=== PATIENT | female | born 1965 | race Caucasian/White ===

== ENCOUNTER → 2022-07-15 14:56 | Outpatient (BNVA) | payer OTHER, SELFPAY | PROVIDERS: PCP Internal Medicine; Visit Provider Student in an Organized Health Care Education/Training Program | DX: M05.79 Rheumatoid arthritis with rheumatoid factor of multiple sites without organ or systems involvement (principal) | CPT/HCPCS: 99202 ==

== ENCOUNTER 2022-07-25 13:52 | Outpatient (REF) | payer OTHER, SELFPAY ==
--- NOTE | ~2022-07-25 | XR_ITS ---
EXAMINATION: XR HAND AND WRIST, RIGHT XR HAND AND WRIST, LEFT CLINICAL INDICATIONS: Rheumatoid arthritis. COMPARISON: None available. TECHNIQUE: 3 views each hand and wrist. FINDINGS: LEFT HAND AND WRIST: There is mild loss of PIP and DIP joint space without periarticular spurring. No visible acute fracture, dislocation or loose body seen. The soft tissues are normal. RIGHT HAND AND WRIST: There is mild loss of PIP and DIP joint spaces with mild periarticular spurring DIP joint fifth digit. There are no bony erosive changes. No acute fracture or dislocation seen. The soft tissues are normal. XR/XR hand wrist RT IMPRESSION: Mild degenerative arthritic changes bilateral hands/wrists.
--- NOTE | ~2022-07-25 | XR_ITS ---
EXAMINATION: XR HAND AND WRIST, RIGHT XR HAND AND WRIST, LEFT CLINICAL INDICATIONS: Rheumatoid arthritis. COMPARISON: None available. TECHNIQUE: 3 views each hand and wrist. FINDINGS: LEFT HAND AND WRIST: There is mild loss of PIP and DIP joint space without periarticular spurring. No visible acute fracture, dislocation or loose body seen. The soft tissues are normal. RIGHT HAND AND WRIST: There is mild loss of PIP and DIP joint spaces with mild periarticular spurring DIP joint fifth digit. There are no bony erosive changes. No acute fracture or dislocation seen. The soft tissues are normal. XR/XR hand wrist LT IMPRESSION: Mild degenerative arthritic changes bilateral hands/wrists.
[2022-07-25 14:16] LABS: MANUAL DIFF FLAG NO
[2022-07-25 14:29] LABS: Basophils Absolute Auto 0.1 X10*3/uL (0.0-0.2); Basophils Percent Auto 0.7 % (0-2); Eosinophils Percent Auto 0.1 % (0-4); Hematocrit 38.8 % (37.0-47.0); Imm Gran Abs Auto 0.14 X10*3/uL (0.00-0.03); Imm Gran Pct Auto 0.9 % (0.0-0.4); Lymphocytes Absolute Auto 1.6 X10*3/uL (1.2-4.9); Lymphocytes Percent Auto 10.2 % (20-40); Mean Corpuscular HGB Conc 28.4 g/dl (31.0-35.0); Mean Corpuscular Hemoglobin 18.9 pg (27.0-33.0); Mean Corpuscular Volume 66.7 fL (80.0-98.0); Mean Platelet Volume 9.2 fL (9.4-12.3); Monocytes Absolute Auto 0.2 X10*3/uL (0.1-1.2); Monocytes Percent Auto 1.3 % (2-11); Neutrophils Absolute Auto 13.2 x10*3/uL (2.0-8.3); Neutrophils Percent Auto 86.8 % (45-73); Platelet Count 482 X10*3/uL (160-400); Red Blood Count 5.82 X10*6/uL (4.20-5.50); Red Cell Distribution Width 22.4 % (11.0-16.0); White Blood Count 15.2 X10*3/uL (4.8-10.8)
[2022-07-25 15:06] LABS: Alanine Aminotransferase 12 U/L (0-31); Albumin Level 4.2 g/dL (3.5-5.0); Alkaline Phosphatase 131 U/L (39-117); Anion Gap 17 (12-20); Aspartate Amino Transferase 10 U/L (5-31); Bilirubin Total 0.3 mg/dL (0.0-1.0); Blood Urea Nitrogen 10 mg/dL (9-16); Calcium 9.3 mg/dL (8.4-10.2); Carbon Dioxide 27 mmol/L (22-29); Chloride 100 mmol/L (96-108); Estimated Glomerular Filt Rate > 60; Glucose Random 191 mg/dL (60-115); Potassium 5.5 mmol/L (3.3-5.1); Rheumatoid Factor < 13.0 IU/mL (<15.0); Sodium 138 mmol/L (135-145); Total Protein 7.1 g/dL (6.5-8.0); Uric Acid 4.3 mg/dL (2.4-5.7)
[2022-07-25 15:09] LABS: Erythrocyte Sedimentation Rate 22 MM/HR (0-20)
[2022-07-28 08:28] LABS: HBS Num1 0.24 mIU/mL (0-7.99); HBc Num1 0.11 S/CO (0.00-0.79); HBsAGNum1 0.33 S/CO (0.00-0.99); Hepatitis A Antibody IgM 0.21 Index (0-0.79); Hepatitis B Core Antibody Nonreactive (Nonreactive); Hepatitis B Surface Antigen Negative (Negative); ~HepC Num1 0.12 S/CO (0.00-0.79); ~Hepatitis A Antibody IgM Nonreactive (Nonreactive); ~Hepatitis B Surface Antibody NONREACTIVE (Nonreactive); ~Hepatitis C Antibody Nonreactive (Nonreactive)
[2022-07-28 09:46] LABS: TSpotTB Invalid (Negative)
[2022-07-28 16:29] LABS: Cyclic Citrullinated Peptide <16 UNITS
[2022-07-29 13:02] LABS: IgA 247 mg/dL (47-310); IgG 1020 mg/dL (600-1640); IgM 104 mg/dL (50-300)
[2022-07-30 00:24] LABS: Prot Elec - Albumin 3.9 g/dL (3.8-4.8); Prot Elec - Alpha1 0.4 g/dL (0.2-0.3); Prot Elec - Alpha2 1.2 g/dL (0.5-0.9); Prot Elec - Beta 1 0.6 g/dL (0.4-0.6); Prot Elec - Beta 2 0.4 g/dL (0.2-0.5); Prot Elec - Total Protein 7.4 g/dL (6.1-8.1)
== END 2022-07-25 13:53 | disposition home or self-care (01) ==
LOC: HO.LAB 13:52
PROVIDERS: PCP Internal Medicine; Visit Provider Student in an Organized Health Care Education/Training Program
DX: M06.9 Rheumatoid arthritis, unspecified (principal); M25.531 Pain in right wrist; Z11.59 Encounter for screening for other viral diseases; Z11.7 Encounter for testing for latent tuberculosis infection
CPT/HCPCS: 36415; 73110; 73130; 80053; 82784; 84165; 84550; 85025; 85652; 86140; 86200; 86334; 86431; 86481; 86704; 86706; 86709; 86803; 87340

== ENCOUNTER 2022-08-04 10:44 | Outpatient (REF) | payer OTHER, SELFPAY ==
[2022-08-04 12:13] LABS: Alanine Aminotransferase 15 U/L (0-31); Albumin Level 4.1 g/dL (3.5-5.0); Alkaline Phosphatase 131 U/L (39-117); Anion Gap 14 (12-20); Aspartate Amino Transferase 12 U/L (5-31); Bilirubin Total 0.4 mg/dL (0.0-1.0); Blood Urea Nitrogen 11 mg/dL (9-16); Calcium 9.2 mg/dL (8.4-10.2); Carbon Dioxide 29 mmol/L (22-29); Chloride 101 mmol/L (96-108); Estimated Glomerular Filt Rate > 60; Glucose Random 241 mg/dL (60-115); Potassium 4.8 mmol/L (3.3-5.1); Sodium 139 mmol/L (135-145); Total Protein 6.8 g/dL (6.5-8.0)
[2022-08-06 13:42] LABS: TS Negative Control Passed; TS Panel A 0; TS Panel B 0; TS Positive Control Passed; TSpotTB Negative (Negative)
== END 2022-08-04 10:45 | disposition home or self-care (01) ==
LOC: HO.LAB 10:44
PROVIDERS: PCP Internal Medicine; Visit Provider Student in an Organized Health Care Education/Training Program
DX: Z11.7 Encounter for testing for latent tuberculosis infection (principal); M05.79 Rheumatoid arthritis with rheumatoid factor of multiple sites without organ or systems involvement
CPT/HCPCS: 36415; 80053; 86481

== ENCOUNTER → 2022-08-26 13:19 | Outpatient (BNVA) | payer OTHER, SELFPAY | PROVIDERS: PCP Internal Medicine; Visit Provider Student in an Organized Health Care Education/Training Program | DX: M05.79 Rheumatoid arthritis with rheumatoid factor of multiple sites without organ or systems involvement (principal); Z79.631 Long term (current) use of antimetabolite agent | CPT/HCPCS: 99212 ==

== ENCOUNTER 2022-11-14 11:04 | Outpatient (REF) | payer OTHER, SELFPAY ==
[2022-11-14 11:16] LABS: MANUAL DIFF FLAG NO
[2022-11-14 14:24] LABS: Basophils Absolute Auto 0.1 X10*3/uL (0.0-0.2); Basophils Percent Auto 0.7 % (0-2); Eosinophils Absolute Auto 0.3 X10*3/uL (0.0-0.4); Eosinophils Percent Auto 2.3 % (0-4); Hematocrit 36.6 % (37.0-47.0); Hemoglobin 10.5 g/dl (12.0-16.0); Imm Gran Abs Auto 0.05 X10*3/uL (0.00-0.03); Imm Gran Pct Auto 0.4 % (0.0-0.4); Lymphocytes Absolute Auto 2.4 X10*3/uL (1.2-4.9); Lymphocytes Percent Auto 21.8 % (20-40); Mean Corpuscular HGB Conc 28.7 g/dl (31.0-35.0); Mean Corpuscular Hemoglobin 21.5 pg (27.0-33.0); Mean Corpuscular Volume 74.8 fL (80.0-98.0); Mean Platelet Volume 9.6 fL (9.4-12.3); Monocytes Absolute Auto 0.4 X10*3/uL (0.1-1.2); Monocytes Percent Auto 3.6 % (2-11); Neutrophils Percent Auto 71.2 % (45-73); Platelet Count 415 X10*3/uL (160-400); Red Blood Count 4.89 X10*6/uL (4.20-5.50); Red Cell Distribution Width 25.2 % (11.0-16.0); White Blood Count 11.2 X10*3/uL (4.8-10.8)
[2022-11-14 15:08] LABS: Erythrocyte Sedimentation Rate 34 MM/HR (0-20)
[2022-11-14 15:42] LABS: Alanine Aminotransferase 34 U/L (0-31); Albumin Level 4.3 g/dL (3.5-5.0); Alkaline Phosphatase 169 U/L (39-117); Anion Gap 14 (12-20); Aspartate Amino Transferase 21 U/L (5-31); Bilirubin Total 0.3 mg/dL (0.0-1.0); Blood Urea Nitrogen 9 mg/dL (9-16); C Reactive Protein 1.24 mg/dL (< or = 0.50); Calcium 9.7 mg/dL (8.4-10.2); Carbon Dioxide 30 mmol/L (22-29); Chloride 99 mmol/L (96-108); Estimated Glomerular Filt Rate > 60; Glucose Random 216 mg/dL (60-115); Iron 51 mcg/dL (30-160); Percent Iron Saturation 13 % (15-50); Potassium 4.8 mmol/L (3.3-5.1); Sodium 138 mmol/L (135-145); Total Iron Binding Capacity 395 mcg/dL (228-428); Total Protein 7.6 g/dL (6.5-8.0); Unsaturated Iron Binding 344 ug/dL
[2022-11-14 15:43] LABS: Ferritin 48 ng/mL (10-250)
[2022-11-19 14:44] LABS: Transferrin 361 mg/dL (188-341)
== END 2022-11-14 11:05 | disposition home or self-care (01) ==
LOC: HO.LAB 11:04
PROVIDERS: Visit Provider Student in an Organized Health Care Education/Training Program
DX: D50.9 Iron deficiency anemia, unspecified (principal); Z79.631 Long term (current) use of antimetabolite agent
CPT/HCPCS: 36415; 80053; 82728; 83540; 84466; 85025; 85652; 86140

== ENCOUNTER 2022-11-20 10:21 | Outpatient (REF) | payer OTHER, SELFPAY ==
--- NOTE | ~2022-11-20 | XR_ITS ---
EXAMINATION: XR CHEST CLINICAL INFORMATION: Reason for Exam J44.9 - Chronic obstructive pulmonary disease, unspecified COMPARISON: None TECHNIQUE: 2 views of the chest FINDINGS: Lines and tubes: None. Clear lungs. Mild asymmetric elevation of the right hemidiaphragm. No pleural effusion. No pneumothorax. Normal cardiac silhouette. There is fullness of the right greater than left edgardo with some subtle convexity of the hilar borders which could potentially reflect underlying lymphadenopathy. XR/XR chest 2V IMPRESSION: 1. There is fullness of the right greater than left edgardo with some subtle convexity of the hilar borders which could potentially reflect underlying lymphadenopathy. Recommend CT chest with contrast for further characterization. 2. Clear lungs. The report will be called to the ordering clinician by a [facility] [employer] Professional.
== END 2022-11-20 10:22 | disposition home or self-care (01) ==
LOC: HO.XRAY 10:21
PROVIDERS: PCP Internal Medicine; Visit Provider Student in an Organized Health Care Education/Training Program
DX: J44.9 Chronic obstructive pulmonary disease, unspecified (principal)
CPT/HCPCS: 71046

== ENCOUNTER 2022-12-02 11:44 | Outpatient (AMB) | payer OTHER, SELFPAY ==
[2022-12-02 11:58] VITALS: BP 118/72; PULSE 99; TEMP 36.5; O2SAT 99; BMI 34.6
--- NOTE | 2022-12-02 11:58 | A.OFFVIS_ITS ---
Intake Vital Signs 12/02/22 11:58 Height 5 ft 3 in Weight 195 lb 1.745 oz BMI 34.6 BP 118/72 Blood Pressure Location Rt brachial Position Sitting Pulse 99 Pulse Source Pulse Oximeter Temp 97.7 F Temp Source Skin Pulse Oximetry (%) 99 Intake Visit Reasons: ra Intake Note: Pt seen today for RA follow up. 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 Accompanied by: Self / Same As Patient Allergies simvastatin Allergy (Verified 12/02/22 12:06) Joint Pain ibuuprofen micronized Allergy (Severe, Uncoded 12/02/22 12:06) Swelling Medication List - Last Reconciled 12/02/22 by Evert Garnica MD albuterol sulfate 90 mcg/actuation (Ventolin HFA) 2 puffs inhalation Q4-6H PRN aspirin (Adult Low Dose Aspirin) 81 mg PO DAILY atorvastatin 20 mg PO DAILY cholecalciferol (vitamin D3) 50 mcg PO DAILY clonidine HCl 0.1 mg PO BEDTIME PRN duloxetine 30 mg PO QAM ferrous sulfate 325 mg PO DAILY fluticasone propion-salmeterol 230-21 mcg/actuation (Advair HFA) 2 puffs inhalation BID glipizide ER 5 mg PO DAILY lamotrigine 200 mg PO QAM lamotrigine 100 mg PO DAILY leflunomide 10 mg PO DAILY levetiracetam (Keppra) 500 mg PO BID magnesium oxide 400 mg PO DAILY metformin ER 1,000 mg PO BID mirtazapine 7.5 mg PO BEDTIME omega-3 fatty acids 1,000 mg PO BID pantoprazole 40 mg PO DAILY ropinirole 0.5 mg PO TID tiotropium bromide 2.5 mcg/actuation (Spiriva Respimat) 1 puff inhalation BID HPI HPI Comments History of Present Illness Details 56-year-old female with seronegative RA returns for follow-up. She states that methotrexate started helping her a month or so after starting it. It reduced the severity of the flare ups of joint pain. We called patient 2 weeks ago asking her to hold methotrexate due to transaminitis. She states that since holding methotrexate she has been having worsening flare-ups. She mentioned that she recently was started on home oxygen for COPD. She states that her 6 minute walk test was worse. She uses 2 L of oxygen while walking. She had a screening low-dose CT chest done about a week ago at [facility]. She does not know what it showed Initial history: This is a 56-year-old female who presents for evaluation of diffuse joint pain this started about 5 months ago. Patient stated that she noticed relatively abrupt onset of multiple joint pains affecting her ankles, knees, wrists, elbows and right shoulder. This was associated with right hand swelling. She has morning stiffness lasting at least 30 minutes. States that does episodes of joint pain last 3-7 days and she would be pain free for a few days and the joint pain will come back. The joint pain alternates between different joints. Denies any skin rashes. No weight loss or fevers. Patient took Tylenol without relief. She does not take ibuprofen as she is allergic to it. After she developed that allergy to ibuprofen however she used to take Aleve in the past. She has not taken NSAIDs for her joint pain. Patient is a smoker and continues to smoke. She is moving to a nonsmoking building. Patient's mother had rheumatoid arthritis. Patient had colonoscopies in the past and per patient they were unremarkable. No history suggestive of uveitis or IBD. 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 Pancreatic adenoma Pap smear of cervix with ASCUS, cannot exclude HGSIL Suicidal behavior Surgical History H/O colonoscopy History of appendectomy History of cholecystectomy History of pancreatectomy S/P removal of left ovary Family History Father High blood cholesterol level CHF (congestive heart failure) Arthritis Mother High blood cholesterol level Rheumatoid arthritis Maternal Grandmother Diabetes Social History Alcohol intake: never Patient Tobacco Use Status: Current everyday Tobacco user Tobacco use type: Cigarette Cigarette Packs Per Day: 1 Years Smoked: 46 Review of Systems [facility] Reports arthralgias, Reports joint swelling and Reports stiffness Physical Exam Vital Signs: Last Vital Signs Temp 97.7 F 12/02/22 11:58 Pulse 99 12/02/22 11:58 BP 118/72 12/02/22 11:58 Pulse Ox 99 12/02/22 11:58 BMI result Body Mass Index 34.6 Const General: cooperative, healthy appearing and comfortable Nutritional Appearance: obese Orientation/consciousness: patient oriented x3 Limitations: no limitations HEENT Head: Yes normocephalic and Yes atraumatic Mouth: moist mucous membranes Resp Effort & Inspection: normal respiratory effort and able to speak in complete sentences GI Inspection: No distended Palpation (GI): Soft to palpation and nontender Neuro General: patient oriented x3 Extrem Other: No wrist swelling or tenderness or pain with full range of motion Diffusely tender PIPs bilaterally without significant swelling Pain with any knee range of motion bilaterally Assessment & Plan Assessment & Plan (1) Rheumatoid arthritis: Comment: seropositive (borderline RF then -ve on repeat, -ve CCP) dx 09/16 MTX started 09/16 effective DC 11/16 due to transaminitis Leflunomide started 12/17 Code(s): M06.9 - Rheumatoid arthritis, unspecified Qualifiers: Rheumatoid arthritis location: multiple sites Rheumatoid factor presence: with rheumatoid factor Qualified Code(s): M05.79 - Rheumatoid arthritis with rheumatoid factor of multiple sites without organ or systems involvement Plan: This is a 57-year-old female with seronegative RA who presents for follow-up. Started methotrexate last visit with good results however patient developed transaminitis. Discontinue methotrexate and switch to leflunomide. Start leflunomide 10 mg daily for 2 weeks then increase to 20 mg daily. Labs today and before next visit in 2 months Infectious screening hepatitis panel T spot - ve 2022 (2) Abnormal finding on lung imaging: Code(s): R91.8 - Other nonspecific abnormal finding of lung field Plan: Chest x-ray shows bilateral hilar fullness. Patient mentioned that she had a low-dose CT chest a week ago. Will attempt to retrieve the report Plan I spent 25 minutes reviewing patient's chart, evaluating patient, ordering diagnostic workup, counseling patient and documenting in the chart Orders: Orders Comprehensive Met. Panel 2 Months M06.9 - Rheumatoid arthritis, unspecified C Reactive Protein 2 Months M06.9 - Rheumatoid arthritis, unspecified Complete Blood Count Auto Diff 2 Months M06.9 - Rheumatoid arthritis, unspecified Erythrocyte Sedimentation Rate 2 Months M06.9 - Rheumatoid arthritis, unspecified Comprehensive Met. Panel Today Z79.631 - detention (current) use of antimetabolite agent C Reactive Protein Today Z79.631 - trolley car overhauler (current) use of antimetabolite agent Complete Blood Count Auto Diff Today Z79.631 - detention (current) use of antimetabolite agent Erythrocyte Sedimentation Rate Today Z79.631 - trolley car overhauler (current) use of antimetabolite agent Medications: New leflunomide Take 1 tab daily for 2 weeks then 2 tabs daily 10 mg PO DAILY 120 tabs 0RF Discontinued methotrexate sodium Discontinued Reason: Doctor's Order 20 mg (8 x 2.5 mg) PO QWEEK 96 tabs 0RF Coding Level of Care Code Est Pt Level 4 (34040) Diagnoses Rheumatoid arthritis M05.79 Rheumatoid arthritis location: multiple sites Rheumatoid factor presence: with rheumatoid factor Abnormal finding on lung imaging R91.8
== END 2022-12-02 12:31 | disposition home or self-care (01) ==
PROVIDERS: PCP Internal Medicine; Visit Provider Student in an Organized Health Care Education/Training Program
DX: M05.79 Rheumatoid arthritis with rheumatoid factor of multiple sites without organ or systems involvement (principal); R91.8 Other nonspecific abnormal finding of lung field
CPT/HCPCS: 99214

== ENCOUNTER 2022-12-02 11:44 | Outpatient (REF) | payer OTHER, SELFPAY ==
[2022-12-02 12:49] LABS: MANUAL DIFF FLAG NO
[2022-12-02 14:09] LABS: Basophils Absolute Auto 0.1 X10*3/uL (0.0-0.2); Basophils Percent Auto 0.7 % (0-2); Eosinophils Absolute Auto 0.3 X10*3/uL (0.0-0.4); Eosinophils Percent Auto 2.3 % (0-4); Hematocrit 36.7 % (37.0-47.0); Hemoglobin 10.7 g/dl (12.0-16.0); Imm Gran Abs Auto 0.09 X10*3/uL (0.00-0.03); Imm Gran Pct Auto 0.8 % (0.0-0.4); Lymphocytes Absolute Auto 2.8 X10*3/uL (1.2-4.9); Lymphocytes Percent Auto 24.4 % (20-40); Mean Corpuscular HGB Conc 29.2 g/dl (31.0-35.0); Mean Corpuscular Hemoglobin 22.1 pg (27.0-33.0); Mean Corpuscular Volume 75.7 fL (80.0-98.0); Mean Platelet Volume 9.7 fL (9.4-12.3); Monocytes Absolute Auto 0.6 X10*3/uL (0.1-1.2); Monocytes Percent Auto 5.2 % (2-11); Neutrophils Absolute Auto 7.7 x10*3/uL (2.0-8.3); Neutrophils Percent Auto 66.6 % (45-73); Platelet Count 431 X10*3/uL (160-400); Red Blood Count 4.85 X10*6/uL (4.20-5.50); Red Cell Distribution Width 24.6 % (11.0-16.0); White Blood Count 11.5 X10*3/uL (4.8-10.8)
[2022-12-02 14:48] LABS: Erythrocyte Sedimentation Rate 36 MM/HR (0-20)
[2022-12-02 15:55] LABS: Alanine Aminotransferase 22 U/L (0-31); Albumin Level 4.4 g/dL (3.5-5.0); Alkaline Phosphatase 147 U/L (39-117); Anion Gap 14 (12-20); Aspartate Amino Transferase 14 U/L (5-31); Bilirubin Total 0.2 mg/dL (0.0-1.0); Blood Urea Nitrogen 10 mg/dL (9-16); C Reactive Protein 1.73 mg/dL (< or = 0.50); Calcium 9.5 mg/dL (8.4-10.2); Carbon Dioxide 28 mmol/L (22-29); Chloride 103 mmol/L (96-108); Estimated Glomerular Filt Rate > 60; Glucose Random 143 mg/dL (60-115); Potassium 4.2 mmol/L (3.3-5.1); Sodium 141 mmol/L (135-145); Total Protein 7.7 g/dL (6.5-8.0)
== END 2022-12-02 11:45 | disposition home or self-care (01) ==
LOC: HO.LAB 11:44
PROVIDERS: PCP Internal Medicine; Visit Provider Student in an Organized Health Care Education/Training Program
DX: M05.79 Rheumatoid arthritis with rheumatoid factor of multiple sites without organ or systems involvement (principal); R91.8 Other nonspecific abnormal finding of lung field; Z79.631 Long term (current) use of antimetabolite agent
CPT/HCPCS: 36415; 80053; 85025; 85652; 86140; 99212

== ENCOUNTER 2023-02-10 13:31 | Outpatient (REF) | payer OTHER, SELFPAY ==
[2023-02-10 13:45] LABS: MANUAL DIFF FLAG NO
[2023-02-10 14:15] LABS: Basophils Absolute Auto 0.1 X10*3/uL (0.0-0.2); Basophils Percent Auto 0.8 % (0-2); Eosinophils Absolute Auto 0.1 X10*3/uL (0.0-0.4); Eosinophils Percent Auto 0.6 % (0-4); Hematocrit 45.5 % (37.0-47.0); Hemoglobin 13.9 g/dl (12.0-16.0); Imm Gran Abs Auto 0.04 X10*3/uL (0.00-0.03); Imm Gran Pct Auto 0.4 % (0.0-0.4); Lymphocytes Absolute Auto 1.4 X10*3/uL (1.2-4.9); Lymphocytes Percent Auto 12.5 % (20-40); Mean Corpuscular HGB Conc 30.5 g/dl (31.0-35.0); Mean Corpuscular Hemoglobin 23.3 pg (27.0-33.0); Mean Corpuscular Volume 76.2 fL (80.0-98.0); Monocytes Absolute Auto 0.4 X10*3/uL (0.1-1.2); Monocytes Percent Auto 3.7 % (2-11); Neutrophils Absolute Auto 8.9 x10*3/uL (2.0-8.3); Platelet Count 363 X10*3/uL (160-400); Red Blood Count 5.97 X10*6/uL (4.20-5.50); Red Cell Distribution Width 19.3 % (11.0-16.0); White Blood Count 10.8 X10*3/uL (4.8-10.8)
[2023-02-10 14:54] LABS: Alanine Aminotransferase 46 U/L (0-31); Albumin Level 4.6 g/dL (3.5-5.0); Alkaline Phosphatase 215 U/L (39-117); Anion Gap 19 (12-20); Aspartate Amino Transferase 30 U/L (5-31); Bilirubin Total 0.3 mg/dL (0.0-1.0); Blood Urea Nitrogen 11 mg/dL (9-16); C Reactive Protein 2.06 mg/dL (< or = 0.50); Calcium 10.2 mg/dL (8.4-10.2); Carbon Dioxide 23 mmol/L (22-29); Chloride 99 mmol/L (96-108); Estimated Glomerular Filt Rate > 60; Glucose Random 295 mg/dL (60-115); Sodium 136 mmol/L (135-145); Total Protein 8.3 g/dL (6.5-8.0)
[2023-02-10 15:02] LABS: Erythrocyte Sedimentation Rate 21 MM/HR (0-20)
== END 2023-02-10 13:32 | disposition home or self-care (01) ==
LOC: HO.LAB 13:31
PROVIDERS: PCP Internal Medicine; Visit Provider Student in an Organized Health Care Education/Training Program
DX: M06.9 Rheumatoid arthritis, unspecified (principal)
CPT/HCPCS: 36415; 80053; 85025; 85652; 86140

== ENCOUNTER 2023-02-18 00:16 | Emergency (ER) | payer OTHER, SELFPAY ==
[2023-02-18 00:33] VITALS: BP 150/85; PULSE 98; RESP 20; TEMP 36.6; O2SAT 93; BMI 34.5
[2023-02-18 01:01] LABS: MANUAL DIFF FLAG NO
[2023-02-18 01:03] LABS: Basophils Absolute Auto 0.1 X10*3/uL (0.0-0.2); Basophils Percent Auto 0.9 % (0-2); Eosinophils Absolute Auto 0.2 X10*3/uL (0.0-0.4); Hematocrit 42.5 % (37.0-47.0); Hemoglobin 12.8 g/dl (12.0-16.0); Imm Gran Abs Auto 0.03 X10*3/uL (0.00-0.03); Imm Gran Pct Auto 0.3 % (0.0-0.4); Lymphocytes Absolute Auto 2.7 X10*3/uL (1.2-4.9); Lymphocytes Percent Auto 26.2 % (20-40); Mean Corpuscular HGB Conc 30.1 g/dl (31.0-35.0); Mean Corpuscular Hemoglobin 22.6 pg (27.0-33.0); Mean Platelet Volume 9.5 fL (9.4-12.3); Monocytes Absolute Auto 0.7 X10*3/uL (0.1-1.2); Monocytes Percent Auto 6.7 % (2-11); Neutrophils Absolute Auto 6.6 x10*3/uL (2.0-8.3); Neutrophils Percent Auto 63.9 % (45-73); Platelet Count 331 X10*3/uL (160-400); Red Blood Count 5.67 X10*6/uL (4.20-5.50); Red Cell Distribution Width 17.9 % (11.0-16.0); White Blood Count 10.3 X10*3/uL (4.8-10.8)
[2023-02-18 01:17] LABS: Anion Gap 16 (12-20); Blood Urea Nitrogen 9 mg/dL (9-16); Calcium 9.7 mg/dL (8.4-10.2); Carbon Dioxide 23 mmol/L (22-29); Chloride 105 mmol/L (96-108); Creatinine Clr Calc Pharmacy 88.7; Estimated Glomerular Filt Rate > 60; Glucose Random 165 mg/dL (60-115); Potassium 3.9 mmol/L (3.3-5.1); Sodium 140 mmol/L (135-145)
== END 2023-02-18 04:18 | disposition left against medical advice (07) ==
PROVIDERS: Emergency Provider Emergency Medicine
DX: L81.9 Disorder of pigmentation, unspecified (principal); E11.65 Type 2 diabetes mellitus with hyperglycemia; E78.5 Hyperlipidemia, unspecified; D13.6 Benign neoplasm of pancreas; M06.9 Rheumatoid arthritis, unspecified; J44.9 Chronic obstructive pulmonary disease, unspecified; Z86.73 Personal history of transient ischemic attack (TIA), and cerebral infarction without residual deficits; Z79.52 Long term (current) use of systemic steroids
CPT/HCPCS: 36415; 80048; 85025; 99281; 99283

== ENCOUNTER 2023-03-04 14:13 | Outpatient (AMB) | payer OTHER, SELFPAY ==
--- NOTE | 2023-03-04 14:17 | A.OFFVIS_ITS ---
Intake Vital Signs 03/04/23 14:18 Height 5 ft 3 in Weight 193 lb 12.581 oz BMI 34.3 BP 118/72 Blood Pressure Location Rt brachial Position Sitting Pulse 102 H Pulse Source Pulse Oximeter Temp 97.1 F Temp Source Skin Pulse Oximetry (%) 96 Intake Visit Reasons: RA Intake Note: Pt last seen 12/02/22, presents today for follow up and test results. Failed MTX and leflunomide. On enbrel now. 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 Accompanied by: Self / Same As Patient Allergies ibuuprofen micronized Allergy (Severe, Uncoded 03/04/23 14:25) Swelling Medication List - Last Reconciled 03/04/23 by Evert Garnica MD albuterol sulfate 90 mcg/actuation (Ventolin HFA) 2 puffs inhalation Q4-6H PRN aspirin (Adult Low Dose Aspirin) 81 mg PO DAILY atorvastatin 20 mg PO DAILY cholecalciferol (vitamin D3) 50 mcg PO DAILY clonidine HCl 0.1 mg PO BEDTIME PRN duloxetine 30 mg PO QAM Enbrel SureClick (etanercept) 50 mg subcut QWEEK NS ferrous sulfate 325 mg PO DAILY fluticasone propion-salmeterol 230-21 mcg/actuation (Advair HFA) 2 puffs inhalation BID glipizide ER 5 mg PO DAILY lamotrigine 200 mg PO QAM lamotrigine 100 mg PO DAILY levetiracetam (Keppra) 500 mg PO BID magnesium oxide 400 mg PO DAILY metformin ER 1,000 mg PO BID mirtazapine 7.5 mg PO BEDTIME omega-3 fatty acids 1,000 mg PO BID pantoprazole 40 mg PO DAILY ropinirole 0.5 mg PO TID tiotropium bromide 2.5 mcg/actuation (Spiriva Respimat) 1 puff inhalation BID HPI HPI Comments History of Present Illness Details 56-year-old female with seronegative RA returns for follow-up. Last visit patient was started on leflunomide. Labs showed transaminitis and I asked patient to discontinue leflunomide. A few weeks ago patient called the office and was complaining of left 1st and 2nd toes getting blue in color. I ask patient to go to the emergency room. Patient stated that she went to the emergency room and 2 different ultrasound tests were done on her leg and according to patient they were negative. She did not receive any treatment and was discharged home. She states that this entire episode self-resolved in about 5 days. She stated that her toes were not painful. Denies ever having any similar episodes affecting any other extremity. She started Enbrel 3 weeks ago. She was taking prednisone 5 mg every other day 5 days ago. She stated that her blood sugar was significantly elevated more than 400. States that her blood sugar in the morning today was 199. She states that her joints are doing well overall. She is having right knee pain and stiffness. States that her left thumb triggers multiple times every day. Initial history: This is a 56-year-old female who presents for evaluation of diffuse joint pain this started about 5 months ago. Patient stated that she noticed relatively abrupt onset of multiple joint pains affecting her ankles, knees, wrists, elbows and right shoulder. This was associated with right hand swelling. She has morning stiffness lasting at least 30 minutes. States that does episodes of joint pain last 3-7 days and she would be pain free for a few days and the joint pain will come back. The joint pain alternates between different joints. Denies any skin rashes. No weight loss or fevers. Patient took Tylenol without relief. She does not take ibuprofen as she is allergic to it. After she developed that allergy to ibuprofen however she used to take Aleve in the past. She has not taken NSAIDs for her joint pain. Patient is a smoker and continues to smoke. She is moving to a nonsmoking building. Patient's mother had rheumatoid arthritis. Patient had colonoscopies in the past and per patient they were unremarkable. No history suggestive of uveitis or IBD. 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 History of colonic polyps Pap smear of cervix with ASCUS, cannot exclude HGSIL Surgical History S/P removal of left ovary History of pancreatectomy H/O colonoscopy History of cholecystectomy History of appendectomy Family History Father High blood cholesterol level CHF (congestive heart failure) Arthritis Mother High blood cholesterol level Rheumatoid arthritis Maternal Grandmother Diabetes Social History Alcohol intake: never Patient Tobacco Use Status: Current everyday Tobacco user Tobacco use type: Cigarette Cigarette Packs Per Day: 1 Years Smoked: 46 Review of Systems [facility] Reports arthralgias, Reports joint swelling and Reports stiffness Physical Exam Vital Signs: Last Vital Signs Temp 97.1 F 03/04/23 14:18 Pulse 102 H 03/04/23 14:18 BP 118/72 03/04/23 14:18 Pulse Ox 96 03/04/23 14:18 BMI result Body Mass Index 34.3 Const General: cooperative, healthy appearing and comfortable Nutritional Appearance: obese Orientation/consciousness: patient oriented x3 Limitations: no limitations HEENT Head: Yes normocephalic and Yes atraumatic Mouth: moist mucous membranes Resp Effort & Inspection: normal respiratory effort and able to speak in complete sentences GI Inspection: No distended Palpation (GI): Soft to palpation and nontender Neuro General: patient oriented x3 Extrem Other: No wrist swelling or tenderness or pain with full range of motion No swelling or tenderness in PIP is, MCPs bilaterally Left thumb triggering Normal range of motion of both elbows and shoulders with without pain Right knee warmth and pain with flexion Bilateral ankles without swelling, warmth or tenderness Negative MTP squeeze test Normal nailfold capillaroscopy of fingers and toes Assessment & Plan Assessment & Plan (1) Rheumatoid arthritis: Comment: seropositive (borderline RF then -ve on repeat, -ve CCP) dx 09/16 MTX started 09/16 effective DC 11/16 due to transaminitis Leflunomide started 12/17 DC due to transaminitis Enbrel 02/16 effective Code(s): M06.9 - Rheumatoid arthritis, unspecified Qualifiers: Rheumatoid arthritis location: multiple sites Rheumatoid factor presence: with rheumatoid factor Qualified Code(s): M05.79 - Rheumatoid arthritis with rheumatoid factor of multiple sites without organ or systems involvement Plan: This is a 57-year-old female with seronegative RA who presents for follow-up. Doing better on Enbrel 50 mg weekly Continue Enbrel. Infectious screening hepatitis panel T spot - ve 2022 (2) Abnormal finding on lung imaging: Code(s): R91.8 - Other nonspecific abnormal finding of lung field Plan: Chest x-ray shows bilateral hilar fullness. Low-dose CT chest 11/2022 showed unchanged sub 4 mm pulmonary nodules scattered in the lungs.? No lymphadenopathy (3) Trigger finger of left thumb: Code(s): M65.312 - Trigger thumb, left thumb Plan: Try using [id number] Voltaren gel. Patient's blood sugar in the morning today was 199. Would not inject with steroids due to risk of worsening hyperglycemia. Advised patient to watch her blood sugar and call the office when her blood neff gar is better controlled and we can schedule her for an injection (4) Immunization counseling: Code(s): Z71.85 - Encounter for immunization safety counseling Plan: Discussed ACR vaccination guidelines for a loss with autoimmune rheumatic disease on immune suppression. Patient stated that she received her Pneumovax, flu vaccine. Advised patient that COVID booster would be suggested. Patient will think about it, advised patient that she does not need to hold Enbrel to get the COVID booster vaccine. Plan I spent 25 minutes reviewing patient's chart, evaluating patient, ordering diagnostic workup, counseling patient and documenting in the chart Orders: Orders Complete Blood Count Auto Diff 3 Months M06.9 - Rheumatoid arthritis, unspecified, M65.312 - Trigger thumb, left thumb C Reactive Protein 3 Months M06.9 - Rheumatoid arthritis, unspecified, M65.312 - Trigger thumb, left thumb Comprehensive Met. Panel 3 Months M06.9 - Rheumatoid arthritis, unspecified, M65.312 - Trigger thumb, left thumb Erythrocyte Sedimentation Rate 3 Months M06.9 - Rheumatoid arthritis, unspecified, M65.312 - Trigger thumb, left thumb Coding Level of Care Code Est Pt Level 4 (14822) Diagnoses Rheumatoid arthritis involving multiple sites with positive rheumatoid factor M05.79 Rheumatoid arthritis location: multiple sites Rheumatoid factor presence: with rheumatoid factor Abnormal finding on lung imaging R91.8 Trigger finger of left thumb M65.312 Immunization counseling Z71.85
[2023-03-04 14:18] VITALS: BP 118/72; PULSE 102; TEMP 36.2; O2SAT 96; BMI 34.3
== END 2023-03-04 14:44 | disposition home or self-care (01) ==
PROVIDERS: Visit Provider Student in an Organized Health Care Education/Training Program
DX: M05.79 Rheumatoid arthritis with rheumatoid factor of multiple sites without organ or systems involvement (principal); R91.8 Other nonspecific abnormal finding of lung field; M65.312 Trigger thumb, left thumb; Z71.85 Encounter for immunization safety counseling
CPT/HCPCS: 99214

== ENCOUNTER → 2023-03-04 14:13 | Outpatient (BNVA) | payer OTHER, SELFPAY | PROVIDERS: Visit Provider Student in an Organized Health Care Education/Training Program | DX: M05.79 Rheumatoid arthritis with rheumatoid factor of multiple sites without organ or systems involvement (principal); M65.312 Trigger thumb, left thumb; R91.8 Other nonspecific abnormal finding of lung field; Z71.85 Encounter for immunization safety counseling | CPT/HCPCS: 99212 ==

== ENCOUNTER 2023-06-17 12:28 | Outpatient (AMB) | payer OTHER, SELFPAY ==
--- NOTE | 2023-06-17 12:29 | MHC.OFFVIS ---
Intake Vital Signs 06/17/23 12:30 Height 5 ft 3 in Weight 198 lb 6.656 oz BMI 35.1 BP 132/64 Blood Pressure Location Rt brachial Position Sitting Pulse 111 H Pulse Source Pulse Oximeter Temp 96.6 F L Temp Source Skin Pulse Oximetry (%) 95 Oxygen Delivery Method Room Air Intake Visit Reasons: RA Intake Note: Patient last seen 03/04/23 presents today for follow up and test results. Exterior Work Helper Required: No Accompanied by: Self / Same As Patient Allergies ibuuprofen micronized Allergy (Severe, Uncoded 06/17/23 12:29) Swelling Medication List - Last Reconciled 06/17/23 by Evert Garnica MD albuterol sulfate 90 mcg/actuation (Ventolin HFA) 2 puffs inhalation Q4-6H PRN aspirin (Adult Low Dose Aspirin) 81 mg PO DAILY atorvastatin 20 mg PO DAILY cholecalciferol (vitamin D3) 50 mcg PO DAILY duloxetine 30 mg PO QAM Enbrel SureClick (etanercept) 50 mg subcut QWEEK NS ferrous sulfate 325 mg PO DAILY fluticasone propion-salmeterol 230-21 mcg/actuation (Advair HFA) 2 puffs inhalation BID glipizide ER 5 mg PO DAILY lamotrigine 200 mg PO QAM lamotrigine 100 mg PO DAILY levetiracetam (Keppra) 500 mg PO BID metformin ER 1,000 mg PO BID omega-3 fatty acids 1,000 mg PO BID pantoprazole 40 mg PO DAILY tiotropium bromide 2.5 mcg/actuation (Spiriva Respimat) 1 puff inhalation BID HPI HPI Comments History of Present Illness Details 57-year-old female with seronegative RA returns for follow-up. She is on Enbrel 50 mg weekly. Well-tolerated. She states that she is doing much better overall in terms of her joint pain and swelling. Only gets intermittent knee pain. She has not had any infections for a few years. Initial history: This is a 56-year-old female who presents for evaluation of diffuse joint pain this started about 5 months ago. Patient stated that she noticed relatively abrupt onset of multiple joint pains affecting her ankles, knees, wrists, elbows and right shoulder. This was associated with right hand swelling. She has morning stiffness lasting at least 30 minutes. States that does episodes of joint pain last 3-7 days and she would be pain free for a few days and the joint pain will come back. The joint pain alternates between different joints. Denies any skin rashes. No weight loss or fevers. Patient took Tylenol without relief. She does not take ibuprofen as she is allergic to it. After she developed that allergy to ibuprofen however she used to take Aleve in the past. She has not taken NSAIDs for her joint pain. Patient is a smoker and continues to smoke. She is moving to a nonsmoking building. Patient's mother had rheumatoid arthritis. Patient had colonoscopies in the past and per patient they were unremarkable. No history suggestive of uveitis or IBD. [facility] Medical History (Updated 06/17/23 @ 12:59 by Evert Garnica MD) COPD (chronic obstructive pulmonary disease) Abdominal pain History of CVA (cerebrovascular accident) Pancreatic adenoma Suicidal behavior Infection due to cryptosporidium History of colonic polyps Pap smear of cervix with ASCUS, cannot exclude HGSIL Surgical History S/P removal of left ovary History of pancreatectomy H/O colonoscopy History of cholecystectomy History of appendectomy Family History Father High blood cholesterol level CHF (congestive heart failure) Arthritis Mother High blood cholesterol level Rheumatoid arthritis Maternal Grandmother Diabetes Social History Alcohol intake: never Patient Tobacco Use Status: Current everyday Tobacco user Tobacco use type: Cigarette Cigarette Packs Per Day: 1 Years Smoked: 46 Review of Systems [facility] [place] Reports arthralgias and Denies joint swelling Physical Exam Vital Signs: Last Vital Signs Temp 96.6 F L 06/17/23 12:30 Pulse 111 H 06/17/23 12:30 BP 132/64 06/17/23 12:30 Pulse Ox 95 06/17/23 12:30 Oxygen Delivery Method Room Air 06/17/23 12:30 BMI result Body Mass Index 35.1 Const General: cooperative, healthy appearing and comfortable Nutritional Appearance: obese Orientation/consciousness: patient oriented x3 Limitations: no limitations HEENT Head: Yes normocephalic and Yes atraumatic Mouth: moist mucous membranes Resp Effort & Inspection: normal respiratory effort and able to speak in complete sentences GI Inspection: No distended Palpation (GI): Soft to palpation and nontender Neuro General: patient oriented x3 Extrem Other: No wrist swelling or tenderness or pain with full range of motion No swelling or tenderness in PIP is, MCPs bilaterally Normal range of motion of both elbows and shoulders with without pain Known knee pain with flexion and extension bilaterally Bilateral ankles without swelling, warmth or tenderness Negative MTP squeeze test Normal nailfold capillaroscopy of fingers and toes Assessment & Plan Assessment & Plan (1) Rheumatoid arthritis: Comment: seropositive (borderline RF then -ve on repeat, -ve CCP) dx 09/16 MTX started 09/16 effective DC 11/16 due to transaminitis Leflunomide started 12/17 DC due to transaminitis Enbrel 02/16 effective Code(s): M06.9 - Rheumatoid arthritis, unspecified Qualifiers: Rheumatoid arthritis location: multiple sites Rheumatoid factor presence: with rheumatoid factor Qualified Code(s): M05.79 - Rheumatoid arthritis with rheumatoid factor of multiple sites without organ or systems involvement Plan: This is a 57-year-old female with seronegative RA who presents for follow-up. Doing very well on Enbrel 50 mg weekly. Continue Enbrel 50 mg weekly Labs before next visit in 3 months Infectious screening hepatitis panel T spot - ve 2022 (2) Abnormal finding on lung imaging: Code(s): R91.8 - Other nonspecific abnormal finding of lung field Plan: Chest x-ray shows bilateral hilar fullness. Low-dose CT chest 11/2022 showed unchanged sub 4 mm pulmonary nodules scattered in the lungs.? No lymphadenopathy (3) Trigger finger of left thumb: Code(s): M65.312 - Trigger thumb, left thumb Plan: Patient was evaluated by another provider and received a steroid injection with resolution (4) Immunization counseling: Code(s): Z71.85 - Encounter for immunization safety counseling Plan: Discussed ACR vaccination guidelines for a loss with autoimmune rheumatic disease on immune suppression. Patient stated that she received her Pneumovax, flu vaccine. Advised patient that COVID booster would be suggested. Patient will think about it, advised patient that she does not need to hold Enbrel to get the COVID booster vaccine. (5) High risk medication use: Code(s): Z79.899 - Other predatory animal exterminator (current) drug therapy Plan: Discussed risks TNF inhibitors including infections, increased risk of skin and solid tumors. I emphasized the increased risk infection especially given her history of COPD on home oxygen Plan I spent 25 minutes reviewing patient's chart, evaluating patient, ordering diagnostic workup, counseling patient and documenting in the chart Orders: Orders Complete Blood Count Auto Diff 3 Months M06.9 - Rheumatoid arthritis, unspecified Comprehensive Met. Panel 3 Months M06.9 - Rheumatoid arthritis, unspecified C Reactive Protein 3 Months M06.9 - Rheumatoid arthritis, unspecified Erythrocyte Sedimentation Rate 3 Months M06.9 - Rheumatoid arthritis, unspecified Coding Level of Care Code Est Pt Level 4 (31480) Diagnoses Rheumatoid arthritis involving multiple sites with positive rheumatoid factor M05.79 Rheumatoid arthritis location: multiple sites Rheumatoid factor presence: with rheumatoid factor Abnormal finding on lung imaging R91.8 Trigger finger of left thumb M65.312 Immunization counseling Z71.85 High risk medication use Z79.89
[2023-06-17 12:30] VITALS: BP 132/64; PULSE 111; TEMP 35.9; O2SAT 95; BMI 35.1
== END 2023-06-17 12:52 | disposition home or self-care (01) ==
PROVIDERS: Visit Provider Student in an Organized Health Care Education/Training Program
DX: M05.79 Rheumatoid arthritis with rheumatoid factor of multiple sites without organ or systems involvement (principal); R91.8 Other nonspecific abnormal finding of lung field; M65.312 Trigger thumb, left thumb; Z71.85 Encounter for immunization safety counseling; Z79.899 Other long term (current) drug therapy
CPT/HCPCS: 99214

== ENCOUNTER → 2023-06-17 12:28 | Outpatient (BNVA) | payer OTHER, SELFPAY | PROVIDERS: Visit Provider Student in an Organized Health Care Education/Training Program | DX: M05.79 Rheumatoid arthritis with rheumatoid factor of multiple sites without organ or systems involvement (principal); M65.312 Trigger thumb, left thumb; R91.8 Other nonspecific abnormal finding of lung field; Z71.85 Encounter for immunization safety counseling; Z79.899 Other long term (current) drug therapy | CPT/HCPCS: 99212 ==

== ENCOUNTER 2023-08-28 11:30 | Outpatient (REF) | payer OTHER, SELFPAY ==
[2023-08-28 11:46] LABS: MANUAL DIFF FLAG NO
[2023-08-28 12:20] LABS: Basophils Absolute Auto 0.1 X10*3/uL (0.0-0.2); Basophils Percent Auto 0.8 % (0-2); Eosinophils Absolute Auto 0.4 X10*3/uL (0.0-0.4); Eosinophils Percent Auto 3.4 % (0-4); Hematocrit 45.3 % (37.0-47.0); Hemoglobin 14.1 g/dl (12.0-16.0); Imm Gran Abs Auto 0.05 X10*3/uL (0.00-0.03); Imm Gran Pct Auto 0.5 % (0.0-0.4); Lymphocytes Absolute Auto 2.6 X10*3/uL (1.2-4.9); Mean Corpuscular HGB Conc 31.1 g/dl (31.0-35.0); Mean Corpuscular Hemoglobin 24.8 pg (27.0-33.0); Mean Corpuscular Volume 79.6 fL (80.0-98.0); Mean Platelet Volume 10.1 fL (9.4-12.3); Monocytes Absolute Auto 0.6 X10*3/uL (0.1-1.2); Monocytes Percent Auto 5.7 % (2-11); Neutrophils Absolute Auto 7.2 x10*3/uL (2.0-8.3); Neutrophils Percent Auto 65.6 % (45-73); Platelet Count 277 X10*3/uL (160-400); Red Blood Count 5.69 X10*6/uL (4.20-5.50); Red Cell Distribution Width 17.9 % (11.0-16.0)
[2023-08-28 13:05] LABS: Erythrocyte Sedimentation Rate 14 MM/HR (0-20)
[2023-08-28 13:09] LABS: Alanine Aminotransferase 27 U/L (0-31); Albumin Level 4.4 g/dL (3.5-5.0); Alkaline Phosphatase 131 U/L (39-117); Anion Gap 16 (12-20); Aspartate Amino Transferase 15 U/L (5-31); Bilirubin Total 0.2 mg/dL (0.0-1.0); Blood Urea Nitrogen 13 mg/dL (9-16); C Reactive Protein 1.13 mg/dL (< or = 0.50); Calcium 9.9 mg/dL (8.4-10.2); Carbon Dioxide 28 mmol/L (22-29); Chloride 100 mmol/L (96-108); Estimated Glomerular Filt Rate > 60; Glucose Random 207 mg/dL (60-115); Potassium 4.9 mmol/L (3.3-5.1); Sodium 139 mmol/L (135-145); Total Protein 7.9 g/dL (6.5-8.0)
== END 2023-08-28 11:31 | disposition home or self-care (01) ==
LOC: HO.LAB 11:30
PROVIDERS: PCP Internal Medicine; Visit Provider Student in an Organized Health Care Education/Training Program
DX: M06.9 Rheumatoid arthritis, unspecified (principal)
CPT/HCPCS: 36415; 80053; 85025; 85652; 86140

== ENCOUNTER 2023-09-07 13:29 | Outpatient (AMB) | payer OTHER, SELFPAY ==
[2023-09-07 13:38] VITALS: BP 132/78; PULSE 91; O2SAT 96; BMI 34.6
--- NOTE | 2023-09-07 13:38 | A.OFFVIS_ITS ---
Vital Signs 09/07/23 13:38 Height 5 ft 3 in Weight 195 lb 8.8 oz BMI 34.6 BP 132/78 Blood Pressure Location Rt brachial Position Sitting Pulse 91 Pulse Source Pulse Oximeter Pulse Oximetry (%) 96 Oxygen Delivery Method Room Air Intake Visit Reasons: RA Intake Note: Patient last seen 06/17/23 presents today for follow up and test results Reports increased joint pain. Architectural Project Manager Required: No Accompanied by: Self / Same As Patient Allergies ibuuprofen micronized Allergy (Severe, Uncoded 09/07/23 13:45) Swelling Medication List - Last Reconciled 09/07/23 by Evert Garnica MD albuterol sulfate 90 mcg/actuation (Ventolin HFA) 2 puffs inhalation Q4-6H PRN ascorbic acid (vitamin C) (Vitamin C With [place] Hips) 500 mg PO DAILY aspirin (Adult Low Dose Aspirin) 81 mg PO DAILY atorvastatin 10 mg PO DAILY cholecalciferol (vitamin D3) 50 mcg PO DAILY duloxetine 30 mg PO QAM empagliflozin (Jardiance) 25 mg PO DAILY Enbrel SureClick (etanercept) 50 mg subcut QWEEK NS ezetimibe 10 mg PO DAILY ferrous sulfate 325 mg PO DAILY fluticasone propion-salmeterol 230-21 mcg/actuation (Advair HFA) 2 puffs inhalation BID glipizide ER 5 mg PO DAILY lamotrigine 200 mg PO QAM lamotrigine 100 mg PO DAILY levetiracetam (Keppra) 500 mg PO BID metformin ER 1,000 mg PO BID omega-3 fatty acids 1,000 mg PO BID pantoprazole 40 mg PO DAILY tiotropium bromide 2.5 mcg/actuation (Spiriva Respimat) 1 puff inhalation BID HPI Comments Details: 57-year-old female with seronegative RA returns for follow-up. She is on Enbrel 50 mg weekly. She states that she has been doing well overall until about 3 weeks ago when she started having joint pain especially left 4th and 5th MCPs as well as bilateral knees much worse on the left. Denies her knee locking, catching or giving out. She denies any recent infections. She continues to use 2 L of oxygen by nasal cannula Initial history: This is a 56-year-old female who presents for evaluation of diffuse joint pain this started about 5 months ago. Patient stated that she noticed relatively abrupt onset of multiple joint pains affecting her ankles, knees, wrists, elbows and right shoulder. This was associated with right hand swelling. She has morning stiffness lasting at least 30 minutes. States that does episodes of joint pain last 3-7 days and she would be pain free for a few days and the joint pain will come back. The joint pain alternates between different joints. Denies any skin rashes. No weight loss or fevers. Patient took Tylenol without relief. She does not take ibuprofen as she is allergic to it. After she developed that allergy to ibuprofen however she used to take Aleve in the past. She has not taken NSAIDs for her joint pain. Patient is a smoker and continues to smoke. She is moving to a nonsmoking building. Patient's mother had rheumatoid arthritis. Patient had colonoscopies in the past and per patient they were unremarkable. No history suggestive of uveitis or IBD. [facility] Medical History COPD (chronic obstructive pulmonary disease) Abdominal pain History of CVA (cerebrovascular accident) Pancreatic adenoma Suicidal behavior Infection due to cryptosporidium History of colonic polyps Pap smear of cervix with ASCUS, cannot exclude HGSIL Surgical History S/P removal of left ovary History of pancreatectomy H/O colonoscopy History of cholecystectomy History of appendectomy Family History Father High blood cholesterol level CHF (congestive heart failure) Arthritis Mother High blood cholesterol level Rheumatoid arthritis Maternal Grandmother Diabetes Social History Alcohol intake: never Patient Tobacco Use Status: Current everyday Tobacco user Tobacco use type: Cigarette Cigarette Packs Per Day: 1 Years Smoked: 46 Review of Systems [facility] [place] Reports arthralgias and Denies joint swelling Physical Exam Vital Signs: Last Vital Signs Pulse 91 09/07/23 13:38 BP 132/78 09/07/23 13:38 Pulse Ox 96 09/07/23 13:38 Oxygen Delivery Method Room Air 09/07/23 13:38 BMI result Body Mass Index 34.6 Const General: cooperative, healthy appearing and comfortable Nutritional Appearance: obese Orientation/consciousness: patient oriented x3 Limitations: no limitations HEENT Head: Yes normocephalic and Yes atraumatic Mouth: moist mucous membranes Resp Effort & Inspection: normal respiratory effort and able to speak in complete sentences GI Inspection: No distended Palpation (GI): Soft to palpation and nontender Neuro General: patient oriented x3 Extrem Other: No wrist swelling or tenderness or pain with full range of motion Left 4th MCP tenderness Left 4th flexor tendon tenderness Normal range of motion of both elbows and shoulders with without pain Significant left knee pain with any range of motion. Patient holds her knee in a semi-flexed position Mild left knee warmth no significant swelling Bilateral ankles without swelling, warmth or tenderness Negative MTP squeeze test Normal nailfold capillaroscopy of fingers and toes Office Procedures Joint Injection/Drain Joint Injection/Drain Primary Site: left knee Prep: site was prepped using sterile technique and ethochloride spray was applied Injected: 40 mg of, Kenalog and other (2 mL of 1% lidocaine) Approach Used: medial parapatellar Procedure: The patient tolerated the procedure well Coding Details: With the patient's consent the left knee was prepped with ChloraPrep and alcohol. The skin was anesthetized with 2 cc of 1% lidocaine. The knee was then injected with 40 mg of triamcinolone and 2 cc of I % lidocaine. The patient tolerated the procedure with no immediate adverse effects. 86124 - Large joint Procedure code (CPT) selection complete Assessment & Plan Assessment & Plan (1) Rheumatoid arthritis: Comment: seropositive (borderline RF then -ve on repeat, -ve CCP) dx 09/16 MTX started 09/16 effective DC 11/16 due to transaminitis Leflunomide started 12/17 DC due to transaminitis Enbrel 02/16 effective Code(s): M06.9 - Rheumatoid arthritis, unspecified Category: Medical Qualifiers: Rheumatoid arthritis location: multiple sites Rheumatoid factor presence: with rheumatoid factor Qualified Code(s): M05.79 - Rheumatoid arthritis with rheumatoid factor of multiple sites without organ or systems involvement Plan: This is a 57-year-old female with seronegative RA who presents for follow-up. Patient was doing quite well on Enbrel 50 mg weekly until the last 3 weeks or so, today she is having left 4th MCP synovitis as well as left knee synovitis. Symptoms are significant. I injected her left knee today. Labs before next visit in 2 months. It seems that Enbrel effectiveness is starting to fade, can consider adding another DMARD such as hydroxychloroquine versus switching it to another DMARD next visit Continue Enbrel 50 mg weekly Labs before next visit in 2 months. Check bilateral knee x-rays when able Infectious screening hepatitis panel T spot - ve 2022 (2) Abnormal finding on lung imaging: Code(s): R91.8 - Other nonspecific abnormal finding of lung field Category: Medical Plan: Chest x-ray shows bilateral hilar fullness. Low-dose CT chest 11/2022 showed unchanged sub 4 mm pulmonary nodules scattered in the lungs.? No lymphadenopathy (3) Trigger finger of left thumb: Code(s): M65.312 - Trigger thumb, left thumb Category: Medical Plan: Patient was evaluated by another provider and received a steroid injection with resolution (4) High risk medication use: Code(s): Z79.899 - Other buttermaker continuous churn (current) drug therapy Category: Medical Plan: Discussed risks TNF inhibitors including infections, increased risk of skin and solid tumors. I emphasized the increased risk infection especially given her history of COPD on home oxygen Plan I spent 25 minutes reviewing patient's chart, evaluating patient, ordering diagnostic workup, counseling patient and documenting in the chart Orders: Orders XR knee LT 3V Today M05.79 - Rheumatoid arthritis with rheumatoid factor of multiple sites without organ or systems involvement C Reactive Protein 2 Months M05.79 - Rheumatoid arthritis with rheumatoid factor of multiple sites without organ or systems involvement XR knee RT 3V Today M05.79 - Rheumatoid arthritis with rheumatoid factor of multiple sites without organ or systems involvement XR knee standing BI Today M05.79 - Rheumatoid arthritis with rheumatoid factor of multiple sites without organ or systems involvement Complete Blood Count Auto Diff 2 Months M05.79 - Rheumatoid arthritis with rheumatoid factor of multiple sites without organ or systems involvement Comprehensive Met. Panel 2 Months M05.79 - Rheumatoid arthritis with rheumatoid factor of multiple sites without organ or systems involvement Erythrocyte Sedimentation Rate 2 Months M05.79 - Rheumatoid arthritis with rheumatoid factor of multiple sites without organ or systems involvement AMB Joint Injection/Aspiration Today M05.79 - Rheumatoid arthritis with rheumatoid factor of multiple sites without organ or systems involvement Coding Level of Care Code Est Pt Level 4 (38028) Diagnoses Rheumatoid arthritis involving multiple sites with positive rheumatoid factor 5. Rheumatoid arthritis location: multiple sites Rheumatoid factor presence: with rheumatoid factor Abnormal finding on lung imaging R91.8 Trigger finger of left thumb M65.312 High risk medication use Z79.899 CPT Codes Coding - 72120 Large joint: 46248 - Large joint ([id number])
== END 2023-09-07 14:07 | disposition home or self-care (01) ==
PROVIDERS: Visit Provider Student in an Organized Health Care Education/Training Program
DX: M05.79 Rheumatoid arthritis with rheumatoid factor of multiple sites without organ or systems involvement (principal); R91.8 Other nonspecific abnormal finding of lung field; M65.312 Trigger thumb, left thumb; Z79.899 Other long term (current) drug therapy
CPT/HCPCS: 20610; 99214

== ENCOUNTER → 2023-09-07 13:29 | Outpatient (BNVA) | payer OTHER, SELFPAY | PROVIDERS: Visit Provider Student in an Organized Health Care Education/Training Program | DX: M05.79 Rheumatoid arthritis with rheumatoid factor of multiple sites without organ or systems involvement (principal); M65.312 Trigger thumb, left thumb; R91.8 Other nonspecific abnormal finding of lung field; Z99.81 Dependence on supplemental oxygen; Z79.899 Other long term (current) drug therapy | CPT/HCPCS: 20610; 99212 ==

== ENCOUNTER 2023-10-13 10:19 | Outpatient (REF) | payer OTHER, SELFPAY ==
--- NOTE | ~2023-10-13 | XR_ITS ---
EXAMINATION: XR BILATERAL KNEES, STANDING CLINICAL INFORMATION: Rheumatoid arthritis with rheumatoid factor multiple sites. COMPARISON: None available. TECHNIQUE: AP standing, tunnel, lateral and sunrise views of each knee. FINDINGS: RIGHT KNEE: Moderate narrowing of the medial compartment. Small tricompartmental osteophytes. No significant joint effusion. LEFT KNEE: [id number] narrowing of the medial compartment. Small marginal osteophytes. Asymmetric narrowing of the patellofemoral compartment on the sunrise view. XR/XR knee LT 4V IMPRESSION: Moderate degenerative changes bilateral knees.
--- NOTE | ~2023-10-13 | XR_ITS ---
EXAMINATION: XR BILATERAL KNEES, STANDING CLINICAL INFORMATION: Rheumatoid arthritis with rheumatoid factor multiple sites. COMPARISON: None available. TECHNIQUE: AP standing, tunnel, lateral and sunrise views of each knee. FINDINGS: RIGHT KNEE: Moderate narrowing of the medial compartment. Small tricompartmental osteophytes. No significant joint effusion. LEFT KNEE: [id number] narrowing of the medial compartment. Small marginal osteophytes. Asymmetric narrowing of the patellofemoral compartment on the sunrise view. XR/XR knee RT 4V IMPRESSION: Moderate degenerative changes bilateral knees.
[2023-10-13 10:34] LABS: MANUAL DIFF FLAG NO
[2023-10-13 10:40] LABS: Basophils Absolute Auto 0.1 X10*3/uL (0.0-0.2); Basophils Percent Auto 0.9 % (0-2); Eosinophils Absolute Auto 0.4 X10*3/uL (0.0-0.4); Eosinophils Percent Auto 3.3 % (0-4); Hematocrit 45.7 % (37.0-47.0); Hemoglobin 14.4 g/dl (12.0-16.0); Imm Gran Abs Auto 0.07 X10*3/uL (0.00-0.03); Imm Gran Pct Auto 0.6 % (0.0-0.4); Lymphocytes Absolute Auto 2.8 X10*3/uL (1.2-4.9); Lymphocytes Percent Auto 25.7 % (20-40); Mean Corpuscular HGB Conc 31.5 g/dl (31.0-35.0); Mean Corpuscular Hemoglobin 25.5 pg (27.0-33.0); Mean Corpuscular Volume 80.9 fL (80.0-98.0); Mean Platelet Volume 9.5 fL (9.4-12.3); Monocytes Absolute Auto 0.6 X10*3/uL (0.1-1.2); Neutrophils Absolute Auto 7.1 x10*3/uL (2.0-8.3); Neutrophils Percent Auto 64.5 % (45-73); Platelet Count 303 X10*3/uL (160-400); Red Blood Count 5.65 X10*6/uL (4.20-5.50)
[2023-10-13 11:19] LABS: Erythrocyte Sedimentation Rate 15 MM/HR (0-20)
[2023-10-13 11:49] LABS: Alanine Aminotransferase 39 U/L (0-31); Albumin Level 4.6 g/dL (3.5-5.0); Alkaline Phosphatase 167 U/L (39-117); Anion Gap 15 (12-20); Aspartate Amino Transferase 20 U/L (5-31); Bilirubin Total 0.2 mg/dL (0.0-1.0); Blood Urea Nitrogen 10 mg/dL (9-16); Calcium 9.4 mg/dL (8.4-10.2); Carbon Dioxide 31 mmol/L (22-29); Chloride 100 mmol/L (96-108); Estimated Glomerular Filt Rate > 60; Glucose Random 212 mg/dL (60-115); Potassium 4.7 mmol/L (3.3-5.1); Sodium 141 mmol/L (135-145); Total Protein 8.1 g/dL (6.5-8.0)
== END 2023-10-13 10:20 | disposition home or self-care (01) ==
LOC: HO.XRAY 10:19
PROVIDERS: PCP Internal Medicine; Visit Provider Student in an Organized Health Care Education/Training Program
DX: M05.79 Rheumatoid arthritis with rheumatoid factor of multiple sites without organ or systems involvement (principal)
CPT/HCPCS: 36415; 73564; 80053; 85025; 85652; 86140

== ENCOUNTER 2023-10-27 09:57 | Outpatient (REF) | payer OTHER, SELFPAY ==
--- NOTE | ~2023-10-27 | XR_ITS ---
EXAMINATION: XR BILATERAL KNEES, STANDING CLINICAL INFORMATION: Rheumatoid arthritis with rheumatoid factor multiple sites. COMPARISON: None available. TECHNIQUE: AP standing, tunnel, lateral and sunrise views of each knee. FINDINGS: RIGHT KNEE: Moderate narrowing of the medial compartment. Small tricompartmental osteophytes. No significant joint effusion. LEFT KNEE: Mqai-[id number]-dulthbzk narrowing of the medial compartment. Small marginal osteophytes. Asymmetric narrowing of the patellofemoral compartment on the sunrise view. XR/XR knee standing BI IMPRESSION: Moderate degenerative changes bilateral knees.
== END 2023-10-27 09:58 | disposition home or self-care (01) ==
LOC: HO.XRAY 09:57
PROVIDERS: PCP Internal Medicine; Visit Provider Student in an Organized Health Care Education/Training Program
DX: M05.79 Rheumatoid arthritis with rheumatoid factor of multiple sites without organ or systems involvement (principal)
CPT/HCPCS: 73565

== ENCOUNTER 2023-11-04 13:50 | Outpatient (AMB) | payer OTHER, SELFPAY ==
--- NOTE | 2023-11-04 13:52 | A.OFFVIS_ITS ---
Vital Signs 11/04/23 13:59 Height 5 ft 3 in Weight 199 lb 11.821 oz BMI 35.4 BP 130/70 Blood Pressure Location Lt brachial Position Sitting Pulse 86 Pulse Source Pulse Oximeter Pulse Oximetry (%) 97 Oxygen Delivery Method Room Air Intake Visit Reasons: RA/CM Intake Note: Patient presents for RA/CM. Allergies ibuuprofen micronized Allergy (Severe, Uncoded 09/07/23 13:45) Swelling Medication List - Last Reconciled 11/04/23 by Evert Garnica MD albuterol sulfate 90 mcg/actuation (Ventolin HFA) 2 puffs inhalation Q4-6H PRN ascorbic acid (vitamin C) (Vitamin C With [place] Hips) 500 mg PO DAILY aspirin (Adult Low Dose Aspirin) 81 mg PO DAILY atorvastatin 10 mg PO DAILY cholecalciferol (vitamin D3) 50 mcg PO DAILY clonidine HCl 0.1 mg PO DAILY duloxetine 30 mg PO QAM empagliflozin (Jardiance) 25 mg PO DAILY Enbrel SureClick (etanercept) 50 mg subcut QWEEK NS ferrous sulfate 325 mg PO DAILY fluticasone propion-salmeterol 230-21 mcg/actuation (Advair HFA) 2 puffs inhalation BID glipizide ER 5 mg PO DAILY lamotrigine 200 mg PO QAM lamotrigine 100 mg PO DAILY levetiracetam (Keppra) 500 mg PO BID metformin ER 1,000 mg PO BID omega-3 fatty acids 1,000 mg PO BID pantoprazole 40 mg PO DAILY quetiapine 50 mg PO BEDTIME tiotropium bromide 2.5 mcg/actuation (Spiriva Respimat) 1 puff inhalation BID HPI Comments Details: 58-year-old female with RA returns for follow-up. She is on Enbrel 50 mg weekly. She states that she has been doing quite well recently. The left knee injection done last visit was quite helpful. She has no joint pain or swelling today. She states that the triggering of her left thumb coming back and she will be seeing a specialist sometime soon. Denies any recent infections. Denies any recent fevers. Initial history: This is a 56-year-old female who presents for evaluation of diffuse joint pain this started about 5 months ago. Patient stated that she noticed relatively abrupt onset of multiple joint pains affecting her ankles, knees, wrists, elbows and right shoulder. This was associated with right hand swelling. She has morning stiffness lasting at least 30 minutes. States that does episodes of joint pain last 3-7 days and she would be pain free for a few days and the joint pain will come back. The joint pain alternates between different joints. Denies any skin rashes. No weight loss or fevers. Patient took Tylenol without relief. She does not take ibuprofen as she is allergic to it. After she developed that allergy to ibuprofen however she used to take Aleve in the past. She has not taken NSAIDs for her joint pain. Patient is a smoker and continues to smoke. She is moving to a nonsmoking building. Patient's mother had rheumatoid arthritis. Patient had colonoscopies in the past and per patient they were unremarkable. No history suggestive of uveitis or IBD. [facility] Medical History COPD (chronic obstructive pulmonary disease) Abdominal pain History of CVA (cerebrovascular accident) Pancreatic adenoma Suicidal behavior Infection due to cryptosporidium History of colonic polyps Pap smear of cervix with ASCUS, cannot exclude HGSIL Surgical History S/P removal of left ovary History of pancreatectomy H/O colonoscopy History of cholecystectomy History of appendectomy Family History Father High blood cholesterol level CHF (congestive heart failure) Arthritis Mother High blood cholesterol level Rheumatoid arthritis Maternal Grandmother Diabetes Social History Alcohol intake: never Patient Tobacco Use Status: Current everyday Tobacco user Tobacco use type: Cigarette Cigarette Packs Per Day: 1 Years Smoked: 46 Female Reproductive History Menstrual Total pregnancies: 2 Number of Living Children: 2 Review of Systems [facility] [place] Reports arthralgias and Denies joint swelling Physical Exam Vital Signs: Last Vital Signs Pulse 86 11/04/23 13:59 BP 130/70 11/04/23 13:59 Pulse Ox 97 11/04/23 13:59 Oxygen Delivery Method Room Air 11/04/23 13:59 BMI result Body Mass Index 35.4 Const General: cooperative, healthy appearing and comfortable Nutritional Appearance: obese Orientation/consciousness: patient oriented x3 Limitations: no limitations HEENT Head: Yes normocephalic and Yes atraumatic Mouth: moist mucous membranes Resp Effort & Inspection: normal respiratory effort and able to speak in complete sentences GI Inspection: No distended Palpation (GI): Soft to palpation and nontender Neuro General: patient oriented x3 Extrem Other: No active synovitis both hands wrists Normal range of motion of both elbows and shoulders with without pain No knee pain with full flexion and extension No knee swelling, warmth or tenderness Bilateral ankles without swelling, warmth or tenderness Negative MTP squeeze test Normal nailfold capillaroscopy of fingers and toes Assessment & Plan Assessment & Plan (1) Rheumatoid arthritis: Comment: seropositive (borderline RF then -ve on repeat, -ve CCP) dx 09/16 MTX started 09/16 effective DC 11/16 due to transaminitis Leflunomide started 12/17 DC due to transaminitis Enbrel 02/16 effective Code(s): M06.9 - Rheumatoid arthritis, unspecified Category: Medical Qualifiers: Rheumatoid arthritis location: multiple sites Rheumatoid factor presence: with rheumatoid factor Qualified Code(s): M05.79 - Rheumatoid arthritis with rheumatoid factor of multiple sites without organ or systems involvement Plan: This is a 58-year-old female with seronegative RA who presents for follow-up. Patient is doing quite well on Enbrel 50 mg weekly with no active synovitis Continue Enbrel 50 mg weekly Labs before next visit in 4 months. Infectious screening hepatitis panel T spot - ve 2022 (2) Abnormal finding on lung imaging: Code(s): R91.8 - Other nonspecific abnormal finding of lung field Category: Medical Plan: Chest x-ray shows bilateral hilar fullness. Low-dose CT chest 11/2022 showed unchanged sub 4 mm pulmonary nodules scattered in the lungs.? No lymphadenopathy (3) Trigger finger of left thumb: Code(s): M65.312 - Trigger thumb, left thumb Category: Medical Plan: Patient was evaluated by another provider and received a steroid injection a few months ago with resolution, symptoms are recurring. She is going back to see the specialist (4) High risk medication use: Code(s): Z79.899 - Other senior living (current) drug therapy Category: Medical Plan: Discussed risks TNF inhibitors including infections, increased risk of skin and solid tumors. I emphasized the increased risk infection especially given her history of COPD on home oxygen (5) Bilateral primary osteoarthritis of knee: Code(s): M17.0 - Bilateral primary osteoarthritis of knee Category: Medical Plan: Left knee was injected with Kenalog 2 months ago with relief. Injections can be repeated as needed Plan I spent 25 minutes reviewing patient's chart, evaluating patient, ordering diagnostic workup, counseling patient and documenting in the chart Orders: Orders Complete Blood Count Auto Diff 4 Months M05. - Rheumatoid arthritis with rheumatoid factor of multiple sites without organ or systems involvement Erythrocyte Sedimentation Rate 4 Months M05.79 - Rheumatoid arthritis with rheumatoid factor of multiple sites without organ or systems involvement Comprehensive Met. Panel 4 Months M05.79 - Rheumatoid arthritis with rheumatoid factor of multiple sites without organ or systems involvement C Reactive Protein 4 Months M05.79 - Rheumatoid arthritis with rheumatoid factor of multiple sites without organ or systems involvement Coding Level of Care Code Est Pt Level 5 (89194) Diagnoses Rheumatoid arthritis involving multiple sites with positive rheumatoid factor M0. Rheumatoid arthritis location: multiple sites Rheumatoid factor presence: with rheumatoid factor Abnormal finding on lung imaging R91.8 Trigger finger of left thumb M65.312 High risk medication use Z79.899 Bilateral primary osteoarthritis of knee M17.0
[2023-11-04 13:59] VITALS: BP 130/70; PULSE 86; O2SAT 97; BMI 35.4
== END 2023-11-04 14:12 | disposition home or self-care (01) ==
PROVIDERS: PCP Internal Medicine; Visit Provider Student in an Organized Health Care Education/Training Program
DX: M05.79 Rheumatoid arthritis with rheumatoid factor of multiple sites without organ or systems involvement (principal); R91.8 Other nonspecific abnormal finding of lung field; M65.312 Trigger thumb, left thumb; Z79.899 Other long term (current) drug therapy; M17.0 Bilateral primary osteoarthritis of knee
CPT/HCPCS: 99214

== ENCOUNTER → 2023-11-04 13:50 | Outpatient (BNVA) | payer OTHER, SELFPAY | PROVIDERS: PCP Internal Medicine; Visit Provider Student in an Organized Health Care Education/Training Program | DX: M05.79 Rheumatoid arthritis with rheumatoid factor of multiple sites without organ or systems involvement (principal); R91.8 Other nonspecific abnormal finding of lung field; M65.312 Trigger thumb, left thumb; M17.0 Bilateral primary osteoarthritis of knee; Z79.899 Other long term (current) drug therapy | CPT/HCPCS: 99212 ==

== ENCOUNTER 2024-04-08 10:17 | Outpatient (REF) | payer OTHER, SELFPAY ==
[2024-04-08 10:35] LABS: MANUAL DIFF FLAG NO
[2024-04-08 10:52] LABS: Basophils Absolute Auto 0.1 X10*3/uL (0.0-0.2); Basophils Percent Auto 0.7 % (0-2); Eosinophils Absolute Auto 0.5 X10*3/uL (0.0-0.4); Eosinophils Percent Auto 4.5 % (0-4); Hematocrit 46.1 % (37.0-47.0); Hemoglobin 14.2 g/dl (12.0-16.0); Imm Gran Abs Auto 0.08 X10*3/uL (0.00-0.03); Imm Gran Pct Auto 0.7 % (0.0-0.4); Lymphocytes Absolute Auto 2.3 X10*3/uL (1.2-4.9); Mean Corpuscular HGB Conc 30.8 g/dl (31.0-35.0); Mean Corpuscular Hemoglobin 25.6 pg (27.0-33.0); Mean Corpuscular Volume 83.1 fL (80.0-98.0); Monocytes Absolute Auto 0.6 X10*3/uL (0.1-1.2); Monocytes Percent Auto 5.4 % (2-11); Neutrophils Absolute Auto 7.7 x10*3/uL (2.0-8.3); Neutrophils Percent Auto 68.7 % (45-73); Platelet Count 295 X10*3/uL (160-400); Red Blood Count 5.55 X10*6/uL (4.20-5.50); White Blood Count 11.2 X10*3/uL (4.8-10.8)
[2024-04-08 11:28] LABS: Erythrocyte Sedimentation Rate 14 MM/HR (0-20)
[2024-04-08 11:53] LABS: Albumin Level 4.4 g/dL (3.5-5.0); Alkaline Phosphatase 179 U/L (39-117); Anion Gap 13 (12-20); Aspartate Amino Transferase 21 U/L (5-31); Bilirubin Total 0.3 mg/dL (0.0-1.0); Blood Urea Nitrogen 9 mg/dL (9-16); C Reactive Protein 1.84 mg/dL (< or = 0.50); Calcium 9.6 mg/dL (8.4-10.2); Carbon Dioxide 30 mmol/L (22-29); Chloride 102 mmol/L (96-108); Estimated Glomerular Filt Rate > 60; Glucose Random 185 mg/dL (60-115); Potassium 4.1 mmol/L (3.3-5.1); Sodium 141 mmol/L (135-145); Total Protein 7.8 g/dL (6.5-8.0)
[2024-04-08 12:15] LABS: Alanine Aminotransferase 33 U/L (0-31)
== END 2024-04-08 10:18 | disposition home or self-care (01) ==
LOC: HO.LAB 10:17
PROVIDERS: PCP Internal Medicine; Visit Provider Student in an Organized Health Care Education/Training Program
DX: M05.79 Rheumatoid arthritis with rheumatoid factor of multiple sites without organ or systems involvement (principal)
CPT/HCPCS: 36415; 80053; 85025; 85652; 86140

== ENCOUNTER 2024-04-11 09:33 | Outpatient (AMB) | payer OTHER, SELFPAY ==
--- NOTE | 2024-04-11 09:38 | MHC.OFFVIS ---
Vital Signs 04/11/24 09:42 Height 5 ft 3 in Weight 200 lb 6.403 oz BMI 35.5 BP 115/60 Blood Pressure Location Rt brachial Position Sitting Pulse 85 Pulse Source Pulse Oximeter Pulse Oximetry (%) 95 Oxygen Delivery Method Nasal Cannula Intake Visit Reasons: RA Intake Note: Patient presents for RA. Allergies ibuuprofen micronized Allergy (Severe, Uncoded 09/07/23 13:45) Swelling Medication List - Last Reconciled 04/11/24 by Evert Garnica MD albuterol sulfate 90 mcg/actuation (Ventolin HFA) 2 puffs inhalation Q4-6H PRN ascorbic acid (vitamin C) (Vitamin C With Glenis Hips) 500 mg PO DAILY aspirin (Adult Low Dose Aspirin) 81 mg PO DAILY atorvastatin 10 mg PO DAILY cholecalciferol (vitamin D3) 50 mcg PO DAILY clonidine HCl 0.1 mg PO DAILY duloxetine 30 mg PO QAM empagliflozin (Jardiance) 25 mg PO DAILY Enbrel SureClick (etanercept) 50 mg subcut QWEEK NS ferrous sulfate 325 mg PO DAILY fluticasone propion-salmeterol 230-21 mcg/actuation (Advair HFA) 2 puffs inhalation BID glipizide ER 5 mg PO DAILY lamotrigine 200 mg PO QAM lamotrigine 100 mg PO DAILY levetiracetam (Keppra) 500 mg PO BID losartan 25 mg PO DAILY metformin ER 1,000 mg PO BID omega-3 fatty acids 1,000 mg PO BID pantoprazole 40 mg PO DAILY quetiapine 50 mg PO BEDTIME tiotropium bromide 2.5 mcg/actuation (Spiriva Respimat) 1 puff inhalation BID HPI Comments Details: 58-year-old female with RA returns for follow-up. She is on Enbrel 50 mg weekly. She states that she has been a little more achy recently especially in her hands, wrists, knees, she notes very rare swelling. She does not take anything for pain Initial history: This is a 56-year-old female who presents for evaluation of diffuse joint pain this started about 5 months ago. Patient stated that she noticed relatively abrupt onset of multiple joint pains affecting her ankles, knees, wrists, elbows and right shoulder. This was associated with right hand swelling. She has morning stiffness lasting at least 30 minutes. States that does episodes of joint pain last 3-7 days and she would be pain free for a few days and the joint pain will come back. The joint pain alternates between different joints. Denies any skin rashes. No weight loss or fevers. Patient took Tylenol without relief. She does not take ibuprofen as she is allergic to it. After she developed that allergy to ibuprofen however she used to take Aleve in the past. She has not taken NSAIDs for her joint pain. Patient is a smoker and continues to smoke. She is moving to a nonsmoking building. Patient's mother had rheumatoid arthritis. Patient had colonoscopies in the past and per patient they were unremarkable. No history suggestive of uveitis or IBD. [facility] Medical History COPD (chronic obstructive pulmonary disease) Abdominal pain History of CVA (cerebrovascular accident) Pancreatic adenoma Suicidal behavior Infection due to cryptosporidium History of colonic polyps Pap smear of cervix with ASCUS, cannot exclude HGSIL Surgical History S/P removal of left ovary History of pancreatectomy H/O colonoscopy History of cholecystectomy History of appendectomy Family History Father High blood cholesterol level CHF (congestive heart failure) Arthritis Mother High blood cholesterol level Rheumatoid arthritis Maternal Grandmother Diabetes Social History Alcohol intake: never Patient Tobacco Use Status: Current everyday Tobacco user Tobacco use type: Cigarette Cigarette Packs Per Day: 1 Years Smoked: 44 Female Reproductive History Menstrual Total pregnancies: 2 Number of Living Children: 2 Review of Systems [facility] [place] Reports arthralgias and Denies joint swelling Physical Exam Vital Signs: Last Vital Signs Pulse 85 04/11/24 09:42 BP 115/60 04/11/24 09:42 Pulse Ox 95 04/11/24 09:42 Oxygen Delivery Method Nasal Cannula 04/11/24 09:42 BMI result Body Mass Index 35.5 Const General: cooperative, healthy appearing and comfortable Nutritional Appearance: obese Orientation/consciousness: patient oriented x3 Limitations: no limitations HEENT Head: Yes normocephalic and Yes atraumatic Resp Other: On 2 L of oxygen by nasal cannula Effort & Inspection: normal respiratory effort and able to speak in complete sentences Auscultation: wheezes (Subtle right lower lobe) GI Inspection: No distended Palpation (GI): Soft to palpation and nontender Neuro General: patient oriented x3 Extrem Other: Bilateral wrist tenderness but no swelling, right wrist pain with full extension Normal bilateral hand sales exec strength Normal range of motion of both elbows and shoulders with without pain Bilateral knee pain with full flexion and extension No knee swelling, warmth or tenderness Bilateral ankles without swelling, warmth or tenderness Negative MTP squeeze test Normal nailfold capillaroscopy of fingers and toes Assessment & Plan Assessment & Plan (1) Rheumatoid arthritis: Comment: seropositive (borderline RF then -ve on repeat, -ve CCP) dx 09/16 MTX started 09/16 effective DC 11/16 due to transaminitis Leflunomide started 12/17 DC due to transaminitis Enbrel 02/16 effective Code(s): M06.9 - Rheumatoid arthritis, unspecified Category: Medical Qualifiers: Rheumatoid arthritis location: multiple sites Rheumatoid factor presence: with rheumatoid factor Qualified Code(s): M05.79 - Rheumatoid arthritis with rheumatoid factor of multiple sites without organ or systems involvement Plan: This is a 58-year-old female with seronegative RA who presents for follow-up. Patient is doing quite well on Enbrel 50 mg weekly with no active synovitis Her pains today are likely due to generalized osteoarthritis. Tylenol Arthritis was not effective per patient. She is allergic to ibuprofen. Advised patient to try using turmeric, try OTC Voltaren gel Continue Enbrel 50 mg weekly Labs before next visit in 4 months. Infectious screening hepatitis panel T spot - ve 2022 (2) Abnormal finding on lung imaging: Code(s): R91.8 - Other nonspecific abnormal finding of lung field Category: Medical Plan: Chest x-ray shows bilateral hilar fullness. Low-dose CT chest 11/2022 showed unchanged sub 4 mm pulmonary nodules scattered in the lungs.? No lymphadenopathy (3) High risk medication use: Code(s): Z79.899 - Other remote computer terminal operator (current) drug therapy Category: Medical Plan: Discussed risks TNF inhibitors including infections, increased risk of skin and solid tumors. I emphasized the increased risk infection especially given her history of COPD on home oxygen (4) Bilateral primary osteoarthritis of knee: Code(s): M17.0 - Bilateral primary osteoarthritis of knee Category: Medical Plan: Left knee was injected with Kenalog 08/2023 months ago with relief. Injections can be repeated as needed (5) Immunization counseling: Code(s): Z71.85 - Encounter for immunization safety counseling Category: Medical Plan: Patient states that she is up-to-date on RSV, pneumonia vaccine and COVID vaccine. She received a flu vaccine this season Plan I spent 25 minutes reviewing patient's chart, evaluating patient, ordering diagnostic workup, counseling patient and documenting in the chart Orders: Orders Comprehensive Met. Panel 4 Months M05.79 - Rheumatoid arthritis with rheumatoid factor of multiple sites without organ or systems involvement Erythrocyte Sedimentation Rate 4 Months M05.79 - Rheumatoid arthritis with rheumatoid factor of multiple sites without organ or systems involvement Complete Blood Count Auto Diff 4 Months M05.79 - Rheumatoid arthritis with rheumatoid factor of multiple sites without organ or systems involvement C Reactive Protein 4 Months M05.79 - Rheumatoid arthritis with rheumatoid factor of multiple sites without organ or systems involvement Hepatitis A,B,C Profile 4 Months Z11.59 - Encounter for screening for other viral diseases T Spot TB 4 Months Z11.7 - Encounter for testing for latent tuberculosis infection Coding Level of Care Code Est Pt Level 4 (93885) Complex EM visit Add On [id number] Diagnoses Rheumatoid arthritis involving multiple sites with positive rheumatoid factor M05.79 Rheumatoid arthritis location: multiple sites Rheumatoid factor presence: with rheumatoid factor Abnormal finding on lung imaging R91.8 High risk medication use Z79.899 Bilateral primary osteoarthritis of knee M17.0 Immunization counseling Z71.85
[2024-04-11 09:42] VITALS: BP 115/60; PULSE 85; O2SAT 95; BMI 35.5
== END 2024-04-11 10:05 | disposition home or self-care (01) ==
PROVIDERS: PCP Internal Medicine; Visit Provider Student in an Organized Health Care Education/Training Program
DX: M05.79 Rheumatoid arthritis with rheumatoid factor of multiple sites without organ or systems involvement (principal); R91.8 Other nonspecific abnormal finding of lung field; Z79.899 Other long term (current) drug therapy; M17.0 Bilateral primary osteoarthritis of knee; Z71.85 Encounter for immunization safety counseling
CPT/HCPCS: 99214; G2211

== ENCOUNTER → 2024-04-11 09:33 | Outpatient (BNVA) | payer OTHER, SELFPAY | PROVIDERS: PCP Internal Medicine; Visit Provider Student in an Organized Health Care Education/Training Program | DX: M05.79 Rheumatoid arthritis with rheumatoid factor of multiple sites without organ or systems involvement (principal); M17.0 Bilateral primary osteoarthritis of knee; R91.8 Other nonspecific abnormal finding of lung field; Z71.85 Encounter for immunization safety counseling; Z79.899 Other long term (current) drug therapy | CPT/HCPCS: 99212 ==

== ENCOUNTER 2024-07-22 10:13 | Outpatient (REF) | payer OTHER, SELFPAY ==
[2024-07-22 10:28] LABS: MANUAL DIFF FLAG NO
[2024-07-22 11:23] LABS: Basophils Absolute Auto 0.1 X10*3/uL (0.0-0.2); Basophils Percent Auto 0.6 % (0-2); Eosinophils Absolute Auto 0.5 X10*3/uL (0.0-0.4); Eosinophils Percent Auto 4.8 % (0-4); Hematocrit 47.6 % (37.0-47.0); Hemoglobin 14.9 g/dl (12.0-16.0); Imm Gran Abs Auto 0.04 X10*3/uL (0.00-0.03); Imm Gran Pct Auto 0.4 % (0.0-0.4); Lymphocytes Absolute Auto 2.6 X10*3/uL (1.2-4.9); Lymphocytes Percent Auto 26.7 % (20-40); Mean Corpuscular HGB Conc 31.3 g/dl (31.0-35.0); Mean Corpuscular Hemoglobin 25.3 pg (27.0-33.0); Mean Platelet Volume 9.6 fL (9.4-12.3); Monocytes Absolute Auto 0.5 X10*3/uL (0.1-1.2); Monocytes Percent Auto 4.8 % (2-11); Neutrophils Absolute Auto 6.2 x10*3/uL (2.0-8.3); Neutrophils Percent Auto 62.7 % (45-73); Platelet Count 293 X10*3/uL (160-400); Red Blood Count 5.88 X10*6/uL (4.20-5.50); Red Cell Distribution Width 18.6 % (11.0-16.0); White Blood Count 9.8 X10*3/uL (4.8-10.8)
[2024-07-22 12:07] LABS: Erythrocyte Sedimentation Rate 21 MM/HR (0-20)
[2024-07-22 12:09] LABS: Alanine Aminotransferase 39 U/L (0-31); Albumin Level 4.7 g/dL (3.5-5.0); Alkaline Phosphatase 140 U/L (39-117); Anion Gap 15 (12-20); Aspartate Amino Transferase 22 U/L (5-31); Bilirubin Total 0.3 mg/dL (0.0-1.0); Blood Urea Nitrogen 10 mg/dL (9-16); Carbon Dioxide 29 mmol/L (22-29); Chloride 100 mmol/L (96-108); Estimated Glomerular Filt Rate > 60; Glucose Random 159 mg/dL (60-115); Potassium 4.1 mmol/L (3.3-5.1); Sodium 140 mmol/L (135-145); Total Protein 8.2 g/dL (6.5-8.0)
[2024-07-22 12:33] LABS: HBc Num1 0.07 S/CO (0.00-0.79); HBsAGNum1 0.29 S/CO (0.00-0.99); Hepatitis A Antibody IgM 0.14 Index (0-0.79); Hepatitis B Core Antibody Nonreactive (Nonreactive); Hepatitis B Surface Antigen Negative (Negative); ~HepC Num1 0.12 S/CO (0.00-0.79); ~Hepatitis A Antibody IgM Nonreactive (Nonreactive); ~Hepatitis B Surface Antibody NONREACTIVE (Nonreactive); ~Hepatitis C Antibody Nonreactive (Nonreactive)
[2024-07-25 19:29] LABS: TS Negative Control Passed; TS Panel A 0; TS Panel B 1; TS Positive Control Passed; TSpotTB Negative (Negative)
== END 2024-07-22 10:14 | disposition home or self-care (01) ==
LOC: HO.LAB 10:13
PROVIDERS: PCP Internal Medicine; Visit Provider Student in an Organized Health Care Education/Training Program
DX: M05.79 Rheumatoid arthritis with rheumatoid factor of multiple sites without organ or systems involvement (principal); Z11.59 Encounter for screening for other viral diseases; Z11.7 Encounter for testing for latent tuberculosis infection
CPT/HCPCS: 36415; 80053; 85025; 85652; 86140; 86481; 86704; 86706; 86709; 86803; 87340

== ENCOUNTER 2024-08-22 14:22 | Outpatient (AMB) | payer OTHER, SELFPAY ==
[2024-08-22 14:37] VITALS: BP 140/76; PULSE 69; O2SAT 96; BMI 34.4
--- NOTE | 2024-08-22 14:37 | MHC.OFFVIS ---
Vital Signs 08/22/24 14:37 Height 5 ft 3 in Weight 194 lb BMI 34.4 BP 140/76 H Blood Pressure Location Lt brachial Position Sitting Pulse 69 Pulse Source Pulse Oximeter Pulse Oximetry (%) 96 Oxygen Delivery Method Room Air Intake Visit Reasons: RA Intake Note: Patient presents today for follow up on RA and labs review. She was last seen in the office on 04/11/[address] Garnica. Allergies ibuuprofen micronized Allergy (Severe, Uncoded 08/22/24 14:40) Swelling Medication List - Last Reconciled 08/22/24 by Evy Moody MD albuterol sulfate 90 mcg/actuation (Ventolin HFA) 2 puffs inhalation Q4-6H PRN ascorbic acid (vitamin C) (Vitamin C With Glenis Hips) 500 mg PO DAILY aspirin (Adult Low Dose Aspirin) 81 mg PO DAILY atorvastatin 10 mg PO DAILY cholecalciferol (vitamin D3) 50 mcg PO DAILY duloxetine 30 mg PO QAM empagliflozin (Jardiance) 25 mg PO DAILY Enbrel SureClick (etanercept) 50 mg subcut QWEEK NS ferrous sulfate 325 mg PO DAILY fluticasone propion-salmeterol 230-21 mcg/actuation (Advair HFA) 2 puffs inhalation BID glipizide ER 5 mg PO DAILY lamotrigine 200 mg PO QAM lamotrigine 100 mg PO DAILY levetiracetam (Keppra) 500 mg PO BID losartan 25 mg PO DAILY metformin ER 1,000 mg PO BID omega-3 fatty acids 1,000 mg PO BID pantoprazole 40 mg PO DAILY quetiapine 50 mg PO BEDTIME tiotropium bromide 2.5 mcg/actuation (Spiriva Respimat) 1 puff inhalation BID HPI Comments Details: Patient is a 58-year-old female with COPD on 2L oxygen, hyperlipidemia, diabetes, hypertension, 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 Garnica. At that time she was on Enbrel 50 mg weekly. Noted that she had been a little more achy especially in her hands, wrists, knees with minimal swelling. Exam did not show any evidence of active synovitis and the pain was attributed to her generalized osteoarthritis. Recommended for [id number] Voltaren gel Today, Patient reports that she is doing well overall Did not get the topical voltaren gel Rheumatologic History: seropositive (borderline RF then -ve on repeat, -ve CCP) dx 09/16 MTX started 09/16 effective DC 11/16 due to transaminitis Leflunomide started 12/17 DC due to transaminitis Enbrel 02/16 effective Initial history: This is a 56-year-old female who presents for evaluation of diffuse joint pain this started about 5 months ago. Patient stated that she noticed relatively abrupt onset of multiple joint pains affecting her ankles, knees, wrists, elbows and right shoulder. This was associated with right hand swelling. She has morning stiffness lasting at least 30 minutes. States that does episodes of joint pain last 3-7 days and she would be pain free for a few days and the joint pain will come back. The joint pain alternates between different joints. Denies any skin rashes. No weight loss or fevers. Patient took Tylenol without relief. She does not take ibuprofen as she is allergic to it. After she developed that allergy to ibuprofen however she used to take Aleve in the past. She has not taken NSAIDs for her joint pain. Patient is a smoker and continues to smoke. She is moving to a nonsmoking building. Patient's mother had rheumatoid arthritis. Patient had colonoscopies in the past and per patient they were unremarkable. No history suggestive of uveitis or IBD. Current Rheumatology Medication(s): Enbrel 50 mg weekly [facility] Medical History (Updated 08/22/24 @ 15:14 by Evy Moody MD) Polyarticular osteoarthritis COPD (chronic obstructive pulmonary disease) Abdominal pain History of CVA (cerebrovascular accident) Pancreatic adenoma Suicidal behavior Infection due to cryptosporidium History of colonic polyps Pap smear of cervix with ASCUS, cannot exclude HGSIL Surgical History S/P removal of left ovary History of pancreatectomy H/O colonoscopy History of cholecystectomy History of appendectomy Family History Father High blood cholesterol level CHF (congestive heart failure) Arthritis Mother High blood cholesterol level Rheumatoid arthritis Maternal Grandmother Diabetes Social History Alcohol intake: never Patient Tobacco Use Status: Current everyday Tobacco user Tobacco use type: Cigarette Cigarette Packs Per Day: 1 Years Smoked: 46 Review of Systems Const Details: Review of Systems Constitutional: Denies fever, chills, weight loss ENT: Denies vision changes, eye pain or eye redness, dental caries, dry mouth GI: Denies nausea, vomiting, diarrhea, abdominal pain, change in BM Pulm: Denies SOB, MARTIN, hemoptysis, wheezing Cards: Denies chest pain, palpitations Skin: Denies Raynaud's, rash, nail changes, photosensitivity, FILER AND SANDER: Denies headaches, weakness, paresthesias, recurrent falls MSK: as per HPI All other systems reviewed and are unremarkable except noted above Physical Exam Vital Signs: Last Vital Signs Pulse 69 08/22/24 14:37 BP 140/76 H 08/22/24 14:37 Pulse Ox 96 08/22/24 14:37 Oxygen Delivery Method Room Air 08/22/24 14:37 BMI result Body Mass Index 34.4 Vital signs reviewed Physical Examination CONSTITUITIONAL Patient alert and cooperative. Well appearing and in no apparent painful distress HEENT Conjunctiva and sclera clear. ?Pupils equal round and reactive to light. ?No lymphadenopathy. ? CHEST/RESPIRATORY SYSTEM Normal respiratory effort and able to speak in complete sentences. ?Clear to auscultation bilaterally. ?No crackles, rales, rhonchi, wheezes heard. CARDIAC SYSTEM Regular rate and rhythm. ?S1 and S2 heard no murmurs. ?Radial pulses intact bilaterally MSK Hands: ?Able to make a fist. No synovitis noted to the MCPs, PIPs or DIPs. ?No tenderness to palpation of these joints. No deformities noted. ? Wrists: ?Full range of motion at the wrists without pain. ?No tenderness to palpation or synovitis noted to the wrists. Elbows: Full range of motion without pain. No tenderness, weakness, swelling, increased warmth or erythema. Shoulders: Full range of active range of motion without pain. TTP Knees: ?Full range of motion. ?No tenderness, swelling, increased warmth or erythema.?Bilateral crepitations Ankles: Full range of motion. ?No tenderness, swelling, increased warmth or erythema.? Feet: ?Negative squeeze test. ?No tenderness to palpation or swelling of the MTPs. Tender points:?No tenderness to palpation of the bilateral trapezius, supraspinatus, greater trochanters, anterior costochondral junctions, bilateral gluteal areas, bilateral suboccipital muscle insertions SKIN Skin intact without rashes. Results Reviewed Results Reviewed: Laboratory Tests 04/08/24 07/22/24 10:32 10:27 WBC 9.8 RBC 5.88 H Hgb 14.9 Hct 47.6 H Plt Count 293 ESR 21 H Sodium 140 Potassium 4.1 Chloride 100 Carbon Dioxide 29 BUN 10 Creatinine 0.71 AST 22 ALT 39 H Alkaline Phosphatase 140 H C-Reactive Protein 1.84 H 2.00 H Immunology Labs 07/25/22 14:14 Rheumatoid Factor < 13.0 Cycl Citrul Peptide IgG <16 Assessment & Plan Assessment & Plan (1) Rheumatoid arthritis: Comment: seropositive (borderline RF then -ve on repeat, -ve CCP) dx 09/16 MTX started 09/16 effective DC 11/16 due to transaminitis Leflunomide started 12/17 DC due to transaminitis Enbrel 02/16 effective Code(s): M06.9 - Rheumatoid arthritis, unspecified Category: Medical Qualifiers: Rheumatoid arthritis location: multiple sites Rheumatoid factor presence: with rheumatoid factor Qualified Code(s): M05.79 - Rheumatoid arthritis with rheumatoid factor of multiple sites without organ or systems involvement Plan: #RA Patient is a 58-year-old female with rheumatoid arthritis here today for follow up. Currently on Enbrel and disease is in remission Plan - Enbrel 50mg SC every week - RTC 4 months - Labs before appt: CBC, CMP, ESR, CRP (2) Polyarticular osteoarthritis: Code(s): M15.9 - Polyosteoarthritis, unspecified Category: Medical Plan: #Polyarticular OA Patient with polyarticular osteoarthritis currently stable. (3) Encounter for monitoring of etanercept therapy: Code(s): Z51.81 - Encounter for therapeutic drug level monitoring; Z79.620 - retirement (current) use of immunosuppressive biologic Plan: #Long-term Use of TNF Inhibitors: Etanercept Discussed with the patient the benefits and risks of TNF inhibitors for the management of the rheumatic condition Benefits include reduce pain, maintenance of remission and reduction of flares as well as ?progression of the disease Risks include injection sites/infusion reactions, serious infections (such as bacterial infections, opportunistic infections), malignancy, delaminating syndromes, autoimmune phenomena, CHF exacerbations, palmar plantar psoriasis and cytopenias Recommended rotating injection sites, and holding medication during and for up to 1 week after resolution of a febrile illness or open skin wound Plan I spent 30 minutes reviewing the record and labs, taking a history, examining the patient, discussing the treatment plan, ordering diagnostic work up and documenting in the medical record Orders: Orders Complete Blood Count Auto Diff 4 Months M0. - Rheumatoid arthritis with rheumatoid factor of multiple sites without organ or systems involvement C Reactive Protein 4 Months . - Rheumatoid arthritis with rheumatoid factor of multiple sites without organ or systems involvement Comprehensive Met. Panel 4 Months - Rheumatoid arthritis with rheumatoid factor of multiple sites without organ or systems involvement Erythrocyte Sedimentation Rate 4 Months . - Rheumatoid arthritis with rheumatoid factor of multiple sites without organ or systems involvement Medications: Refilled Enbrel SureClick (etanercept) 50 mg subcut QWEEK 4 mL 3RF NS . - Rheumatoid arthritis with rheumatoid factor of multiple sites without organ or systems involvement Coding Level of Care Code Est Pt Level 4 (80579) Complex EM visit Add On G2211 Diagnoses Rheumatoid arthritis involving multiple sites with positive rheumatoid factor . Rheumatoid arthritis location: multiple sites Rheumatoid factor presence: with rheumatoid factor Polyarticular osteoarthritis M15.9 Encounter for monitoring of etanercept therapy Z51.81; Z79.167
--- OUTSIDE RECORDS SUMMARY | 2024-08-22 17:11 | XMS_ITS | Encounter Summary ---
Author Organization [facility] Address [address] [place] [address] Care Team Providers Care Gymnasium Teacher Name Role Phone Cuco Weller MD Primary Care Provider [phone] [phone] Encounter Details Date Type Department Care Team Description 11/08/2019 Orders Only Radiology - [address] [address] Cuco Weller MD [address] [place] [address] [id number] Social History Tobacco Use Types Packs/Day Years Used Date Smoking Tobacco: Every Day Cigarettes 0.8 46 Started: [birth year]/27/1979 Smokeless Tobacco: Never Comments:1 pack daily Alcohol Use Standard Drinks/Week Comments Yes 0 (1 standard drink = 0.6 oz pur e alcohol) 2 wine coolers per yr Alcohol Habits Answer Date Recorded How often do you have a drink containing alcohol ? Never 01/13/2020 How many drinks containing a lcohol do you have on a typical day when you are drinking? Not asked How often do you have six or more drinks on one occasion? Not asked Sex Assigned at Date Recorded Not on file Job Start Date Occupation Industry Not on file Not on file Not on file documented as of this encounter Plan of Treatment Not on file documented as of this encounter Visit Diagnoses Not on filedocumented in this encounter Care Teams Gymnasium Teacher Relationship Specialty Start Date End Date Cuco Weller MD [address] [place] [address] PCP - General Internal Medicine 03/30/17 documented as of this encounter
--- OUTSIDE RECORDS SUMMARY | 2024-08-22 17:11 | XMS_ITS | Encounter Summary ---
Author Organization [facility] Address [address] [place] [address] Care Team Providers Care Hotel Sales Manager Name Role Phone Fernando Stahl MD Primary Care Provider Unavail able Cuco Weller MD Primary Care Provider [phone] Encounter Details Date Type Department Care Team Description 10/24/2014 Motorcoach Operator Report Medical Records [address] [place] [address] Kiko Frances MD Social History Tobacco Use Types Packs/Day Years Used Date Smoking Tobacco: Every Day Cigarettes 1.3 Smokeless Tobacco: Never Alcohol Use Standard Drinks/Week Comments Yes 0 (1 standard drink = 0.6 oz pur e alcohol) Alcohol Habits Answer Date Recorded How often [...] on filedocumented in this encounter Care Teams Hotel Sales Manager Relationship Specialty Start Date End Date Fernando Stahl MD PCP - General 02/14/03 03/29/17 Cuco Weller MD [address] [place] [address] PCP - General Internal Medicine 03/30/17 documented as of this encounter
--- OUTSIDE RECORDS SUMMARY | 2024-08-22 17:11 | XMS_ITS | Encounter Summary ---
Author Organization [facility] Address [address] [place] [address] Care Team Providers Care Apprentice Technician Name Role Phone Cuco Weller MD Primary Care Provider [phone] Encounter Details Date Type Department Care Team Description 02/23/2020 Pt. Non Urgent Medical Question Adult Urgent Care - [address] [address] Fernando Stahl MD Social History Tobacco Use Types Packs/Day Years Used Date Smoking Tobacco: Every Day Cigarettes 0.8 46 Started: 04/27/1979 Smokeless Tobacco: Never Comments:1 pack daily Alcohol Use Standard Drinks/Week Comments No 0 (1 standard drink = 0.6 oz [...] file Not on file Not on file COVID-19 Exposure Response Date Recorded In the last month, have you been in contact with someone who was confirmed or suspected to have Coronavirus / COVID-19? No / Unsure 02/16/2020 10:24 AM EDT documented as of this encounter Progress Notes * Marisa Rivas L.P.N. - 02/23/2020 1:13 PM EDTFrom: Dolly Hoyt To: Fernando Stahl MD Sent: 02/23/2020 11:48 AM EDT Subject: Appointment I had an ultrasound and blood work done. Do I need a follow-up appointment? documented in this encounter Plan of Treatment Not on file documented as of this encounter Visit Diagnoses Not on filedocumented in this encounter Care Teams Apprentice Technician Relationship Specialty Start Date End Date Cuco Weller MD [address] [place] [address] PCP - General Internal Medicine 03/30/17 documented as of this encounter
--- OUTSIDE RECORDS SUMMARY | 2024-08-22 17:11 | XMS_ITS | Encounter Summary ---
Author Organization [facility] Address [address] [place] [address] Care Team Providers Care Horse Buyer Name Role Phone Fernando Stahl MD Primary Care Provider Unavail able Cuco Weller MD Primary Care Provider [phone] Encounter Details Date Type Department Care Team Description 07/26/2015 Walk In Clinic Visit Medical Records [address] [place] [address] Social History Tobacco Use Types Packs/Day Years Used Date Smoking Tobacco: Every Day Cigarettes 1 Smokeless Tobacco: Never Comments:1 PACK DAILY Alcohol Use Standard Drinks/Week Comments Yes 0 [...] on filedocumented in this encounter Care Teams Horse Buyer Relationship Specialty Start Date End Date Fernando Stahl MD PCP - General 02/14/03 03/29/17 Cuco Weller MD [address] [place] [address] PCP - General Internal Medicine 03/30/17 documented as of this encounter
--- OUTSIDE RECORDS SUMMARY | 2024-08-22 17:11 | XMS_ITS | Encounter Summary ---
Author Organization [facility] Address [address] [place] [address] Care Team Providers Care Hair Preparer Name Role Phone Fernando Stahl MD Primary Care Provider Unavail able Cuco Weller MD Primary Care Provider [phone] Encounter Details Date Type Department Care Team Description 06/21/2012 Pickle Sorter Report Medical Records [address] [place] [address] Kimi Pedro Social History Tobacco Use Types Packs/Day Years Used Date Smoking Tobacco: Every Day Cigarettes 1 Smokeless Tobacco: Never Comments:1 pack a day as of 2 months ago Alcohol Use Standard Drinks/Week Comments Yes 0 [...] on filedocumented in this encounter Care Teams Hair Preparer Relationship Specialty Start Date End Date Fernando Stahl MD PCP - General 02/14/03 03/29/17 Cuco Weller MD [address] [place] [address] PCP - General Internal Medicine 03/30/17 documented as of this encounter
--- OUTSIDE RECORDS SUMMARY | 2024-08-22 17:11 | XMS_ITS | Encounter Summary ---
Author Organization [facility] Address [address] [place] [address] Care Team Providers Care Remote Sensing Research Scientist Name Role Phone Cuco Weller MD Primary Care Provider [phone] Reason for Visit * Reason Onset Date Comments Mychart Rx Refill 12/25/2017 Encounter Details Date Type Department Care Team Description 12/25/2017 Pt. Non Urgent Medical Question Adult Medicine B - [address] [address] Cuco Weller MD [address] [place] [address] Social History Tobacco Use Types Packs/Day Years Used Date Smoking Tobacco: Every Day Cigarettes 1 36 Started: 04/27/1979 Smokeless Tobacco: Never Comments:1 pack [...] on file documented as of this encounter Progress Notes * Anupama Burrell L.P.N. - 12/25/2017 11:56 AM EDTFrom: Dolly Hoyt To: Cuco Weller MD Sent: 12/25/2017 11:56 AM EDT Subject: Refill I need a rx for my test strips for diabetes. My pharmacy has changed. It's now [facility] in [place]. Thank you documented in this encounter Plan of Treatment Not on file documented as of this encounter Visit Diagnoses Not on filedocumented in this encounter Care Teams Remote Sensing Research Scientist Relationship Specialty Start Date End Date Cuco Weller MD [address] [place] [address] PCP - General Internal Medicine 03/30/17 documented as of this encounter
--- OUTSIDE RECORDS SUMMARY | 2024-08-22 17:11 | XMS_ITS | Encounter Summary ---
Author Organization [facility] Address [address] [place] [address] Care Team Providers Care Senior Cognos Developer Name Role Phone Cuco Weller MD Primary Care Provider [phone] Reason for Visit * Reason Comments E-prescribe Rx Request Encounter Details Date Type Department Care Team Description 08/09/2019 Refill Adult Medicine B - [address] [address] Diandra Ac APRN E-prescribe Rx Request Social History Tobacco Use Types Packs/Day Years [...] on file documented as of this encounter Miscellaneous Notes * Telephone Encounter - Mallory Lama M.A. - 08/09/2019 1:30 PM EDT Lab Results Component Value Date CHOL 155 06/28/2019 LDL 71 06/28/2019 HDL 51 06/28/2019 TRIG 165 06/28/2019 SGOT 8 06/28/2019 SGPT 19 06/28/2019 * Telephone Encounter - Cristin MayersTory Jay - 08/09/2019 8:03 AM EDT Patient would like script to be: E-PRESCRIBED/FAXED TO PHARMACY WHEN WAS THE PATIENT'S LAST APPOINTMENT IN ADULT MEDICINE? 06/28/19 WHEN WAS THE LAST TIME THE PATIENT SAW THEIR PCP? 01/22/18 Does patient have an upcoming appointment? No-unable to reach left [facility] to call for appointment due to refill request. Appt due Dec. (THE MEDICATION REQUESTED IS ON THE MED LIST ABOVE) All of the medications requested were on the CURRENT MEDS list Did you check the Pharmacy information above?: YES Patient wants: 90 -day supply Is this a mail order prescription request ? NO If the refill is from a FAXED refill request what is the RX # listed on the fax? N/A Patients current insurance carrier is: Payor: [employer] FFS / Plan: [facility] / Product Type: MEDICAID RISK documented in this encounter Plan of Treatment Not on file documented as of this encounter Visit Diagnoses Not on filedocumented in this encounter Care Teams Senior Cognos Developer Relationship Specialty Start Date End Date Cuco Weller MD [address] [place] [address] PCP - General Internal Medicine 03/30/17 documented as of this encounter
--- OUTSIDE RECORDS SUMMARY | 2024-08-22 17:11 | XMS_ITS | Encounter Summary ---
Author Organization [facility] Address [address] [place] [address] Care Team Providers Care Rfid Specialist Name Role Phone Fernando Stahl MD Primary Care Provider Unavail able Cuco Weller MD Primary Care Provider [phone] Reason for Visit * Reason Onset Date Comments Faxed Order 07/05/2015 medical Resource s Encounter Details Date Type Department Care Team Description 07/05/2015 Telephone Adult Medicine B - [place] [address] [place] [address] Fernando Stahl MD Faxed Order (medical Resources) Social History Tobacco Use Types Packs/Day Years [...] encounter Miscellaneous Notes * Telephone Encounter - Mary Kay Oliveros - 07/05/2015 1:30 PM EST Placed in doctors bin on B side: medical Resources Please review, sign and fax when completed [phone] documented in this encounter Plan of Treatment Not on file documented as of this encounter Visit Diagnoses Not on filedocumented in this encounter Care Teams Rfid Specialist Relationship Specialty Start Date End Date Fernando Stahl MD PCP - General 02/14/03 03/29/17 Cuco Weller MD [address] [place] [address] PCP - General Internal Medicine 03/30/17 documented as of this encounter
--- OUTSIDE RECORDS SUMMARY | 2024-08-22 17:11 | XMS_ITS | Encounter Summary ---
Author Organization [facility] Address [address] [place] [address] Care Team Providers Care Sales Agent Pest Control Service Name Role Phone Cuco Weller MD Primary Care Provider [phone] [phone] Encounter Details Date Type Department Care Team Description 05/04/2018 Release of Information Medical Records [address] [place] [address] Abstract, Provider Social History Tobacco Use Types Packs/Day Years [...] on filedocumented in this encounter Care Teams Sales Agent Pest Control Service Relationship Specialty Start Date End Date Cuco Weller MD [address] [place] [address] PCP - General Internal Medicine 03/30/17 documented as of this encounter
--- OUTSIDE RECORDS SUMMARY | 2024-08-22 17:11 | XMS_ITS | Encounter Summary ---
Author Organization [facility] Address [address] [place] [address] Care Team Providers Care Metal Casket Maker Name Role Phone Cuco Weller MD Primary Care Provider [phone] [phone] Reason for Visit * Reason Onset Date Comments Special Procedure 12/10/2018 colonscopy pre p Encounter Details Date Type Department Care Team Description 12/10/2018 Telephone Gastroenterology - [address] [place] [id number] Girish Christiansen MD Special Procedure (colonscopy prep) Social History Tobacco Use Types Packs/Day Years [...] encounter Miscellaneous Notes * Telephone Encounter - Girish Christiansen MD - 12/10/2018 4:33 PM EDT I sent this in. * Telephone Encounter - Yoly Do - 12/10/2018 2:19 PM EDT This patient prefers osmo prep - is that ok? * Telephone Encounter - Ira Sidhu - 12/10/2018 12:23 PM EDT Appointment accepted by patient 02/09/19 @ [address] send instruction to address on file and script to patients prefer [facility] Patient would like to have the colonoscopy pill prep instead of the polyethylene glycol prep. documented in this encounter Plan of Treatment Not on file documented as of this encounter Visit Diagnoses Not on filedocumented in this encounter Care Teams Metal Casket Maker Relationship Specialty Start Date End Date Cuco Weller MD [address] [place] [address] PCP - General Internal Medicine 03/30/17 documented as of this encounter
--- OUTSIDE RECORDS SUMMARY | 2024-08-22 17:11 | XMS_ITS | Encounter Summary ---
Author Organization [facility] Address [address] [place] [address] Care Team Providers Care Type Casting Machine Operator Name Role Phone Cuco Weller MD Primary Care Provider [phone] Encounter Details Date Type Department Care Team Description 11/28/2022 Special Projects Coordinator Report Medical Records [address] [place] [address] Center, [facility] [address] [place] [address] Social History Tobacco Use Types Packs/Day Years Used Date Smoking Tobacco: Former Cigarettes 0.8 46 0 04/27/1979 - 09/25/2022 Smokeless Tobacco: Never Comments:1 pack daily Alcohol [...] Exposure Response Date Recorded In the last 10 days, have yo u been in contact with someone who was confirmed or suspected to have Coronavirus/COVID-19? No / Unsure 11/07/2022 1:26 PM EDT documented as of this encounter Plan of Treatment Not on file documented as of this encounter Visit Diagnoses Not on filedocumented in this encounter Care Teams Type Casting Machine Operator Relationship Specialty Start Date End Date Cuco Weller MD [address] [place] [address] PCP - General Internal Medicine 03/30/17 documented as of this encounter
--- OUTSIDE RECORDS SUMMARY | 2024-08-22 17:11 | XMS_ITS | Encounter Summary ---
Author Organization [facility] Address [address] [place] [address] Care Team Providers Care Fisher Crab Name Role Phone Fernando Stahl MD Primary Care Provider Unavail able Cuco Weller MD Primary Care Provider [phone] Encounter Details Date Type Department Care Team Description 11/10/2011 Manager Technical Training Report Medical Records [address] [place] [address] Adonis Alvarez Social History Tobacco Use Types Packs/Day Years [...] on filedocumented in this encounter Care Teams Fisher Crab Relationship Specialty Start Date End Date Fernando Stahl MD PCP - General 02/14/03 03/29/17 Cuco Weller MD [address] [place] [id number] PCP - General Internal Medicine 03/30/17 documented as of this encounter
--- OUTSIDE RECORDS SUMMARY | 2024-08-22 17:11 | XMS_ITS | Encounter Summary ---
Author Organization [facility] Address [address] [place] [address] Care Team Providers Care Bulk System Operator Name Role Phone Cuco Weller MD Primary Care Provider [phone] Encounter Details Date Type Department Care Team Description 02/17/2023 Pt. Non Urgent Medical Question Adult Medicine [address] [id number] Cuco Weller MD [address] [place] [address] Social History Tobacco Use Types Packs/Day Years [...] suspected to have Coronavirus/COVID-19? No / Unsure 02/03/2023 11:33 AM EDT documented as of this encounter Progress Notes * Cuco Weller MD - 02/18/2023 12:38 PM EDT Noted. Agree with sending patient to the ER to rule out arterial blockage in her foot. documented in this encounter Miscellaneous Notes * Telephone Encounter - Loida Santos R.N. - 02/18/2023 7:26 AM EDTFrom: Dolly Hoyt To: Funmi Weller Sent: 02/17/2023 10:01 PM EDT Subject: Toe I attached a picture of what my toe looks like so the Dr can see it and let me know if I need to beseen for it. documented in this encounter Plan of Treatment Not on file documented as of this encounter Visit Diagnoses Not on filedocumented in this encounter Care Teams Bulk System Operator Relationship Specialty Start Date End Date Cuco Weller MD [address] [place] [id number] PCP - General Internal Medicine 03/30/17 documented as of this encounter
--- OUTSIDE RECORDS SUMMARY | 2024-08-22 17:11 | XMS_ITS | Encounter Summary ---
Author Organization [facility] Address [address] [place] [address] Care Team Providers Care Certified Real Estate Appraiser Name Role Phone Cuco Weller MD Primary Care Provider [phone] Encounter Details Date Type Department Care Team Description 01/06/2023 Pt. Non Urgent Medical Question Adult Medicine [address] [id number] Cuco Weller MD [address] [place] [address] Social History Tobacco Use Types Packs/Day Years [...] suspected to have Coronavirus/COVID-19? No / Unsure 12/30/2022 1:22 PM EDT documented as of this encounter Miscellaneous Notes * Telephone Encounter - Cuca Snell M.A. - 01/06/2023 1:00 PM EDTFrom: Dolly Hoyt To: Funmi Weller Sent: 01/06/2023 12:32 PM EDT Subject: Vaccines I was wondering if you have a record of if I had my flu shot this year, I can't remember if I had it or not. Also wondering if I should get the rsv vaccine and if I need a pneumonia vaccine. Thank you documented in this encounter Plan of Treatment Not on file documented as of this encounter Visit Diagnoses Not on filedocumented in this encounter Care Teams Certified Real Estate Appraiser Relationship Specialty Start Date End Date Cuco Weller MD [address] [place] [id number] PCP - General Internal Medicine 03/30/17 documented as of this encounter
--- OUTSIDE RECORDS SUMMARY | 2024-08-22 17:11 | XMS_ITS | Encounter Summary ---
Author Organization [facility] Address [address] [place] [address] Care Team Providers Care Automotive Warranty Administrator Name Role Phone Cuco Weller MD Primary Care Provider [phone] Encounter Details Date Type Department Care Team Description 04/15/2023 Orders Only Adult Medicine - [place] [address] [place] [address] Lincoln Martell, INGE [address] [place] [address] Type 2 diabetes mellitus without complication, without long-term current use of insulin (HCC) (Primary Dx) Social History Tobacco Use Types Packs/Day Years [...] documented as of this encounter Visit Diagnoses Diagnosis Type 2 diabetes mellitus without complication, without long-term current use of insulin (HCC)- Primary documented in this encounter Care Teams Automotive Warranty Administrator Relationship Specialty Start Date End Date Cuco Weller MD [address] [place] [address] PCP - General Internal Medicine 03/30/17 documented as of this encounter
--- OUTSIDE RECORDS SUMMARY | 2024-08-22 17:11 | XMS_ITS | Clinical Summary ---
Author Organization [facility] Address [address] [place] [address] Phone Care Team Providers Care Outside Installer Apprentice Name Role Phone Cuco Weller MD Primary Care Provider [phone] Allergies Active Allergy Reactions Criticality Noted Date Comments Nsaids (Non-Steroidal Anti-I nflammatory Drug) Hives Medium 08/04/2024 Medications ascorbic acid, vitamin C, 500 mg capsule Take 1 tablet by mouth 1 (one) time each day. 06/19/19 24 Active DULoxetine (CYMBALTA) [address] capsule TAKE 1 CAPSULE BY MOUTH EVERY MORNING INCREASED DOSE 10/13/19 24 Active etanercept (EnbreL) 50 mg/mL (1 mL) injection syringe Inject 1 mL (50 mg total) under the skin. Inject 50 mg into the skin every 7 days. Active ipratropium-albu teroL (Combivent Respimat) 20-100 mcg/actuation inhaler INHALE 1 PUFF BY MOUTH INTO THE LUNGS 4 TIMES A DAY NEEDED FOR WHEEZING 08/15/19 24 Active lamoTRIgine (LaMICtal) 100 mg tablet Take 1 Tablet by mouth every evening. (Takes a 200 mg tab in AM) 12/12/19 23 Active lamoTRIgine (LaMICtal) 200 mg tablet Take 1 Tablet by mouth every morning. (takes a 100 mg tab in the evening) 08/11/19 14 Active levETIRAcetam (KEPPRA) 500 mg tablet Take 1 tablet by mouth 2 times daily. - Oral 06/11/19 22 Active omega-3 acid ethyl esters (LOVAZA) 1 gram capsule Take 1 capsule (1 g total) by mouth 2 (two) times a day. 12/06/19 23 Active QUEtiapine (SEROquel) 50 mg tablet Take 1 tablet (50 mg total) by mouth at bedtime. Active fluticasone propion-salmeter oL (ADVAIR HFA) 230-21 mcg/actuation inhaler Inhale 2 puffs by mouth 2 (two) times a day. Rinse mouth with water after use to reduce aftertaste and incidence of candidiasis. Do not swallow. Active cholecalciferol (VITAMIN D-3) 50 mcg (2,000 unit) tablet TAKE 1 TABLET BY MOUTH EVERY DAY 90 tablet 1 04/19/20 24 Active blood sugar diagnostic (FreeStyle Lite Strips) test stripIndications :Type 2 diabetes mellitus without complications (CMS/HCC V24, CMS/HCC V28) USE TO TEST SUGARS TWICE DAILY. 200 strip 1 04/19/20 24 Active aspirin 81 mg EC tablet Take 1 tablet (81 mg total) by mouth 1 (one) time each day. 90 tablet 1 04/19/20 24 Active freestyle (FreeStyle Lancets) 28 gauge lancets Use to test sugars daily Dx: E11.65, Z79.4 100 each 3 05/03/19 25 Active Alcohol Prep Pads pads, medicated 03/04/20 24 Active Sharps Container 03/04/20 24 Active losartan (Cozaar) 25 mg tabletIndication s:Primary hypertension Take 1 tablet (25 mg total) by mouth 1 (one) time each day. 90 each 1 05/10/19 25 2024 Active glipiZIDE (GLUCOTROL XL) 5 mg 24 hr tablet TAKE 2 TABLETS BY MOUTH TWICE A DAY 360 tablet 1 05/23/19 25 Active metFORMIN XR (GLUCOPHAGE-XR) 500 mg 24 hr tablet TAKE 2 TABLETS BY MOUTH TWICE A DAY 360 tablet 06/17/19 25 Active pantoprazole (PROTONIX) 40 mg EC tablet Take 1 tablet (40 mg total) by mouth 1 (one) time each day. 90 tablet 06/17/19 25 Active rOPINIRole (REQUIP) 0.5 mg tabletIndication s:Periodic limb movement disorder Take 1 tablet (0.5 mg total) by mouth 3 (three) times a day. 270 tablet 1 06/29/19 25 Active tiotropium (Spiriva Respimat) 2.5 mcg/actuation inhalation spray Inhale 2 puffs by mouth 1 (one) time each day. Inhale 2.5 mcg into the lungs 2 times daily. - Inhalation 1 each 2 07/20/19 25 2024 Active atorvastatin (LIPITOR) 10 mg tablet TAKE 1 TABLET BY MOUTH EVERY DAY 90 tablet 07/22/19 25 Active ferrous sulfate 325 mg (65 mg elemental iron) tabletIndication s:Iron deficiency TAKE 1 TABLET BY MOUTH EVERY OTHER DAY 45 tablet 1 08/16/19 25 Active Jardiance 25 mg tabletIndication s:Type 2 diabetes mellitus without complications (CMS/HCC V24, CMS/HCC V28) TAKE 1 TABLET BY MOUTH EVERY DAY 90 tablet 1 08/19/19 25 Active ferrous sulfate 325 mg (65 mg elemental iron) tablet Take 1 tablet (325 mg total) by mouth every other day. 07/02/19 24 2024 Discontinued triamcinolone acetonide (KENALOG-40) 40 mg/mL injection 1 mL by Other route once for 1 dose. - Other, 2024 Discontinued(S top Taking at Discharge) empagliflozin (Jardiance) 25 mg tablet Take 1 tablet (25 mg total) by mouth 1 (one) time each day. 90 tablet 03/25/20 24 2024 Discontinued ondansetron (ZOFRAN) 4 mg tablet Take 1 tablet (4 mg total) by mouth 3 (three) times a day. 60 tablet 6 05/05/19 25 2024 Discontinued(S top Taking at Discharge) aluminum-magnesi um hydroxide-simeth icone (MAALOX) 200-200-20 mg/5 mL suspension Take 30 mL by mouth 4 (four) times a day (before meals and nightly). 769 mL 11 05/05/19 25 2024 Discontinued(S top Taking at Discharge) promethazine (PHENERGAN) 25 mg tablet Take 1 tablet (25 mg total) by mouth every 6 (six) hours if needed for nausea or vomiting (take before each meal). 90 tablet 11 05/06/19 25 2024 Discontinued(S top Taking at Discharge) oxyCODONE-acetam inophen (PERCOCET) 5-325 mg per tabletIndication s:Incisional hernia, without obstruction or gangrene Take 1 tablet by mouth every 6 (six) hours if needed for moderate pain for up to 3 days. Max Daily Amount: 4 tablets 10 tablet 08/05/19 25 2024 Discontinued(T herapy completed) Active Problems Problem Noted Date Diagnosed Date Abdominal hernia without obstruction and without gangrene 06/10/2024 Pancreatitis 01/22/2024 Trigger thumb of left hand 01/22/2024 MEHRDAD (obstructive sleep apnea) 12/30/2022 Overview (01/14/2024): Last Assessment & Plan: Patient was diagnosed with obstructive sleep apnea years ago but he is using a CPAP New sleep study has been ordered. Rheumatoid arthritis ([facility] V24, [facility] V28) 11/07/2022 Chronic hypoxemic respirator y failure ([facility] V24, [facility] V28) 09/26/2022 Overview (01/14/2024): Last Assessment & Plan: Hypoxemic respiratory failure secondary to stage III COPD. Stage 3 severe COPD by GOLD classification ([facility] V24, [facility] V28) 05/27/2022 Overview (01/14/2024): Last Assessment & Plan: 57-year-old woman with unfortunate diagnosis of stage III COPD secondary to smoking. Alpha-1 antitrypsin deficiency is negative. Patient quit smoking 3 months ago. If she continue with abstinence for more than a year, given her age she could be referred to transplantation center to consider transplant. In the meantime from the pulmonary standpoint of view I would recommend the followin. Continue with triple therapy with Advair and Spiriva 2. Continue in the pulmonary rehab program. Return to clinic in 4 months Assessment & Plan (08/11/2024 2:55 PM EDT): She will continue to use oxygen on exertion and while sleeping. For now she will continue Advair, Spiriva, Combivent, albuterol. Periodic limb movement sleep disorder 03/23/2018 Overview (01/14/2024): Sleep study 2012 (external) Type 2 diabetes mellitus wit h hyperglycemia, without long-term current use of insulin ([facility] V24, [facility] V28) 12/10/2016 Assessment & Plan (08/11/2024 2:55 PM EDT): She has been monitored by endocrinology. Continue current regimen of metformin, glipizide, empagliflozin. Pap smear of cervix with ASCUS, cannot exclude H GSIL 12/02/2016 Overview (01/14/2024): Pap 10/2016 - ASC-H, +HPV Colpo 12/30/16 - NEGATIVE Pap 10/2020 - ASCUS, positive HPV (16, 18, 45) Colpo 11/2020 - all biopsies negative Pap 03/18/22 - ASCUS, HPV pos (neg 16, 18, 45) Colpo 04/2022 - biopsy at 12:00 and ECC benign Obesity (BMI 30-39.9) 07/31/2016 Incidental pulmonary nodule, less than or equal to 3mm 05/21/2016 Overview (01/14/2024): CT chest 04/2017: No further radiographic follow-up is needed Last Assessment & Plan: Continue lung cancer screening screening every year. Fatty liver disease, nonalcoholic 05/21/2016 Suicidal behavior 08/23/2013 Overview (01/14/2024): 2008-dilaudid; 2013 Depression 02/26/2010 [facility] (01/14/2024): [facility] due to cryptosporidium ([facility] V24, [facility] V28) 08/07/2009 Pancreatic adenoma 10/20/2008 Overview (01/14/2024): Mid pancreatectomy; Neuroendocrine tumor;05/12/08; Abscess 06/05 Dr. Maryjo Mancia Hyperlipidemia 10/20/2008 Abdominal pain, generalized 12/21/2006 Convulsions (CMS/HCC V24, CMS/HCC V28) 6 Overview (01/14/2024): Currently seeing Dr Frances (neurologist), last sezire in the Juan Daniel; Willis; David; Seema; Glenda; Alex;(Med side effects); Szr free for years Assessment & Plan (08/11/2024 2:55 PM EDT): She has a follow-up appointment with neurology this month. Currently has not had any recent seizures. Encounters Date Type Department Care Team Description 08/19/2024 11:00 AM EDT Office Visit [facility] Surgery [address] [phone] Aman Flannery MD Abdominal hernia without obstruction and without gangrene, recurrence not specified, unspecified hernia type (Primary Dx) 08/11/2024 3:01 PM EDT - 08/11/2024 11:59 PM EDT Hospital Encounter [facility] [address] [place] [phone] Cervical radiculopathy Discharge Disposition: Home or Self Care 08/11/2024 2:15 PM EDT Office Visit Internal Medicine - [facility] [address] [place], [place] [phone] Cuco Weller MD Type 2 diabetes mellitus with hyperglycemia, without long-term current use of insulin (CMS/HCC V24, CMS/HCC V28) (Primary Dx); Stage 3 severe COPD by GOLD classification (CMS/HCC V24, CMS/HCC V28); H/O hernia repair; Screen for colon cancer; Nausea; Convulsions, unspecified convulsion type (CMS/HCC V24, CMS/HCC V28); Cervical radiculopathy; Bilateral leg pain 08/09/2024 Telephone General Surgery - [place] [address] [phone] Aman Flannery MD FORMS/QUESTIONARE (ANTIBIOTICS FOR CURRENT INFECTION) 08/04/2024 7:31 AM EDT Anesthesia Event [facility] [place] [address] [place] [phone] Aman Holley MD Pierce, Trudy A, CRNA 08/04/2024 7:30 AM EDT - 08/04/2024 9:00 AM EDT Surgery [facility] [place] [address] [place] [phone] Aman Flannery MD REPAIR HERNIA EPIGASTRIC [[id number] (CPT??)] 08/04/2024 5:57 AM EDT - 08/04/2024 10:37 AM EDT Hospital Encounter [facility] [place] [address] [place] [phone] Aman Flannery MD Incisional hernia, without obstruction or gangrene (Primary Dx) Discharge Disposition: Home or Self Care 07/29/2024 Telephone Pulmonolgy - [place] [address] [phone] Jayshree Mendoza NP durable medical equipment 07/28/[address] [phone] Jayshree Mendoza NP Results 07/27/2024 11:30 AM EDT Pre-Admission Testing [facility] Pre-Admission Testing [address] [place] [phone] 07/14/2024 Telephone General Surgery [address] [phone] Aman Flannery MD Prior Authorization (08/04/24 Dr. Aman Falnnery) 07/07/[address] [phone] Chantal Young MA DME-oxygen order 07/06/2024 10:00 AM EDT Ancillary Procedure Pulmonolgy - [address] [place] [phone] Stage 3 severe COPD by GOLD classification ([facility]24, [facility] V28); Chronic hypoxemic respiratory failure ([facility] V24, [facility] V28) 06/10/2024 10:45 AM EST Consult General Surgery - [address] [place] [phone] Aman Flannery MD Abdominal hernia without obstruction and without gangrene, recurrence not specified, unspecified hernia type 06/06/2024 2:15 PM EST Office Visit Orthopedic Surgery [address] [place] [address] Nazia Valdovinos PA Trigger finger of left thumb (Primary Dx) 06/02/2024 10:40 AM EST Telemedicine Endocrinology [address] [phone] Yusra Chaney PA Type 2 diabetes mellitus with hyperglycemia, without long-term current use of insulin ([facility] V24, [facility] V28) (Primary Dx); Hyperlipidemia, unspecified hyperlipidemia type; Obesity (BMI 30-39.9) from Last 3 Months Immunizations Name Administration Dates Next Due Influenza Quadravalent, MDCK , 0.5ml, preservative free (Flucelvax) 6mo and older 02/03/2023,01/07/2022,01/30/2021,01/12 Influenza Quadravalent, MDCK , 0.5ml, with preservative (Flucelvax) 6mo and older 06/15/2018 Influenza trivalent, 0.5mL, preservative free (Fluarix; FluLaval; Fluzone) ages 6mo and older (Afluria) 3 years and older 01/20/2017 Influenza trivalent, MDCK, 0 .5mL, preservative free (Flucelvax) 6mo and older 04/07/2024 Influenza trivalent, with pr eservative (Fluzone; Afluria) 6mo and older 12/30/2018,01/19/2015,01/02/2011 Pneumococcal conjugate 20 va lent (Prevnar 20, PCV 20) 2mo and older 02/03/2023 Pneumococcal polysaccharide 23 valent (Pneumovax 23) 2yo and older 09/02/2017 Td Tetanus diptheria (Tdvax) 7yo and older 11/07/2022,12/02/2004,12/02/2004 Tdap Tetanus diptheria acell ular pertussis (Boostrix; Adacel) 7yo and older 06/23/2012 Zoster recombinant (Shingrix ) 19yo and older 10/18/2021 Surgical History Surgery Date Site/Laterality Comments OTHER SURGICAL HISTORY 2008 PROCEDURE: TN PNCRTECT DSTL NR-TOT W/PRSRV DUO CHLD-TYP PX; COMMENT: Partial,[place]; neuroendocrine OTHER SURGICAL HISTORY PROCEDURE: TN LIG/TRNSXJ FLP TUBE ABDL/VAG APPR UNI/BI CHOLECYSTECTOMY PROCEDURE: HISTORICAL CHOLECYSTECTOMY APPENDECTOMY PROCEDURE: HISTORICAL APPENDECTOMY COLONOSCOPY 02/09/2019 PROCEDURE: HISTORICAL COLONOSCOPY; COMMENT: no polyps. suboptimal prep - repeat in 5 years PANCREAS SURGERY N/A Medical History Medical History Date Comments Other convulsions DX:Other convu lsions Unspecified intracranial hemorrhage DX:Unspecified intracranial hemorrhage Other convulsions 06/25/2005 DX:Other convu lsions; COMMENT: Yamil Johnson;(Med side effects); Szr free for years Abdominal pain, generalized 12/21/2006 DX:A bdominal pain, generalized Stroke ([facility] V24, [facility] V28) 01/20/2008 DX:Stroke (HCC) Other and unspecified hyperlipidemia 10/20/2008 DX:Other and unspecified hyperlipidemia Pancreatic adenoma 10/20/2008 DX:Pancreatic adenoma Depression 02/26/2010 DX:Depression Seizure (CMS/HCC V24, CMS/HCC V28) 07/07/2011 DX:Seizure (HCC) Incidental pulmonary nodule, less than or equal to 3mm 05/21/2016 DX:Incidental pulmonary nodu le, less than or equal to 3mm History of colonic polyps 07/31/2016 DX:His tory of colonic polyps Periodic limb movement sleep disorder 03/23/2018 DX:Periodic limb movement sleep disorder; COMMENT: Sleep study 2013 (external) Pulmonary emphysema (CMS/HCC V24, CMS/HCC V28) 05/27/2022 DX:Pulmonary emphysema (HCC) Rheumatoid arthritis with po sitive rheumatoid factor ([facility] V24, [facility] V28) 11/07/2022 DX:Rheumatoid arthritis with positive rheumatoid factor (HCC) Iron deficiency DX:Iron deficien cy History of colon polyps DX:Histo ry of colon polyps Regurgitation of food DX:Regurgi tation of food Diabetes mellitus type 2, co ntrolled, with complications ([facility] V24, [facility] V28) DX:Diabetes mellitus type 2, controlled, with complications (HCC) Hypertension GERD (gastroesophageal reflu x disease) Cholelithiasis COPD (chronic obstructive pu lmonary disease) ([facility] V24, [facility] V28) on continous O2 2L Family History Medical History Relation Name Comments Arthritis Father Heart failure Father Hyperlipidemia Father Diabetes Maternal Grandmother Arthritis Mother hx RA Diabetes Mother Hyperlipidemia Mother Relation Name Status Comments Father (Age 75) Maternal Grandmother Mother (Age 72) Social History Tobacco Use Types Packs/Day Years Used Date Smoking Tobacco: Former Cigarettes 0.8 43.4 0 04/27/1979 - 09/25/2022 Smokeless Tobacco: Never Alcohol Use Standard Drinks/Week Comments No 0 (1 standard drink = 0.6 oz pur e alcohol) Comments No Sex and Gender Information Value Date Recorded Sex Assigned at Female 08/04/2024 5:56 AM EDT Legal Sex Female 7:02 PM EST Gender Identity Female 02/23/2024 8:05 PM EDT Sexual Orientation Straight 08/04/2024 5: 56 AM EDT Obstetrics History Last Filed Vital Signs Vital Sign Reading Time Taken Comments Blood Pressure 140/74 08/19/2024 10:56 AM EDT Pulse 100 08/19/2024 10:56 AM EDT Temperature 36.4 ??C (97.5 ??F) 08/04/2024 9:25 AM ED T Respiratory Rate 20 08/04/2024 9:25 AM EDT Oxygen Saturation 94% 08/04/2024 9:25 AM EDT Inhaled Oxygen Concentration - - Weight 87.5 kg (193 lb) 08/19/2024 10:56 AM EDT Height 160 cm (5' 3 ) 08/19/2024 10:56 AM EDT Body Mass Index 34.19 08/19/2024 10:56 AM EDT Plan of Treatment Upcoming Encounters Date Type Department Care Team (Late st Contact Info) Description 09/02/2024 1:00 PM EDT Office Visit Endocrinology - [address] [phone] Yusra Chaney PA [address] [place], [place] 09/06/2024 1:30 PM EDT Office Visit Orthopedic Surgery - [place] [address] [phone] Chaya Desai MD [address] [phone] 09/13/2024 2:00 PM EDT Office Visit Gastroenterology - [address] [phone] Maki Du NP [address] [address] 09/16/2024 9:30 AM EDT Office Visit General Surgery - [place] [address] [phone] Aman Flannery MD [address] [address] 09/21/2024 2:20 PM EDT Appointment Radiology Department - [address] [phone] 11/01/2024 1:00 PM EDT Office Visit Pulmonolgy - [place] [address] [phone] Jayshree Mendoza NP [address] [address] 11/15/2024 3:00 PM EDT Office Visit Internal Medicine - [facility] [address] [place], [place] [phone] Cuco Weller MD [address] [facility] [place] [address] Health Maintenance Due Date Last Done Comments Hepatitis A Vaccines (1 of 2 - Risk 2-dose series) 09/28/1982 COVID-19 Vaccine (3 - Pfizer risk series) 08/29/2020 08/01/2020, 07/11/2020 Zoster Vaccines (2 of 2) 12/13/2021 10/18/2021 Social Influencers of Health Screening 04/05/2022 Hepatitis B Vaccines (1 of 3 - Risk 3-dose series) 2023 RSV Immunization Adult Patients (1 - Risk 60-74 years 1-dose series) 2023 Colorectal Cancer Screening: Colonoscopy 02/10/2024 02/09/2019, 02/09/2019 Diabetes: Annual Urine Albumin-Creatinine Ratio (uACR) 04/13/2024 04/13/2023, 04/13/2023 Depression Screening 07/02/2024 07/03/2023 Diabetes: Blood Sugar Control Test (HGBA1C) 11/24/2024 05/27/2024, 02/03/2024, 11/26/2023, Additional history exists Diabetes: Annual Foot Exam 11/26/2024 11/27/2023, Lung Cancer Screening (Low Dose CT) 12/14/2024 12/15/2023, 11/28/2022, 11/22/2021, Additional history exists Diabetes: Annual Retina Eye Exam 12/15/2024 12/16/2023, 12/16/2023 Diabetes: Annual GFR (Glomerular Filtration Rate) 08/11/2025 08/11/2024, 05/27/2024, 05/10/2024, Additional history exists Hypertension/CHF/CAD Annual BMP Blood Test 08/11/2025 08/11/2024, 05/27/2024, 05/10/2024, Additional history exists Breast Cancer Screening 09/13/2025 09/14/19, 09/14/2023, 02/24/2022, Additional history exists Cervical Cancer Screening: HPV 03/18/2027 03/18/2022 Cholesterol Screening (Lipid Panel) 02/02/2029 02/03/2024, 09/30/2023, 09/30/2023 DTaP,Tdap,and Td Vaccines (5 - Td or Tdap) 11/07/2032 11/07/2022, 06/23/2012, 12/02/2004, Additional history exists HIV Screening Completed 06/26/2009 Hepatitis C Screening Completed 08/23/2013 Pneumococcal Vaccine: 50+ Years Completed 02/03/2023, 09/02/2017 Pneumococcal Vaccine: Pediatrics (0 to 5 Years) and At-Risk Patients (6 to 64 Years) Completed 02/03/2023, 09/02/2017 Influenza Vaccine Completed 04/07/2024, , 01/07/2022, Additional history exists HIB Vaccines Aged Out No longer eligi ble based on patient's age to complete this topic HPV Vaccines Aged Out No longer eligi ble based on patient's age to complete this topic IPV Vaccines Aged Out No longer eligi ble based on patient's age to complete this topic MMR Vaccines Aged Out No longer eligi ble based on patient's age to complete this topic Meningococcal ACWY Vaccine Aged Out N o longer eligible based on patient's age to complete this topic Meningococcal B Vaccine Aged Out No l onger eligible based on patient's age to complete this topic RSV Immunization Patients Under 20 months Aged Out No longer eligible based on patient's age to complete this topic Varicella Vaccines Aged Out No longer eligible based on patient's age to complete this topic Medical Devices Implanted Type Area Test And Turn Up Technician Device Identifier Shelf Expiration Date Model / Serial / Lot Mesh Ventralex St 2.5in Med [place] W/Strap - Sn/A - [id number] Implanted:Qty: 1 on 08/04/2024 by Aman Flannery MD at [facility] Surgical Mesh Sling Implants N/A: Abdomen CR BARD - DAVOL DIV 12/22/2025 [id number] / N/A / [id number] Procedures Procedure Name Priority Date/Time Associated Diagnosis Comments XR CERVICAL SPINE 4-5 VIEWS Routine 08/11/2024 3:12 PM EDT Cervical radiculopathy CREATINE KINASE Routine 08/11/2024 2:59 PM EDT Cervical radiculopathy MAGNESIUM Routine 08/11/2024 2:59 PM EDT Cervical radiculopathy BASIC METABOLIC PANEL Routine 08/11/2024 2:59 PM EDT Cervical radiculopathy TH AN LMA(NO CHARGE) Routine 08/04/2024 7:52 AM EDT TN REPR ANT ABD HERNIA(S) ANY APPR INIT INCL IMPL 3-10 CM REDUCIBLE 08/04/2024 7:30 AM EDT Abdominal hernia without obstruction and without gangrene, recurrence not specified, unspecified hernia type Special Needs SCHEDULE IN LEOBARDO BLOCK - ASKING 60 MINUTES FOR THIS CASE POCT GLUCOSE BLOOD Routine 08/04/2024 6: 10 AM EDT PROCEDURAL ECG Routine 07/27/2024 11:33 AM EDT EXTERNAL CLINICAL LAB 07/26/2024 PULMONARY FUNCTION TESTING Routine 07/06/2024 10:52 AM EDT Stage 3 severe COPD by GOLD classification (CMS/HCC V24, CMS/HCC V28) Chronic hypoxemic respiratory failure (CMS/HCC V24, CMS/HCC V28) TN INJECTION SINGLE TENDON SHEATH OR LIGAMENT APONEUROSIS Routine 06/06/2024 2:15 PM EST Trigger finger of left thumb HEMOGLOBIN A1C Routine 05/27/2024 12:22 PM EST Type 2 diabetes mellitus with hyperglycemia, without long-term current use of insulin (CMS/HCC V24, CMS/HCC V28) BASIC METABOLIC PANEL Routine 05/27/2024 12:22 PM EST Type 2 diabetes mellitus with hyperglycemia, without long-term current use of insulin (CMS/HCC V24, CMS/HCC V28) HM DIABETES EYE EXAM Routine 12/16/2023 CT LUNG SCREENING LOW DOSE Routine 12/15/2023 9:24 AM EDT Encounter for screening for malignant neoplasm of respiratory organs DIABETES FOOT EXAM Routine 11/27/2023 LIPID PANEL Routine 09/30/2023 SCREENING MAMMOGRAPHY BI 2-VIEW BREAST INC CAD Routine 09/14/2023 1:21 PM EDT Encounter for screening mammogram for malignant neoplasm of breast DEPRESSION SCREENING Routine 07/03/2023 URINE ALBUMIN CREATININE RATIO Routine 04/13/2023 HPV Routine 03/18/2022 COLONOSCOPY Routine 02/09/2019 HEPATITIS C SCREENING Routine 08/23/2013 HIV SCREENING Routine 06/26/2009 from Last 3 Months or Most Recently Relevant to Health Maintenance Results * XR Cervical Spine 4-5 Views (08/11/2024 3:12 PM EDT) Anatomical Region Laterality Modality Spine, C-spine Radiographic Mellisa ging 08/11/2024 5:38 PM EDT Impressions 08/11/2024 5:41 PM EDT Multilevel degenerative changes. ??Moderate neuroforamina narrowing on the right at C4-C5. -------- FINAL REPORT -------- Dictated By: Pauline Spencer Dictated Date: 08/11/2024 17:38 ET Assigned Physician: Pauline Spencer Reviewed and Electronically Signed By: Pauline Spencer Signed Date: 08/11/2024 17:41 ET Workstation ID: [id number] Transcribed By: Self Edit Transcribed Date: 08/11/2024 17:38 ET Narrative 08/11/2024 5:41 PM EDT XR CERVICAL SPINE 4-5 VIEWS Reason: cervical radiuclopathy Comparison: None FINDINGS: Straightening of the cervical lordosis. ??Mild anterolisthesis of C4 on C5. ??No compression fracture of the visualized cervical vertebral bodies. ??Visualized disc spaces are preserved. ??Small marginal osteophytes at a few levels. ??Moderate neuroforamina narrowing on the right at C4-C5 and mildly on the left at C3-C4 and C5-C6. ??Prevertebral soft tissues are unremarkable. Procedure Note Pauline Spencer MD - 08/11/2024 XR CERVICAL SPINE 4-5 VIEWS Reason: cervical radiuclopathy Comparison: None FINDINGS: Straightening of the cervical lordosis. Mild anterolisthesis of C4 on C5.No compression fracture of the visualized cervical vertebral bodies.Visualized disc spaces are preserved. Small marginal osteophytes at a fewlevels. Moderate neuroforamina narrowing on the right at C4-C5 and mildlyon the left at C3-C4 and C5-C6. Prevertebral soft tissues areunremarkable. IMPRESSION: Multilevel degenerative changes. Moderate neuroforamina narrowing on theright at C4-C5. -------- FINAL REPORT -------- Dictated By: Pauline Spencer Dictated Date: 08/11/2024 17:38 ET Assigned Physician: Pauline Spencer Reviewed and Electronically Signed By: Pauline Spencer Signed Date: 08/11/2024 17:41 ET Workstation ID: [id number] Transcribed By: Self Edit Transcribed Date: 08/11/2024 17:38 ET Cuco Weller MD IMG XR PROCEDURES Final R esult * Magnesium (08/11/2024 2:59 PM EDT) Magnesium 2.2 1.9 - 2.6 mg/dL LAB CHEMISTRY METHOD 08/11/2024 7:12 PM EDT [facility] ([facility]) [facility] Blood Venous blood specimen / Unknown Venipuncture / Unknown 08/11/2024 2:59 PM EDT 08/11/2024 2:59 PM EDT Cuco Weller MD LAB BLOOD ORDERABLES Lauren l Result Performing Organization Address City/[facility]/ZIP Co de Phone Number [facility] [address] [place] [address], [place] [phone] * Creatine kinase (08/11/2024 2:59 PM EDT) [facility] Total CK 44 22 - 269 unit/L LAB CHEMISTRY METHOD 08/11/2024 7:12 PM EDT [facility] Blood Venous blood specimen / Unknown Venipuncture / Unknown 08/11/2024 2:59 PM EDT 08/11/2024 2:59 PM EDT Cuco Weller MD LAB BLOOD ORDERABLES Lauren l Result Performing Organization Address [facility]/ZIP Co de Phone Number [facility] [address] [place] [address], [place] [phone] * (ABNORMAL) Basic metabolic panel (08/11/2024 2:59 PM EDT) Only the most recent of2 resultswithin the time period is included. [facility] Sodium 135 133 - 145 mmol/L LAB CHEMISTRY METHOD 08/11/2024 7:12 PM EDT [facility] Potassium 4.4 3.5 - 5.5 mmol/L LAB CHEMISTRY METHOD 08/11/2024 7:12 PM EDT [facility] Chloride 100 96 - 110 mmol/L LAB CHEMISTRY METHOD 08/11/2024 7:12 PM EDT [facility] CO2 28 21 - 32 mmol/L LAB CHEMISTRY METHOD 08/11/2024 7:12 PM EDT [facility] Anion Gap 7 3 - 11 LAB CHEMISTRY METHOD 08/11/2024 7:12 PM [facility] Glucose 146(H) 70 - 100 mg/dL LAB CHEMISTRY METHOD 08/11/2024 7:12 PM EDT [facility] BUN 10 5 - 25 mg/dL LAB CHEMISTRY METHOD 08/11/2024 7:12 PM EDT [facility] Creatinine 0.68 0.50 - 1.10 mg/dL LAB CHEMISTRY METHOD 08/11/2024 7:12 PM EDT [facility] eGFR 100 >=60 mL/min/1. 73m2 LAB CHEMISTRY METHOD 08/11/2024 7:12 PM EDT [facility] Comment:Calculation based on the??Chronic Kidney Disease Epidemiology Collaboration (CKD-EPI) equation refit??without adjustment for race. BUN/Creatinine Ratio 14.7 LAB CHEMISTRY METHOD 08/11/2024 7:12 PM EDT [facility] Calcium 9.7 8.5 - 10.5 mg/dL LAB CHEMISTRY METHOD 08/11/2024 7:12 PM EDT [facility] Blood Venous blood specimen / Unknown Venipuncture / Unknown 08/11/2024 2:59 PM EDT 08/11/2024 2:59 PM EDT Cuco Weller MD LAB BLOOD ORDERABLES Lauren turner Result [facility] [address] [place] [address], * TH AN LMA(NO CHARGE) (08/04/2024 7:52 AM EDT) Narrative Annita Ahn CRNA - 08/04/2024 7:52 AM EDT Annita Ahn CRNA ? 08/04/2024 ??7:52 AM General Information and Staff Patient location during procedure: OR Performed by: Annita Ahn CRNA Authorized by: Aman Holley MD ?? Intubation Airway not difficult Urgency: elective Final Airway Details Final airway type: LMA Indications and Patient Condition Indications for airway management: anesthesia Preoxygenated: yes Soft Tissue Damage: No Dentition Unchanged: Yes Patient position: neutral Mask difficulty assessment: 1 - vent by mask us Aman Holley MD ANESTHESIA ORDERABLES Final Re sult * (ABNORMAL) POCT Glucose, blood (08/04/2024 6:10 AM EDT) Glucose POCT 150(H) 70 - 100 mg/dL 08/04/2024 6:11 AM EDT [facility] Blood Capillary blood specimen / Unknown 08/04/2024 6:10 AM EDT 08/04/2024 6:12 AM EDT us Aman Falnnery MD LAB POINT OF CARE T EST DOCKED DEVICE UNSOLICITED RESULTS Final Result [facility] [address] [place] [address], [place] [phone] * ECG 12 lead - Procedural (No Charge) (07/27/2024 11:33 AM EDT) Ventricular Rate ECG 91 BPM GEMUSE Atrial Rate 91 BPM GEMUSE P-R Interval 184 ms GEMUSE QRS Duration 78 ms GEMUSE Q-T Interval 346 ms GEMUSE QTc 425 ms GEMUSE P Wave Gepp 83 degrees GEMUSE R Gepp 97 degrees GEMUSE T Gepp 79 degrees GEMUSE ECG Interpretation Normal sinus rhythm Rightward axis Low voltage QRS Septal infarct , age undetermined Abnormal ECG No previous ECGs available Confirmed by Velia FRANCIS YUFENG ([id number]) on 07/28/2024 7:06:51 PM GEMUSE 07/27/2024 11:3 3 AM EDT 07/28/2024 7:06 PM EDT us Aman Flannery MD ECG ORDERABLES Final Resul t GEMUSE * External clinical lab (07/26/2024) Provider [facility] LAB BLOOD ORDERABLES Fin al Result * TN INJECTION SINGLE TENDON SHEATH OR LIGAMENT APONEUROSIS (06/06/2024 2:15 PM EST) Narrative Chaya Desai MD - 06/06/2024 2:15 PM EST CHIRAG Hester ? 06/06/2024 ??3:31 PM Hand / UE Inj/Asp: L thumb A1 for trigger finger Indications: pain Details: 25 G needle, volar approach Medications: 0.5 mL lidocaine 1 %; 20 mg triamcinolone acetonide 40 mg/mL Informed Consent: ??Relevant images/test results available and reviewed: yes ?Health status cleared: ??Yes ??Procedure/treatment, purpose, treatment alternatives, risks/potential complications and benefits explained: yes ?Risk/complications/benefits details: ??Risks of infection, thinning of the skin and temporary skin discoloration discussed. ??Discussed risks of temporary increased pain after injection and swelling and mild redness at injection site for couple days. ??Explained occasionally cortisone injection can cause facial flushing temporarily. ??Benefits pain management. ??For postop injection pain ice, Tylenol and/or NSAIDs if patient can take ??Patient questions answered: yes ?Patient agrees, verbalizes understanding, and wants to proceed: yes ?Consent given by: ??Patient ??Informed consent discussion completed by Physician/JC with patient: ?? Verbal ??Pre-procedure timeout performed: yes ?? us Nazia BEARD IN CLINIC/BEDSIDE ORDERABLES Final Result * (ABNORMAL) Hemoglobin A1c (05/27/2024 12:22 PM EST) Hemoglobin A1C 8.4(H) <6.5 % LAB CHEMISTRY METHOD 05/27/2024 9:12 PM EST [facility] Mean Bld Glu Estim. 194 mg/dL LAB CHEMISTRY METHOD 05/27/2024 9:12 PM EST [facility] Blood Venous blood specimen / Unknown Venipuncture / Unknown 05/27/2024 12:22 PM EST 05/27/2024 12:22 PM EST us Yusra BEARD LAB BLOOD ORDERABLES Final Resul t [facility] ([facility]) [facility] [address] [place] [address], * Hm Diabetes Eye Exam (12/16/2023) Diabetes: Annual Retina Eye Exam Abstracted us Historical Provider HEALTH MAINTENANCE Final Result * CT LUNG SCREENING LOW DOSE (12/15/2023 9:24 AM EDT) Anatomical Region Laterality Modality Computed Tomogra phy 12/11/2023 2:22 PM EDT Narrative 12/15/2023 9:[address] [facility] Diagnostic Imaging Department [address] [place] [address] Patient: ??FRACISCO,DOLLY ?/Age/Sex: 1965 - 58 - F Unit#: ??[id number] ? Location/Status: ??SPDICATLS/REG CLI ? Mnemonic/Ordering Site: ??CTLUNGLD/SPCT Ordering Physician: ??PENNY COBIAN MD CT Lung Screening Low Dose - 12/11/23 - 144 Report Status:Signed Chest CT, 12/15/2023 9:05 AM. TECHNIQUE: Low-dose CT of the chest without intravenous contrast administration. ??Coronal and sagittal reformats and MIP reconstructions were created. Dose length product: 170 mGy-cm. HISTORY: CURRENT SMOKER; 47 EMILE; TOBACCO ABUSE COMPARISON: 11/28/2022. FINDINGS: Lungs/pleura: Normal caliber airways. ??Mild bronchiectasis and small foci of mucus plugging in the right lower lobe. ??Mild centrilobular emphysema. ??Minimal scarring in the right middle lobe and lingula. ??A few punctate calcified granulomas are noted. ??No pleural effusion or pneumothorax. Mediastinum/edgardo: No mediastinal mass or lymphadenopathy. ??No appreciable hilar lymphadenopathy on limited noncontrast evaluation. Vasculature: Aberrant right subclavian artery. ??Mild atherosclerotic calcifications. ??Normal caliber central pulmonary arteries. Cardiac: Normal heart size. ??Moderate coronary artery calcification. Chest wall: No mass or lymphadenopathy. Limited abdomen: Cholecystectomy. Bones: Degenerative changes of the spine. IMPRESSION: Lung RADS 1. ??No suspicious pulmonary nodule. ??Guidelines recommend repeat low- dose screening CT in 12 months. Dictating Physician: ??RADHA DOWNS MD Electronically Signed by: ??RADHA DOWNS MD Dic Date/Time: ??12/15/23904 Sign date/Time: ??12/15/23923 Procedure Note Radha Downs MD - 02/10/2024 [facility] Diagnostic Imaging Department [address] [place] [address] Patient: DOLLY HOYT /Age/Sex: 1965 - 58 - F Unit#: [id number] Location/Status: SPDICATLS/REG CLI Mnemonic/Ordering Site: [facility] Ordering Physician: PENNY COBIAN MD CT Lung Screening Low Dose - 12/11/23 - 1442 Report Status:Signed Chest CT, 12/15/2023 9:05 AM. TECHNIQUE: Low-dose CT of the chest without intravenous contrast administration. Coronal and sagittal reformats and MIP reconstructionswere created. Dose length product: 170 mGy-cm. HISTORY: CURRENT SMOKER; 47 EMILE; TOBACCO ABUSE COMPARISON: 11/28/2022. FINDINGS: Lungs/pleura: Normal caliber airways. Mild bronchiectasis and small fociof mucus plugging in the right lower lobe. Mild centrilobular emphysema.Minimal scarring in the right middle lobe and lingula. A few punctate calcified granulomas are noted. No pleural effusion or pneumothorax. Mediastinum/edgardo: No mediastinal mass or lymphadenopathy. No appreciablehilar lymphadenopathy on limited noncontrast evaluation. Vasculature: Aberrant right subclavian artery. Mild atherosclerotic calcifications. Normal caliber central pulmonary arteries. Cardiac: Normal heart size. Moderate coronary artery calcification. Chest wall: No mass or lymphadenopathy. Limited abdomen: Cholecystectomy. Bones: Degenerative changes of the spine. IMPRESSION: Lung RADS 1. No suspicious pulmonary nodule. Guidelines recommend repeatlow- dose screening CT in 12 months. Dictating Physician: RADHA DOWNS MD Electronically Signed by: RADHA DOWNS MD Dic Date/Time: 12/15/23904 Sign date/Time: 12/15/23923 Result [facility] Penny Cobian MD IMG CT PROCEDURES Final Result * Diabetes Foot Exam (11/27/2023) Pathologist [facility] Diabetes: Annual Foot Exam Abstracted Historical Myla OROZCO HEALTH MAINTENANCE Final Result * Lipid panel (09/30/2023) Pathologist [facility] LDL/HDL Ratio 3 0 - 4 Triglycerides 142 0 - 150 mg/dL Cholesterol 170 0 - 200 mg/dL HDL 50 >=40 mg/dL LDL Cholesterol 92 0 - 100 mg/dL Blood Venous blood specimen / Unknown Result [facility] Historical Myla OROZCO LAB BLOOD ORDERABLES Lauren turner Result * SCREENING MAMMOGRAPHY BI 2-VIEW BREAST INC CAD (09/14/2023 1:21 PM EDT) Anatomical Region Laterality Modality Radiographic Mellisa ging 02/24/2022 2:30 PM EDT Narrative 09/15/2023 8:33 AM EDT This is a summary report. The complete report is available in the patient's medical record. If you cannot access the medical record, please contact the sending organization for a detailed fax or copy. Study: SCREENING MAMMOGRAPHY BI 2-VIEW BREAST INC CAD Technique: Bilateral full-field digital screening mammography is obtained and read in conjunction with computer aided detection. ??Tomosynthesis as well as 2D C-View imaging were obtained. Comparison: February 24, 2022 and September 27, 2020 Breast composition: There are scattered areas of fibroglandular density. Bilateral breasts: No significant masses, suspicious calcifications or other abnormalities are seen in either breast. IMPRESSION: Impression: Bilateral breasts: Negative, no specific mammographic evidence of malignancy. ??Normal interval follow-up is recommended in 12 months. BI-RADS: Category 1: Negative Procedure Note Pauline Spencer MD - 12/14/2023 This is a summary report. The complete report is available in thepatient's medical record. If you cannot access the medical record, pleasecontact the sending organization for a detailed fax or copy. Study: SCREENING MAMMOGRAPHY BI 2-VIEW BREAST INC CAD Technique: Bilateral full-field digital screening mammography is obtainedand read in conjunction with computer aided detection. Tomosynthesis aswell as 2D C-View imaging were obtained. Comparison: February 24, 2022 and September 27, 2020 Breast composition: There are scattered areas of fibroglandular density. Bilateral breasts: No significant masses, suspicious calcifications orother abnormalities are seen in either breast. IMPRESSION: Impression: Bilateral breasts: Negative, no specific mammographic evidence ofmalignancy. Normal interval follow-up is recommended in 12 months. BI-RADS: Category 1: Negative Cuco Weller MD IMG XR PROCEDURES Final R esult * Hm Depression Screening (07/03/2023) Pathologist [facility] Depression Screening Abstracted [facility] Provider HEALTH MAINTENANCE Final Result * Urine Albumin Creatinine Ratio (04/13/2023) [facility] Urine Albumin Creatinine Ratio Abstracted [facility] Provider HEALTH MAINTENANCE Final Result * Cervical Cancer Screening: HPV (03/18/2022) [facility] Cervical Cancer Screening: HPV Abstracted, positive [facility] Provider HEALTH MAINTENANCE Final Result * Colonoscopy (02/09/2019) [facility] Colonoscopy Abstracted, no interpretation Anatomical Region Laterality Modality Other [facility] Provider HEALTH MAINTENANCE Final Result * Hepatitis C Screening (08/23/2013) [facility] Hepatitis C Screening Abstracted [facility] Provider HEALTH MAINTENANCE Final Result * HIV Screening (06/26/2009) [facility] HIV Screening Abstracted [facility] Provider HEALTH MAINTENANCE Final Result from Last 3 Months or Most Recently Relevant to Health Maintenance Insurance [facility] Advance Directives * Full Code - Default (Latest Code Status on File) Date Activated Date Inactivated Comments 08/04/2024 6:06 AM 08/04/2024 12:42 PM This is ord er is used when code status has not been discussed with the patient, or code status is otherwise unknown/unconfirmed To update the patient's code status, place a code status order. Do not modify or discontinue any currently active code status orders. Care Teams Outside Installer Apprentice Relationship Specialty Start Date End Date Cuco Weller MD [address] [place] [id number] PCP - General Internal Medicine 03/30/17
--- OUTSIDE RECORDS SUMMARY | 2024-08-22 17:11 | XMS_ITS | Encounter Summary ---
Author Organization [facility] Address [address] [place] [address] Care Team Providers Care Indoor Sports Centre Manager Name Role Phone Cuco Weller MD Primary Care Provider [phone] Encounter Details Date Type Department Care Team Description 04/25/2020 Pt. Non Urgent Medical Question Adult Medicine [address] [address] Cuco Weller MD [address] [place] [phone] Social History Tobacco Use Types Packs/Day Years [...] have Coronavirus / COVID-19? No / Unsure 04/05/2020 9:07 AM EST documented as of this encounter Plan of Treatment Not on file documented as of this encounter Visit Diagnoses Not on filedocumented in this encounter Care Teams Indoor Sports Centre Manager Relationship Specialty Start Date End Date Cuco Weller MD [address] [place] [id number] PCP - General Internal Medicine 03/30/17 documented as of this encounter
--- OUTSIDE RECORDS SUMMARY | 2024-08-22 17:11 | XMS_ITS | Encounter Summary ---
Author Organization [facility] Address [address] [place] [address] Care Team Providers Care Fuel System Maintenance Supervisor Name Role Phone Cuco Weller MD Primary Care Provider [phone] Reason for Visit * Reason Onset Date Comments Faxed Refill 11/05/2020 Encounter Details Date Type Department Care Team Description 11/05/2020 Refill Adult Medicine [address] [phone] Cuco Weller MD [address] [place] [phone] Faxed Refill Social History Tobacco Use Types Packs/Day Years [...] have Coronavirus / COVID-19? No / Unsure 11/06/2020 1:43 PM EDT documented as of this encounter Miscellaneous Notes * Telephone Encounter - Lucy Lockhart M.A. - 11/05/2020 4:46 PM EDT Date of last office visit was 08/30/20. Pended appt for 01/07/21 Lab Results Component Value Date NA 136 04/05/2020 K 5.5 04/05/2020 CO2 30 04/05/2020 CL 102 04/05/2020 BUN 13 04/05/2020 CREAT 0.89 04/05/2020 GLU 94 04/05/2020 CA 9.1 04/05/2020 GFR > 60 04/05/2020 \ * Telephone Encounter - Stephanie Chen - 11/05/2020 1:38 PM EDT Patient would like script to be: E-PRESCRIBED/FAXED TO PHARMACY WHEN WAS THE PATIENT'S LAST APPOINTMENT IN ADULT MEDICINE? 08/30/20 WHEN WAS THE LAST TIME THE PATIENT SAW THEIR PCP? Same as above Does patient have an upcoming appointment? Yes 01/07/21 (THE MEDICATION REQUESTED IS ON THE MED LIST ABOVE) All of the medications requested were on the CURRENT MEDS list Did you check the Pharmacy information above?: YES Patient wants: 30 -day supply Is this a mail order prescription request ? NO If the refill is from a FAXED refill request what is the RX # listed on the fax? N/A Patients current insurance carrier is: Payor: [employer] FFS / Plan: [employer] / Product Type: MEDICAID RISK documented in this encounter Plan of Treatment Not on file documented as of this encounter Visit Diagnoses Not on filedocumented in this encounter Care Teams Fuel System Maintenance Supervisor Relationship Specialty Start Date End Date Cuco Weller MD [address] [place] [id number] PCP - General Internal Medicine 03/30/17 documented as of this encounter
--- OUTSIDE RECORDS SUMMARY | 2024-08-22 17:11 | XMS_ITS | Encounter Summary ---
Author Organization [facility] Address [address] [place] [address] Care Team Providers Care Fructose Loader Name Role Phone Fernando Stahl MD Primary Care Provider Unavail Cuco Fatima MD Primary Care Provider [phone] Encounter Details Date Type Department Care Team Description 10/05/2014 Release of Information Medical Records [address] [place] [phone] Abstract, Provider Social History Tobacco Use Types [...] on file documented as of this encounter Nursing Notes * 10/05/2014 12:00 PM EDT >> MAK Jamison Oct 05, 2014 3:52 PM Release of information to Joan.E.S/ Aliza[facility] documented in this encounter Plan of Treatment Not on file documented as of this encounter Visit Diagnoses Not on filedocumented in this encounter Care Teams Fructose Loader Relationship Specialty Start Date End Date Fernando Stahl MD PCP - General 02/14/03 03/29/17 Cuco Weller MD [address] [place] [address] PCP - General Internal Medicine 03/30/17 documented as of this encounter
--- OUTSIDE RECORDS SUMMARY | 2024-08-22 17:11 | XMS_ITS | Encounter Summary ---
Author Organization [facility] Address [address] [place] [address] Care Team Providers Care Mining Speculator Name Role Phone Cuco Weller MD Primary Care Provider [phone] Reason for Visit * Reason Comments Post-op Hernia Encounter Details Date Type Department Care Team ([facility] Contact Info) Description 08/19/2024 11:00 AM EDT Office Visit General Surgery - [place] [address] [phone] Aman Flannery MD [address] [address] Abdominal hernia without obstruction and without gangrene, recurrence not specified, unspecified hernia type (Primary Dx) Social History Tobacco Use Types [...] Orientation Straight 08/04/2024 5: 56 AM EDT documented as of this encounter Last Filed Vital Signs Vital Sign Reading Time Taken Comments Blood Pressure 140/74 08/19/2024 10:56 AM EDT Pulse 100 08/19/2024 10:56 AM EDT Temperature - - Respiratory Rate - - Oxygen Saturation - - Inhaled Oxygen Concentration - - Weight 87.5 kg (193 lb) 08/19/2024 10:56 AM EDT Height 160 cm (5' 3 ) 08/19/2024 10:56 AM EDT Body Mass Index 34.19 08/19/2024 10:56 AM EDT documented in this encounter Progress Notes * Aman Flannery MD - 08/19/2024 11:00 AM EDT Dolly returns for her first postop check, about 2 weeks out from repair of incisional and adjoining umbilical hernias. She has not had fevers, shaking chills, although it sounds like 3 or 4 days postop she felt a bit warm and had release of some seroma fluid from her incision. She has no discomfort and is quite pleased with her early recovery. On exam the skin closure has some scabbing and localirritation from the buried suture material but there is no cellulitis, warmth, induration, palpableresidual seroma, or early recurrence. We talked about local care. I want her to avoid immersion in tub, pool, etc. for the next month; follow-up in 4 weeks. documented in this encounter Plan of Treatment Upcoming Encounters Date Type Department Care Team (Late st Contact Info) Description 09/02/2024 1:00 PM EDT Office Visit Endocrinology - [place] [address] [place] [address] Yusra Chaney PA [address] [place] [address] 09/06/2024 1:30 PM EDT Office Visit Orthopedic Surgery - [address] [place] [phone] Chaya Desai MD 175 [facility] [address] [place] [phone] 09/13/2024 2:00 PM EDT Office Visit Gastroenterology - [place] [address] [place] [phone] Maki Du NP 175 [facility] [address] [place] [address] 09/16/2024 9:30 AM EDT Office Visit General Surgery - [place] 175 [facility] 110 [place] [phone] Aman Flannery MD 175 [facility] [address] [place] [address] 09/21/2024 2:20 PM EDT Appointment Radiology Department [address] [phone] 11/01/2024 1:00 PM EDT Office Visit Pulmonolgy - [place] [address] [phone] Jayshree Mendoza NP [address] [address] 11/15/2024 3:00 PM EDT Office Visit Internal Medicine - [facility] [address] [place] [address] Cuco Weller MD [address] [place] [phone] documented as of this encounter Visit Diagnoses Diagnosis Abdominal hernia without obstruction and without gangrene, recurrence not specified, unspecified hernia type- Primary Encounter for screening mammogram for breast cancer documented in this encounter Care Teams Mining Speculator Relationship Specialty Start Date End Date Cuco Weller MD [address] [place] [address] PCP - General Internal Medicine 03/30/17 documented as of this encounter
--- OUTSIDE RECORDS SUMMARY | 2024-08-22 17:11 | XMS_ITS | Encounter Summary ---
Author Organization [facility] Address [address] [place] [address] Care Team Providers Care School Lunch Monitor Name Role Phone Cuco Weller MD Primary Care Provider +1 -[phone] Encounter Details Date Type Department Care Team Description 07/11/2019 Pt. Non Urgent Medical Question Adult Medicine - [facility] [address] [place] [address] Grisel Fletcher, MANAGER STYLE [address] [place] [address] Social History Tobacco Use Types Packs/Day Years [...] on filedocumented in this encounter Care Teams School Lunch Monitor Relationship Specialty Start Date End Date Cuco Weller MD [address] [place] [address] PCP - General Internal Medicine 03/30/17 documented as of this encounter
--- OUTSIDE RECORDS SUMMARY | 2024-08-22 17:11 | XMS_ITS | Encounter Summary ---
Author Organization [facility] Address [address] [place] [address] Care Team Providers Care Monogram Technician Name Role Phone Fernando Stahl MD Primary Care Provider Unavail able Cuco Weller MD Primary Care Provider +1 -[phone] Reason for Visit * Reason Onset Date Comments Orders Call 04/12/2015 Encounter Details Date Type Department Care Team Description 04/12/2015 Telephone Adult Medicine B - [place] [address] [place] [address] Fernando Stahl MD Orders Call Social History Tobacco Use Types Packs/Day Years [...] encounter Miscellaneous Notes * Telephone Encounter - Nelda Caputo - 04/12/2015 10:40 AM EST Order to be signed and faxed back to Medical Resources brought to side documented in this encounter Plan of Treatment Not on file documented as of this encounter Visit Diagnoses Not on filedocumented in this encounter Care Teams Monogram Technician Relationship Specialty Start Date End Date Fernando Stahl MD PCP - General 02/14/03 03/29/17 Cuco Weller MD [address] [place] [address] PCP - General Internal Medicine 03/30/17 documented as of this encounter
--- OUTSIDE RECORDS SUMMARY | 2024-08-22 17:11 | XMS_ITS | Encounter Summary ---
Author Organization [facility] Address [address] [place] [address] Care Team Providers Care Land Surveyor Manager Name Role Phone Fernando Stahl MD Primary Care Provider Unavail able Cuco Weller MD Primary Care Provider +1 -[phone] Reason for Referral * Specialist (Routine) - Authorized/Booked Specialty Diagnoses / Procedures Referred By Ace auguste Referred To Contact Urology Diagnoses Dysuria Procedures REFERRAL TO UROLOGY Fernando Stahl MD [address] [place] [address] External Urology Referral ID Status Reason Start Date Expiration Date V isits Requested Visits Authorized SEE REVIEW 11/26/12 Authorized/ Booked 11/25/2012 02/25/2013 1 1 Reason for Visit * Reason Onset Date Comments Community Cultural Development Officer Feedback 11/24/2012 UROLOGY Encounter Details Date Type Department Care Team Description 11/24/2012 Telephone Adult Medicine [facility] [address] [place] [address] Fernando Stahl MD Community Cultural Development Officer Feedback (UROLOGY) Social History Tobacco Use Types Packs/Day Years [...] Miscellaneous Notes * Telephone Encounter - Lucy Aguillon - 11/24/2012 9:47 AM EDT Please review this patients new referral request. The referral has been pended. Please complete thefollowing: If approved> sign order If denied>please give instructions and route to your practice nursing pool. Practice nurse should inform referrals and the patient if denied. * Telephone Encounter - Nelda Harshal - 11/24/2012 9:45 AM EDT Request for a referral to a [facility] Specialist for a patient with a [facility] PCP. If patient does NOT have a [facility] PCP they must obtain a referral from their PCP before being seen-do not submit request to Referrals department-contact patient. Orlando BEARD and Roel BEARD should not see patients with community PCP's as they are not billed as specialists. Specialty patient is being referred to: UROLOGY Name of Specialist patient is seeing: NA Reason/diagnosis for visit: PAINFUL URINATION Date of appoinment: PENDING If retro, date referral needs to start: NA Fernando Stahl MD Payor: [facility] Plan: [facility] TYPE II $10/$18 [place] [id number] Product Type: HMO [id number] documented in this encounter Plan of Treatment Not on file documented as of this encounter Visit Diagnoses Diagnosis Dysuria- Primary documented in this encounter Care Teams Land Surveyor Manager Relationship Specialty Start Date End Date Fernando Stahl MD PCP - General 02/14/03 03/29/17 Cuco Weller MD [address] [place] [address] PCP - General Internal Medicine 03/30/17 documented as of this encounter
--- OUTSIDE RECORDS SUMMARY | 2024-08-22 17:11 | XMS_ITS | Encounter Summary ---
Author Organization [facility] Address [address] [place] [address] Care Team Providers Care Senior Research Scientist Name Role Phone Cuco Weller MD Primary Care Provider +1 -[phone] Reason for Visit * Reason Comments E-prescribe Rx Request Encounter Details Date Type Department Care Team Description 12/22/2020 Refill Adult Medicine [address] [id number] Cuco Weller MD [address] [place] [address] E-prescribe Rx Request Social History Tobacco Use [...] have Coronavirus / COVID-19? No / Unsure 12/13/2020 9:40 AM EDT documented as of this encounter Miscellaneous Notes * Telephone Encounter - Grisel Fletcher NP - 12/24/2020 12:30 PM EDT Rx sent for 90 days 12/10/20 * Telephone Encounter - Kwasi Vences M.A. - 12/24/2020 12:24 PM EDT Last office visit 08.30.20 Lab Results Component Value Date HGBA1C 6.7 09/27/2020 MALBUR 23.8 09/27/2020 MALBCR 8.7 09/27/2020 CHOL 193 04/05/2020 LDL 96 04/05/2020 HDL 51 04/05/2020 TRIG 230 04/05/2020 GLU 94 04/05/2020 CREAT 0.89 04/05/2020 * Telephone Encounter - Mary Kay Oliveros - 12/24/2020 12:19 PM EDT Patient would like script to be: E-PRESCRIBED/FAXED TO PHARMACY WHEN WAS THE PATIENT'S LAST APPOINTMENT IN ADULT MEDICINE? 08/30/20 WHEN WAS THE LAST TIME THE PATIENT SAW THEIR PCP? Same as above Does patient have an upcoming appointment? Yes 01/30/21 (THE MEDICATION REQUESTED IS ON THE MED LIST ABOVE) All of the medications requested were on the CURRENT MEDS list Did you check the Pharmacy information above?: yes Patient wants: 30 -day supply Is this a mail order prescription request ? NO If the refill is from a FAXED refill request what is the RX # listed on the fax? N/A Patients current insurance carrier is: Payor: [employer] FFS / [facility] [place] / Product Type: MEDICAID RISK documented in this encounter Plan of Treatment Not on file documented as of this encounter Visit Diagnoses Not on filedocumented in this encounter Care Teams Senior Research Scientist Relationship Specialty Start Date End Date Cuco Weller MD [address] [place] [address] PCP - General Internal Medicine 03/30/17 documented as of this encounter
--- OUTSIDE RECORDS SUMMARY | 2024-08-22 17:11 | XMS_ITS | Encounter Summary ---
Author Organization [facility] Address [address] [place] [address] Care Team Providers Care Assistant Dean Of Students Name Role Phone Cuco Weller MD Primary Care Provider +1 -[phone] Encounter Details Date Type Department Care Team Description 02/09/2019 Old Medical Records Medical Records [address] [place] [address] Abstract, Provider Social History Tobacco Use Types [...] on filedocumented in this encounter Care Teams Assistant Dean Of Students Relationship Specialty Start Date End Date Cuco Weller MD [address] [place] [address] PCP - General Internal Medicine 03/30/17 documented as of this encounter
--- OUTSIDE RECORDS SUMMARY | 2024-08-22 17:11 | XMS_ITS | Encounter Summary ---
Author Organization [facility] Address [address] [place] [address] Care Team Providers Care Box Tender Name Role Phone Fernando Stahl MD Primary Care Provider Unavail [facility] Cuco Weller MD Primary Care Provider +1 -[phone] Encounter Details Date Type Department Care Team Description 06/24/2012 Telephone Adult Medicine - [address] [address] Fernando Stahl MD Social History Tobacco Use [...] encounter Miscellaneous Notes * Telephone Encounter - Anupama Burrell L.P.N. - 06/24/2012 11:42 AM EST Pt was having trouble responding to you on my chart regarding the message you sent her about labs..I gave her the help number for my chart.Please see her response below. * Telephone Encounter - Eze Alice - 06/24/2012 11:21 AM EST Pt having trouble responding to msg to Dr. Stahl on MyChart. States every time she types a few wordsit send automatically. In regards to the labwork results: Dr. Stahl was asking if patient can come off the [place]. Pt states she does not have appt with Dr Belkis Pedro until 07/13/12. States she has only been on the [place] for 1-1.5 months. documented in this encounter Plan of Treatment Not on file documented as of this encounter Visit Diagnoses Not on filedocumented in this encounter Care Teams Box Tender Relationship Specialty Start Date End Date Fernando Stahl MD PCP - General 02/14/03 03/29/17 Cuco Weller MD [address] [place] [address] PCP - General Internal Medicine 03/30/17 documented as of this encounter
--- OUTSIDE RECORDS SUMMARY | 2024-08-22 17:11 | XMS_ITS | Encounter Summary ---
Author Organization [facility] Address [address] [place] [address] Care Team Providers Care Print Line Operator Name Role Phone Fernando Stahl MD Primary Care Provider Unavail able Cuco Weller MD Primary Care Provider [phone] -[phone] Encounter Details Date Type Department Care Team Description 09/05/2001 Hand Crocheter Report Medical Records [address] [place] [address] Tammie Gunter MD Social History Tobacco Use Types Packs/Day Years Used Date Smoking Tobacco: Never Assessed Alcohol Habits Answer Date Recorded How often [...] on filedocumented in this encounter Care Teams Print Line Operator Relationship Specialty Start Date End Date Fernando Stahl MD PCP - General 02/14/03 03/29/17 Cuco Weller MD [address] [place] [address] PCP - General Internal Medicine 03/30/17 documented as of this encounter
--- OUTSIDE RECORDS SUMMARY | 2024-08-22 17:11 | XMS_ITS | Encounter Summary ---
Author Organization [facility] Address [address] [place] [address] Care Team Providers Care Bar Finish Operator Name Role Phone Cuco Weller MD Primary Care Provider [phone] -[phone] Encounter Details Date Type Department Care Team Description 10/20/2018 Release of Information Medical Records [address] [place] [address] Abstract, Provider Social History Tobacco Use Types [...] on filedocumented in this encounter Care Teams Bar Finish Operator Relationship Specialty Start Date End Date Cuco Weller MD [address] [place] [address] PCP - General Internal Medicine 03/30/17 documented as of this encounter
--- OUTSIDE RECORDS SUMMARY | 2024-08-22 17:11 | XMS_ITS | Encounter Summary ---
Author Organization [facility] Address [address] [place] [address] Care Team Providers Care Market Research Manager Name Role Phone Cuco Weller MD Primary Care Provider +1 -[phone] Encounter Details Date Type Department Care Team Description 07/06/2023 Pt. Non Urgent Medical Question Adult Medicine - [address] [address] Cuco Weller MD [address] [place] [address] Other hyperlipidemia Social History Tobacco Use Types Packs/Day Years Used Date Smoking Tobacco: Former Cigarettes 0.8 46 0 04/27/1979 - 09/25/2022 Passive Smoke Exposure: Past Smokeless Tobacco: Never Comments:1 pack daily Alcohol [...] Progress Notes * Cuco Weller MD - 07/07/2023 12:47 PM EDT Please inform the patient that I would like her to take half a tablet of the atorvastatin 20 mg daily at bedtime to see if she can tolerate a lower dose of the atorvastatin. If she has no cramps, then she will continue atorvastatin 10 mg daily moving forward. If she does develop cramps, then I will switch her to a completely different statin. documented in this encounter Miscellaneous Notes * Telephone Encounter - Cuca Snell M.A. - 07/07/2023 8:49 AM EDTFrom: Dolly Hoyt To: Funmi Weller Sent: 07/06/2023 6:46 PM EDT Subject: Atorvastatin Dr. Cui had asked me to check in with him today regarding the leg cramps I'm having. I stopped the Atorvastatin like he told me to and the leg cramps have gotten much better. Could you get back to me and let me know what he wants me to do about the medicine? Thank you documented in this encounter Plan of Treatment Not on file documented as of this encounter Visit Diagnoses Diagnosis Other hyperlipidemia documented in this encounter Care Teams Market Research Manager Relationship Specialty Start Date End Date Cuco Weller MD [address] [place] [address] PCP - General Internal Medicine 03/30/17 documented as of this encounter
--- OUTSIDE RECORDS SUMMARY | 2024-08-22 17:11 | XMS_ITS | Encounter Summary ---
Author Organization [facility] Address [address] [place] [address] Care Team Providers Care Cloth Bolt Bander Name Role Phone Fernando Stahl MD Primary Care Provider Unavail [facility] Cuco Weller MD Primary Care Provider +1 -[phone] Encounter Details Date Type Department Care Team Description 01/26/2014 Hospital Medical Records [address] [place] [address] Maximilian Dahl MD Social History Tobacco Use Types Packs/Day [...] on filedocumented in this encounter Care Teams Cloth Bolt Bander Relationship Specialty Start Date End Date Fernando Stahl MD PCP - General 02/14/03 03/29/17 Cuco Weller MD [address] [place] [address] PCP - General Internal Medicine 03/30/17 documented as of this encounter
--- OUTSIDE RECORDS SUMMARY | 2024-08-22 17:11 | XMS_ITS | Encounter Summary ---
Author Organization [facility] Address [address] [place] [address] Care Team Providers Care Beer Runner Name Role Phone Cuco Weller MD Primary Care Provider +1 -[phone] Encounter Details Date Type Department Care Team Description 11/28/2022 Orders Only [facility] Thoracic Surgery [place] [address] [facility] [address] [place] [phone] Quoc Jaramillo MD [address] [facility] [address] [place] [address] Personal history of tobacco use, presenting hazards to health; Tobacco use disorder; Screening for lung cancer Social History Tobacco Use Types Packs/Day Years [...] on file documented as of this encounter Procedures Procedure Name Priority Date/Time Associated Diagnosis Comments CT LOW DOSE LUNG SCREEN ANNUAL Routine 11/28/2022 Personal history of tobacco use, presenting hazards to health Tobacco use disorder Screening for lung cancer documented in this encounter Results * CT LOW DOSE LUNG SCREEN ANNUAL (11/28/2022) 11/28/[address] SCANS documented in this encounter Visit Diagnoses Diagnosis Personal history of tobacco use, presenting hazards to health Tobacco use disorder Screening for lung cancer documented in this encounter Care Teams Beer Runner Relationship Specialty Start Date End Date Cuco Weller MD [address] [place] [address] PCP - General Internal Medicine 03/30/17 documented as of this encounter
--- OUTSIDE RECORDS SUMMARY | 2024-08-22 17:11 | XMS_ITS | Encounter Summary ---
Author Organization [facility] Address [address] [place] [address] Care Team Providers Care Kosher Sealer Name Role Phone Cuco Weller MD Primary Care Provider +1 -[phone] Encounter Details Date Type Department Care Team Description 02/13/2021 Pt. Non Urgent Medical Question Adult Medicine [address] [address] Cuco Weller MD [address] [place] [address] Social History Tobacco Use Types Packs/Day Years [...] have Coronavirus / COVID-19? No / Unsure 01/30/2021 1:52 PM EDT documented as of this encounter Miscellaneous Notes * Telephone Encounter - Cuca Snell M.A. - 02/14/2021 7:59 AM EDTFrom: Dolly Hoyt To: Funmi Weller Sent: 02/13/2021 6:20 PM EDT Subject: Referral The dr sent me to an ENT. I haven???t heard anything from them yet. Could you possibly put in another request? documented in this encounter Plan of Treatment Not on file documented as of this encounter Visit Diagnoses Not on filedocumented in this encounter Care Teams Kosher Sealer Relationship Specialty Start Date End Date Cuco Weller MD [address] [place] [address] PCP - General Internal Medicine 03/30/17 documented as of this encounter
--- OUTSIDE RECORDS SUMMARY | 2024-08-22 17:11 | XMS_ITS | Encounter Summary ---
Author Organization [facility] Address [address] [place] [address] Care Team Providers Care Hide Stretcher Hand Name Role Phone Cuco Weller MD Primary Care Provider +1 -[phone] Encounter Details Date Type Department Care Team Description 05/11/2023 Pt. Non Urgent Medic al Question Pulmonology - [address] [place] [phone] Harry Gong MD Social History Tobacco Use Types Packs/Day [...] encounter Miscellaneous Notes * Telephone Encounter - Chantal Barajas - 05/14/2023 8:14 AM ESTFrom: Dolyl Lai To: Prerna Gong Sent: 05/11/2023 7:21 PM EST Subject: Oxygen I was talking to a man at [facility] [place] and he suggested that I get the portable oxygen tanks that pulsates, because the ones I get now only last two hours and the pulsating ones will last five hours and won't be as heavy. I was wondering if Dr. Gong would be willing to put in an order if he believes that it will work fine for me. Thank you documented in this encounter Plan of Treatment Not on file documented as of this encounter Visit Diagnoses Not on filedocumented in this encounter Care Teams Hide Stretcher Hand Relationship Specialty Start Date End Date Cuco Weller MD [address] [place] [address] PCP - General Internal Medicine 03/30/17 documented as of this encounter
--- OUTSIDE RECORDS SUMMARY | 2024-08-22 17:11 | XMS_ITS | Encounter Summary ---
Author Organization [facility] Address [address] [place] [address] Care Team Providers Care Specification Writer Name Role Phone Cuco Weller MD Primary Care Provider +1 -[phone] Encounter Details Date Type Department Care Team Description 01/08/2020 Refill Adult Medicine B - [place] [address] [place] [address] Grisel Fletcher NP [address] [place] [address] Social History Tobacco Use Types Packs/Day Years [...] Telephone Encounter - Grisel Fletcher NP - 01/09/2020 12:14 PM EDT Needs to wait for appt this week * Telephone Encounter - Kwasi Vences M.A. - 01/09/2020 11:54 AM EDT Last office visit 3.3.20 Lab Results Component Value Date CHOL 155 06/28/2019 LDL 71 06/28/2019 HDL 51 06/28/2019 TRIG 165 06/28/2019 SGOT 8 06/28/2019 SGPT 19 06/28/2019 documented in this encounter Plan of Treatment Not on file documented as of this encounter Visit Diagnoses Diagnosis Periodic limb movement sleep disorder Periodic limb movement disorder documented in this encounter Care Teams Specification Writer Relationship Specialty Start Date End Date Cuco Weller MD [address] [place] [address] PCP - General Internal Medicine 03/30/17 documented as of this encounter
--- OUTSIDE RECORDS SUMMARY | 2024-08-22 17:11 | XMS_ITS | Encounter Summary ---
Author Organization [facility] Address [address] [place] [address] Care Team Providers Care Supervisor Carding Name Role Phone Cuco Weller MD Primary Care Provider +1 -[phone] Encounter Details Date Type Department Care Team Description 05/21/2023 Pt. Non Urgent Medical Question Adult Medicine - [address] [address] Cuco Weller MD [address] [place] [address] Social History Tobacco Use Types Packs/Day Years [...] Progress Notes * Cuco Weller MD - 05/21/2023 6:30 PM EST Please forward to GI department to see if they could see the patient a bit sooner. Thank you. documented in this encounter Miscellaneous Notes * Telephone Encounter - Cuca Snell M.A. - 05/21/2023 4:45 PM ESTFrom: Dolly Hoyt To: Funmi Weller Sent: 05/21/2023 4:40 PM EST Subject: Gastro dr Dr Cui had made an appointment for me yesterday with the gastro department. I don't have a car and the woman that brought me got lost and I ended up being half a hour late and obviously they couldn't see me. They scheduled an appointment for June 19. I just wanted to make sure that it was ok towait that long since Dr Cui had gotten me in so quick. documented in this encounter Plan of Treatment Not on file documented as of this encounter Visit Diagnoses Not on filedocumented in this encounter Care Teams Supervisor Carding Relationship Specialty Start Date End Date Cuco Weller MD [address] [place] [address] PCP - General Internal Medicine 03/30/17 documented as of this encounter
--- OUTSIDE RECORDS SUMMARY | 2024-08-22 17:11 | XMS_ITS | Encounter Summary ---
Author Organization [facility] Address [address] [place] [address] Care Team Providers Care Clinical Rn Manager Name Role Phone Cuco Weller MD Primary Care Provider +1 -[phone] Encounter Details Date Type Department Care Team Description 02/10/2023 Reporting Consultant Report Medical Records [address] [place] [address] Evert Garnica MD Social History Tobacco Use Types Packs/Day [...] AM EDT documented as of this encounter Plan of Treatment Not on file documented as of this encounter Visit Diagnoses Not on filedocumented in this encounter Care Teams Clinical Rn Manager Relationship Specialty Start Date End Date Cuco Weller MD [address] [place] [address] PCP - General Internal Medicine 03/30/17 documented as of this encounter
--- OUTSIDE RECORDS SUMMARY | 2024-08-22 17:11 | XMS_ITS | Encounter Summary ---
Author Organization [facility] Address [address] [place] [address] Care Team Providers Care Teller Head Name Role Phone Fernando Stahl MD Primary Care Provider Unavail able Cuco Weller MD Primary Care Provider +1 -[phone] Encounter Details Date Type Department Care Team Description 11/22/2012 Abstract Medical Records [address] [place] [address] Abstract, Provider Social History Tobacco Use Types [...] on filedocumented in this encounter Care Teams Teller Head Relationship Specialty Start Date End Date Fernando Stahl MD PCP - General 02/14/03 03/29/17 Cuco Weller MD [address] [place] [address] PCP - General Internal Medicine 03/30/17 documented as of this encounter
--- OUTSIDE RECORDS SUMMARY | 2024-08-22 17:11 | XMS_ITS | Encounter Summary ---
Author Organization [facility] Address [address] [place] [address] Care Team Providers Care Instrument Specialist Name Role Phone Cuco Weller MD Primary Care Provider +1 -[phone] Encounter Details Date Type Department Care Team Description 06/20/2019 Release of Information Medical Records [address] [place] [address] Abstract, Provider Social History Tobacco Use Types [...] on filedocumented in this encounter Care Teams Instrument Specialist Relationship Specialty Start Date End Date Cuco Weller MD [address] [place] [address] PCP - General Internal Medicine 03/30/17 documented as of this encounter
--- OUTSIDE RECORDS SUMMARY | 2024-08-22 17:11 | XMS_ITS | Encounter Summary ---
Author Organization [facility] Address [address] [place] [address] Care Team Providers Care Commercial Carpenter Name Role Phone Cuco Weller MD Primary Care Provider +1 -[phone] Encounter Details Date Type Department Care Team Description 04/17/2023 Orders Only Adult Medicine - [place] [address] [place] [address] Lincoln Martell, INGE [address] [place] [address] Low iron (Primary Dx) Social History Tobacco Use Types [...] as of this encounter Visit Diagnoses Diagnosis Low iron- Primary Iron deficiency anemia, unspecified documented in this encounter Care Teams Commercial Carpenter Relationship Specialty Start Date End Date Cuco Weller MD [address] [place] [address] PCP - General Internal Medicine 03/30/17 documented as of this encounter
--- OUTSIDE RECORDS SUMMARY | 2024-08-22 17:11 | XMS_ITS | Encounter Summary ---
Author Organization [facility] Address [address] [place] [address] Care Team Providers Care Manager Shift Name Role Phone Cuco Weller MD Primary Care Provider +1 [phone] Encounter Details Date Type Department Care Team Description 11/22/2019 Manager Integrated Report Medical Records [address] [place] [address] Center, [facility] [address] [place] [address] Social History Tobacco Use Types Packs/Day Years [...] on filedocumented in this encounter Care Teams Manager Shift Relationship Specialty Start Date End Date Cuco Weller MD [address] [place] [address] PCP - General Internal Medicine 03/30/17 documented as of this encounter
--- OUTSIDE RECORDS SUMMARY | 2024-08-22 17:11 | XMS_ITS | Continuity of Care Document ---
Author Organization [facility] Address [address] [place] [address] Phone Care Team Providers Care Dispatch Lead Name Role Phone No Information Unavailable Unavailable Procedures Procedure Date Offic/outpt E&m Estab Mod-hi 2 10 Echo Transvaginal Init Preven E&m New Pt; 40-64 Yr 2009 Cytopath Cerv/vag Thin Prep; R 10 Handl/convey Specmn-offic To L 10 Advance Directives Directive Yes / No Effective Date File Name No Information Encounters Encounter Description Practice Location Reason(s) For Visit Diagnoses Date Provider Providers Copied on Encounter [facility], [address], [place], [place], [id number], [place] tel:[phone] No Information Nov-0 0 No Information Offic/outpt E&m Estab [facility] [place] [facility], [address], [place], [place], [id number], [place] tel:[phone] [place] GENERATOR TECHNICIAN MENORRHAGIA/ MENOMETRORRHAG IAPAIN, PELVIC, FEMALE Apr-2 0-201 0 [facility]. [address], [place], [place], [id number], [place]. tel:[phone] Referring Provider: [place], [address], [place], [address] . tel:[phone] Medical [facility], [address], [place], [place], [id number], [place] tel:[phone] [place] GENERATOR TECHNICIAN PAIN, PELVIC, FEMALE Apr-1 5-201 0 [facility]. [address], [place], [place], [id number], [place]. tel:[phone] Referring Provider: [place], [address], [place], [address] . tel:[phone] Init Preven E&m New Pt; 40-64 Yr [facility], [address], [place], [id number], [place] tel:[phone] [place] GENERATOR TECHNICIAN EXAM, GYNECOLOGICAL Mar-3 1- 0 [facility]. [address], [address], [place], [place], [id number], [place]. tel:[phone] Referring Provider: [place], [address], [place], [address] . tel:[phone] Family History Family Member Type Diagnosis Age At Onset Father Problem (finding) Diabetes Payers Payer name Insurance type Covered libertarian ID Authoriza tion(s) No Information Social History Type Description Quantity Date Captured Comments Alcohol Use Details Unknown Caffeine Use Details Tobacco Use Status No Information Smoking Status No Information Sex Female Sexual Orientation Straight or heterosexual Chief Complaint And Reason For Visit No Information Reason For Referral Reason For Referral No Information History Of Present Illness Encounter Date Complaint History Of Prese nt Illness No Information Functional Status Date Functional Assessmen t No Information Instructions Date Instruction Additional Infor mation No Information Assessments Type Assessment Date No Information Patient Care Teams Name Effective Dates (start - stop) Status Members No Information
--- OUTSIDE RECORDS SUMMARY | 2024-08-22 17:11 | XMS_ITS | Encounter Summary ---
Author Organization [facility] Address [address] [place] [address] Care Team Providers Care Net Developer Programmer Name Role Phone Fernando Stahl MD Primary Care Provider [facility] Cuco Weller MD Primary Care Provider [phone] Encounter Details Date Type Department Care Team Description 05/31/2008 Hospital Medical Records [address] [place], [place] [id number] [place] [address] Social History Tobacco Use Types Packs/Day Years [...] on filedocumented in this encounter Care Teams Net Developer Programmer Relationship Specialty Start Date End Date Fernando Stahl MD PCP - General 02/14/03 03/29/17 Cuco Weller MD [address] [place] [address] PCP - General Internal Medicine 03/30/17 documented as of this encounter
--- OUTSIDE RECORDS SUMMARY | 2024-08-22 17:11 | XMS_ITS | Encounter Summary ---
Author Organization [facility] Address [address] [place] [address] Care Team Providers Care Clinical Services Assistant Name Role Phone Cuco Weller MD Primary Care Provider [phone] [phone] Encounter Details Date Type Department Care Team Description 12/11/2022 Pt. Non Urgent Medical Question Adult Medicine B - [address] [address] Cuco Weller MD [address] [place] [address] Social History Tobacco Use Types Packs/Day Years [...] Telephone Encounter - Cuca Snell M.A. - 12/12/2022 8:49 AM EDTFrom: Dolly Hoyt To: Funmi Weller Sent: 12/11/2022 8:32 PM EDT Subject: Med request I was wondering if the doctor would be willing to increase my pantoprazle. For the last month I've been having really bad heart burn. I take 40 mg right now. Thank you documented in this encounter Plan of Treatment Not on file documented as of this encounter Visit Diagnoses Not on filedocumented in this encounter Care Teams Clinical Services Assistant Relationship Specialty Start Date End Date Cuco Weller MD [address] [place] [address] PCP - General Internal Medicine 03/30/17 documented as of this encounter
--- OUTSIDE RECORDS SUMMARY | 2024-08-22 17:11 | XMS_ITS | Encounter Summary ---
Author Organization [facility] Address [address] [place] [address] Care Team Providers Care Roofing Technician Name Role Phone Cuco Weller MD Primary Care Provider [phone] [phone] Encounter Details Date Type Department Care Team Description 06/19/2023 Telephone Gastroenterology - [place] [address] [facility] [address] [place] [address] [phone] Himanshu Ram PA-C [address] [id number] Social History Tobacco Use Types Packs/Day Years [...] encounter Miscellaneous Notes * Telephone Encounter - Skip Baires MD - 06/21/2023 4:35 PM EST I do not feel the patient is a candidate for colonoscopy due to severe COPD. Unless she is willing to do the procedure without sedation. We can have the patient see anesthesia that morning and if theanesthesia approves she still may be approved for sedation, but I cannot guarantee that she will get that. If she is willing to take the chance of having to do the procedure without anesthesia or sedation I am okay with scheduling the patient. Please call the patient and discussed this with her before scheduling and send me your impressions and her decision. * Telephone Encounter - Himanshu Ram PA-C - 06/19/2023 1:04 PM EST Patient had a colonoscopy in 2019 and has a history of colon polyps and it was suggested that she repeat the colonoscopy in 5 years which would be 2023. Patient does have diabetes and aware about holding the medication. She is also on continuous O2. Patient should be scheduled for a surveillance colonoscopy. Please advise documented in this encounter Plan of Treatment Not on file documented as of this encounter Visit Diagnoses Not on filedocumented in this encounter Care Teams Roofing Technician Relationship Specialty Start Date End Date Cuco Weller MD [address] [place] [address] PCP - General Internal Medicine 03/30/17 documented as of this encounter
--- OUTSIDE RECORDS SUMMARY | 2024-08-22 17:11 | XMS_ITS | Encounter Summary ---
Author Organization [facility] Address [address] [place] [address] Care Team Providers Care Video Arcade Manager Name Role Phone Cuco Weller MD Primary Care Provider [phone] [phone] Encounter Details Date Type Department Care Team Description 12/02/2022 Brass Cutter Report Medical Records [address] [place] [address] Evert Garnica MD Social History Tobacco Use [...] on filedocumented in this encounter Care Teams Video Arcade Manager Relationship Specialty Start Date End Date Cuco Weller MD [address] [place] [address] PCP - General Internal Medicine 03/30/17 documented as of this encounter
--- OUTSIDE RECORDS SUMMARY | 2024-08-22 17:12 | XMS_ITS | Encounter Summary ---
Author Organization [facility] Address [address] [place] [address] Care Team Providers Care Quality Control Microbiologist Name Role Phone Cuco Weller MD Primary Care Provider [phone] [phone] Encounter Details Date Type Department Care Team Description 12/21/2023 Orders Only Medical Records [address] [place] [address] Konstantin Sutton MD Social History Tobacco Use Types Packs/Day [...] Procedure Name Priority Date/Time Associated Diagnosis Comments OUTSIDE EYE EXAM Routine 12/16/2023 documented in this encounter Results * OUTSIDE EYE EXAM (12/16/2023) Konstantin Sutton MD PROCEDURES documented in this encounter Visit Diagnoses Not on filedocumented in this encounter Care Teams Quality Control Microbiologist Relationship Specialty Start Date End Date Cuco Weller MD [address] [place] [address] PCP - General Internal Medicine 03/30/17 documented as of this encounter
--- OUTSIDE RECORDS SUMMARY | 2024-08-22 17:12 | XMS_ITS | Encounter Summary ---
Author Organization [facility] Address [address] [place] [address] Care Team Providers Care Nutrition Teacher Name Role Phone Fernando Stahl MD Primary Care Provider Unavail able Cuco Weller MD Primary Care Provider +1 [phone] Encounter Details Date Type Department Care Team Description 01/09/2017 Telephone OBGYN - [address] [address] Tamara Rangel, Social History Tobacco Use Types Packs/Day Years Used Date Smoking Tobacco: Every Day Cigarettes 1 36 Started: 04/27/1979 Smokeless Tobacco: Never Comments:36 yrs/ 1ppd (6 yrs stop in between) - verified 08/08/15 Alcohol Use Standard Drinks/Week Comments Yes 0 [...] encounter Miscellaneous Notes * Telephone Encounter - Minerva John - 01/28/2017 3:36 PM EDT Recd a Call from pt stating she can no longer have her procedure on 03/09/2017. She told me to contact her novelty worker(Yanelis Johnson) at [phone] to schedule the procedure with her. I call Ani bowling HUBERT leaving my contact info. AM * Telephone Encounter - Minerva John - 01/21/2017 9:59 AM EDT TVT, cystoscopy has been scheduled on 03/09/2017 at [facility] with Dr. Rangel. Patient has been notified by phone and a letter has been sent to her. MD calendar has been updated and schedulers have been notified. No pt history in [facility], forward copy to Dr. Rangel and to scanning. AM * Telephone Encounter - Minerva John - 01/20/2017 2:18 PM EDT Dolly Hoyt has been referred by Dr. Rangel to Dr. Stahl for preoperative consultation prior to undergoing surgery for TVT, cystoscopy . The consulting physician has been asked to review Dolly Hoyt's medical issues and to provide an opinion concerning the patients medical risks associated with surgery as well as any necessary preoperative and perioperative interventions. * Telephone Encounter - Minerva John - 01/19/2017 3:07 PM EDT Left voice message for pt. AM * Telephone Encounter - Minerva John - 01/14/2017 1:14 PM EDT Left voice message for pt. AM * Telephone Encounter - Tamara Rangel DO - 01/09/2017 11:30 AM EDT BIOMEDICAL EQUIPMENT TECH SURGICAL BOOKING WORKSHEET 01/09/2017 Patient's Name: Dolly Hoyt : 1965 Payor information: Payor: [employer] / Plan: Accion $0 [place] [id number] / Product Type:MEDICAID [id number] Allergies: Allergies Allergen Reactions ??? Ibu [Ibuprofen Micronized] Numbness, tingling or swelling of the lips, tongue or mouth and Hives/Urticaria ??? Simvastatin Myalgia and Joint Pain LMP: Patient's last menstrual period was 06/22/2011. Diagnosis: stress urinary incontinance Surgery Procedure Planned: TVT, cystoscopy Special Instructions/Equipment needed: TVT exact Type of Anesthesia: Stay: Daystay Location:[facility] Consumer Lender Needed? NO Time Needed: 1 Urgency: elective Medicaid Sterilization (within 30 days - 180 days) and/or Medicare HI-1 form signed, if needed? N\ADate signed? Medical Clearance? YES Pre Op SOLARIS ADMINISTRATOR visit: YES , urodynamics at pre-op Pap Needed at Pre Op Visit? NO No orders of the defined types were placed in this encounter. documented in this encounter Plan of Treatment Scheduled Orders Name Type Priority Associated Diagnoses Orde r Schedule ELECTROCARDIOGRAM, COMPLETE (ECG) Cardiology Routine Preoperative examination 1 Occurrences starting 01/20/2017 until 01/20/2018 documented as of this encounter Results * (ABNORMAL) BASIC METABOLIC PANEL (02/12/2017 1:20 PM EDT) GLUCOSE 121(H) 70 - 100 mg/dL 02/12/2017 5:08 PM [facility] Comment: Reference range applicable to fasting specimens only Based on recommendations from the ADA and AACE, the fasting glucose reference range has been changed to 70-100 mg/dL. ??This change is effective September 10, 2009 BUN 13 5 - 25 mg/dL 02/12/2017 5:08 PM T [facility] CREAT 0.7 0.7 - 1.5 mg/dL 02/12/2017 5:08 PM [facility] GFR > 60 >60 02/12/2017 5:08 PM [facility] Comment: If patient is -Nigerian, multiply result by 1.21 Chronic Kidney Disease: < 60 ml/min/1.73 square meters Kidney Failure: < 15 ml/min/1.73 square meters Sodium 143 133 - 145 mEq/L 02/12/2017 5:08 PM EDT [facility] Potassium 4.2 3.5 - 5.5 mEq/L 02/12/2017 5:08 PM EDT [facility] Chloride 102 96 - 108 mEq/L 02/12/2017 5:08 PM EDT [facility] CO2 28.9 21.0 - 32.0 mEq/L 02/12/2017 5:08 PM EDT [facility] CALCIUM 9.2 8.5 - 10.5 mg/dL 02/12/2017 5:08 PM EDT [facility] 02/12/2017 1:20 PM EDT 02/12/2017 1:21 PM EDT Tamara Rangel DO LAB Performing Organization Address City/State/[facility] Co de Phone Number [facility] [address] [facility] * (ABNORMAL) CBC (AUTO DIFF PLATELET) (02/12/2017 1:20 PM EDT) WBC 11.2(H) 4.8 - 10.8 x10-3 02/12/2017 4:19 PM EDT [facility] RBC 5.1(H) 3.8 - 4.8 x10-6 02/12/2017 4:19 PM EDT [facility] HGB 13.5 11.5 - 16.0 g/dl 02/12/2017 4:19 PM EDT [facility] HCT 42.2 35 - 47 % 02/12/2017 4:19 PM EDT [facility] MCV 83.4 79 - 98 fl 02/12/2017 4:19 PM EDT [facility] MCH 26.7(L) 27 - 32 pg 02/12/2017 4:19 PM EDT [facility] MCHC 32.0 32 - 37 g/dl 02/12/2017 4:19 PM EDT [facility] RDW 15.7(H) 11 - 15 % 02/12/2017 4:19 PM EDT [facility] PLT COUNT 291 130 - 400 x10-3 02/12/2017 4:19 PM EDT [facility] MEAN PLATELET VOLUME 10.3 7 - 11 fl 02/12/2017 4:19 PM EDT [facility] NEUT % 53.8 41 - 85 % 02/12/2017 4:19 PM EDT [facility] LYMPH % 37.0 15 - 48 % 02/12/2017 4:19 PM EDT [facility] MONO % 6.1 0 - 12 % 02/12/2017 4:19 PM EDT [facility] EOS % 2.7 0 - 5 % 02/12/2017 4:19 PM EDT [facility] BASO % 0.4 0 - 2 % 02/12/2017 4:19 PM EDT [facility] 02/12/2017 1:20 PM EDT 02/12/2017 1:21 PM EDT Tamara Rangel DO LAB Performing Organization Address City/State/[facility] Co de Phone Number [facility] [address] [facility] documented in this encounter Visit Diagnoses Diagnosis Preoperative examination Preoperative examination, unspecified Screening for deficiency anemia Screening for other and unspecified deficiency anemia documented in this encounter Care Teams Nutrition Teacher Relationship Specialty Start Date End Date Fernando Stahl MD PCP - General 02/14/03 03/29/17 Cuco Weller MD [address] [place] [address] PCP - General Internal Medicine 03/30/17 documented as of this encounter
--- OUTSIDE RECORDS SUMMARY | 2024-08-22 17:12 | XMS_ITS | Encounter Summary ---
Author Organization [facility] Address [address] [place] [address] Care Team Providers Care Jewelry Maker Name Role Phone Cuco Weller MD Primary Care Provider +1 -[phone] Encounter Details Date Type Department Care Team Description 07/29/2021 Pt. Non Urgent Medical Question Adult Medicine [address] [address] Cuco Weller MD [address] [place] [address] Social History Tobacco Use Types Packs/Day Years [...] have Coronavirus / COVID-19? No / Unsure 07/04/2021 2:32 PM EST documented as of this encounter Miscellaneous Notes * Telephone Encounter - Cuca Snell M.A. - 07/29/2021 11:12 AM EDTFrom: Dolly Hoyt To: Funmi Weller Sent: 07/29/2021 11:11 AM EDT Subject: Referral I???m still waiting for a neurologist to call me for an appointment. Could you check into it for me? Thank you documented in this encounter Plan of Treatment Not on file documented as of this encounter Visit Diagnoses Not on filedocumented in this encounter Care Teams Jewelry Maker Relationship Specialty Start Date End Date Cuco Weller MD [address] [place] [address] PCP - General Internal Medicine 03/30/17 documented as of this encounter
--- OUTSIDE RECORDS SUMMARY | 2024-08-22 17:12 | XMS_ITS | Encounter Summary ---
Author Organization [facility] Address [address] [place] [address] Care Team Providers Care Catering And Events Manager Name Role Phone Fernando Stahl MD Primary Care Provider Unavail [facility] Cuco Weller MD Primary Care Provider +1 -[phone] Encounter Details Date Type Department Care Team Description 07/10/2016 Production Assembler Report Medical Records [address] [place] [address] Fara Burkett Social History Tobacco Use Types Packs/Day Years [...] on filedocumented in this encounter Care Teams Catering And Events Manager Relationship Specialty Start Date End Date Fernando Stahl MD PCP - General 02/14/03 03/29/17 Cuco Weller MD [address] [place] [address] PCP - General Internal Medicine 03/30/17 documented as of this encounter
--- OUTSIDE RECORDS SUMMARY | 2024-08-22 17:12 | XMS_ITS | Encounter Summary ---
Author Organization [facility] Address [address] [place] [address] Care Team Providers Care Surfboard Maker Name Role Phone Fernando Stahl MD Primary Care Provider Unavail able Cuco Weller MD Primary Care Provider +1 -[phone] Encounter Details Date Type Department Care Team Description 06/12/2016 Pt. Non Urgent Medical Question Adult Medicine B - [address] [address] Fernando Stahl MD Social History Tobacco Use [...] as of this encounter Progress Notes * Lucy Lockhart M.A. - 06/12/2016 10:56 AM ESTFrom: Dolly Hoyt To: Fernando Stahl MD Sent: 06/12/2016 10:55 AM EST Subject: Ent referral I was referred to Dr Hyde for an appointment. I am leaving for [place] on the and won't be back until July 04. They have me schedule for June 24. I've tried calling them each day to change the appointment until I get back. However, they never answer their phone. I've also left a message but no return call from them. Should I be referred to another since I can't get in touch with them to change the appointment since I'll be away? I'm just not sure what to do Thank you documented in this encounter Plan of Treatment Not on file documented as of this encounter Visit Diagnoses Not on filedocumented in this encounter Care Teams Surfboard Maker Relationship Specialty Start Date End Date Fernando Stahl MD PCP - General 02/14/03 03/29/17 Cuco Weller MD [address] [place] [address] PCP - General Internal Medicine 03/30/17 documented as of this encounter
--- OUTSIDE RECORDS SUMMARY | 2024-08-22 17:12 | XMS_ITS | Encounter Summary ---
Author Organization [facility] Address [address] [place] [address] Care Team Providers Care Sweatband Separator Name Role Phone Cuco Weller MD Primary Care Provider +1 -[phone] Reason for Visit * Reason Comments E-prescribe Rx Request Encounter Details Date Type Department Care Team Description 01/18/2024 Refill Adult Medicine [address] [id number] Cuco Weller MD [address] [place] [address] E-prescribe Rx Request Social History Tobacco Use [...] encounter Miscellaneous Notes * Telephone Encounter - Adrianne Day MA. - 01/19/2024 10:15 AM EDT Faxed to pharmacy * Telephone Encounter - Cristy Lyon M.A. - 01/18/2024 10:14 AM EDT Jerald 09/1023 pended 02/04/24 Lab Results Component Value Date HGBA1C 8.4 11/26/2023 MALBUR 20.0 04/13/2023 MALBCR 25.9 04/13/2023 CHOL 170 09/30/2023 LDL 92 09/30/2023 HDL 50 09/30/2023 TRIG 142 09/30/2023 GLU 139 07/03/2023 CREAT 0.74 07/03/2023 * Telephone Encounter - Jules Hoang - 01/18/2024 10:12 AM EDT Patient would like script to be: E-PRESCRIBED/FAXED TO PHARMACY WHEN WAS THE PATIENT'S LAST APPOINTMENT IN ADULT MEDICINE? 10/05/23 WHEN WAS THE LAST TIME THE PATIENT SAW THEIR PCP? 07/03/23 Does patient have an upcoming appointment? Yes 02/04/24 (THE MEDICATION REQUESTED IS ON THE MED [...] N/A Patients current insurance carrier is: Payor: [facility] FFS / Plan: [facility] [employer] / Product Type: MEDICAID RISK documented in this encounter Plan of Treatment Not on file documented as of this encounter Visit Diagnoses Diagnosis Type 2 diabetes mellitus without complications (HCC) Type II or unspecified type diabetes mellitus without mention of complication, not stated as uncontrolled documented in this encounter Care Teams Sweatband Separator Relationship Specialty Start Date End Date Cuco Weller MD [address] [place] [address] PCP - General Internal Medicine 03/30/17 documented as of this encounter
--- OUTSIDE RECORDS SUMMARY | 2024-08-22 17:12 | XMS_ITS | Encounter Summary ---
Author Organization [facility] Address [address] [place] [address] Care Team Providers Care Chief Green Officer Name Role Phone Fernando Stahl MD Primary Care Provider Unavail [facility] Cuco Weller MD Primary Care Provider +1 -[phone] Encounter Details Date Type Department Care Team Description 01/22/2006 Hospital Medical Records [address] [place] [address] YohanPoolChris Social History Tobacco Use Types Packs/Day Years [...] on filedocumented in this encounter Care Teams Chief Green Officer Relationship Specialty Start Date End Date Fernando Stahl MD PCP - General 02/14/03 03/29/17 Cuco Weller MD [address] [place] [address] PCP - General Internal Medicine 03/30/17 documented as of this encounter
--- OUTSIDE RECORDS SUMMARY | 2024-08-22 17:12 | XMS_ITS | Encounter Summary ---
Author Organization [facility] Address [address] [place] [address] Care Team Providers Care Cooker Helper Name Role Phone Cuco Weller MD Primary Care Provider +1 -[phone] Reason for Visit * Reason Comments E-prescribe Rx Request Encounter Details Date Type Department Care Team Description 10/01/2021 Refill Adult Medicine [address] [address] Jolie Benjamin PA-C E-prescribe Rx Request Social History Tobacco Use [...] suspected to have Coronavirus/COVID-19? No / Unsure 09/20/2021 11:39 AM EDT documented as of this encounter Miscellaneous Notes * Telephone Encounter - Umu Hernandez 10/02/2021 8:13 AM EDT Faxed to pharmacy * Telephone Encounter - Lucy Lockhart M.A. - 10/01/2021 5:20 PM EDT Date of last office visit was 07/04/21. Pended appt for 10/08/21 Lab Results Component Value Date NA 138 01/30/2021 K 4.5 01/30/2021 CO2 29 01/30/2021 CL 101 01/30/2021 BUN 13 01/30/2021 CREAT 0.72 01/30/2021 GLU 124 01/30/2021 CA 9.4 01/30/2021 GFR > 60 01/30/2021 * Telephone Encounter - Mary Kay Oliveros - 10/01/2021 10:53 AM EDT Patient would like script to be: E-PRESCRIBED/FAXED TO PHARMACY WHEN WAS THE PATIENT'S LAST APPOINTMENT IN ADULT MEDICINE? 07/04/21 WHEN WAS THE LAST TIME THE PATIENT SAW THEIR PCP? Same as above Does patient have an upcoming appointment? Yes 10/08/21 (THE MEDICATION REQUESTED IS ON THE MED [...] Patients current insurance carrier is: Payor: [employer] / Plan: [employer] / Product Type: MEDICAID RISK documented in this encounter Plan of Treatment Not on file documented as of this encounter Visit Diagnoses Not on filedocumented in this encounter Care Teams Cooker Helper Relationship Specialty Start Date End Date Cuco Weller MD [address] [place] [address] PCP - General Internal Medicine 03/30/17 documented as of this encounter
--- OUTSIDE RECORDS SUMMARY | 2024-08-22 17:12 | XMS_ITS | Encounter Summary ---
Author Organization [facility] Address [address] [place] [address] Care Team Providers Care Volunteer Patient Representative Name Role Phone Fernando Stahl MD Primary Care Provider Unavail able Cuco Weller MD Primary Care Provider +1 -[phone] Encounter Details Date Type Department Care Team Description 03/13/2017 Orders Only Adult Medicine B - [place] [address] [place] [address] Fernando Stahl MD Uncontrolled type 2 diabetes mellitus without complication, with long-term current use of insulin (HCC) (Primary [...] on file documented as of this encounter Results * (ABNORMAL) BASIC METABOLIC PANEL (03/24/2017 9:36 AM EST) GLUCOSE 121(H) 70 - 100 mg/dL 03/24/2017 3:18 PM EST [facility] Comment: Reference range applicable to fasting specimens only Based on recommendations from the ADA and AACE, the fasting glucose reference range has been changed to 70-100 mg/dL. ??This change is effective September 10, 2009 BUN 10 5 - 25 mg/dL 03/24/2017 3:18 PM EST [facility] CREAT 0.8 0.7 - 1.5 mg/dL 03/24/2017 3:18 PM EST [facility] GFR > 60 >60 03/24/2017 3:18 PM EST [facility] Comment: If patient is -Citizen Of [place], multiply result by 1.21 Chronic Kidney Disease: < 60 ml/min/1.73 square meters Kidney Failure: < 15 ml/min/1.73 square meters Sodium 142 133 - 145 mEq/L 03/24/2017 3:18 PM EST [facility] Potassium 5.0 3.5 - 5.5 mEq/L 03/24/2017 3:18 PM EST [facility] Chloride 98 96 - 108 mEq/L 03/24/2017 3:18 PM EST [facility] CO2 27.7 21.0 - 32.0 mEq/L 03/24/2017 3:18 PM EST [facility] CALCIUM 9.4 8.5 - 10.5 mg/dL 03/24/2017 3:18 PM EST [facility] 03/24/2017 9:36 AM EST 03/24/2017 9:37 AM EST Fernando Stahl MD LAB [facility] documented in this encounter Visit Diagnoses Diagnosis Uncontrolled type 2 diabetes mellitus without complication, with long-term current use of insulin- Primary documented in this encounter Care Teams Volunteer Patient Representative Relationship Specialty Start Date End Date Fernando Stahl MD PCP - General 02/14/03 03/29/17 Cuco Weller MD [address] [place] [address] PCP - General Internal Medicine 03/30/17 documented as of this encounter
--- OUTSIDE RECORDS SUMMARY | 2024-08-22 17:12 | XMS_ITS | Encounter Summary ---
Author Organization [facility] Address [address] [place] [address] Care Team Providers Care Manager Meeting Name Role Phone Fernando Stahl MD Primary Care Provider Unavail able Cuco Weller MD Primary Care Provider +1 -[phone] Encounter Details Date Type Department Care Team Description 02/05/2017 [facility] Medical Records [address] [place] [address] Abstract, Provider Social History Tobacco Use Types [...] filedocumented in this encounter Care Teams Manager Meeting Relationship Specialty Start Date End Date Fernando Stahl MD PCP - General 02/14/03 03/29/17 Cuco Weller MD [address] [place] [address] PCP - General Internal Medicine 03/30/17 documented as of this encounter
--- OUTSIDE RECORDS SUMMARY | 2024-08-22 17:12 | XMS_ITS | Encounter Summary ---
Author Organization [facility] Address [address] [place] [address] Care Team Providers Care Customer Experience Consultant Name Role Phone Cuco Weller MD Primary Care Provider +1 -[phone] Reason for Visit * Reason Comments E-prescribe Rx Request Encounter Details Date Type Department Care Team Description 01/18/2023 Refill Adult Medicine [address] [id number] Cuco Weller MD [address] [place] [address] E-prescribe Rx Request Social History Tobacco Use [...] Telephone Encounter - Lucy Lockhart M.A. - 01/19/2023 2:11 PM EDT Date if kast darek pazsut was 12/18/22. Pended appt for 03/12/23 Lab Results Component Value Date NA 139 11/07/2022 K 4.3 11/07/2022 CO2 28 11/07/2022 CL 105 11/07/2022 BUN 9 11/07/2022 CREAT 0.74 11/07/2022 GLU 192 11/07/2022 CA 8.8 11/07/2022 GFR 93 11/07/2022 * Telephone Encounter - Yessi Ng - 01/19/2023 1:30 PM EDT Patient would like script to be: E-PRESCRIBED/FAXED TO PHARMACY ?? WHEN WAS THE PATIENT'S LAST APPOINTMENT IN ADULT MEDICINE? 11/07/22 ?? WHEN WAS THE LAST TIME THE PATIENT SAW THEIR PCP? Same as above ?? Does patient have an upcoming appointment? Yes 03/12/23 ?? (THE MEDICATION REQUESTED IS ON THE MED LIST ABOVE) All of the medications requested were on the CURRENT MEDS list ?? Did you check the Pharmacy information above?: YES ?? Patient wants: 90 -day supply ?? Is this a mail order prescription request ? NO ?? If the refill is from a FAXED refill request what is the RX # listed on the fax? N/A ?? Patients current insurance carrier is: Payor: [facility] FFS / Plan: [facility] / Product Type: MEDICAID RISK ? documented in this encounter Plan of Treatment Not on file documented as of this encounter Visit Diagnoses Not on filedocumented in this encounter Care Teams Customer Experience Consultant Relationship Specialty Start Date End Date Cuco Weller MD [address] [place] [address] PCP - General Internal Medicine 03/30/17 documented as of this encounter
--- OUTSIDE RECORDS SUMMARY | 2024-08-22 17:12 | XMS_ITS | Encounter Summary ---
Author Organization [facility] Address [address] [place] [address] Care Team Providers Care Addictions Recovery Specialist Name Role Phone Cuco Weller MD Primary Care Provider +1 -[phone] Reason for Visit * Reason Onset Date Comments medication problems 11/02/2023 Encounter Details Date Type Department Care Team Description 11/02/2023 Telephone Pulmonology - [place] 175 [facility] [address] [place] [phone] Jayshree Mendoza APRN 175 [facility] [address] [place] [phone] medication problems Social History Tobacco Use Types Packs/Day Years [...] encounter Miscellaneous Notes * Telephone Encounter - Teresa Samaniego - 11/02/2023 12:24 PM EDT Pharmacy requesting alternative medication for SPIRIVA RESPIMAT 2.5 MCG. Medication not covered by insurance. documented in this encounter Plan of Treatment Not on file documented as of this encounter Visit Diagnoses Not on filedocumented in this encounter Care Teams Addictions Recovery Specialist Relationship Specialty Start Date End Date Cuco Weller MD [address] [place] [address] PCP - General Internal Medicine 03/30/17 documented as of this encounter
--- OUTSIDE RECORDS SUMMARY | 2024-08-22 17:12 | XMS_ITS | Encounter Summary ---
Author Organization [facility] Address [address] [place] [address] Care Team Providers Care Early Childhood Associate Name Role Phone Fernando Stahl MD Primary Care Provider Unavail [facility] Cuco Weller MD Primary Care Provider +1 -[phone] Encounter Details Date Type Department Care Team Description 03/11/2017 Hospital Medical Records [address] [place] [address] Tamara Rangel, Social History Tobacco Use Types [...] on filedocumented in this encounter Care Teams Early Childhood Associate Relationship Specialty Start Date End Date Fernando Stahl MD PCP - General 02/14/03 03/29/17 Cuco Weller MD [address] [place] [address] PCP - General Internal Medicine 03/30/17 documented as of this encounter
--- OUTSIDE RECORDS SUMMARY | 2024-08-22 17:12 | XMS_ITS | Encounter Summary ---
Author Organization [facility] Address [address] [place] [address] Care Team Providers Care Business Services Director Name Role Phone Cuco Weller MD Primary Care Provider +1 -[phone] Encounter Details Date Type Department Care Team Description 08/26/2022 Electron Beam Machine Welder Setter Report Medical Records [address] [place] [address] Evert Garnica MD Social History Tobacco Use [...] on filedocumented in this encounter Care Teams Business Services Director Relationship Specialty Start Date End Date Cuco Weller MD [address] [place] [address] PCP - General Internal Medicine 03/30/17 documented as of this encounter
--- OUTSIDE RECORDS SUMMARY | 2024-08-22 17:12 | XMS_ITS | Encounter Summary ---
Author Organization [facility] Address [address] [place] [address] Care Team Providers Care Tunneller Name Role Phone Cuco Weller MD Primary Care Provider +1 -[phone] Reason for Visit * Reason Comments E-prescribe Rx Request Encounter Details Date Type Department Care Team Description 11/13/2023 Refill Adult Medicine [address] [address] Grisel Fletcher, JUNIOR DATA ANALYST [address] [place] [address] E-prescribe Rx Request Social History Tobacco Use [...] Telephone Encounter - Adrianne Day MA. - 11/13/2023 11:37 AM EDT Faxed to pharmacy * Telephone Encounter - Lucy Lockhart M.A. - 11/13/2023 9:44 AM EDT Date of last office visit was 10/05/23. Pended appt for 02/04/24 Lab Results Component Value Date HGBA1C 8.3 10/05/2023 MALBUR 20.0 04/13/2023 MALBCR 25.9 04/13/2023 CHOL 170 09/30/2023 LDL 92 09/30/2023 HDL 50 09/30/2023 TRIG 142 09/30/2023 GLU 139 07/03/2023 CREAT 0.74 07/03/2023 Lab Results Component Value Date NA 141 07/03/2023 K 4.8 07/03/2023 CO2 29 07/03/2023 CL 104 07/03/2023 BUN 11 07/03/2023 CREAT 0.74 07/03/2023 GLU 139 07/03/2023 CA 9.7 07/03/2023 GFR 93 07/03/2023 * Telephone Encounter - Brooke Morales - 11/13/2023 9:39 AM EDT Patient would like script to [...] N/A Patients current insurance carrier is: Payor: [facility] FFS / Plan: [facility] / Product Type: MEDICAID RISK documented in this encounter Plan of Treatment Not on file documented as of this encounter Visit Diagnoses Diagnosis Heart burn Heartburn documented in this encounter Care Teams Tunneller Relationship Specialty Start Date End Date Cuco Weller MD [address] [place] [address] PCP - General Internal Medicine 03/30/17 documented as of this encounter
--- OUTSIDE RECORDS SUMMARY | 2024-08-22 17:12 | XMS_ITS | Encounter Summary ---
Author Organization [facility] Address [address] [place] [address] Care Team Providers Care Sampler First Name Role Phone Cuco Weller MD Primary Care Provider +1 -[phone] Encounter Details Date Type Department Care Team Description 10/20/2022 Orders Only [facility] Thoracic Surgery [address] [place] [phone] Chris Jaramillo MD Social History Tobacco Use Types Packs/Day [...] suspected to have Coronavirus/COVID-19? No / Unsure 09/26/2022 11:38 AM EDT documented as of this encounter Plan of Treatment Not on file documented as of this encounter Visit Diagnoses Not on filedocumented in this encounter Care Teams Sampler First Relationship Specialty Start Date End Date Cuco Weller MD [address] [place] [address] PCP - General Internal Medicine 03/30/17 documented as of this encounter
--- OUTSIDE RECORDS SUMMARY | 2024-08-22 17:12 | XMS_ITS | Encounter Summary ---
Author Organization [facility] Address [address] [place] [address] Care Team Providers Care Geotechnical Laboratory Technician Name Role Phone Cuco Weller MD Primary Care Provider +1 -[phone] Encounter Details Date Type Department Care Team Description 07/15/2022 Jockey'S Agent Report Medical Records [address] [place] [address] Evert Garnica MD Social History Tobacco Use [...] on filedocumented in this encounter Care Teams Geotechnical Laboratory Technician Relationship Specialty Start Date End Date Cuco Weller MD [address] [place] [address] PCP - General Internal Medicine 03/30/17 documented as of this encounter
--- OUTSIDE RECORDS SUMMARY | 2024-08-22 17:12 | XMS_ITS | Encounter Summary ---
Author Organization [facility] Address [address] [place] [address] Care Team Providers Care Rat Breeder Name Role Phone Fernando Stahl MD Primary Care Provider Unavail [facility] Cuco Weller MD Primary Care Provider +1 -[phone] Encounter Details Date Type Department Care Team Description 03/11/2017 Hospital Medical Records [address] [place] [address] Tamara Rangel, Social History Tobacco Use Types [...] on filedocumented in this encounter Care Teams Rat Breeder Relationship Specialty Start Date End Date Fernando Stahl MD PCP - General 02/14/03 03/29/17 Cuco Weller MD [address] [place] [address] PCP - General Internal Medicine 03/30/17 documented as of this encounter
--- OUTSIDE RECORDS SUMMARY | 2024-08-22 17:12 | XMS_ITS | Encounter Summary ---
Author Organization [facility] Address [address] [place] [address] Care Team Providers Care Wrapper Rewinder Name Role Phone Cuco Weller MD Primary Care Provider +1 -[phone] Reason for Visit * Reason Comments E-prescribe Rx Request Encounter Details Date Type Department Care Team Description 07/10/2021 Refill Adult Medicine [address] [phone] Cuco Weller MD [address] [place] [address] E-prescribe Rx Request Social History Tobacco Use [...] Miscellaneous Notes * Telephone Encounter - Umu Sidhu M.A. - 07/10/2021 2:35 PM EDT Faxed to pharmacy * Telephone Encounter - Lucy Lockhart M.A. - 07/10/2021 2:12 PM EDT Date of last office visit was 07/04/21 Lab Results Component Value Date CHOL 167 01/30/2021 LDL 66 01/30/2021 HDL 61 01/30/2021 TRIG 201 01/30/2021 SGOT 15 01/30/2021 SGPT 21 01/30/2021 * Telephone Encounter - Mary Kay Arlin - 07/10/2021 12:16 PM EDT Patient would like script to be: E-PRESCRIBED/FAXED TO PHARMACY WHEN WAS THE PATIENT'S LAST APPOINTMENT IN ADULT MEDICINE? 07/04/21 WHEN WAS THE LAST TIME THE PATIENT SAW THEIR PCP? Same as above Does patient have an upcoming appointment? No (THE MEDICATION REQUESTED IS ON THE MED [...] N/A Patients current insurance carrier is: Payor: [employer]FS / Plan: [employer] / Product Type: MEDICAID RISK documented in this encounter Plan of Treatment Not on file documented as of this encounter Visit Diagnoses Not on filedocumented in this encounter Care Teams Wrapper Rewinder Relationship Specialty Start Date End Date Cuco Weller MD [address] [place] [address] PCP - General Internal Medicine 03/30/17 documented as of this encounter
--- OUTSIDE RECORDS SUMMARY | 2024-08-22 17:12 | XMS_ITS | Encounter Summary ---
Author Organization [facility] Address [address] [place] [address] Care Team Providers Care Account Advisor Name Role Phone Cuco Weller MD Primary Care Provider +1 -[phone] Encounter Details Date Type Department Care Team Description 09/05/2021 Pt. Non Urgent Medical Question Adult Medicine B - [address] [address] Cuco Weller MD [address] [place] [address] History of CVA (cerebrovascular accident); Other hyperlipidemia Social History Tobacco Use Types [...] Telephone Encounter - Cuca Snell M.A. - 09/05/2021 4:43 PM EDTFrom: Dolly Hoyt To: Funmi Weller Sent: 09/05/2021 4:29 PM EDT Subject: Med refill Could the send a prescription in for my aspirin Thank you documented in this encounter Plan of Treatment Not on file documented as of this encounter Visit Diagnoses Diagnosis History of CVA (cerebrovascular accident) Transient ischemic attack (TIA), and cerebral infarction without residual deficits Other hyperlipidemia documented in this encounter Care Teams Account Advisor Relationship Specialty Start Date End Date Cuco Weller MD [address] [place] [address] PCP - General Internal Medicine 03/30/17 documented as of this encounter
--- OUTSIDE RECORDS SUMMARY | 2024-08-22 17:12 | XMS_ITS | Encounter Summary ---
Author Organization [facility] Address [address] [place] [address] Care Team Providers Care Flocculator Operator Name Role Phone Cuco Weller MD Primary Care Provider +1 -[phone] Reason for Visit * Reason Onset Date Comments External Sleep Study Request 12/31/2022 Sle ep Study Encounter Details Date Type Department Care Team Description 12/31/2022 Telephone Pulmonology - [address] [place] [address] Harry Gong MD External Sleep Study Request (Sleep Study/) Social History Tobacco Use Types Packs/Day Years [...] encounter Miscellaneous Notes * Telephone Encounter - Cecily Abiodun - 12/31/2022 9:16 AM EDT [facility], No Auth Required for Home Study Order, notes, and benefits faxed to Sleep Medicine Services. They will contact patient to schedule,notification letter sent. documented in this encounter Plan of Treatment Not on file documented as of this encounter Visit Diagnoses Not on filedocumented in this encounter Care Teams Flocculator Operator Relationship Specialty Start Date End Date Cuco Weller MD [address] [place] [address] PCP - General Internal Medicine 03/30/17 documented as of this encounter
--- OUTSIDE RECORDS SUMMARY | 2024-08-22 17:12 | XMS_ITS | Encounter Summary ---
Author Organization [facility] Address [address] [place] [address] Care Team Providers Care Product Tester Name Role Phone Fernando Stahl MD Primary Care Provider Unavail [facility] Cuco Weller MD Primary Care Provider +1 -[phone] Encounter Details Date Type Department Care Team Description 06/30/2011 Staff Weapons Officer Report Medical Records [address] [place] [address] Dean Hernandez MD Social History Tobacco Use Types Packs/Day [...] on filedocumented in this encounter Care Teams Product Tester Relationship Specialty Start Date End Date Fernando Stahl MD PCP - General 02/14/03 03/29/17 Cuco Weller MD [address] [place] [address] PCP - General Internal Medicine 03/30/17 documented as of this encounter
--- OUTSIDE RECORDS SUMMARY | 2024-08-22 17:12 | XMS_ITS | Encounter Summary ---
Author Organization [facility] Address [address] [place] [address] Care Team Providers Care Tile Setter Name Role Phone Cuco Weller MD Primary Care Provider +1 -[phone] Reason for Visit * Reason Comments E-prescribe Rx Request Encounter Details Date Type Department Care Team Description 11/10/2021 Refill Adult Medicine [address] [id number] Cuco Weller MD [address] [place] [address] E-prescribe Rx Request Social History Tobacco Use [...] suspected to have Coronavirus/COVID-19? No / Unsure 10/17/2021 11:00 AM EDT documented as of this encounter Miscellaneous Notes * Telephone Encounter - Yessi Lozano M.A. - 11/12/2021 9:45 AM EDT Spoke with pt, states she did have itching but does not consider it an allergy. Pt would like refill. * Telephone Encounter - Cuco Weller MD - 11/12/2021 9:04 AM EDT An allergy popup comes up for nicotine patches. It says that patient has itching with this. Please asked patient if she really wants nicotine patch raynaud? * Telephone Encounter - Lucy Lockhart M.A. - 11/12/2021 8:49 AM EDT Date of last office visit was 10/08/21. Pended appt for 01/07/22 Lab Results Component Value Date NA 137 10/08/2021 K 5.0 10/08/2021 CO2 29 10/08/2021 CL 102 10/08/2021 BUN 8 10/08/2021 CREAT 0.79 10/08/2021 GLU 183 10/08/2021 CA 9.1 10/08/2021 GFR > 60 10/08/2021 * Telephone Encounter - Darlin Brooke - 11/11/2021 11:01 AM EDT Patient would like script to be: E-PRESCRIBED/FAXED TO PHARMACY WHEN WAS THE PATIENT'S LAST APPOINTMENT IN ADULT MEDICINE? 10-08-21 WHEN WAS THE LAST TIME THE PATIENT SAW THEIR PCP? 01-30-21 Does patient have an upcoming appointment? Yes *01-07-22 (THE MEDICATION REQUESTED IS ON THE MED [...] N/A Patients current insurance carrier is: Payor: [employer] FFS / Plan: [employer]IANCE / Product Type: MEDICAID RISK documented in this encounter Plan of Treatment Not on file documented as of this encounter Visit Diagnoses Not on filedocumented in this encounter Care Teams Tile Setter Relationship Specialty Start Date End Date Cuco Weller MD [address] [place] [address] PCP - General Internal Medicine 03/30/17 documented as of this encounter
--- OUTSIDE RECORDS SUMMARY | 2024-08-22 17:12 | XMS_ITS | Encounter Summary ---
Author Organization [facility] Address [address] [place] [address] Care Team Providers Care Geosciences Professor Name Role Phone Cuco Weller MD Primary Care Provider +1 -[phone] Encounter Details Date Type Department Care Team Description 11/22/2021 Racking Machine Operator Report Medical Records [address] [place] [address] [facility] [address] [place] [address] Social History Tobacco Use Types Packs/Day Years [...] on filedocumented in this encounter Care Teams Geosciences Professor Relationship Specialty Start Date End Date Cuco Weller MD [address] [place] [address] PCP - General Internal Medicine 03/30/17 documented as of this encounter
--- OUTSIDE RECORDS SUMMARY | 2024-08-22 17:12 | XMS_ITS | Encounter Summary ---
Author Organization [facility] Address [address] [place] [address] Care Team Providers Care Crime Scene Specialist Name Role Phone Fernando Stahl MD Primary Care Provider [facility] Cuco Weller MD Primary Care Provider +1 -[phone] Encounter Details Date Type Department Care Team Description 05/08/2016 Orders Only Radiology - [address] [address] Fernando Stahl MD Social History Tobacco Use [...] on filedocumented in this encounter Care Teams Crime Scene Specialist Relationship Specialty Start Date End Date Fernando Stahl MD PCP - General 02/14/03 03/29/17 Cuco Weller MD [address] [place] [address] PCP - General Internal Medicine 03/30/17 documented as of this encounter
--- OUTSIDE RECORDS SUMMARY | 2024-08-22 17:12 | XMS_ITS | Encounter Summary ---
Author Organization [facility] Address [address] [place] [address] Care Team Providers Care Nurse Executive Name Role Phone Cuco Weller MD Primary Care Provider +1 -[phone] Encounter Details Date Type Department Care Team Description 01/28/2023 Pt. Non Urgent Medical Question Adult Medicine [address] [id number] Cuco Weller MD [address] [place] [address] Social History Tobacco Use Types Packs/Day Years [...] encounter Miscellaneous Notes * Telephone Encounter - Cristy Stone R.N. - 01/28/2023 3:11 PM EDTFrom: oDlly Hoyt To: Funmi Weller Sent: 01/28/2023 3:01 PM EDT Subject: Blood sugar I was asked to report my sugar levels because of the increase due to the prednisone I'm taking. Before dinner yesterday it was 144 after I ate it was 243. Before bed it was 357. This morning it was 258. Before lunch it was 300, after I ate it was 335. Thank you documented in this encounter Plan of Treatment Not on file documented as of this encounter Visit Diagnoses Not on filedocumented in this encounter Care Teams Nurse Executive Relationship Specialty Start Date End Date Cuco Weller MD [address] [place] [address] PCP - General Internal Medicine 03/30/17 documented as of this encounter
--- OUTSIDE RECORDS SUMMARY | 2024-08-22 17:12 | XMS_ITS | Encounter Summary ---
Author Organization [facility] Address [address] [place] [address] Care Team Providers Care Grades 9 Thru 12 Visiting Teacher Name Role Phone Fernando Stahl MD Primary Care Provider Unavail [facility] Cuco Weller MD Primary Care Provider +1 -[phone] Encounter Details Date Type Department Care Team Description 08/14/2016 Petroleum Geologist Report Medical Records [address] [place] [address] Fara Burkett Social History Tobacco Use Types [...] on filedocumented in this encounter Care Teams Grades 9 Thru 12 Visiting Teacher Relationship Specialty Start Date End Date Fernando Stahl MD PCP - General 02/14/03 03/29/17 Cuco Weller MD [address] [place] [address] PCP - General Internal Medicine 03/30/17 documented as of this encounter
--- OUTSIDE RECORDS SUMMARY | 2024-08-22 17:12 | XMS_ITS | Encounter Summary ---
Author Organization [facility] Address [address] [place] [address] Care Team Providers Care Entertainment & Media Correspondent Name Role Phone Cuco Weller MD Primary Care Provider +1 -[phone] Encounter Details Date Type Department Care Team Description 10/20/2022 Orders Only [facility] Thoracic Surgery [place] [address] [facility] [address] [place] [phone] Quoc Jaramillo MD 299 [facility] [address] [place] [address] Personal history of tobacco use, presenting hazards to health (Primary Dx); Tobacco use disorder; Screening for lung cancer [...] documented as of this encounter Results * CT LOW DOSE LUNG SCREEN ANNUAL (11/28/2022) 11/28/[address] SCANS documented in this encounter Visit Diagnoses Diagnosis Personal history of tobacco use, presenting hazards to health- Primary Tobacco use disorder Screening for lung cancer documented in this encounter Care Teams Entertainment & Media Correspondent Relationship Specialty Start Date End Date Cuco Weller MD [address] [place] [address] PCP - General Internal Medicine 03/30/17 documented as of this encounter
--- OUTSIDE RECORDS SUMMARY | 2024-08-22 17:12 | XMS_ITS | Encounter Summary ---
Author Organization [facility] Address [address] [place] [address] Care Team Providers Care Scalp Treatment Specialist Name Role Phone Cuco Weller MD Primary Care Provider +1 -[phone] Encounter Details Date Type Department Care Team Description 04/11/2022 Pt. Non Urgent Medical Question Medicine/Pediatrics - [address] [address] John Alcazar PA-C [address] [place] [address] Social History Tobacco Use Types Packs/Day Years [...] suspected to have Coronavirus/COVID-19? No / Unsure 04/10/2022 2:26 PM EST documented as of this encounter Miscellaneous Notes * Telephone Encounter - Cuca Snell M.A. - 04/11/2022 3:22 PM ESTFrom: Dolly Hoyt To: Riana Alcazar Sent: 04/11/2022 3:21 PM EST Subject: Meds Dr Pat said he was going to send a prescription to my pharmacy for joint pain. The pharmacy saidthat they never received it. Could he please resend it? Thank you documented in this encounter Plan of Treatment Not on file documented as of this encounter Visit Diagnoses Not on filedocumented in this encounter Care Teams Scalp Treatment Specialist Relationship Specialty Start Date End Date Cuco Weller MD [address] [place] [address] PCP - General Internal Medicine 03/30/17 documented as of this encounter
--- OUTSIDE RECORDS SUMMARY | 2024-08-22 17:12 | XMS_ITS | Encounter Summary ---
Author Organization [facility] Address [address] [place] [address] Care Team Providers Care Reclamation Furnace Operator Name Role Phone Fernando Stahl MD Primary Care Provider [facility] Cuco Weller MD Primary Care Provider +1 -[phone] Encounter Details Date Type Department Care Team Description 06/12/2010 Inspection Manager Report Medical Records [address] [place], [place] [id number] [place] [address] Social History Tobacco Use Types Packs/Day Years Used Date Smoking Tobacco: Every Day Cigarettes 1 Comments:1 pack a day as of 2 [...] on filedocumented in this encounter Care Teams Reclamation Furnace Operator Relationship Specialty Start Date End Date Fernando Stahl MD PCP - General 02/14/03 03/29/17 Cuco Weller MD [address] [place] [address] PCP - General Internal Medicine 03/30/17 documented as of this encounter
--- OUTSIDE RECORDS SUMMARY | 2024-08-22 17:12 | XMS_ITS | Encounter Summary ---
Author Organization [facility] Address [address] [place] [address] Care Team Providers Care Customer Advisor Specialist Name Role Phone Fernando Stahl MD Primary Care Provider Unavail able Cuco Weller MD Primary Care Provider +1 -[phone] Reason for Visit * Reason Onset Date Comments medication problems 05/05/2011 Encounter Details Date Type Department Care Team Description 05/05/2011 Telephone Adult Medicine - [place] [address] [place] [address] Fernando Stahl MD medication problems Social History Tobacco Use Types [...] encounter Miscellaneous Notes * Telephone Encounter - Uriel Daly - 05/05/2011 9:39 AM EST PT SAW DR. STAHL ON 05/02 AND WAS PRESCRIBED LIPITOR BUT WAS SENT TO [facility] WH[facility] PT STATES IT SHOULD NOT GO THERE AND SHE IS OUT OF MEDS NOW. WANTS A SCRIPT SENT TO A LOCAL PHARMACY. documented in this encounter Plan of Treatment Not on file documented as of this encounter Visit Diagnoses Not on filedocumented in this encounter Care Teams Customer Advisor Specialist Relationship Specialty Start Date End Date Fernando Stahl MD PCP - General 02/14/03 03/29/17 Cuco Weller MD [address] [place] [address] PCP - General Internal Medicine 03/30/17 documented as of this encounter
--- OUTSIDE RECORDS SUMMARY | 2024-08-22 17:12 | XMS_ITS | Encounter Summary ---
Author Organization [facility] Address [address] [place] [address] Care Team Providers Care Lab Instructor Name Role Phone Cuco Weller MD Primary Care Provider +1 -[phone] Reason for Visit * Reason Comments E-prescribe Rx Request Encounter Details Date Type Department Care Team Description 03/23/2022 Refill Adult Medicine [address] [address] Grisel Fletcher, TIMBER SPRINKLER [address] [place] [address] E-prescribe Rx Request Social History Tobacco Use [...] suspected to have Coronavirus/COVID-19? No / Unsure 03/18/2022 11:01 AM EST documented as of this encounter Miscellaneous Notes * Telephone Encounter - Yessi Lozano M.A. - 03/24/2022 1:31 PM EST Last office visit: 01.07.22 Pending 05.27.22 Lab Results Component Value Date 25OHD 41 01/30/2021 25HYDROXYVIT 28 01/22/2018 * Telephone Encounter - Mary Kay Oliveros - 03/24/2022 1:25 PM EST Patient would like script to be: E-PRESCRIBED/FAXED TO PHARMACY WHEN WAS THE PATIENT'S LAST APPOINTMENT IN ADULT MEDICINE? 01/07/22 WHEN WAS THE LAST TIME THE PATIENT SAW THEIR PCP? Same as above Does patient have an upcoming appointment? Yes 05/27/22 (THE MEDICATION REQUESTED IS ON THE MED [...] N/A Patients current insurance carrier is: Payor: [facility] / Plan: [facility] / Product Type: MEDICAID RISK documented in this encounter Plan of Treatment Not on file documented as of this encounter Visit Diagnoses Not on filedocumented in this encounter Care Teams Lab Instructor Relationship Specialty Start Date End Date Cuco Weller MD [address] [place] [address] PCP - General Internal Medicine 03/30/17 documented as of this encounter
--- OUTSIDE RECORDS SUMMARY | 2024-08-22 17:12 | XMS_ITS | Encounter Summary ---
Author Organization [facility] Address [address] [place] [address] Care Team Providers Care Bowl Attendant Name Role Phone Fernando Stahl MD Primary Care Provider Unavail [facility] Cuco Weller MD Primary Care Provider +1 -[phone] Encounter Details Date Type Department Care Team Description 03/30/2006 Hospital Medical Records [address] [place] [address] Dilan Kerr Social History Tobacco Use Types Packs/Day Years [...] on filedocumented in this encounter Care Teams Bowl Attendant Relationship Specialty Start Date End Date Fernando Stahl MD PCP - General 02/14/03 03/29/17 Cuco Weller MD [address] [place] [address] PCP - General Internal Medicine 03/30/17 documented as of this encounter
--- OUTSIDE RECORDS SUMMARY | 2024-08-22 17:12 | XMS_ITS | Encounter Summary ---
Author Organization [facility] Address [address] [place] [address] Care Team Providers Care Progressive Die Maker Name Role Phone Cuco Weller MD Primary Care Provider +1 -[phone] Encounter Details Date Type Department Care Team Description 10/22/2021 Pt. Non Urgent Medical Question Adult Medicine [address] [address] Cuco Weller MD [address] [place] [address] Social History Tobacco Use Types Packs/Day Years [...] Progress Notes * Cuco Weller MD - 10/22/2021 12:43 PM EDT Please inform the patient if it is worst headache of her life , then I recommend her to go to theER to get a CT head immediately. Otherwise she can go to an urgent care * Bree Ferrell L.P.N. - 10/22/2021 12:33 PM EDT See my chart message/ pt received shingrix vaccine on 10/18/21 / co severe headache 8.5/10 and nausea today / symptoms started out mild and have gotten worse / denies weakness extremities, dizziness ,vision issues / no appts till 10/24/21 urgent care / is one of the worst headaches she has had/ advised if symptoms worsen to Go straight to er while waiting to hear your suggestion / please advise documented in this encounter Miscellaneous Notes * Telephone Encounter - Cuca Snell M.A. - 10/22/2021 12:08 PM EDTFrom: Dolly Hoyt To: Funmi Weller Sent: 10/22/2021 11:50 AM EDT Subject: Shingles vaccine I had my first shingles vaccine on Thursday of last week. My stomach is still very upset and I have one of the worst headaches that I???ve ever had. Could this be a side effect and if so how long does it normally last? Thank you documented in this encounter Plan of Treatment Not on file documented as of this encounter Visit Diagnoses Not on filedocumented in this encounter Care Teams Progressive Die Maker Relationship Specialty Start Date End Date Cuco Weller MD [address] [place] [address] PCP - General Internal Medicine 03/30/17 documented as of this encounter
--- OUTSIDE RECORDS SUMMARY | 2024-08-22 17:12 | XMS_ITS | Encounter Summary ---
Author Organization [facility] Address [address] [place] [address] Care Team Providers Care Tilting Saw Operator Name Role Phone Fernando Stahl MD Primary Care Provider Unavail able Cuco Weller MD Primary Care Provider +1 -[phone] Reason for Visit * Reason Onset Date Comments medication problems 03/24/2017 Encounter Details Date Type Department Care Team Description 03/24/2017 Telephone Adult Medicine - [place] [address] [place] [address] Fernando Stahl MD medication problems Social History [...] Telephone Encounter - Lucy Lockhart M.A. - 03/24/2017 10:53 AM EST Rx sent on 03/23/17 did not have brand name on Rx. Rx pended for signature. Thank you * Telephone Encounter - Regla William - 03/24/2017 10:31 AM EST Who is calling? A pharmacist: Pharmacy: [facility] Pharmacist Name: [facility] Name of the medication glucose blood test strips (FREESTYLE LITE) strip What is the specific problem or interaction? Needs specific brand to bill ins company If the patient is having a problem with taking the med - how long has the problem been going on? N/A documented in this encounter Plan of Treatment Not on file documented as of this encounter Visit Diagnoses Not on filedocumented in this encounter Care Teams Tilting Saw Operator Relationship Specialty Start Date End Date Fernando Stahl MD PCP - General 02/14/03 03/29/17 Cuco Weller MD [address] [place] [address] PCP - General Internal Medicine 03/30/17 documented as of this encounter
--- OUTSIDE RECORDS SUMMARY | 2024-08-22 17:12 | XMS_ITS | Encounter Summary ---
Author Organization [facility] Address [address] [place] [address] Care Team Providers Care Auto Care Center Manager Name Role Phone Fernando Stahl MD Primary Care Provider Unavail able Cuco Weller MD Primary Care Provider +1 -[phone] Reason for Visit * Reason Onset Date Comments Advice 03/11/2016 Encounter Details Date Type Department Care Team Description 03/11/2016 Pt. Non Urgent Medical Question Adult Medicine - [place] [address] [place] [address] Fernando Stahl MD Social History Tobacco Use [...] Progress Notes * Anupama Burrell L.P.N. - 03/11/2016 1:56 PM ESTFrom: Dolly Hoyt To: Fernando Stahl MD Sent: 03/11/2016 1:51 PM EST Subject: Restless legs I was wondering if the opinions could be increased. documented in this encounter Plan of Treatment Not on file documented as of this encounter Visit Diagnoses Not on filedocumented in this encounter Care Teams Auto Care Center Manager Relationship Specialty Start Date End Date Fernando Stahl MD PCP - General 02/14/03 03/29/17 Cuco Weller MD [address] [place] [address] PCP - General Internal Medicine 03/30/17 documented as of this encounter
--- OUTSIDE RECORDS SUMMARY | 2024-08-22 17:12 | XMS_ITS | Encounter Summary ---
Author Organization [facility] Address [address] [place] [address] Care Team Providers Care Sergeant Of Corrections Name Role Phone Cuco Weller MD Primary Care Provider [phone] -[phone] Reason for Referral * Non DEE (Urgent) - Closed Specialty Diagnoses / Procedures Referred By Ace auguste Referred To Contact Pulmonology Diagnoses Pulmonary emphysema, unspecified emphysema type (HCC) Procedures REFERRAL TO PULMONOLOGY Lincoln Martell NP [address] [place] [address] Pulmo/[place] [address] [address] Referral ID Status Reason Start Date Expiration Date Visits Re quested Visits Authorized [id number] Closed 02/17/2022 02/17/2023 1 1 Encounter Details Date Type Department Care Team Description 02/17/2022 Orders Only Adult Medicine B - [address] [address] Lincoln Martell NP [address] [place] [address] Pulmonary emphysema, unspecified emphysema type (HCC) (Primary Dx) Social History Tobacco Use [...] suspected to have Coronavirus/COVID-19? No / Unsure 02/10/2022 1:59 PM EDT documented as of this encounter Plan of Treatment Not on file documented as of this encounter Visit Diagnoses Diagnosis Pulmonary emphysema, unspecified emphysema type (HCC)- Primary documented in this encounter Care Teams Sergeant Of Corrections Relationship Specialty Start Date End Date Cuco Weller MD [address] [place] [address] PCP - General Internal Medicine 03/30/17 documented as of this encounter
--- OUTSIDE RECORDS SUMMARY | 2024-08-22 17:12 | XMS_ITS | Encounter Summary ---
Author Organization [facility] Address [address] [place] [address] Care Team Providers Care Certified Coder Name Role Phone Fernando Stahl MD Primary Care Provider Unavail able Cuco Weller MD Primary Care Provider +1 -[phone] Encounter Details Date Type Department Care Team Description 09/26/2009 First Aid Attendant Report Medical Records [address] [place] [address] Tayo Kyle MD Social History Tobacco Use Types Packs/Day Years Used Date Smoking Tobacco: Every Day Cigarettes 1.5 Comments:1 pack a day as of 2 [...] filedocumented in this encounter Care Teams Certified Coder Relationship Specialty Start Date End Date Fernando Stahl MD PCP - General 02/14/03 03/29/17 Cuco Weller MD [address] [place] [address] PCP - General Internal Medicine 03/30/17 documented as of this encounter
--- OUTSIDE RECORDS SUMMARY | 2024-08-22 17:12 | XMS_ITS | Encounter Summary ---
Author Organization [facility] Address [address] [place] [address] Care Team Providers Care Multimedia Project Manager Name Role Phone Fernando Stahl MD Primary Care Provider Unavail able Cuco Weller MD Primary Care Provider +1 -[phone] Encounter Details Date Type Department Care Team Description 03/11/2016 [facility] [address] [place] [address] Abstract, Provider Social History Tobacco Use Types [...] on filedocumented in this encounter Care Teams Multimedia Project Manager Relationship Specialty Start Date End Date Fernando Stahl MD PCP - General 02/14/03 03/29/17 Cuco Weller MD [address] [place] [address] PCP - General Internal Medicine 03/30/17 documented as of this encounter
--- OUTSIDE RECORDS SUMMARY | 2024-08-22 17:12 | XMS_ITS | Encounter Summary ---
Author Organization [facility] Address [address] [place] [address] Care Team Providers Care Automotive Refinisher Name Role Phone Cuco Weller MD Primary Care Provider +1 -[phone] Encounter Details Date Type Department Care Team Description 02/01/2024 Pt. Non Urgent Medical Question Pulmonology - [place] 175 [facility] [address] [place] [phone] Jayshree Mendoza, PRESCHOOL TEACHER'S ASSISTANT 175 [facility] 200 [place] [address] Social History Tobacco Use Types Packs/Day Years [...] * Telephone Encounter - Chantal Barajas - 02/02/2024 8:24 AM EDTFrom: Dolly Hoyt To: Aracely Mendoza Sent: 02/01/2024 2:15 PM EDT Subject: Refills I'm going to be out of Spiriva by the end of the week. Could the Dr please call in a refill? Also, my pharmacist says it's to for a new prescription for combivent. My pharmacy is [facility] at [address] [place] [address]. The phone number is [phone]. Thank you very much documented in this encounter Plan of Treatment Not on file documented as of this encounter Visit Diagnoses Not on filedocumented in this encounter Care Teams Automotive Refinisher Relationship Specialty Start Date End Date Cuco Weller MD [address] [place] [address] PCP - General Internal Medicine 03/30/17 documented as of this encounter
--- OUTSIDE RECORDS SUMMARY | 2024-08-22 17:12 | XMS_ITS | Encounter Summary ---
Author Organization [facility] Address [address] [place] [address] Care Team Providers Care Reinforcing Steel Erector Name Role Phone Cuco Weller MD Primary Care Provider +1 -[phone] Reason for Visit * Reason Onset Date Comments Prior Authorization 02/15/2024 Gastric empt dorota study Encounter Details Date Type Department Care Team Description 02/15/2024 Telephone Adult Medicine [address] [address] Himanshu Ram PA-C 175 [facility] [address] [place] [address] Prior Authorization (Gastric emptying study ) Social History Tobacco Use Types Packs/Day Years [...] encounter Miscellaneous Notes * Telephone Encounter - Kisha Hernandez 02/15/2024 3:40 PM EDT Coreen bartlett required Order faxed to CCC dept at [facility]. They will contact patient and schedule appt. Notification letter sent documented in this encounter Plan of Treatment Not on file documented as of this encounter Visit Diagnoses Not on filedocumented in this encounter Care Teams Reinforcing Steel Erector Relationship Specialty Start Date End Date Cuco Weller MD [address] [place] [address] PCP - General Internal Medicine 03/30/17 documented as of this encounter
--- OUTSIDE RECORDS SUMMARY | 2024-08-22 17:12 | XMS_ITS | Encounter Summary ---
Author Organization [facility] Address [address] [place] [address] Care Team Providers Care Drill Runner Helper Name Role Phone Fernando Stahl MD Primary Care Provider Unavail able Cuco Weller MD Primary Care Provider +1 -[phone] Encounter Details Date Type Department Care Team Description 08/04/2016 Pt. Non Urgent Medical Question Adult Medicine B - [address] [address] Fernando Stahl MD Social History Tobacco Use [...] as of this encounter Progress Notes * Nyasia David L.P.N. - 08/04/2016 3:27 PM EDTFrom: Dolly Hoyt To: Fernando Stahl MD Sent: 08/04/2016 2:26 PM EDT Subject: Question Dr. Stahl said I can take a baby aspirin instead of the plavix. Is there a prescription for that? I'm on a limited income and it would be cheaper for me. documented in this encounter Plan of Treatment Not on file documented as of this encounter Visit Diagnoses Not on filedocumented in this encounter Care Teams Drill Runner Helper Relationship Specialty Start Date End Date Fernando Stahl MD PCP - General 02/14/03 03/29/17 Cuco Weller MD [address] [place] [address] PCP - General Internal Medicine 03/30/17 documented as of this encounter
--- OUTSIDE RECORDS SUMMARY | 2024-08-22 17:12 | XMS_ITS | Encounter Summary ---
Author Organization [facility] Address [address] [place] [address] Care Team Providers Care Door Liner Helper Name Role Phone Cuco Weller MD Primary Care Provider +1 -[phone] Encounter Details Date Type Department Care Team Description 09/16/2017 Orders Only Adult Medicine [address] [address] Cuco Weller MD [address] [place] [address] Special screening for malignant neoplasms, colon (Primary Dx) Social History Tobacco Use Types [...] Procedure Name Priority Date/Time Associated Diagnosis Comments CHG BLOOD OCCULT FECAL HGB DETER IA QUAL FECES 1-3 Routine 09/16/2017 3:30 PM EDT Special screening for malignant neoplasms, colon documented in this encounter Results * BLOOD OCCULT QUAL FECAL HEMGLBN (09/16/2017 3:30 PM EDT) OCCULT BLOOD, STOOL negative INTERNAL CONTROL VALID yes Stool 09/16/2017 3:30 PM EDT Cuco Weller MD LAB documented in this encounter Visit Diagnoses Diagnosis Special screening for malignant neoplasms, colon- Primary documented in this encounter Care Teams Door Liner Helper Relationship Specialty Start Date End Date Cuco Weller MD [address] [place] [address] PCP - General Internal Medicine 03/30/17 documented as of this encounter
--- OUTSIDE RECORDS SUMMARY | 2024-08-22 17:12 | XMS_ITS | Encounter Summary ---
Author Organization [facility] Address [address] [place] [address] Care Team Providers Care Computer Meteorologist Name Role Phone Fernando Stahl MD Primary Care Provider Unavail able Cuco Weller MD Primary Care Provider +1 -[phone] Encounter Details Date Type Department Care Team Description 11/26/2015 Hereditary Cancer Qu iz Results Medical Records [address] [place] [address] Abstract, Provider Social History Tobacco Use Types [...] on filedocumented in this encounter Care Teams Computer Meteorologist Relationship Specialty Start Date End Date Fernando Stahl MD PCP - General 02/14/03 03/29/17 Cuco Weller MD [address] [place] [address] PCP - General Internal Medicine 03/30/17 documented as of this encounter
== END 2024-08-22 15:13 | disposition home or self-care (01) ==
LOC: HO.RHE 14:23
PROVIDERS: PCP Internal Medicine; Visit Provider Student in an Organized Health Care Education/Training Program
DX: M05.79 Rheumatoid arthritis with rheumatoid factor of multiple sites without organ or systems involvement (principal); M15.9 Polyosteoarthritis, unspecified; Z51.81 Encounter for therapeutic drug level monitoring; Z79.620 Long term (current) use of immunosuppressive biologic
CPT/HCPCS: 99214; G2211

== ENCOUNTER → 2024-08-22 14:22 | Outpatient (BNVA) | payer OTHER, SELFPAY | PROVIDERS: PCP Internal Medicine; Visit Provider Student in an Organized Health Care Education/Training Program | DX: M05.79 Rheumatoid arthritis with rheumatoid factor of multiple sites without organ or systems involvement (principal); M15.9 Polyosteoarthritis, unspecified; J44.9 Chronic obstructive pulmonary disease, unspecified; Z51.81 Encounter for therapeutic drug level monitoring; Z99.81 Dependence on supplemental oxygen; Z79.620 Long term (current) use of immunosuppressive biologic | CPT/HCPCS: 99212 ==

== ENCOUNTER 2024-12-15 12:20 | Outpatient (REF) | payer OTHER, SELFPAY ==
[2024-12-15 12:53] LABS: Hematocrit 44.8 % (37.0-47.0); Hemoglobin 13.9 g/dl (12.0-16.0); Imm Gran Abs Auto 0.10 X10*3/uL (0.00-0.03); Imm Gran Pct Auto 0.8 % (0.0-0.4); Lymphocytes Absolute Auto 2.4 X10*3/uL (1.2-4.9); MANUAL DIFF FLAG NO; Mean Corpuscular HGB Conc 31.0 g/dl (31.0-35.0); Mean Corpuscular Hemoglobin 25.5 pg (27.0-33.0); Mean Corpuscular Volume 82.2 fL (80.0-98.0); NRBC Abs Auto 0.000 X10*3/uL (0.0-0.012); NRBC Pct Auto 0.0 /100WBC (0.0-0.2); Platelet Count 272 X10*3/uL (160-400); Red Blood Count 5.45 X10*6/uL (4.20-5.50); White Blood Count 12.7 X10*3/uL (4.8-10.8)
[2024-12-15 13:28] LABS: Alanine Aminotransferase 32 U/L (0-31); Albumin Level 4.7 g/dL (3.5-5.0); Alkaline Phosphatase 147 U/L (39-117); Anion Gap 15 (12-20); Aspartate Amino Transferase 19 U/L (5-31); Blood Urea Nitrogen 9 mg/dL (9-16); Calcium 9.8 mg/dL (8.4-10.2); Carbon Dioxide 27 mmol/L (22-29); Chloride 104 mmol/L (96-108); Estimated Glomerular Filt Rate > 60; Potassium 4.6 mmol/L (3.3-5.1); Sodium 141 mmol/L (135-145); Total Protein 7.5 g/dL (6.5-8.0)
== END 2024-12-15 12:21 | disposition home or self-care (01) ==
LOC: HO.LAB 12:20
PROVIDERS: PCP Internal Medicine; Visit Provider Student in an Organized Health Care Education/Training Program
DX: M05.79 Rheumatoid arthritis with rheumatoid factor of multiple sites without organ or systems involvement (principal)
CPT/HCPCS: 36415; 80053; 85025; 85652; 86140

== ENCOUNTER 2024-12-20 13:54 | Outpatient (AMB) | payer OTHER, SELFPAY ==
[2024-12-20 14:02] VITALS: BP 122/68; PULSE 84; O2SAT 97; BMI 34.0
--- NOTE | 2024-12-20 14:02 | A.OFFVIS_ITS ---
Vital Signs 12/20/24 14:02 Height 5 ft 3 in Weight 191 lb 12.835 oz BMI 34.0 BP 122/68 Blood Pressure Location Lt brachial Position Sitting Pulse 84 Pulse Source Pulse Oximeter Pulse Oximetry (%) 97 Oxygen Delivery Method Room Air Intake Visit Reasons: RA Intake Note: Patient presents for RA follow up. Allergies ibuuprofen micronized Allergy (Severe, Uncoded 12/20/24 14:05) Swelling Medication List - Last Reconciled 12/20/24 by Evy Moody MD albuterol sulfate 90 mcg/actuation (Ventolin HFA) 2 puffs inhalation Q4-6H PRN ascorbic acid (vitamin C) (Vitamin C With Glenis Hips) 500 mg PO DAILY aspirin (Adult Low Dose Aspirin) 81 mg PO DAILY atorvastatin 10 mg PO DAILY cholecalciferol (vitamin D3) 50 mcg PO DAILY duloxetine 30 mg PO QAM empagliflozin (Jardiance) 25 mg PO DAILY Enbrel SureClick (etanercept) 50 mg subcut QWEEK NS ferrous sulfate 325 mg PO DAILY fluticasone propion-salmeterol 230-21 mcg/actuation (Advair HFA) 2 puffs inhalation BID glipizide ER 5 mg PO DAILY lamotrigine 200 mg PO QAM lamotrigine 100 mg PO DAILY levetiracetam (Keppra) 500 mg PO BID losartan 25 mg PO DAILY metformin ER 1,000 mg PO BID omega-3 fatty acids 1,000 mg PO BID pantoprazole 40 mg PO DAILY quetiapine 50 mg PO BEDTIME tiotropium bromide 2.5 mcg/actuation (Spiriva Respimat) 1 puff inhalation BID HPI Comments Details: Patient is a 59-year-old female with COPD on 2L oxygen, hyperlipidemia, diabetes, hypertension, convulsive disorder on Keppra, polyarticular osteoarthritis, and seropositive rheumatoid arthritis here today for follow up Interval History: Patient last seen 08/22/24 with me - On Enbrel 50mg SC weekly - Doing well - Reordered topical diclofenac Today - On Enbrel 50mg SC weekly - Doing well - Complains of intermittent knee pain bilaterally - Did not get the gel, uses ice/lidocaine patches Rheumatologic History: seropositive (borderline RF then -ve on repeat, -ve CCP) dx 09/16 MTX started 09/16 effective DC 11/16 due to transaminitis Leflunomide started 12/17 DC due to transaminitis Enbrel 02/16 effective Initial history: This is a 56-year-old female who presents for evaluation of diffuse joint pain this started about 5 months ago. Patient stated that she noticed relatively abrupt onset of multiple joint pains affecting her ankles, knees, wrists, elbows and right shoulder. This was associated with right hand swelling. She has morning stiffness lasting at least 30 minutes. States that does episodes of joint pain last 3-7 days and she would be pain free for a few days and the joint pain will come back. The joint pain alternates between different joints. Denies any skin rashes. No weight loss or fevers. Patient took Tylenol without relief. She does not take ibuprofen as she is allergic to it. After she developed that allergy to ibuprofen however she used to take Aleve in the past. She has not taken NSAIDs for her joint pain. Patient is a smoker and continues to smoke. She is moving to a nonsmoking building. Patient's mother had rheumatoid arthritis. Patient had colonoscopies in the past and per patient they were unremarkable. No history suggestive of uveitis or IBD. Current Rheumatology Medication(s): Enbrel 50 mg weekly [facility] Medical History (Updated 08/22/24 @ 15:14 by Evy Moody MD) Polyarticular osteoarthritis COPD (chronic obstructive pulmonary disease) Abdominal pain History of CVA (cerebrovascular accident) Pancreatic adenoma Suicidal behavior Infection due to cryptosporidium History of colonic polyps Pap smear of cervix with ASCUS, cannot exclude HGSIL Surgical History (Updated 12/20/24 @ 14:07 by Connie Gu [facility]) History of hernia surgery S/P removal of left ovary History of pancreatectomy H/O colonoscopy History of cholecystectomy History of appendectomy Family History Father High blood cholesterol level CHF (congestive heart failure) Arthritis Mother High blood cholesterol level Rheumatoid arthritis Maternal Grandmother Diabetes Social History Alcohol intake: never Patient Tobacco Use Status: Current everyday Tobacco user Tobacco use type: Cigarette Cigarette Packs Per Day: 1 Years Smoked: 46 Review of Systems Const Details: Review of Systems Constitutional: Denies fever, chills, weight loss ENT: Denies vision changes, eye pain or eye redness, dental caries, dry mouth GI: Denies nausea, vomiting, diarrhea, abdominal pain, change in BM Pulm: SOB+ Cards: Denies chest pain, palpitations Skin: Denies Raynaud's, rash, nail changes, photosensitivity, SAS STATISTICAL PROGRAMMER: Denies headaches, weakness, paresthesias, recurrent falls MSK: as per HPI All other systems reviewed and are unremarkable except noted above Physical Exam Exam Exam: Vital signs reviewed Physical Examination CONSTITUITIONAL Patient alert and cooperative. Well appearing and in no apparent painful distress CHEST/RESPIRATORY SYSTEM Normal respiratory effort and able to speak in complete sentences. Clear to auscultation bilaterally. No crackles, rales, rhonchi, wheezes heard. On 2L NC MSK Hands * Right Hand: Able to make a fist. No swelling or tenderness to palpation of the MCPs, PIPs or DIPs. * Left Hand: Able to make a fist. No swelling or tenderness to palpation of the MCPs, PIPs or DIPs. Wrists * Right Wrist: Full ROM to flexion and extension. No swelling or TTP * Left Wrist: Full ROM to flexion and extension. No swelling or TTP Elbows * Right Elbow: Full ROM. No swelling or TTP. No TTP of the medial epicondyle. No TTP of the lateral epicondyle * Left Elbow: Full ROM. No swelling or TTP. No TTP of the medial epicondyle. No TTP of the lateral epicondyle Shoulders * Right shoulder: Full ROM. No swelling noted. No TTP of the AC joint. No TTP of the subacromial bursa. No TTP of the posterior shoulder * Left shoulder: Full ROM. No swelling noted. No TTP of the AC joint. No TTP of the subacromial bursa. No TTP of the posterior shoulder Knees * Right knee: Full ROM. No swelling noted. No TTP of the knee joint line. No TTP of pes anserine bursa * Left knee: Full ROM. No swelling noted. No TTP of the knee joint line. No TTP of pes anserine bursa. Ankles * Right ankle: Good ankle dorsiflexion and plantar flexion. No swelling. No TTP of the ankle joint * Left ankle: Good ankle dorsiflexion and plantar flexion. No swelling. No TTP of the ankle joint Feet * Right foot: Negative squeeze test * Left foot: Negative squeeze test Tender points? * No tenderness to palpation of the bilateral trapezius, supraspinatus, anterior costochondral junctions, bilateral suboccipital muscle insertions Vital Signs: Last Vital Signs Pulse 84 12/20/24 14:02 BP 122/68 12/20/24 14:02 Pulse Ox 97 12/20/24 14:02 Oxygen Delivery Method Room Air 12/20/24 14:02 BMI result Body Mass Index 34.0 Results Reviewed Results Reviewed: Laboratory Tests 12/15/24 12/15/24 12:30 Unknown WBC 12.7 H RBC 5.45 Hgb 13.9 Hct 44.8 Plt Count 272 ESR 18 Sodium 141 Potassium 4.6 Chloride 104 Carbon Dioxide 27 BUN 9 Creatinine 0.60 AST 19 ALT 32 H Alkaline Phosphatase 147 H C-Reactive Protein 1.58 H Laboratory Tests 07/25/22 14:14 Rheumatoid Factor < 13.0 Cycl Citrul Peptide IgG <16 Laboratory Tests 07/22/24 10:27 Hepatitis A IgM Ab Nonreactive Hep Bs Antigen Negative Hep Bs Antibody NONREACTIVE Hep B Core Total Ab Nonreactive Hepatitis C Ab (EIA) Nonreactive TB Test (T-Spot) Com Negative Assessment & Plan Assessment & Plan (1) Rheumatoid arthritis: Comment: seropositive (borderline RF then -ve on repeat, -ve CCP) dx 09/16 MTX started 09/16 effective DC 11/16 due to transaminitis Leflunomide started 12/17 DC due to transaminitis Enbrel 02/16 effective Code(s): M06.9 - Rheumatoid arthritis, unspecified Category: Medical Qualifiers: Rheumatoid arthritis location: multiple sites Rheumatoid factor presence: with rheumatoid factor Qualified Code(s): M05.79 - Rheumatoid arthritis with rheumatoid factor of multiple sites without organ or systems involvement Plan: #RA Patient is a 58-year-old female with rheumatoid arthritis here today for follow up. Currently on Enbrel and disease is in remission Plan - Enbrel 50mg SC every week - RTC 6 months - Labs before appt: CBC, CMP, ESR, CRP (2) Polyarticular osteoarthritis: Code(s): M15.9 - Polyosteoarthritis, unspecified Category: Medical Plan: #Polyarticular OA Patient with polyarticular osteoarthritis Main complaint is her knees Recommending topical diclofenac 1% 4 times a day (3) Encounter for monitoring of etanercept therapy: Code(s): Z51.81 - Encounter for therapeutic drug level monitoring; Z79.620 - [facility] (current) use of immunosuppressive biologic Plan: #Long-term Use of TNF Inhibitors: Etanercept Discussed with the patient the benefits and risks of TNF inhibitors for the management of the rheumatic condition Benefits include reduce pain, maintenance of remission and reduction of flares as well as ?progression of the disease Risks include injection sites/infusion reactions, serious infections (such as bacterial infections, opportunistic infections), malignancy, delaminating syndromes, autoimmune phenomena, CHF exacerbations, palmar plantar psoriasis and cytopenias Recommended rotating injection sites, and holding medication during and for up to 1 week after resolution of a febrile illness or open skin wound Plan I spent 25 minutes reviewing the record and labs, taking a history, examining the patient, discussing the treatment plan, ordering diagnostic work up and documenting in the medical record Orders: Orders Comprehensive Met. Panel 6 Months Z79.899 - Other rat exterminator (current) drug therapy Complete Blood Count Auto Diff 6 Months Z79.899 - Other group home (current) drug therapy C Reactive Protein 6 Months Z79.899 - Other rat exterminator (current) drug therapy Erythrocyte Sedimentation Rate 6 Months Z79.899 - Other rat exterminator (current) drug therapy Medications: New diclofenac sodium 1% apply to bilateral knees 4 times a day 4 grams topical QID 100 grams 5RF M17.0 - Bilateral primary osteoarthritis of knee Refilled Enbrel SureClick (etanercept) 50 mg subcut QWEEK 4 mL 5RF NS M05.79 - Rheumatoid arthritis with rheumatoid factor of multiple sites without organ or systems involvement Coding Level of Care Code Est Pt Level 3 (10480) Complex EM visit Add On G2211 Diagnoses Rheumatoid arthritis involving multiple sites with positive rheumatoid factor M05.79 Rheumatoid arthritis location: multiple sites Rheumatoid factor presence: with rheumatoid factor Polyarticular osteoarthritis M15.9 Encounter for monitoring of etanercept therapy Z51.81; Z79.620
--- OUTSIDE RECORDS SUMMARY | 2024-12-20 14:50 | XMS_ITS | Encounter Summary ---
Author Organization [facility] Address [address] [place] [address] Care Team Providers Care Trial Lawyer Name Role Phone Cuco Weller MD Primary Care Provider [phone] Reason for Visit * Reason Onset Date Comments Pre-visit Diabetes Lab Adult Medicine 02/24/2019 Dm due 03/10/2019 at 1:00 pm Encounter Details Date Type Department Care Team Description 02/24/2019 Telephone Respiratory and Diabetes Medicaid/ACO Pharmacist [address] [place] [address] Cuco Weller MD [address] [place] [address] Pre-visit Diabetes Lab Adult Medicine (Dm due 03/10/2019 at 1:00 pm ) Social History Tobacco Use Types Packs/Day [...] encounter Miscellaneous Notes * Telephone Encounter - Cuco Weller MD - 02/24/2019 10:59 AM EDT I would like to place the orders at office visit for this particular visit. There are other medicalproblems, that will require other labs but I will need some history from her first. Labs will be ordered at office visit. * Telephone Encounter - Caryn Sidhu - 02/24/2019 9:47 AM EDT Dolly Hoyt is scheduled to see you on for diabetes follow up . I have contacted the patient and instructed them to have their labwork done 1 week prior to the appointment. Diabetes pre-visit orders have been pended. Please sign the orders then route the encounter back to sender . Do not close the encounter. If there are other orders you would like performed prior to the visit, please add them to the pended orders then sign all the orders. I would ask that any orders entered by the [facility] Medicaid staff be associated with a diabetes diagnosis. You can use any diabetes diagnosis found on the problem list. Caryn Sidhu Community Health Worker Evelyn [facility] Health Net Plan [email or web address] [phone] F [phone] documented in this encounter Plan of Treatment Not on file documented as of this encounter Visit Diagnoses Not on filedocumented in this encounter Care Teams Trial Lawyer Relationship Specialty Start Date End Date Cuco Weller MD [address] [place] [address] PCP - General Internal Medicine 03/30/17 documented as of this encounter
--- OUTSIDE RECORDS SUMMARY | 2024-12-20 14:50 | XMS_ITS | Encounter Summary ---
Author Organization [facility] Address [address] [place] [address] Care Team Providers Care Marketing Regional Consultant Name Role Phone Cuco Weller MD Primary Care Provider [phone] Reason for Visit * Reason Comments E-prescribe Rx Request Encounter Details Date Type Department Care Team Description 08/09/2019 Refill Adult Medicine B - [address] [address] Diandra Ac APRN E-prescribe Rx Request Social [...] an upcoming appointment? No-unable to reach left [facility] to call for appointment due to [...] N/A Patients current insurance carrier is: Payor: [employer] FFS / Plan: [facility] / Product Type: MEDICAID RISK documented in this encounter Plan of Treatment Not on file documented as of this encounter Visit Diagnoses Not on filedocumented in this encounter Care Teams Marketing Regional Consultant Relationship Specialty Start Date End Date Cuco Weller MD [address] [place] [address] PCP - General Internal Medicine 03/30/17 documented as of this encounter
--- OUTSIDE RECORDS SUMMARY | 2024-12-20 14:50 | XMS_ITS | Encounter Summary ---
Author Organization [facility] Address [address] [place] [address] Care Team Providers Care Centerless Grinder Name Role Phone Fernando Stahl MD Primary Care Provider Unavail able Cuco Weller MD Primary Care Provider [phone] Encounter Details Date Type Department Care Team Description 10/05/2012 Pt. Non Urgent Medical Question Adult Medicine - [address] [address] Fernando Stahl MD Social History Tobacco Use [...] on filedocumented in this encounter Care Teams Centerless Grinder Relationship Specialty Start Date End Date Fernando Stahl MD PCP - General 02/14/03 03/29/17 Cuco Weller MD [address] [place] [address] PCP - General Internal Medicine 03/30/17 documented as of this encounter
--- OUTSIDE RECORDS SUMMARY | 2024-12-20 14:50 | XMS_ITS | Encounter Summary ---
Author Organization [facility] Address [address] [place] [address] Care Team Providers Care Firer Helper Name Role Phone Cuco Weller MD Primary Care Provider [phone] Encounter Details Date Type Department Care Team Description 04/15/2023 Orders Only Adult Medicine - [place] [address] [place] [address] Lincoln Martell, INGE [address] [place] [address] Type 2 diabetes mellitus without complication, without [...] Primary documented in this encounter Care Teams Firer Helper Relationship Specialty Start Date End Date Cuco Weller MD [address] [place] [address] PCP - General Internal Medicine 03/30/17 documented as of this encounter
--- OUTSIDE RECORDS SUMMARY | 2024-12-20 14:50 | XMS_ITS | Encounter Summary ---
Author Organization [facility] Address [address] [place] [address] Care Team Providers Care Actuarial Director Name Role Phone Cuco Weller MD Primary Care Provider [phone] Reason for Visit * Reason Onset Date Comments Mychart Rx Refill 12/25/2017 Encounter Details Date Type Department Care Team Description 12/25/2017 Pt. Non Urgent Medical Question Adult Medicine B - [address] [address] Cuco Weller MD [address] [place] [address] Social History Tobacco Use Types Packs/Day Years [...] pharmacy has changed. It's now [facility] in [place]. Thank you documented in this encounter Plan of Treatment Not on file documented as of this encounter Visit Diagnoses Not on filedocumented in this encounter Care Teams Actuarial Director Relationship Specialty Start Date End Date Cuco Weller MD [address] [place] [address] PCP - General Internal Medicine 03/30/17 documented as of this encounter
--- OUTSIDE RECORDS SUMMARY | 2024-12-20 14:50 | XMS_ITS | Encounter Summary ---
Author Organization [facility] Address [address] [place] [address] Care Team Providers Care Video Game Designer Name Role Phone Cuco Weller MD Primary Care Provider [phone] Encounter Details Date Type Department Care Team Description 11/08/2019 Orders Only Radiology - [address] [address] Cuco Weller MD [address] [place] [address] [id number] Social History Tobacco Use Types Packs/Day Years [...] filedocumented in this encounter Care Teams Video Game Designer Relationship Specialty Start Date End Date Cuco Weller MD [address] [place] [address] PCP - General Internal Medicine 03/30/17 documented as of this encounter
--- OUTSIDE RECORDS SUMMARY | 2024-12-20 14:50 | XMS_ITS | Encounter Summary ---
Author Organization [facility] Address [address] [place] [address] Care Team Providers Care Iron Erector Name Role Phone Cuco Weller MD Primary Care Provider [phone] Encounter Details Date Type Department Care Team Description 07/11/2019 Pt. Non Urgent Medical Question Adult Medicine - [place] [address] [place] [address] Grisel Fletcher, ESTATE CONSERVATOR [address] [place] [address] Social History Tobacco Use Types Packs/Day Years [...] on filedocumented in this encounter Care Teams Iron Erector Relationship Specialty Start Date End Date Cuco Weller MD [address] [place] [address] PCP - General Internal Medicine 03/30/17 documented as of this encounter
--- OUTSIDE RECORDS SUMMARY | 2024-12-20 14:50 | XMS_ITS | Encounter Summary ---
Author Organization [facility] Address [address] [place] [address] Care Team Providers Care Supervising Editor News Reel Name Role Phone Cuco Weller MD Primary Care Provider [phone] Encounter Details Date Type Department Care Team Description 11/07/2019 Dry Box Tender Report Medical Records [address] [place] [address] Ivonne Del Rio NP Social History Tobacco Use Types Packs/Day Years [...] on filedocumented in this encounter Care Teams Supervising Editor News Reel Relationship Specialty Start Date End Date Cuco Weller MD [address] [place] [address] PCP - General Internal Medicine 03/30/17 documented as of this encounter
--- OUTSIDE RECORDS SUMMARY | 2024-12-20 14:50 | XMS_ITS | Encounter Summary ---
Author Organization [facility] Address [address] [place] [address] Care Team Providers Care Director Treasurer Name Role Phone Cuco Weller MD Primary Care Provider [phone] Encounter Details Date Type Department Care Team Description 02/09/2019 Old Medical Records Medical Records [address] [place] [address] Abstract, Provider Social History Tobacco Use Types [...] on filedocumented in this encounter Care Teams Director Treasurer Relationship Specialty Start Date End Date Cuco Weller MD [address] [place] [address] PCP - General Internal Medicine 03/30/17 documented as of this encounter
--- OUTSIDE RECORDS SUMMARY | 2024-12-20 14:50 | XMS_ITS | Encounter Summary ---
Author Organization [facility] Address [address] [place] [address] Care Team Providers Care Branch Office Administrator Name Role Phone Fernando Stahl MD Primary Care Provider Unavail able Cuco Weller MD Primary Care Provider [phone] Encounter Details Date Type Department Care Team Description 11/10/2011 Feeder Switchboard Operator Report Medical Records [address] [place] [address] Adonis Alvarez Social History Tobacco Use Types [...] on filedocumented in this encounter Care Teams Branch Office Administrator Relationship Specialty Start Date End Date Fernando Stahl MD PCP - General 02/14/03 03/29/17 Cuco Weller MD [address] [place] [address] PCP - General Internal Medicine 03/30/17 documented as of this encounter
--- OUTSIDE RECORDS SUMMARY | 2024-12-20 14:50 | XMS_ITS | Encounter Summary ---
Author Organization [facility] Address [address] [place] [address] Care Team Providers Care Inside Sales Representative Name Role Phone Fernando Stahl MD Primary Care Provider Unavail able Cuco Weller MD Primary Care Provider [phone] [phone] Encounter Details Date Type Department Care Team Description 12/08/2012 Night Cleaner Report Medical Records [address] [place] [address] Hector Gómez MD Social History Tobacco Use Types Packs/Day [...] on filedocumented in this encounter Care Teams Inside Sales Representative Relationship Specialty Start Date End Date Fernando Stahl MD PCP - General 02/14/03 03/29/17 Cuco Weller MD [address] [place] [address] PCP - General Internal Medicine 03/30/17 documented as of this encounter
--- OUTSIDE RECORDS SUMMARY | 2024-12-20 14:50 | XMS_ITS | Encounter Summary ---
Author Organization [facility] Address [address] [place] [address] Care Team Providers Care Paper Winder Name Role Phone Fernando Stahl MD Primary Care Provider [facility] Cuco Weller MD Primary Care Provider [phone] Encounter Details Date Type Department Care Team Description 11/16/2011 Hospital Medical Records [address] [place] [address] Adonis Alvarez Social History Tobacco Use Types [...] on filedocumented in this encounter Care Teams Paper Winder Relationship Specialty Start Date End Date Fernando Stahl MD PCP - General 02/14/03 03/29/17 Cuco Weller MD [address] [place] [address] PCP - General Internal Medicine 03/30/17 documented as of this encounter
--- OUTSIDE RECORDS SUMMARY | 2024-12-20 14:50 | XMS_ITS | Encounter Summary ---
Author Organization [facility] Address [address] [place] [address] Care Team Providers Care Ct Tech Name Role Phone Cuco Weller MD Primary Care Provider [phone] Encounter Details Date Type Department Care Team Description 02/17/2023 Pt. Non Urgent Medical Question Adult Medicine [address] [id number] Cuco Weller MD [address] [place] [address] Social History Tobacco Use Types Packs/Day Years [...] on filedocumented in this encounter Care Teams Ct Tech Relationship Specialty Start Date End Date Cuco Weller MD [address] [place] [address] PCP - General Internal Medicine 03/30/17 documented as of this encounter
--- OUTSIDE RECORDS SUMMARY | 2024-12-20 14:50 | XMS_ITS | Encounter Summary ---
Author Organization [facility] Address [address] [place] [address] Care Team Providers Care Sausage Linker Name Role Phone Cuco Weller MD Primary Care Provider [phone] Encounter Details Date Type Department Care Team Description 06/17/2023 Diplomatic Officer Report Medical Records [address] [place] [address] Evert Garnica MD Social History Tobacco Use [...] on filedocumented in this encounter Care Teams Sausage Linker Relationship Specialty Start Date End Date Cuco Weller MD [address] [place] [address] PCP - General Internal Medicine 03/30/17 documented as of this encounter
--- OUTSIDE RECORDS SUMMARY | 2024-12-20 14:50 | XMS_ITS | Encounter Summary ---
Author Organization [facility] Address [address] [place] [address] Care Team Providers Care Conservation Enforcement Officer Name Role Phone Cuco Weller MD Primary Care Provider +1 -[phone] Encounter Details Date Type Department Care Team Description 01/08/2020 Refill Adult Medicine B - [place] [address] [place] [address] Grisel Fletcher NP [address] [place] [address] Social History Tobacco Use Types Packs/Day Years [...] disorder documented in this encounter Care Teams Conservation Enforcement Officer Relationship Specialty Start Date End Date Cuco Weller MD [address] [place] [address] PCP - General Internal Medicine 03/30/17 documented as of this encounter
--- OUTSIDE RECORDS SUMMARY | 2024-12-20 14:50 | XMS_ITS | Encounter Summary ---
Author Organization [facility] Address [address] [place] [address] Care Team Providers Care Plating Inspector Name Role Phone Cuco Weller MD Primary Care Provider +1 -[phone] Reason for Visit * Reason Onset Date Comments Faxed Refill 06/21/2019 Encounter Details Date Type Department Care Team Description 06/21/2019 Refill Adult Medicine [address] [address] Cuco Weller MD [address] [place] [address] Faxed Refill Social History Tobacco Use Types [...] Telephone Encounter - Grisel Fletcher NP - 06/22/2019 8:22 AM EST I already advised would NOT fill this med until patient seen. Scheduled on 06/28/19. * Telephone Encounter - Cuco Weller MD - 06/21/2019 5:40 PM EST Please forward to last seen provder to make sure this is the appropriate dose, or it needs to be increased? * Telephone Encounter - Marisa Rivas L.P.N. - 06/21/2019 4:48 PM EST Lab Results Component Value Date NA 139 11/02/2018 K 4.9 11/02/2018 CO2 29 11/02/2018 CL 105 11/02/2018 BUN 8 11/02/2018 CREAT 0.76 11/02/2018 GLU 88 11/02/2018 CA 9.3 11/02/2018 GFR > 60 11/02/2018 erin 11/02/18 * Telephone Encounter - Mary Kay Oliveros - 06/21/2019 4:17 PM EST Patient would like script to be: E-PRESCRIBED/FAXED TO PHARMACY WHEN WAS THE PATIENT'S LAST APPOINTMENT IN ADULT MEDICINE? 11/02/18 WHEN WAS THE LAST TIME THE PATIENT SAW THEIR PCP? 01/22/18 Does patient have an upcoming appointment? Yes 06/28/19 (THE MEDICATION REQUESTED IS ON THE MED [...] N/A Patients current insurance carrier is: Payor: [employer] FFS / Plan: [employer] / Product Type: MEDICAID RISK documented in this encounter Plan of Treatment Not on file documented as of this encounter Visit Diagnoses Diagnosis Periodic limb movement sleep disorder Periodic limb movement disorder documented in this encounter Care Teams Plating Inspector Relationship Specialty Start Date End Date Cuco Weller MD [address] [place] [address] PCP - General Internal Medicine 03/30/17 documented as of this encounter
--- OUTSIDE RECORDS SUMMARY | 2024-12-20 14:51 | XMS_ITS | Encounter Summary ---
Author Organization [facility] Address [address] [place] [address] Care Team Providers Care Stone Lathe Operator Name Role Phone Cuco Weller MD Primary Care Provider +1 -[phone] Encounter Details Date Type Department Care Team Description 02/23/2020 Telephone Adult Medicine [address] [address] Fernando Stahl MD Social History Tobacco Use [...] encounter Miscellaneous Notes * Telephone Encounter - Fernando Stahl MD - 02/23/2020 8:49 PM EDT Discussed the patient it appears strongly that the alkaline phosphatase is secondary to liver and on ultrasound we see if found liver deposition. Transaminase elevations to suggest steatohepatitis just fatty liver disease and she is doing well with weight watchers lost some 20 pounds over the past 2 years and that encouraged her to keep doing this. If she were to have steatohepatitis then a probably of the addition of pioglitazone would be appropriate. documented in this encounter Plan of Treatment Not on file documented as of this encounter Visit Diagnoses Not on filedocumented in this encounter Care Teams Stone Lathe Operator Relationship Specialty Start Date End Date Cuco Weller MD [address] [place] [address] PCP - General Internal Medicine 03/30/17 documented as of this encounter
--- OUTSIDE RECORDS SUMMARY | 2024-12-20 14:51 | XMS_ITS | Encounter Summary ---
Author Organization [facility] Address [address] [place] [address] Care Team Providers Care Distributing Clerk Name Role Phone Cuco Weller MD Primary Care Provider +1 -[phone] Reason for Visit * Reason Onset Date Comments Call From Patient Family 01/06/2023 Encounter Details Date Type Department Care Team Description 01/06/2023 Telephone Pulmonology - [address] [place] [address] Harry Gong MD Call From Patient Family Social History Tobacco Use Types Packs/Day Years [...] encounter Miscellaneous Notes * Telephone Encounter - Nazia Santos - 01/06/2023 4:10 PM EDT Patient returning call to regarding vaccine. Please call back documented in this encounter Plan of Treatment Not on file documented as of this encounter Visit Diagnoses Not on filedocumented in this encounter Care Teams Distributing Clerk Relationship Specialty Start Date End Date Cuco Weller MD [address] [place] [address] PCP - General Internal Medicine 03/30/17 documented as of this encounter
--- OUTSIDE RECORDS SUMMARY | 2024-12-20 14:51 | XMS_ITS | Encounter Summary ---
Author Organization [facility] Address [address] [place] [address] Care Team Providers Care Ethylbenzene Cracking Supervisor Name Role Phone Fernando Stahl MD Primary Care Provider [facility] Cuco Weller MD Primary Care Provider +1 -[phone] Encounter Details Date Type Department Care Team Description 05/31/2008 Hospital Medical Records [address] [place], [place] [id number] [place] [address] Social History Tobacco Use Types Packs/Day Years [...] on filedocumented in this encounter Care Teams Ethylbenzene Cracking Supervisor Relationship Specialty Start Date End Date Fernando Stahl MD PCP - General 02/14/03 03/29/17 Cuco Weller MD [address] [place] [address] PCP - General Internal Medicine 03/30/17 documented as of this encounter
--- OUTSIDE RECORDS SUMMARY | 2024-12-20 14:51 | XMS_ITS | Encounter Summary ---
Author Organization [facility] Address [address] [place] [address] Care Team Providers Care Custom Tailor Name Role Phone Fernando Stahl MD Primary Care Provider Unavail able Cuco Weller MD Primary Care Provider +1 -[phone] Reason for Visit * Reason Onset Date Comments Faxed Order 07/05/2015 medical Resource s Encounter Details Date Type Department Care Team Description 07/05/2015 Telephone Adult Medicine B - [place] [address] [place] [address] Fernando Stahl MD Faxed Order (medical Resources) [...] Please review, sign and fax when completed [phone] documented in this encounter Plan of Treatment Not on file documented as of this encounter Visit Diagnoses Not on filedocumented in this encounter Care Teams Custom Tailor Relationship Specialty Start Date End Date Fernando Stahl MD PCP - General 02/14/03 03/29/17 Cuco Weller MD [address] [place] [address] PCP - General Internal Medicine 03/30/17 documented as of this encounter
--- OUTSIDE RECORDS SUMMARY | 2024-12-20 14:51 | XMS_ITS | Encounter Summary ---
Author Organization [facility] Address [address] [place] [address] Care Team Providers Care Building Coordinator Name Role Phone Fernando Stahl MD Primary Care Provider Unavail able Cuco Weller MD Primary Care Provider +1 -[phone] Encounter Details Date Type Department Care Team Description 08/09/2015 Release of Information Medical Records [address] [place] [address] Abstract, Provider Social History Tobacco Use Types [...] on filedocumented in this encounter Care Teams Building Coordinator Relationship Specialty Start Date End Date Fernando Stahl MD PCP - General 02/14/03 03/29/17 Cuco Weller MD [address] [place] [address] PCP - General Internal Medicine 03/30/17 documented as of this encounter
--- OUTSIDE RECORDS SUMMARY | 2024-12-20 14:51 | XMS_ITS | Encounter Summary ---
Author Organization [facility] Address [address] [place] [address] Care Team Providers Care Material Reprocessing Associate Name Role Phone Cuco Weller MD Primary Care Provider +1 -[phone] Encounter Details Date Type Department Care Team Description 01/28/2023 Pt. Non Urgent Medical Question Adult Medicine [address] [phone] Cuco Weller MD [address] [place] [address] Social History Tobacco Use Types Packs/Day Years [...] Stone R.N. - 01/28/2023 3:11 PM EDTFrom: Dolly Hoyt To: Funmi Weller Sent: 01/28/2023 3:01 [...] on filedocumented in this encounter Care Teams Material Reprocessing Associate Relationship Specialty Start Date End Date Cuco Weller MD [address] [place] [address] PCP - General Internal Medicine 03/30/17 documented as of this encounter
--- OUTSIDE RECORDS SUMMARY | 2024-12-20 14:51 | XMS_ITS | Encounter Summary ---
Author Organization [facility] Address [address] [place] [address] Care Team Providers Care Curber Name Role Phone Fernando Stahl MD Primary Care Provider Unavail Cuco Fatima MD Primary Care Provider +1 -[phone] Encounter Details Date Type Department Care Team Description 10/05/2014 Release of Information Medical Records [address] [place] [address] Abstract, Provider Social History Tobacco Use Types [...] of information to Joan.E.S/ Aliza[facility] documented in this encounter Plan of Treatment Not on file documented as of this encounter Visit Diagnoses Not on filedocumented in this encounter Care Teams Curber Relationship Specialty Start Date End Date Fernando Stahl MD PCP - General 02/14/03 03/29/17 Cuco Weller MD [address] [place] [address] PCP - General Internal Medicine 03/30/17 documented as of this encounter
--- OUTSIDE RECORDS SUMMARY | 2024-12-20 14:51 | XMS_ITS | Encounter Summary ---
Author Organization [facility] Address [address] [place] [address] Care Team Providers Care Kettleman Name Role Phone Cuco Weller MD Primary Care Provider +1 -[phone] Encounter Details Date Type Department Care Team Description 11/28/2022 Orders Only [facility] Thoracic Surgery [place] [address] [facility] [address] [place] [phone] Quoc Jaramillo MD [address] [facility] [place] [address] [place] [address] Personal history of tobacco use, presenting hazards [...] cancer documented in this encounter Care Teams Kettleman Relationship Specialty Start Date End Date Cuco Weller MD [address] [place] [address] PCP - General Internal Medicine 03/30/17 documented as of this encounter
--- OUTSIDE RECORDS SUMMARY | 2024-12-20 14:51 | XMS_ITS | Encounter Summary ---
Author Organization [facility] Address [address] [place] [address] Care Team Providers Care Capacitor Repairer Name Role Phone Fernando Stahl MD Primary Care Provider [facility] Cuco Weller MD Primary Care Provider +1 -[phone] Encounter Details Date Type Department Care Team Description 05/31/2008 Hospital Medical Records [address] [place], [place] [address] [place] [address] Social History Tobacco Use Types Packs/Day Years [...] on filedocumented in this encounter Care Teams Capacitor Repairer Relationship Specialty Start Date End Date Fernando Stahl MD PCP - General 02/14/03 03/29/17 Cuco Weller MD [address] [place] [address] PCP - General Internal Medicine 03/30/17 documented as of this encounter
--- OUTSIDE RECORDS SUMMARY | 2024-12-20 14:51 | XMS_ITS | Encounter Summary ---
Author Organization [facility] Address [address] [place] [address] Care Team Providers Care Leasing Machine Tender Name Role Phone Cuco Weller MD Primary Care Provider +1 -[phone] Encounter Details Date Type Department Care Team Description 01/06/2023 Pt. Non Urgent Medical Question Adult Medicine [address] [phone] Cuco Weller MD [address] [place] [address] Social History Tobacco Use Types Packs/Day Years [...] on filedocumented in this encounter Care Teams Leasing Machine Tender Relationship Specialty Start Date End Date Cuco Weller MD [address] [place] [address] PCP - General Internal Medicine 03/30/17 documented as of this encounter
--- OUTSIDE RECORDS SUMMARY | 2024-12-20 14:51 | XMS_ITS | Encounter Summary ---
Author Organization [facility] Address [address] [place] [address] Care Team Providers Care Unemployment Inspector Name Role Phone Cuco Weller MD Primary Care Provider +1 -[phone] Encounter Details Date Type Department Care Team Description 12/16/2022 Orders Only Medical Records [address] [place] [address] Abstract, Provider Social History Tobacco Use Types [...] was confirmed or suspected to have Coronavirus/COVID-19? Unable to assess 12/18/2022 8:35 AM EDT documented as of this encounter Plan of Treatment Not on file documented as of this encounter Procedures Procedure Name Priority Date/Time Associated Diagnosis Comments OUTSIDE EYE EXAM Routine 12/10/2022 documented in this encounter Results * OUTSIDE EYE EXAM (12/10/2022) Provider Abstract PROCEDURES documented in this encounter Visit Diagnoses Not on filedocumented in this encounter Care Teams Unemployment Inspector Relationship Specialty Start Date End Date Cuco Weller MD [address] [place] [address] PCP - General Internal Medicine 03/30/17 documented as of this encounter
--- OUTSIDE RECORDS SUMMARY | 2024-12-20 14:51 | XMS_ITS | Encounter Summary ---
Author Organization [facility] Address [address] [place] [address] Care Team Providers Care Phlebotomist Supervisor/Instructor Name Role Phone Cuco Weller MD Primary Care Provider +1 -[phone] Encounter Details Date Type Department Care Team Description 02/13/2021 Pt. Non Urgent Medical Question Adult Medicine [address] [address] Cuco Weller MD [address] [place] [address] Social History Tobacco Use Types Packs/Day Years [...] on filedocumented in this encounter Care Teams Phlebotomist Supervisor/Instructor Relationship Specialty Start Date End Date Cuco Weller MD [address] [place] [address] PCP - General Internal Medicine 03/30/17 documented as of this encounter
--- OUTSIDE RECORDS SUMMARY | 2024-12-20 14:51 | XMS_ITS | Encounter Summary ---
Author Organization [facility] Address [address] [place] [address] Care Team Providers Care Quarry Extraction Worker Name Role Phone Fernando Stahl MD Primary Care Provider Unavail [facility] Cuco Weller MD Primary Care Provider +1 -[phone] Encounter Details Date Type Department Care Team Description 05/31/2008 Hospital Medical Records [address] [place] [address] Eduardo Soliz Social History Tobacco Use Types Packs/Day Years [...] on filedocumented in this encounter Care Teams Quarry Extraction Worker Relationship Specialty Start Date End Date Fernando Stahl MD PCP - General 02/14/03 03/29/17 Cuco Weller MD [address] [place] [address] PCP - General Internal Medicine 03/30/17 documented as of this encounter
--- OUTSIDE RECORDS SUMMARY | 2024-12-20 14:51 | XMS_ITS | Encounter Summary ---
Author Organization [facility] Address [address] [place] [address] Care Team Providers Care Water System Operator Name Role Phone Fernando Stahl MD Primary Care Provider Unavail able Cuco Weller MD Primary Care Provider +1 -[phone] Reason for Visit * Reason Comments E-prescribe Rx Request Encounter Details Date Type Department Care Team Description 01/18/2015 Refill Adult Medicine - [place] [address] [place] [address] Fernando Stahl MD E-prescribe Rx Request Social History Tobacco Use [...] encounter Miscellaneous Notes * Telephone Encounter - Shahida Veronica M.A. - 01/18/2015 2:39 PM EDT Last office visit 05/17/14. Follow up pending. * Telephone Encounter - So Drew - 01/18/2015 1:29 PM EDT Patient would like script to be: E-PRESCRIBED/FAXED TO PHARMACY WHEN WAS THE PATIENT'S LAST APPOINTMENT IN ADULT MEDICINE? 05-17-14 WHEN WAS THE LAST TIME THE PATIENT SAW THEIR PCP? Same as above Does patient have an upcoming appointment? Yes 01-19-15 (THE MEDICATION REQUESTED IS ON THE MED LIST ABOVE) All of the medications requested were on the CURRENT MEDS list Did you check the Pharmacy information above?: YES Patient wants: 30 -day supply Is this a mail order prescription request ? NO Patients current insurance carrier is: Payor: [employer] / Plan: [facility] PLAN / Product Type: HMO [id number] documented in this encounter Plan of Treatment Not on file documented as of this encounter Visit Diagnoses Not on filedocumented in this encounter Care Teams Water System Operator Relationship Specialty Start Date End Date Fernando Stahl MD PCP - General 02/14/03 03/29/17 Cuco Weller MD [address] [place] [address] PCP - General Internal Medicine 03/30/17 documented as of this encounter
--- OUTSIDE RECORDS SUMMARY | 2024-12-20 14:51 | XMS_ITS | Encounter Summary ---
Author Organization [facility] Address [address] [place] [address] Care Team Providers Care Masking Machine Operator Name Role Phone Cuco Weller MD Primary Care Provider +1 -[phone] Encounter Details Date Type Department Care Team Description 01/06/2023 Pt. Non Urgent Medic al Question Pulmonology - [address] [place] [address] Harry Gong MD Social History Tobacco Use [...] In the last 10 days, have yo anil been in contact with someone who was confirmed or suspected to have Coronavirus/COVID-19? No / Unsure 12/30/2022 1:22 PM EDT documented as of this encounter Miscellaneous Notes * Telephone Encounter - Najma Stephen CMA - 01/06/2023 2:28 PM EDTFrom: Dolly Hoyt To: Prerna Gong Sent: 01/06/2023 12:35 PM EDT Subject: Vaccines I was wondering if it's safe for me to get the rsv vaccine and if I should. documented in this encounter Plan of Treatment Not on file documented as of this encounter Visit Diagnoses Not on filedocumented in this encounter Care Teams Masking Machine Operator Relationship Specialty Start Date End Date Cuco Weller MD [address] [place] [address] PCP - General Internal Medicine 03/30/17 documented as of this encounter
--- OUTSIDE RECORDS SUMMARY | 2024-12-20 14:51 | XMS_ITS | Encounter Summary ---
Author Organization [facility] Address [address] [place] [address] Care Team Providers Care Film Maker Name Role Phone Cuco Weller MD Primary Care Provider +1 -[phone] Reason for Visit * Reason Onset Date Comments Faxed Refill 11/05/2020 Encounter Details Date Type Department Care Team Description 11/05/2020 Refill Adult Medicine [address] [phone] Cuco Weller MD [address] [place] [address] Faxed Refill Social History Tobacco Use Types [...] N/A Patients current insurance carrier is: Payor: [employer] FFS / Plan: [place] / Product Type: MEDICAID RISK documented in this encounter Plan of Treatment Not on file documented as of this encounter Visit Diagnoses Not on filedocumented in this encounter Care Teams Film Maker Relationship Specialty Start Date End Date Cuco Weller MD [address] [place] [address] PCP - General Internal Medicine 03/30/17 documented as of this encounter
--- OUTSIDE RECORDS SUMMARY | 2024-12-20 14:51 | XMS_ITS | Encounter Summary ---
Author Organization [facility] Address [address] [place] [address] Care Team Providers Care Road Sign Installer Name Role Phone Fernando Stahl MD Primary Care Provider Unavail [facility] Cuco Weller MD Primary Care Provider +1 -[phone] Encounter Details Date Type Department Care Team Description 10/19/2004 Orders Only Medical [address] [place] [address] Yesy Díaz PA-C [address] [place] [address] URINARY TRACT INFECTION, SITE NOT SPECIFIED (Primary Dx) Social History Tobacco Use Types [...] as of this encounter Plan of Treatment Scheduled Orders Name Type Priority Associated Diagnoses Orde r Schedule URINE, CULTURE Lab Routine Urinary Tract Infection, Site Not Specified Ordered: 10/19/2004 documented as of this encounter Visit Diagnoses Diagnosis Urinary tract infection, site not specified- Primary documented in this encounter Care Teams Road Sign Installer Relationship Specialty Start Date End Date Fernando Stahl MD PCP - General 02/14/03 03/29/17 Cuco Weller MD [address] [place] [address] PCP - General Internal Medicine 03/30/17 documented as of this encounter
--- OUTSIDE RECORDS SUMMARY | 2024-12-20 14:51 | XMS_ITS | Encounter Summary ---
Author Organization [facility] Address [address] [place] [address] Care Team Providers Care Resident Director Name Role Phone Cuco Weller MD Primary Care Provider +1 -[phone] Encounter Details Date Type Department Care Team Description 11/13/2022 Pt. Non Urgent Medical Question Adult Medicine [address] [id number] Cuco Weller MD [address] [place] [address] Social History Tobacco Use Types Packs/Day Years [...] Telephone Encounter - Cuca Snell M.A. - 11/14/2022 7:59 AM EDTFrom: Dolly Hoyt To: Funmi Weller Sent: 11/13/2022 5:29 PM EDT Subject: Blood work Dr Cui had called me and said to repeat blood work in two weeks. I was supposed to have blood work done for my design maintenance engineer today but screwed up and had it done for Dr Cui. Could be please put in another order so I can do it in two weeks like I was supposed to? Sorry for the mix up! Thanks documented in this encounter Plan of Treatment Not on file documented as of this encounter Visit Diagnoses Not on filedocumented in this encounter Care Teams Resident Director Relationship Specialty Start Date End Date Cuco Weller MD [address] [place] [address] PCP - General Internal Medicine 03/30/17 documented as of this encounter
--- OUTSIDE RECORDS SUMMARY | 2024-12-20 14:51 | XMS_ITS | Encounter Summary ---
Author Organization [facility] Address [address] [place] [address] Care Team Providers Care Immersion Metalcleaner Name Role Phone Fernando Stahl MD Primary Care Provider Unavail able Cuco Weller MD Primary Care Provider +1 -[phone] Encounter Details Date Type Department Care Team Description 07/26/2015 Walk In Clinic Visit Medical Records [address] [place] [address] Social History Tobacco Use Types Packs/Day Years [...] on filedocumented in this encounter Care Teams Immersion Metalcleaner Relationship Specialty Start Date End Date Fernando Stahl MD PCP - General 02/14/03 03/29/17 Cuco Weller MD [address] [place] [address] PCP - General Internal Medicine 03/30/17 documented as of this encounter
--- OUTSIDE RECORDS SUMMARY | 2024-12-20 14:51 | XMS_ITS | Clinical Summary ---
Author Organization [facility] Address [address] [place] [address] Phone Care Team Providers Care Fitness Technician Name Role Phone Cuco Weller MD Primary Care Provider [phone] Allergies Active Allergy Reactions Criticality Noted Date Comments Nsaids (Non-Steroidal Anti-I nflammatory Drug) Hives Medium 08/04/2024 Medications ascorbic acid, vitamin C, 500 mg capsule Take 1 tablet by mouth 1 (one) time each day. 024 Active DULoxetine (CYMBALTA) [address] capsule TAKE 1 CAPSULE BY MOUTH EVERY MORNING INCREASED DOSE 024 Active etanercept (EnbreL) 50 mg/mL (1 mL) injection syringe Inject 1 mL (50 mg total) under the skin. Inject 50 mg into the skin every 7 days. Active ipratropium-albu teroL (Combivent Respimat) 20-100 mcg/actuation inhaler INHALE 1 PUFF BY MOUTH INTO THE LUNGS 4 TIMES A DAY NEEDED FOR WHEEZING 024 Active lamoTRIgine (LaMICtal) 100 mg tablet Take 1 Tablet by mouth every evening. (Takes a 200 mg tab in AM) 023 Active lamoTRIgine (LaMICtal) 200 mg tablet Take 1 Tablet by mouth every morning. (takes a 100 mg tab in the evening) 014 Active levETIRAcetam (KEPPRA) 500 mg tablet Take 1 tablet by mouth 2 times daily. - Oral 022 Active omega-3 acid ethyl esters (LOVAZA) 1 gram capsule Take 1 capsule (1 g total) by mouth 2 (two) times a day. 023 Active QUEtiapine (SEROquel) 50 mg tablet Take 1 tablet (50 mg total) by mouth at bedtime. Active fluticasone propion-salmeter oL (ADVAIR HFA) 230-21 mcg/actuation inhaler Inhale 2 puffs by mouth 2 (two) times a day. Rinse mouth with water after use to reduce aftertaste and incidence of candidiasis. Do not swallow. Active freestyle (FreeStyle Lancets) 28 gauge lancets Use to test sugars daily Dx: E11.65, Z79.4 100 each 3 025 Active Alcohol Prep Pads pads, medicated 024 Active Sharps Container 024 Active losartan (Cozaar) 25 mg tabletIndication s:Primary hypertension Take 1 tablet (25 mg total) by mouth 1 (one) time each day. 90 each 1 025 Active rOPINIRole (REQUIP) 0.5 mg tabletIndication s:Periodic limb movement disorder Take 1 tablet (0.5 mg total) by mouth 3 (three) times a day. 270 tablet 1 025 Active tiotropium (Spiriva Respimat) 2.5 mcg/actuation inhalation spray Inhale 2 puffs by mouth 1 (one) time each day. Inhale 2.5 mcg into the lungs 2 times daily. - Inhalation 1 each 2 025 Active Jardiance 25 mg tabletIndication s:Type 2 diabetes mellitus without complications (CMS/HCC V24, CMS/HCC V28) TAKE 1 TABLET BY MOUTH EVERY DAY 90 tablet 1 025 Active polyethylene glycol (Golytely) 236-22.74-6.74 -5.86 gram solution Take 4L by mouth once for one dose. May substitue any PEG. Starting at 6PM the night before your procedure drink 1 8oz glasses at your own pace until you complete half of the gallon. Finish 2nd half of the gallon 5 hours before your procedure. 4000 mL Active bisacodyL (DULCOLAX) 5 mg EC tablet Take 2 tablets by mouth right before beginning bowel prep. See instructions provided by the office 2 tablet Active pantoprazole (PROTONIX) 40 mg EC tablet TAKE 1 TABLET BY MOUTH 1 TIME EACH DAY. 90 tablet Active metFORMIN XR (GLUCOPHAGE-XR) 500 mg 24 hr tablet TAKE 2 TABLETS BY MOUTH TWICE A DAY 360 tablet Active ferrous sulfate 325 mg (65 mg elemental iron) tabletIndication s:Iron deficiency Take 1 tablet (325 mg total) by mouth every other day. 45 tablet 1 Active sodium,potassium ,mag sulfates (Suprep Bowel Prep Kit) 17.5-3.13-1.6 gram recon soln bowel prep kit oral solution Take 177ML by mouth for 2 doses. SEE INSTRUCTIONS PROVIDED BY OFFICE. 1 kit Active aspirin 81 mg EC tablet TAKE 1 TABLET BY MOUTH ONCE DAILY 90 tablet 1 Active Vitamin D3 50 mcg (2,000 unit) tablet TAKE 1 TABLET BY MOUTH EVERY DAY 90 tablet 1 Active blood sugar diagnostic (FreeStyle Lite Strips) test stripIndications :Type 2 diabetes mellitus without complications (CMS/HCC V24, CMS/HCC V28) USE TO TEST SUGARS TWICE DAILY. 200 strip 1 Active atorvastatin (LIPITOR) 10 mg tablet Take 1 tablet (10 mg total) by mouth 1 (one) time each day. 90 tablet 1 Active glipiZIDE (GLUCOTROL XL) 5 mg 24 hr tablet TAKE 2 TABLETS BY MOUTH TWICE A DAY 360 tablet Active glipiZIDE (GLUCOTROL XL) 5 mg 24 hr tablet TAKE 2 TABLETS BY MOUTH TWICE A DAY 360 tablet 1 025 2024 Discontinued Active Problems Problem Noted Date Diagnosed Date Abdominal hernia without obstruction and without gangrene 06/10/2024 Pancreatitis 01/22/2024 Trigger finger of left thumb 01/22/2024 MEHRDAD (obstructive sleep apnea) 12/30/2022 Overview (01/14/2024): Last Assessment & Plan: Patient was diagnosed with obstructive sleep apnea years ago but he is using a CPAP New sleep study has been ordered. Rheumatoid arthritis ([facility] V24, [facility] V28) 11/07/2022 Chronic hypoxemic respirator y failure ([facility] V24, [facility] V28) 09/26/2022 Overview (01/14/2024): Last Assessment & Plan: Hypoxemic respiratory failure secondary to stage III COPD. Stage 3 severe COPD by GOLD classification ([facility] V24, [facility] V28) 05/27/2022 Overview (01/14/2024): Last Assessment [...] sleep disorder 03/23/2018 Overview (01/14/2024): Sleep study 2013 (external) Type 2 diabetes mellitus wit h hyperglycemia, without long-term current use of insulin ([facility] V24, [facility] V28) 12/10/2016 Assessment & Plan (08/11/2024 [...] 2008-dilaudid; 2013 Depression 02/26/2010 Overview (01/14/2024): See psychiatrist [facility] 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 Maryjo Mancia Hyperlipidemia 10/20/2008 Abdominal pain, generalized 12/21/2006 Convulsions ([facility] V24, [facility] V28) 6 Overview (01/14/2024): Currently seeing Dr Frances (neurologist), last selit in the Juan Daniel; Willis; David; Seema; Glenda; Alex;(Med side effects); Zeynepr free for years Assessment & Plan (08/11/2024 2:55 PM EDT): She has a follow-up appointment with neurology this month. Currently has not had any recent seizures. Encounters Date Type Department Care Team Description 11/21/2024 Telephone Lung Screening Program - [place] [address] [facility] [address] [place] [phone] Roxana Pedro MA 11/14/2024 Telephone Pulmonolgy [facility] [address] [facility] [address] [place] [phone] Jayshree Mendoza NP 11/11/2024 2:57 PM EDT - 11/11/2024 11:59 PM EDT Hospital Encounter [facility] MRI [address] [place] [phone] Radiculopathy, cervical region Discharge Disposition: Home or Self Care 11/01/2024 1:00 PM EDT Office Visit Pulmonolgy [facility] [address] [facility] [address] [place] [phone] Jayshree Mendoza, INGE Stage 3 severe COPD by GOLD classification (CMS/HCC V24, CMS/HCC V28) (Primary Dx); Chronic hypoxemic respiratory failure (CMS/HCC V24, CMS/HCC V28); Incidental pulmonary nodule, less than or equal to 3mm; Obesity (BMI 30-39.9) 11/01/2024 10:45 AM EDT Clinical Support Pulmonolgy - [place] [address] [facility] [address] [place] [phone] Stage 3 severe COPD by GOLD classification (CMS/HCC V24, CMS/HCC V28) 11/01/2024 Telephone Pulmonolgy [facility] [address] [facility] [address] [place] [phone] Jayshree Mendoza NP 10/13/2024 Telephone Gastroenterology [facility] [address] [facility] [address] [facility] [address] [place] [phone] Priyanka Segura MA 10/12/2024 Telephone Gastroenterology - [place] [address] [facility] [address] [facility] [address] [place] [phone] Skip Baires MD 10/11/2024 11:45 AM EDT Office Visit Orthopedic Surgery - [address] [place] [address] Chaya Desai MD Trigger finger of left thumb (Primary Dx) 09/21/2024 2:11 PM EDT - 09/21/2024 11:59 PM EDT Hospital Encounter Radiology Department - [address] [address] Encounter for screening mammogram for breast cancer Discharge Disposition: Home or Self Care from Last 3 Months Immunizations Name Administration [...] Site/Laterality Comments OTHER SURGICAL HISTORY 2008 PROCEDURE: UT PNCRTECT DSTL NR-TOT W/PRSRV DUO CHLD-TYP PX; COMMENT: Partial,Ogema; neuroendocrine OTHER SURGICAL HISTORY PROCEDURE: UT LIG/TRNSXJ FLP TUBE ABDL/VAG APPR UNI/BI CHOLECYSTECTOMY PROCEDURE: HISTORICAL CHOLECYSTECTOMY APPENDECTOMY PROCEDURE: HISTORICAL APPENDECTOMY COLONOSCOPY 02/09/2019 PROCEDURE: HISTORICAL COLONOSCOPY; COMMENT: no polyps. suboptimal prep - repeat in 5 years PANCREAS SURGERY N/A SHOULDER SURGERY Left ~10 years ago(2014?) Medical History Medical History Date Comments Other convulsions DX:Other convu lsions Unspecified intracranial hemorrhage DX:Unspecified intracranial hemorrhage Other convulsions 06/25/2005 DX:Other convu lsions; COMMENT: Yamil Johnson;(Med side effects); Szr free for years Abdominal pain, generalized 12/21/2006 DX:A bdominal pain, generalized Stroke ([facility] V24, [facility] V28) 01/20/2008 DX:Stroke (HCC) Other and unspecified hyperlipidemia 10/20/2008 DX:Other and unspecified hyperlipidemia Pancreatic adenoma 10/20/2008 DX:Pancreatic adenoma Depression 02/26/2010 DX:Depression Seizure ([facility] V24, [facility] V28) 07/07/2011 DX:Seizure (HCC) Incidental pulmonary nodule, less than or equal to 3mm 05/21/2016 DX:Incidental pulmonary nodu le, less than or equal to 3mm History of colonic polyps 07/31/2016 DX:His tory of colonic polyps Periodic limb movement sleep disorder 03/23/2018 DX:Periodic limb movement sleep disorder; COMMENT: Sleep study 2012 (external) Pulmonary emphysema ([facility] V24, [facility] V28) 05/27/2022 DX:Pulmonary emphysema (HCC) Rheumatoid arthritis with po sitive rheumatoid factor ([facility] V24, [facility] V28) 11/07/2022 DX:Rheumatoid arthritis with positive rheumatoid factor (HCC) Iron deficiency DX:Iron deficien cy History of colon polyps DX:Histo ry of colon polyps Regurgitation of food DX:Regurgi tation of food Diabetes mellitus type 2, co ntrolled, with complications ([facility] V24, [facility] V28) DX:Diabetes mellitus type 2, controlled, with complications ([facility]) Hypertension GERD (gastroesophageal reflu x disease) Cholelithiasis COPD (chronic obstructive pu lmonary disease) ([facility] V24, [facility] V28) on continous O2 2L Family [...] 0 [birth year]/27/1979 - 09/25/2022 Smokeless Tobacco: Never Tobacco Cessation:Counseling Given: Not Answered Alcohol Use Standard Drinks/Week Comments No 0 (1 standard drink = 0.6 oz pur e alcohol) Comments No Sex and Gender Information Value Date Recorded Sex Assigned at Female 08/04/2024 5:56 AM EDT Legal Sex Female 7:02 PM EST Gender Identity Female 02/23/2024 8:05 PM EDT Sexual Orientation Straight 08/04/2024 5: 56 AM EDT Obstetrics History Para Term AB IAB SAB Ectopic Multiple Livin g Live Births 2 2 2 2 Date Outcome GA Total Labor Labor/2nd/3rd Weight Sex Type Anes PTL Sienna A1 A5 Name Clin Term Term Last Filed Vital Signs Vital Sign Reading Time Taken Comments Blood Pressure 130/70 11/01/2024 1:30 PM EDT Pulse 92 11/01/2024 1:30 PM EDT Temperature 36.6 C (97.8 F) 11/01/2024 1:30 PM EDT Respiratory Rate 16 11/01/2024 1:30 PM EDT Oxygen Saturation 95% 11/01/2024 1:3 0 PM EDT w/ 2 litters of O2 Inhaled Oxygen Concentration - - Weight 88.3 kg (194 lb 9.6 oz) 11/01/2024 1:30 PM EDT Height 160 cm (5' 3 ) 11/01/2024 1:30 PM EDT Body Mass Index 34.47 11/01/2024 1:30 PM EDT Plan of Treatment Upcoming Encounters Date Type Department Care Team (Late st Contact Info) Description 12/27/2024 2:45 PM EDT Office Visit General Surgery - [place] [address] [place] [address] Aman Flannery MD [address] [place] [address] 01/04/2025 11:00 AM EDT Consult Vascular Surgery - [place] [address] [place] [address] Phylicia Farfan MD [address] [place] [address] 01/05/2025 1:30 PM EDT Office Visit Internal Medicine - [facility] [address] [place] [address] Lincoln Martell NP [address] [place] [address] 01/06/2025 11:00 AM EDT Appointment [facility] CT Scan [address] [place] [phone] 01/10/2025 11:00 AM EDT Appointment [facility] Endoscopy [address] [place] [phone] Skip Baires MD [address] [place] [address] 01/13/2025 11:45 AM EDT Office Visit Orthopedic Surgery - [place] [address] [facility] [address] [place] [phone] Chaya Desai MD [address] [place] [address] 02/01/2025 1:00 PM EDT Office Visit Pulmonolgy - [place] [address] [facility] [address] [place] [phone] Jayshree Mendoza NP [address] [place] [address] 03/24/2025 2:00 PM EST Office Visit Endocrinology - [place] [address] [place] [address] Yusra Chaney PA [address] [place] [address] Health Maintenance Due Date Last Done Comments [...] Colorectal Cancer Screening: Colonoscopy 02/10/2024 02/09/2019, 02/09/2019 Depression Screening 04/27/2024 07/03/2023 Diabetes: Annual Foot Exam 11/26/2024 11/27/2023, Lung Cancer Screening (Low Dose CT) 12/14/2024 12/15/2023, 11/28/2022, 11/22/2021, Additional history exists Diabetes: Annual Retina Eye Exam 12/15/2024 12/16/2023, 12/16/2023 Influenza Vaccine (#1) 2024 , 02/03/2023, 01/07/2022, Additional history exists Diabetes: Blood Sugar Control Test (HGBA1C) 02/26/2025 08/26/2024, 05/27/2024, 02/03/2024, Additional history exists Diabetes: Annual GFR (Glomerular Filtration Rate) 08/11/2025 08/11/2024, 05/27/2024, 05/10/2024, Additional history exists Hypertension/CHF/CAD Annual BMP Blood Test 08/11/2025 08/11/2024, 05/27/2024, 05/10/2024, Additional history exists Diabetes: Annual Urine Albumin-Creatinine Ratio (uACR) 08/26/2025 08/26/2024, 04/13/2023, 04/13/2023 Breast Cancer Screening 09/21/2026 09/22/19, 09/14/2023, 09/14/2023, Additional history exists Cervical Cancer Screening: HPV 03/18/2027 03/18/2022 Cholesterol Screening (Lipid Panel) 02/02/2029 02/03/2024, 09/30/2023, 09/30/2023 DTaP,Tdap,and Td Vaccines (5 - Td or Tdap) 11/07/2032 11/07/2022, 06/23/2012, 12/02/2004, Additional history exists HIV Screening Completed 06/26/2009 Hepatitis C Screening Completed 08/23/2013 Pneumococcal Vaccine: 50+ Years Completed 02/03/2023, 09/02/2017 HIB Vaccines Aged Out No longer eligi [...] this topic Medical Devices Implanted Type Area Condenser Tester Device Identifier Shelf Expiration Date Model / Serial / Lot Mesh Ventralex St 2.5in Med [place] W/Strap - Sn/A - [id number] Implanted:Qty: 1 on 08/04/2024 by Aman Flannery MD at [facility] Surgical Mesh Sling Implants N/A: Abdomen CR BARD - DAVOL DIV 12/22/2025 [id number] / N/A / [id number] Procedures Procedure Name Priority Date/Time Associated Diagnosis Comments MR CERVICAL SPINE WO CONTRAST Routine 11/11/2024 3:37 PM EDT Radiculopathy, cervical region SIX MINUTE WALK TEST Routine 11/01/2024 2:34 PM EDT Stage 3 severe COPD by GOLD classification (CMS/[facility] V24, [facility] V28) MG MAMMO DIGITAL SCREENING W ALEXIS BILAT Routine 09/21/2024 2:18 PM EDT Encounter for screening mammogram for breast cancer MICROALBUMIN CREATININE URINE RATIO Routine 08/26/2024 2:30 PM EDT Type 2 diabetes mellitus with hyperglycemia, without long-term current use of insulin (CMS/[facility] V24, CMS/[facility] V28) HEMOGLOBIN A1C Routine 08/26/2024 2:30 PM EDT Type 2 diabetes mellitus with hyperglycemia, without long-term current use of insulin ([facility] V24, [facility] V28) BASIC METABOLIC PANEL Routine 08/11/2024 2:59 PM EDT Cervical radiculopathy DIABETES EYE EXAM Routine 12/16/2023 CT LUNG SCREENING LOW DOSE Routine 12/15/2023 9:24 AM EDT Encounter for screening for malignant neoplasm of respiratory organs DIABETES FOOT EXAM Routine 11/27/2023 LIPID PANEL Routine 09/30/2023 DEPRESSION SCREENING Routine 07/03/2023 HPV Routine 03/18/2022 COLONOSCOPY Routine 02/09/2019 HEPATITIS C SCREENING Routine 08/23/2013 HIV SCREENING Routine 06/26/2009 from Last 3 Months or Most Recently Relevant to Health Maintenance Results * MR Cervical Spine wo Contrast (11/11/2024 3:37 PM EDT) Anatomical Region Laterality Modality C-spine, Spine Magnetic Resonan ce 11/11/2024 3:5 8 PM EDT Impressions 11/11/2024 4:34 PM EDT Degenerative changes of the cervical spine as detailed above. -------- FINAL REPORT -------- Dictated By: Radha Downs Dictated Date: 11/11/2024 15:58 ET Assigned Physician: Radha Downs Reviewed and Electronically Signed By: Radha Downs Signed Date: 11/11/2024 16:34 ET Workstation ID: [id number] Transcribed By: Self Edit Transcribed Date: 11/11/2024 16:06 ET Narrative 11/11/2024 4:34 PM EDT PROCEDURE: MRI of the cervical spine without intravenous contrast. TECHNIQUE: Sagittal and axial multisequence MRI of the cervical spine without intravenous contrast administration. HISTORY: radiculopathy, spondylosis COMPARISON: Radiographs dated 08/11/2024. FINDINGS: There is patchy T2 signal in the central loraine which is likely secondary to chronic microvascular ischemic disease. Visualized portions of the brain and skull base are otherwise unremarkable. The paraspinous soft tissues are normal. Straightening of the typical cervical lordosis with a slight reversal centered at C6. There is a hemangioma replacing much of the T2 vertebral body. No concerning marrow infiltrative lesion. The cord is normal in caliber and signal. Cervical disc levels: C2-3: Moderate right and minimal left facet arthropathy. No spinal or foraminal stenosis. C3-4: Small left and minimal right uncovertebral spurs. Moderate left and mild right facet arthropathy. Mild left foraminal stenosis. No spinal stenosis. C4-5: Small right uncovertebral spurs. Moderate right and minimal left facet arthropathy. No significant spinal or foraminal stenosis. C5-6: Mild endplate irregularity. Moderate left larger than right uncovertebral spurs. A small right central inferiorly projecting extrusion indents the cord. No significant spinal stenosis. Moderate left and mild right foraminal stenosis. C6-7: Mild disc space height loss. Small bilateral uncovertebral spurs. Small right central disc osteophyte complex which indents the cord. No significant spinal or foraminal stenosis. C7-T1: No significant disc or facet abnormality. No spinal or foraminal stenosis. Procedure Note Radha Downs MD - 11/11/2024 PROCEDURE: MRI of the cervical spine without intravenous contrast. TECHNIQUE: Sagittal and axial multisequence MRI of the cervical spinewithout intravenous contrast administration. HISTORY: radiculopathy, spondylosis COMPARISON: Radiographs dated 08/11/2024. FINDINGS: There is patchy T2 signal in the central loraine which is likely secondary tochronic microvascular ischemic disease. Visualized portions of the brainand skull base are otherwise unremarkable. The paraspinous soft tissues are normal. Straightening of the typical cervical lordosis with a slight reversalcentered at C6. There is a hemangioma replacing much of the T2 vertebralbody. No concerning marrow infiltrative lesion. The cord is normal in caliber and signal. Cervical disc levels: C2-3: Moderate right and minimal left facet arthropathy. No spinal orforaminal stenosis. C3-4: Small left and minimal right uncovertebral spurs. Moderate left andmild right facet arthropathy. Mild left foraminal stenosis. No spinalstenosis. C4-5: Small right uncovertebral spurs. Moderate right and minimal leftfacet arthropathy. No significant spinal or foraminal stenosis. C5-6: Mild endplate irregularity. Moderate left larger than rightuncovertebral spurs. A small right central inferiorly projectingextrusion indents the cord. No significant spinal stenosis. Moderateleft and mild right foraminal stenosis. C6-7: Mild disc space height loss. Small bilateral uncovertebral spurs.Small right central disc osteophyte complex which indents the cord. Nosignificant spinal or foraminal stenosis. C7-T1: No significant disc or facet abnormality. No spinal or foraminalstenosis. IMPRESSION: Degenerative changes of the cervical spine as detailed above. -------- FINAL REPORT -------- Dictated By: Radha Downs Dictated Date: 11/11/2024 15:58 ET Assigned Physician: Radha Downs Reviewed and Electronically Signed By: Radha Downs Signed Date: 11/11/2024 16:34 ET Workstation ID: [id number] Transcribed By: Self Edit Transcribed Date: 11/11/2024 16:06 ET Alex [facility] IMG MRI PROCEDURES Final Resul t * 6 minute walk test (11/01/2024 2:34 PM EDT) Impressions Simón Sykes MD - 11/01/2024 2:34 PM EDT Walked moderate pace, level ground covered (192m/600ft) in 6 minutes. No Leg Fatigue or SOB noted. Lowest saturation was 88% while walking, pt needs 2L while on exertion and room air at rest. Returned to Pulmonary Lab for Rest & Recovery, After 1 min RaSpO2 = 93% HR = 99; After 2 min RaSpO2 = 94% HR = 88. Jayshree Mendoza DRAW OFF WORKER IN CLINIC/BEDSIDE ORDER JENNIFER Final Result * MG Mammo Digital Screening w Alexis bilat (09/21/2024 2:18 PM EDT) Anatomical Region Laterality Modality Breast Bilateral Mammography 09/22/2024 12:1 0 PM EDT Impressions 09/22/2024 12:59 PM EDT 1. No mammographic evidence of malignancy 2. Scattered fibroglandular tissue BI-RADS CATEGORY: 2 - BENIGN RECOMMENDATION: Screening bilateral mammogram is recommended in 1 year. Mammo Location: [facility] [place] [facility], [address] [place] [address], [id number], . -------- FINAL REPORT -------- Dictated By: Gera Garcia Dictated Date: 09/22/2024 12:10 ET Assigned Physician: Gera Garcia Reviewed and Electronically Signed By: Gera Garcia Signed Date: 09/22/2024 12:59 ET Workstation ID: [id number] Transcribed By: Self Edit Transcribed Date: 09/22/2024 12:10 ET Narrative 09/22/2024 12:59 PM EDT A BILATERAL DIGITAL 3D SCREENING MAMMOGRAPHY HISTORY: Routine screening. COMPARISON: Multiple priors dating back to 09/27/2020 Technique: Bilateral full field digital mammography (3D) was performed using standard CC and MLO projections CAD was used to evaluate this mammogram. FINDINGS: Right: No suspicious masses, groups of microcalcification or areas of architectural distortion identified. Stable typically benign parenchymal asymmetries. Left: No suspicious masses, groups of microcalcification or areas of architectural distortion identified. Stable typically benign parenchymal asymmetries. BREAST DENSITY: B - There are scattered areas of fibroglandular density. Procedure Note Gera Garcia MD - 09/22/2024 A BILATERAL DIGITAL 3D SCREENING MAMMOGRAPHY HISTORY: Routine screening. COMPARISON: Multiple priors dating back to 09/27/2020 Technique: Bilateral full field digital mammography (3D) was performedusing standard CC and MLO projections CAD was used to evaluate this mammogram. FINDINGS: Right: No suspicious masses, groups of microcalcification or areas ofarchitectural distortion identified. Stable typically benign parenchymalasymmetries. Left: No suspicious masses, groups of microcalcification or areas ofarchitectural distortion identified. Stable typically benign parenchymalasymmetries. BREAST DENSITY: B - There are scattered areas of fibroglandular density. IMPRESSION: 1. No mammographic evidence of malignancy 2. Scattered fibroglandular tissue BI-RADS CATEGORY: 2 - BENIGN RECOMMENDATION: Screening bilateral mammogram is recommended in 1 year. Mammo Location: [facility], [address] [place] [address], [id number], . -------- FINAL REPORT -------- Dictated By: Gera Garcia Dictated Date: 09/22/2024 12:10 ET Assigned Physician: Gera Garcia Reviewed and Electronically Signed By: Gera Garcia Signed Date: 09/22/2024 12:59 ET Workstation ID: [id number] Transcribed By: Self Edit Transcribed Date: 09/22/2024 12:10 ET us Cuco Weller MD IMG BI PROCEDURES Final R esult * Microalbumin creatinine urine ratio (08/26/2024 2:30 PM EDT) Creatinine, Urine 29.0 mg/dL LAB CHEMISTRY METHOD 08/26/2024 6:44 PM EDT [facility] Microalb, Ur <5.0 0.0 - 29.0 mg/L LAB CHEMISTRY METHOD 08/26/2024 6:44 PM EDT [facility] Microalb/Creat Ratio <17 <30 mg/g creat LAB CHEMISTRY METHOD 08/26/2024 6:44 PM EDT [facility] Urine Urine specimen obtained by clean catch procedure / Unknown Non-blood Collection / Unknown 08/26/2024 2:30 PM EDT 08/26/2024 2:30 PM EDT us Yusra BEARD LAB URINE ORDERABLES Final Resul t [facility] [address] [place] [address], [place] [phone] * (ABNORMAL) Hemoglobin A1c (08/26/2024 2:30 PM EDT) [facility] Hemoglobin A1C 8.0(H) <6.5 % LAB CHEMISTRY METHOD 08/26/2024 10:21 PM EDT [facility] Mean Bld Glu Estim. 183 mg/dL LAB CHEMISTRY METHOD 08/26/2024 10:21 PM EDT [facility] Blood Venous blood specimen / Unknown Venipuncture / Unknown 08/26/2024 2:30 PM EDT 08/26/2024 2:30 PM EDT us Yusra BEARD LAB BLOOD ORDERABLES Final Resul t [facility] [address] [place] [address], [place] [phone] * (ABNORMAL) Basic metabolic panel (08/11/2024 2:59 PM EDT) [facility] Sodium 135 133 - 145 mmol/L LAB CHEMISTRY METHOD 08/11/2024 7:12 PM T [facility] Potassium 4.4 3.5 - 5.5 mmol/L LAB CHEMISTRY METHOD 08/11/2024 7:12 PM T [facility] Chloride 100 96 - 110 mmol/L LAB CHEMISTRY METHOD 08/11/2024 7:12 PM [facility] CO2 28 21 - 32 mmol/L LAB CHEMISTRY METHOD 08/11/2024 7:12 PM T [facility] Anion Gap 7 3 - 11 LAB CHEMISTRY METHOD 08/11/2024 7:12 PM [facility] Glucose 146(H) 70 - 100 mg/dL LAB CHEMISTRY METHOD 08/11/2024 7:12 PM T [facility] BUN 10 5 - 25 mg/dL LAB CHEMISTRY METHOD 08/11/2024 7:12 PM EDT [facility] Creatinine 0.68 0.50 - 1.10 mg/dL LAB CHEMISTRY METHOD 08/11/2024 7:12 PM EDT [facility] eGFR 100 >=60 mL/min/1. 73m2 LAB CHEMISTRY METHOD 08/11/2024 7:12 PM EDT [facility] Comment:Calculation based on the Chronic Kidney Disease Epidemiology Collaboration (CKD-EPI) equation refit without adjustment for race. BUN/Creatinine Ratio 14.7 LAB CHEMISTRY METHOD 08/11/2024 7:12 PM EDT [facility] Calcium 9.7 8.5 - 10.5 mg/dL LAB CHEMISTRY METHOD 08/11/2024 7:12 PM EDT [facility] Blood Venous blood specimen / Unknown Venipuncture / Unknown 08/11/2024 2:59 PM EDT 08/11/2024 2:59 PM EDT Cuco Weller MD LAB BLOOD ORDERABLES Lauren l Result [facility] [address] [place] [address], * Diabetes Eye Exam (12/16/2023) Diabetes: Annual Retina Eye Exam Abstracted Historical Provider HEALTH MAINTENANCE Final Result * CT LUNG SCREENING LOW DOSE (12/15/2023 9:24 AM EDT) Anatomical Region Laterality Modality Computed Tomogra phy 12/11/2023 2:22 PM EDT Narrative 12/15/2023 9:24 AM EDT [facility] Diagnostic Imaging Department [address] [place] [address] Patient: DOLLY HOYT /Age/Sex: 1965 - 58 - F Unit#: [id number] Location/Status: SPDICATLS/REG CLI Mnemonic/Ordering Site: [facility] Ordering Physician: PENNY COBIAN MD CT Lung Screening Low Dose - 12/11/23 - 1442 Report Status:Signed Chest CT, 12/15/2023 9:05 AM. TECHNIQUE: Low-dose CT of the chest without intravenous contrast administration. Coronal and sagittal reformats and MIP reconstructions were created. Dose length product: 170 mGy-cm. HISTORY: CURRENT SMOKER; 47 EMILE; TOBACCO ABUSE COMPARISON: 11/28/2022. FINDINGS: Lungs/pleura: Normal caliber airways. Mild bronchiectasis and small foci of mucus plugging in the right lower lobe. Mild centrilobular emphysema. Minimal scarring in the right middle lobe and lingula. A few punctate calcified granulomas are noted. No pleural effusion or pneumothorax. Mediastinum/edgardo: No mediastinal mass or lymphadenopathy. No appreciable hilar lymphadenopathy on limited noncontrast evaluation. Vasculature: Aberrant right subclavian artery. Mild atherosclerotic calcifications. Normal caliber central pulmonary arteries. Cardiac: Normal heart size. Moderate coronary artery calcification. Chest wall: No mass or lymphadenopathy. Limited abdomen: Cholecystectomy. Bones: Degenerative changes of the spine. IMPRESSION: Lung RADS 1. No suspicious pulmonary nodule. Guidelines recommend repeat low- dose screening CT in 12 months. Dictating Physician: RADHA DOWNS MD Electronically Signed by: RADHA DOWNS MD Dic Date/Time: 12/15/23904 Sign date/Time: 12/15/23923 Procedure Note Radha Downs MD - 02/10/2024 [facility] Diagnostic Imaging Department [address] [place] [address] Patient: DOLLY HOYT /Age/Sex: 1965 - 58 - F Unit#: [id number] Location/Status: SPDICATLS/REG CLI Mnemonic/Ordering Site: [facility] Ordering Physician: PENNY COBIAN MD CT Lung [...] Dic Date/Time: 12/15/23904 Sign date/Time: 12/15/23923 Result [facility] Penny Cobian MD IMG CT PROCEDURES Final Result * Diabetes Foot Exam (11/27/2023) [facility] Diabetes: Annual Foot Exam Abstracted Result [facility] HEALTH MAINTENANCE Final Result * Lipid panel (09/30/2023) [facility] LDL/HDL Ratio 3 0 - 4 Triglycerides 142 0 - 150 mg/dL Cholesterol 170 0 - 200 mg/dL HDL 50 >=40 mg/dL LDL Cholesterol 92 0 - 100 mg/dL Blood Venous blood specimen / Unknown Result [facility] Myla OROZCO LAB BLOOD ORDERABLES Lauren l Result * Depression Screening (07/03/2023) [facility] Depression Screening Abstracted Result [facility] Myla OROZCO HEALTH MAINTENANCE Final Result * Cervical Cancer Screening: HPV (03/18/2022) [facility] Cervical Cancer Screening: HPV Abstracted, positive Result [facility] Myla OROZCO HEALTH MAINTENANCE Final Result * Colonoscopy (02/09/2019) [facility] Colonoscopy Abstracted, no interpretation Anatomical Region Laterality Modality Other Result [facility] Myla OROZCO HEALTH MAINTENANCE Final Result * Hepatitis C Screening (08/23/2013) [facility] Hepatitis C Screening Abstracted Result [facility] Myla OROZCO HEALTH MAINTENANCE Final Result * HIV Screening (06/26/2009) [facility] HIV Screening Abstracted Result [facility] Myla OROZCO HEALTH MAINTENANCE Final Result from Last 3 Months or Most Recently Relevant to Health Maintenance Insurance [facility] Advance Directives * Full Code - Default [...] currently active code status orders. Care Teams Fitness Technician Relationship Specialty Start Date End Date Cuco Weller MD [address] [place] [address] PCP - General Internal Medicine 03/30/17
--- OUTSIDE RECORDS SUMMARY | 2024-12-20 14:52 | XMS_ITS | Encounter Summary ---
Author Organization [facility] Address [address] [place] [address] Care Team Providers Care Presto Log Operator Name Role Phone Fernando Stahl MD Primary Care Provider Unavail able Cuco Weller MD Primary Care Provider [phone] [phone] Encounter Details Date Type Department Care Team Description 09/26/2009 Contact Person Report Medical Records [address] [place] [address] Tayo Kyle MD Social History Tobacco Use [...] on filedocumented in this encounter Care Teams Presto Log Operator Relationship Specialty Start Date End Date Fernando Stahl MD PCP - General 02/14/03 03/29/17 Cuco Weller MD [address] [place] [address] PCP - General Internal Medicine 03/30/17 documented as of this encounter
--- OUTSIDE RECORDS SUMMARY | 2024-12-20 14:52 | XMS_ITS | Encounter Summary ---
Author Organization [facility] Address [address] [place] [address] Care Team Providers Care Faith Healer Name Role Phone Cuco Weller MD Primary Care Provider [phone] [phone] Reason for Visit * Reason Onset Date Comments Appointment 11/21/2024 1st Notification Encounter Details Date Type Department Care Team (Late st Contact Info) Description 11/21/2024 Telephone Lung Screening Program - [address] [id number] Roxana Pedro MA Social History Tobacco Use Types Packs/Day Years [...] as of this encounter Progress Notes * Roxana Pedro MA - 12/19/2024 2:03 PM EDT Patient rescheduled appointment to January 06, 2025 at 11 Am * Roxana Pedro MA - 11/21/2024 2:59 PM EDT Dolly Hoyt was contacted by the Lung Cancer Screening Program today to confirm the appointment of their Lung Cancer Screening. The patient is currently scheduled to have their screening on Thursday, December 12, 2024 at 1045 AM at [facility]. Patient confirmed For all screenings scheduled during the week, the patient will check in at Patient Registration on the first floor of the [facility]. For screenings that take place on the weekend or after 5pm, check-in directly in Radiology. The patient was given the Lung Cancer Screening Program phone number, , to contact if they have any additional questions, concerns or need to reschedule. Patients are encouraged to call our office and reschedule if they are exhibiting any cold-like symptoms, have recently been treated for Pneumonia or Influenza (the flu) or have had another CT of their Chest since their last screening. documented in this encounter Plan of Treatment Upcoming Encounters Date Type Department Care Team (Late st Contact Info) Description 12/27/2024 2:45 PM EDT Office Visit General Surgery - [place] [address] [place] [address] Aman Flannery MD [address] [place] [address] 01/04/2025 11:00 AM EDT Consult Vascular Surgery - [place] [address] [place] [address] Phylicia Farfan MD [address] [place], [place] 01/05/2025 1:30 PM EDT Office Visit Internal Medicine - [address] [address] Lincoln Martell NP [address] [place] [address] 01/06/2025 11:00 AM EDT Appointment [facility] CT Scan [address] [place] [phone] 01/10/2025 11:00 AM EDT Appointment [facility] Endoscopy [address] [place] [phone] Skip Baires MD [address] [place] [address] 01/13/2025 11:45 AM EDT Office Visit Orthopedic Surgery - [place] [address] [facility] [address] [place] [phone] Chaya Desai MD [address] [place], [place] 02/01/2025 1:00 PM EDT Office Visit Pulmonolgy - [place] [address] [facility] [address] [place] [phone] Jayshree Mendoza NP [address] [place], [place] 03/24/2025 2:00 PM EST Office Visit Endocrinology - [place] [address] [place] [address] Yusra Chaney PA [address] [place] [address] documented as of this encounter Visit Diagnoses Not on filedocumented in this encounter Care Teams Faith Healer Relationship Specialty Start Date End Date Cuco Weller MD [address] [place] [address] PCP - General Internal Medicine 03/30/17 documented as of this encounter
--- OUTSIDE RECORDS SUMMARY | 2024-12-20 14:52 | XMS_ITS | Encounter Summary ---
Author Organization [facility] Address [address] [place] [address] Care Team Providers Care Cloth Hand Name Role Phone Fernando Stahl MD Primary Care Provider Unavail [facility] Cuco Weller MD Primary Care Provider [phone] [phone] Encounter Details Date Type Department Care Team Description 07/10/2016 Bmx Rider Report Medical Records [address] [place] [address] Fara Burkett Social History Tobacco Use Types [...] filedocumented in this encounter Care Teams Cloth Hand Relationship Specialty Start Date End Date Fernando Stahl MD PCP - General 02/14/03 03/29/17 Cuco Weller MD [address] [place] [address] PCP - General Internal Medicine 03/30/17 documented as of this encounter
--- OUTSIDE RECORDS SUMMARY | 2024-12-20 14:52 | XMS_ITS | Encounter Summary ---
Author Organization [facility] Address [address] [place] [address] Care Team Providers Care Corporate Safety Coordinator Name Role Phone Fernando Stahl MD Primary Care Provider Unavail able Cuco Weller MD Primary Care Provider [phone] [phone] Encounter Details Date Type Department Care Team Description 06/12/2016 Pt. Non Urgent Medical Question Adult Medicine B - [address] [address] Fernando Stahl MD Social History Tobacco Use [...] for an appointment. I am leaving for [place] on the and won't be back until [...] on filedocumented in this encounter Care Teams Corporate Safety Coordinator Relationship Specialty Start Date End Date Fernando Stahl MD PCP - General 02/14/03 03/29/17 Cuco Weller MD [address] [place] [address] PCP - General Internal Medicine 03/30/17 documented as of this encounter
--- OUTSIDE RECORDS SUMMARY | 2024-12-20 14:52 | XMS_ITS | Encounter Summary ---
Author Organization [facility] Address [address] [place] [address] Care Team Providers Care Transfer And Line Up Worker Name Role Phone Cuco Weller MD Primary Care Provider [phone] [phone] Encounter Details Date Type Department Care Team Description 09/08/2022 Release of Information Medical Records [address] [place] [id number] [place] [address] Social History Tobacco Use Types Packs/Day Years [...] on filedocumented in this encounter Care Teams Transfer And Line Up Worker Relationship Specialty Start Date End Date Cuco Weller MD [address] [place] [address] PCP - General Internal Medicine 03/30/17 documented as of this encounter
--- OUTSIDE RECORDS SUMMARY | 2024-12-20 14:52 | XMS_ITS | Encounter Summary ---
Author Organization [facility] Address [address] [place] [address] Care Team Providers Care Tonguer Name Role Phone Fernando Stahl MD Primary Care Provider Unavail [facility] Cuco Weller MD Primary Care Provider [phone] [phone] Encounter Details Date Type Department Care Team Description 03/04/2016 Walk In Clinic Visit Medical Records [address] [place] [address] Social History Tobacco Use Types Packs/Day Years [...] on filedocumented in this encounter Care Teams Tonguer Relationship Specialty Start Date End Date Fernando Stahl MD PCP - General 02/14/03 03/29/17 Cuco Weller MD [address] [place] [address] [place] [address] PCP - General Internal Medicine 03/30/17 documented as of this encounter
--- OUTSIDE RECORDS SUMMARY | 2024-12-20 14:52 | XMS_ITS | Encounter Summary ---
Author Organization [facility] Address [address] [place] [address] Care Team Providers Care Sorting Livestock Worker Name Role Phone Cuco Weller MD Primary Care Provider [phone] [phone] Reason for Visit * Reason Comments E-prescribe Rx Request Encounter Details Date Type Department Care Team Description 07/10/2021 Refill Adult Medicine [address] [id number] Cuco Weller MD [address] [place] [address] E-prescribe Rx Request Social History Tobacco Use [...] N/A Patients current insurance carrier is: Payor: [employer] / Plan: TERRY GARCIA / Product Type: MEDICAID RISK documented in this encounter Plan of Treatment Not on file documented as of this encounter Visit Diagnoses Not on filedocumented in this encounter Care Teams Sorting Livestock Worker Relationship Specialty Start Date End Date Cuco Weller MD [address] [place] [address] PCP - General Internal Medicine 03/30/17 documented as of this encounter
--- OUTSIDE RECORDS SUMMARY | 2024-12-20 14:52 | XMS_ITS | Encounter Summary ---
Author Organization [facility] Address [address] [place] [address] Care Team Providers Care Stock Mover Name Role Phone Fernando Stahl MD Primary Care Provider Unavail able Cuco Weller MD Primary Care Provider [phone] [phone] Encounter Details Date Type Department Care Team Description 08/25/2016 Orders Only Adult Medicine B - [place] [address] [place] [address] Fernando Stahl MD Glucose intolerance (impaired glucose tolerance) Social History Tobacco Use Types Packs/Day Years [...] Name Priority Date/Time Associated Diagnosis Comments CHG GLUCOSE QUANTITATIVE BLOOD XCPT REAGENT STRIP Routine 08/22/2016 Glucose intolerance (impaired glucose tolerance) documented in this encounter Results * GLUCOSE, BLOOD (08/22/2016) 08/22/2016 Fernando Stahl MD LAB Performing Organization Address City/State/[facility] Co de Phone Number [place] [phone] [facility] documented in this encounter Visit Diagnoses Diagnosis Glucose intolerance (impaired glucose tolerance) Impaired glucose tolerance test documented in this encounter Care Teams Stock Mover Relationship Specialty Start Date End Date Fernando Stahl MD PCP - General 02/14/03 03/29/17 Cuco Weller MD [address] [place] [address] PCP - General Internal Medicine 03/30/17 documented as of this encounter
--- OUTSIDE RECORDS SUMMARY | 2024-12-20 14:52 | XMS_ITS | Encounter Summary ---
Author Organization [facility] Address [address] [place] [address] Care Team Providers Care Rfid Systems Engineer Name Role Phone Fernando Stahl MD Primary Care Provider Unavail able Cuco Weller MD Primary Care Provider [phone] [phone] Encounter Details Date Type Department Care Team Description 07/07/2016 Pt. Non Urgent Medical Question Adult Medicine B - [place] [address] [place] [address] Fernando Stahl MD Social History Tobacco Use [...] Progress Notes * Lucy Lockhart M.A. - 07/07/2016 3:55 PM EDTFrom: Dolly Hoyt To: Fernando Stahl MD Sent: 07/07/2016 3:48 PM EDT Subject: Rx My prescription for ropinirloe .25 mg has run out. [facility] [place]? Thephone number is [phone]. documented in this encounter Plan of Treatment Not on file documented as of this encounter Visit Diagnoses Not on filedocumented in this encounter Care Teams Rfid Systems Engineer Relationship Specialty Start Date End Date Fernando Stahl MD PCP - General 02/14/03 03/29/17 Cuco Weller MD [address] [place] [address] PCP - General Internal Medicine 03/30/17 documented as of this encounter
--- OUTSIDE RECORDS SUMMARY | 2024-12-20 14:52 | XMS_ITS | Encounter Summary ---
Author Organization [facility] Address [address] [place] [address] Care Team Providers Care Powder Loader Name Role Phone Fernando Stahl MD Primary Care Provider Unavail [facility] Cuco Weller MD Primary Care Provider [phone] [phone] Encounter Details Date Type Department Care Team Description 03/11/2017 Hospital Medical Records [address] [place] [address] Tamara Rangel, Social History Tobacco Use Types [...] on filedocumented in this encounter Care Teams Powder Loader Relationship Specialty Start Date End Date Fernando Stahl MD PCP - General 02/14/03 03/29/17 Cuco Weller MD [address] [place] [address] PCP - General Internal Medicine 03/30/17 documented as of this encounter
--- OUTSIDE RECORDS SUMMARY | 2024-12-20 14:52 | XMS_ITS | Encounter Summary ---
Author Organization [facility] Address [address] [place] [address] Care Team Providers Care Real Estate Agency Principal Name Role Phone Fernando Stahl MD Primary Care Provider Unavail able Cuco Weller MD Primary Care Provider [phone] -[phone] Encounter Details Date Type Department Care Team Description 03/03/2017 Orders Only Adult Medicine B - [place] [address] [place] [address] Fernando Stahl MD Preoperative examination (Primary Dx) Social History Tobacco Use Types [...] as of this encounter Visit Diagnoses Diagnosis Preoperative examination- Primary Preoperative examination, unspecified documented in this encounter Care Teams Real Estate Agency Principal Relationship Specialty Start Date End Date Fernando Stahl MD PCP - General 02/14/03 03/29/17 Cuco Weller MD [address] [place] [address] PCP - General Internal Medicine 03/30/17 documented as of this encounter
--- OUTSIDE RECORDS SUMMARY | 2024-12-20 14:52 | XMS_ITS | Encounter Summary ---
Author Organization [facility] Address [address] [place] [address] Care Team Providers Care Information Technology Program Manager Name Role Phone Fernando Stahl MD Primary Care Provider Unavail able Cuco Weller MD Primary Care Provider [phone] -[phone] Encounter Details Date Type Department Care Team Description 07/16/2016 Release of Information Medical Records [address] [place] [address] Abstract, Provider Social History Tobacco Use Types [...] on filedocumented in this encounter Care Teams Information Technology Program Manager Relationship Specialty Start Date End Date Fernando Stahl MD PCP - General 02/14/03 03/29/17 Cuco Weller MD [address] [place] [address] PCP - General Internal Medicine 03/30/17 documented as of this encounter
--- OUTSIDE RECORDS SUMMARY | 2024-12-20 14:52 | XMS_ITS | Encounter Summary ---
Author Organization [facility] Address [address] [place] [address] Care Team Providers Care Sld Teacher Name Role Phone Fernando Stahl MD Primary Care Provider Unavail able Cuco Weller MD Primary Care Provider [phone] [phone] Encounter Details Date Type Department Care Team Description 11/26/2015 Hereditary Cancer Qu iz Results Medical Records [address] [place] [address] Abstract, Provider Social History Tobacco Use Types [...] on filedocumented in this encounter Care Teams Sld Teacher Relationship Specialty Start Date End Date Fernando Stahl MD PCP - General 02/14/03 03/29/17 Cuco Weller MD [address] [place] [address] PCP - General Internal Medicine 03/30/17 documented as of this encounter
--- OUTSIDE RECORDS SUMMARY | 2024-12-20 14:52 | XMS_ITS | Encounter Summary ---
Author Organization [facility] Address [address] [place] [address] Care Team Providers Care Wool Washing Machine Operator Name Role Phone Fernando Stahl MD Primary Care Provider Unavail able Cuco Weller MD Primary Care Provider +1 -[phone] Encounter Details Date Type Department Care Team Description 05/28/2016 Pt. Non Urgent Medical Question Adult Medicine B - [address] [address] Fernando Stahl MD Social History Tobacco Use [...] Progress Notes * Lucy Lockhart M.A. - 05/28/2016 1:16 PM ESTFrom: Dolly Hoyt To: Fernando Stahl MD Sent: 05/28/2016 1:16 PM EST Subject: Ent appointment I saw Darlin and she said she was going to refer me to an ear, nose and throat Dr. I'm going to begoing to [place] in a few weeks and I'm still not feeling very well. Just hoping to get an appointment some what soon. Thanks documented in this encounter Plan of Treatment Not on file documented as of this encounter Visit Diagnoses Not on filedocumented in this encounter Care Teams Wool Washing Machine Operator Relationship Specialty Start Date End Date Fernando Stahl MD PCP - General 02/14/03 03/29/17 Cuco Weller MD [address] [place] [address] PCP - General Internal Medicine 03/30/17 documented as of this encounter
--- OUTSIDE RECORDS SUMMARY | 2024-12-20 14:52 | XMS_ITS | Encounter Summary ---
Author Organization [facility] Address [address] [place] [address] Care Team Providers Care Buttermaker Name Role Phone Cuco Weller MD Primary Care Provider [phone] [phone] Reason for Referral * EXTERNAL (Routine) - Authorized/Booked Specialty Diagnoses / Procedures Referred By Ace auguste Referred To Contact Rheumatology Procedures REFERRAL TO RHEUMATOLOGY John Alcazar PA-C [address] [place] [address] Romie Singleton MD [address] [place] [id number] Referral ID Status Reason Start Date Expiration Date V isits Requested Visits Authorized [id number] Authorized/B ooked 04/11/2022 07/10/2022 1 1 Encounter Details Date Type Department Care Team Description 04/11/2022 Orders Only Medicine/Pediatrics - [address] [address] John Alcazar PA-C [address] [place] [address] Social History Tobacco Use Types Packs/Day Years [...] Recorded In the last 10 days, have chema u been in contact with someone who was confirmed or suspected to have Coronavirus/COVID-19? No / Unsure 04/10/2022 2:26 PM EST documented as of this encounter Plan of Treatment Not on file documented as of this encounter Visit Diagnoses Not on filedocumented in this encounter Care Teams Buttermaker Relationship Specialty Start Date End Date Cuco Weller MD [address] [place] [address] PCP - General Internal Medicine 03/30/17 documented as of this encounter
--- OUTSIDE RECORDS SUMMARY | 2024-12-20 14:52 | XMS_ITS | Encounter Summary ---
Author Organization [facility] Address [address] [place] [address] Care Team Providers Care Speck Dyer Name Role Phone Cuco Weller MD Primary Care Provider [phone] [phone] Reason for Visit * Reason Onset Date Comments Prior Authorization 08/04/2022 Encounter Details Date Type Department Care Team Description 08/04/2022 Telephone Pulmonology - [address] [place] [address] Harry Gong MD Prior Authorization Social History Tobacco Use Types Packs/Day Years [...] suspected to have Coronavirus/COVID-19? No / Unsure 07/25/2022 2:48 PM EDT documented as of this encounter Miscellaneous Notes * Telephone Encounter - Linh Hernandez 08/12/2022 1:43 PM EDT MED DENIED WANTS PT TO TRY MEDS IN THE SEPERATE FORMS FIRST, IF FAILS IN SEPERATE FORMS THEN THEY WILL ALLOW THE COMBO WITH A MED NEC LETTER Linh Espino Auth Dep Ext [id number] * Telephone Encounter - Linh Pascual M.A. - 08/04/2022 3:23 PM EDT AUTH CALLED INTO [facility] [id number] Linh Espino Auth Dep Ext [id number] * Telephone Encounter - Triny Thomas - 08/04/2022 10:10 AM EDT Prior Authorization for Medication-do not complete and send this encounter unless you have the fax from the pharmacy. Is this a Cover My Meds request: Yes -- Herring Code [id number] Name of Medication Relegy Ellipta Aerosol Powder Dose of Medication 100-62.5-25 MCG/ACT What is the RX # from the faxed refill? na How does patient take this med? Inhale into lungs for as needed daily for wheezing. What Pharmacy did the fax come from: [facility] fax #: [phone] [employer] Information from fax: What Prescription Plan does the patient have? na documented in this encounter Plan of Treatment Not on file documented as of this encounter Visit Diagnoses Not on filedocumented in this encounter Care Teams Speck Dyer Relationship Specialty Start Date End Date Cuco Weller MD [address] [place] [address] PCP - General Internal Medicine 03/30/17 documented as of this encounter
--- OUTSIDE RECORDS SUMMARY | 2024-12-20 14:52 | XMS_ITS | Encounter Summary ---
Author Organization [facility] Address [address] [place] [address] Care Team Providers Care Technicians And Trades Workers Name Role Phone Cuco Weller MD Primary Care Provider [phone] [phone] Encounter Details Date Type Department Care Team Description 07/10/2021 Pt. Non Urgent Medical Question Adult Medicine [address] [address] Cuco Weller MD [address] [place] [address] Social History Tobacco Use Types Packs/Day Years [...] Telephone Encounter - Cuca Snell M.A. - 07/10/2021 12:44 PM EDTFrom: Dolly Hoyt To: Funmi Weller Sent: 07/10/2021 12:27 PM EDT Subject: Referral I was wondering if Dr Weller could put in another request for a fererral for a neurologist. He???s put in two all ready and I haven???t heard from anyone yet. Thank you documented in this encounter Plan of Treatment Not on file documented as of this encounter Visit Diagnoses Not on filedocumented in this encounter Care Teams Technicians And Trades Workers Relationship Specialty Start Date End Date Cuco Weller MD [address] [place] [address] PCP - General Internal Medicine 03/30/17 documented as of this encounter
--- OUTSIDE RECORDS SUMMARY | 2024-12-20 14:52 | XMS_ITS | Encounter Summary ---
Author Organization [facility] Address [address] [place] [address] Care Team Providers Care Bdr Name Role Phone Fernando Stahl MD Primary Care Provider Unavail [facility] Cuco Weller MD Primary Care Provider [phone] [phone] Encounter Details Date Type Department Care Team Description 02/05/2017 [facility] Medical Records [address] [place] [address] Abstract, Provider Social History Tobacco Use Types [...] on filedocumented in this encounter Care Teams Bdr Relationship Specialty Start Date End Date Fernando Stahl MD PCP - General 02/14/03 03/29/17 Cuco Weller MD [address] [place] [address] PCP - General Internal Medicine 03/30/17 documented as of this encounter
--- OUTSIDE RECORDS SUMMARY | 2024-12-20 14:52 | XMS_ITS | Encounter Summary ---
Author Organization [facility] Address [address] [place] [address] Care Team Providers Care Car Worker Helper Name Role Phone Cuco Weller MD Primary Care Provider [phone] [phone] Reason for Visit * Reason Comments E-prescribe Rx Request Encounter Details Date Type Department Care Team Description 04/11/2022 Refill Adult Medicine [address] [address] Grisel Fletcher, ASSISTED LIVING NURSING DIRECTOR [address] [place] [address] E-prescribe Rx Request Social History Tobacco Use [...] encounter Miscellaneous Notes * Telephone Encounter - Alesia Barajas - 04/11/2022 2:11 PM EST Last office visit Yesterday Lab Results Component Value Date HGBA1C 7.3 01/07/2022 MALBUR 12.2 10/08/2021 MALBCR 8.8 10/08/2021 CHOL 151 01/07/2022 LDL 70 01/07/2022 HDL 53 01/07/2022 TRIG 140 01/07/2022 GLU 183 10/08/2021 CREAT 0.79 10/08/2021 * Telephone Encounter - Mary Kay Oliveros - 04/11/2022 9:55 AM EST Patient would like script to be: E-PRESCRIBED/FAXED TO PHARMACY WHEN WAS THE PATIENT'S LAST APPOINTMENT IN ADULT MEDICINE? 04/10/22 WHEN WAS THE LAST TIME THE PATIENT SAW THEIR PCP? 01/07/22 Does patient have an upcoming appointment? Yes [...] N/A Patients current insurance carrier is: Payor: [facility] FFS / Plan: [facility] / Product Type: MEDICAID RISK documented in this encounter Plan of Treatment Not on file documented as of this encounter Visit Diagnoses Diagnosis Periodic limb movement sleep disorder Periodic limb movement disorder documented in this encounter Care Teams Car Worker Helper Relationship Specialty Start Date End Date Cuco Weller MD [address] [place] [address] PCP - General Internal Medicine 03/30/17 documented as of this encounter
--- OUTSIDE RECORDS SUMMARY | 2024-12-20 14:52 | XMS_ITS | Encounter Summary ---
Author Organization [facility] Address [address] [place] [address] Care Team Providers Care Supervisor Rice Milling Name Role Phone Cuco Weller MD Primary Care Provider [phone] [phone] Encounter Details Date Type Department Care Team Description 11/22/2021 Helper Animal Laboratory Report Medical Records [address] [place] [address] [facility] [address] [place] [address] Social History Tobacco Use Types Packs/Day Years [...] filedocumented in this encounter Care Teams Supervisor Rice Milling Relationship Specialty Start Date End Date Cuco Weller MD [address] [place] [address] PCP - General Internal Medicine 03/30/17 documented as of this encounter
--- OUTSIDE RECORDS SUMMARY | 2024-12-20 14:52 | XMS_ITS | Encounter Summary ---
Author Organization [facility] Address [address] [place] [address] Care Team Providers Care Limited Radiology Technician Name Role Phone Fernando Stahl MD Primary Care Provider Unavail able Cuco Weller MD Primary Care Provider +1 -[phone] Encounter Details Date Type Department Care Team Description 03/11/2016 [facility] Medical Records [address] [place] [address] Abstract, Provider Social History Tobacco Use Types [...] on filedocumented in this encounter Care Teams Limited Radiology Technician Relationship Specialty Start Date End Date Fernando Stahl MD PCP - General 02/14/03 03/29/17 Cuco Weller MD [address] [place] [address] PCP - General Internal Medicine 03/30/17 documented as of this encounter
--- OUTSIDE RECORDS SUMMARY | 2024-12-20 14:52 | XMS_ITS | Encounter Summary ---
Author Organization [facility] Address [address] [place] [address] Care Team Providers Care Anesthesia Assistant Name Role Phone Cuco Weller MD Primary Care Provider [phone] -[phone] Reason for Visit * Reason Comments E-prescribe Rx Request Encounter Details Date Type Department Care Team Description 03/23/2022 Refill Adult Medicine [address] [address] Grisel Fletcher, REWORKER [address] [place] [address] E-prescribe Rx Request Social History Tobacco Use [...] N/A Patients current insurance carrier is: Payor: [facility] FFS / Plan: [facility] / Product Type: MEDICAID RISK documented in this encounter Plan of Treatment Not on file documented as of this encounter Visit Diagnoses Not on filedocumented in this encounter Care Teams Anesthesia Assistant Relationship Specialty Start Date End Date Cuco Weller MD [address] [place] [address] PCP - General Internal Medicine 03/30/17 documented as of this encounter
--- OUTSIDE RECORDS SUMMARY | 2024-12-20 14:52 | XMS_ITS | Encounter Summary ---
Author Organization [facility] Address [address] [place] [address] Care Team Providers Care Window Shade Cutter Name Role Phone Fernando Stahl MD Primary Care Provider Unavail able Cuco Weller MD Primary Care Provider [phone] -[phone] Reason for Visit * Reason Onset Date Comments Faxed Order 12/30/2016 Encounter Details Date Type Department Care Team Description 12/30/2016 Telephone Adult Medicine - [place] [address] [place] [address] Fernando Stahl MD Faxed Order Social History Tobacco Use Types Packs/Day Years [...] encounter Miscellaneous Notes * Telephone Encounter - Vishal Gero - 12/30/2016 12:13 PM EDT Received faxed order from [facility]. Please Review, sign, date, and fax back. Placed in bin documented in this encounter Plan of Treatment Not on file documented as of this encounter Visit Diagnoses Not on filedocumented in this encounter Care Teams Window Shade Cutter Relationship Specialty Start Date End Date Fernando Stahl MD PCP - General 02/14/03 03/29/17 Cuco Weller MD [address] [place] [address] PCP - General Internal Medicine 03/30/17 documented as of this encounter
--- OUTSIDE RECORDS SUMMARY | 2024-12-20 14:53 | XMS_ITS | Encounter Summary ---
Author Organization [facility] Address [address] [place] [address] Care Team Providers Care Forming Yardage Control Operator Name Role Phone Cuco Weller MD Primary Care Provider [phone] -[phone] Encounter Details Date Type Department Care Team Description 09/30/2021 Pt. Non Urgent Medical Question Adult Medicine [address] [id number] Cuco Weller MD [address] [place] [address] Social History Tobacco Use Types Packs/Day Years [...] encounter Miscellaneous Notes * Telephone Encounter - Liliana Castillo M.A. - 10/01/2021 8:43 AM EDTFrom: Dolly Hoyt To: Funmi Weller Sent: 09/30/2021 6:10 PM EDT Subject: Med refill Could the Dr please call in my prescription for aspirin? I have an appointment for a med check on the Thank you documented in this encounter Plan of Treatment Not on file documented as of this encounter Visit Diagnoses Not on filedocumented in this encounter Care Teams Forming Yardage Control Operator Relationship Specialty Start Date End Date Cuco Weller MD [address] [place] [address] PCP - General Internal Medicine 03/30/17 documented as of this encounter
--- OUTSIDE RECORDS SUMMARY | 2024-12-20 14:53 | XMS_ITS | Encounter Summary ---
Author Organization [facility] Address [address] [place] [address] Care Team Providers Care Export Clerk Name Role Phone Cuco Weller MD Primary Care Provider [phone] [phone] Encounter Details Date Type Department Care Team Description 12/21/2023 Orders Only Medical Records [address] [place] [address] Konstantin Sutton MD Social History Tobacco Use [...] on filedocumented in this encounter Care Teams Export Clerk Relationship Specialty Start Date End Date Cuco Weller MD [address] [place] [address] PCP - General Internal Medicine 03/30/17 documented as of this encounter
--- OUTSIDE RECORDS SUMMARY | 2024-12-20 14:53 | XMS_ITS | Encounter Summary ---
Author Organization [facility] Address [address] [place] [address] Care Team Providers Care Hosiery Bagger Name Role Phone Fernando Stahl MD Primary Care Provider Unavail [facility] Cuco Weller MD Primary Care Provider [phone] -[phone] Encounter Details Date Type Department Care Team Description 03/30/2006 [facility] Medical Records [address] [place] [address] Dilan Kerr Social History Tobacco Use Types [...] on filedocumented in this encounter Care Teams Hosiery Bagger Relationship Specialty Start Date End Date Fernando Stahl MD PCP - General 02/14/03 03/29/17 Cuco Weller MD [address] [place] [address] PCP - General Internal Medicine 03/30/17 documented as of this encounter
--- OUTSIDE RECORDS SUMMARY | 2024-12-20 14:53 | XMS_ITS | Encounter Summary ---
Author Organization [facility] Address [address] [place] [address] Care Team Providers Care Bass Singer Name Role Phone Fernando Stahl MD Primary Care Provider Unavail able Cuco Weller MD Primary Care Provider +1 -[phone] Encounter Details Date Type Department Care Team Description 05/01/2010 Metal Sander Report Medical Records [address] [place] [address] Kimi Pedro Social History Tobacco Use Types [...] on filedocumented in this encounter Care Teams Bass Singer Relationship Specialty Start Date End Date Fernando Stahl MD PCP - General 02/14/03 03/29/17 Cuco Weller MD [address] [place] [address] PCP - General Internal Medicine 03/30/17 documented as of this encounter
--- OUTSIDE RECORDS SUMMARY | 2024-12-20 14:53 | XMS_ITS | Encounter Summary ---
Author Organization [facility] Address [address] [place] [address] Care Team Providers Care Rail Transportation Operator Name Role Phone Cuco Weller MD Primary Care Provider +1 [phone] Encounter Details Date Type Department Care Team Description 01/20/2024 Telephone Gastroenterology - [address] [place] [phone] Himanshu Ram PA-C Social History Tobacco Use Types Packs/Day Years [...] encounter Miscellaneous Notes * Telephone Encounter - Sydni Russ - 01/20/2024 8:56 AM EDT Mailed letter to remind patient to have fasting labs and ultrasound. * Telephone Encounter - Himanshu Ram PA-C - 01/20/2024 7:46 AM EDT Fatty liver needs labs and ultrasound documented in this encounter Plan of Treatment Not on file documented as of this encounter Results * (ABNORMAL) CHG BLOOD COUNT COMPLETE AUTO&AUTO DIFRNTL WBC (02/03/2024 10:59 AM EDT) Pathologist [facility] WHITE BLOOD COUNT 10.3 4.8 - 10.8 x10-3/uL 02/03/2024 2:[address] [facility] RED BLOOD COUNT 5.4(H) 3.8 - 4.8 x10-6/uL 02/03/2024 2:03 PM EDT [facility] Hemoglobin 14.0 11.5 - 16.0 g/dL 02/03/2024 2:03 PM EDT [facility] Hematocrit 45.8 35 - 47 % 02/03/2024 2:03 PM EDT [facility] MEAN CORPUSCULAR VOLUME 84.7 79 - 98 fL 02/03/2024 2:03 PM EDT [facility] MEAN CORPUSCULAR HEMOGLOBIN 25.9(L) 27 - 32 pg 02/03/2024 2:03 PM EDT [facility] MEAN CORPUSCULAR HGB CONC 30.6(L) 32 - 37 g/dL 02/03/2024 2:03 PM EDT [facility] RED CELL DISTRIBUTION WIDTH 17.4(H) 11 - 15 % 02/03/2024 2:03 PM EDT [facility] PLT COUNT 315 130 - 400 x10-3/uL 02/03/2024 2:03 PM EDT [facility] MEAN PLATELET VOLUME 10.8 7 - 11 fL 02/03/2024 2:03 PM EDT [facility] NRBC % AUTO 0.0 <1 % 02/03/2024 2:03 PM EDT [facility] NEUTROPHILS % 62.9 % 02/03/2024 2:03 PM EDT [facility] LYMPH % 26.1 % 02/03/2024 2:03 PM EDT [facility] MONO % 5.0 % 02/03/2024 2:03 PM EDT [facility] EOS % 4.4 % 02/03/2024 2:03 PM EDT [facility] BASO % 0.8 % 02/03/2024 2:03 PM EDT [facility] IMMATURE GRANULOCYTES % 0.8 % 02/03/2024 2:03 PM EDT [facility] NRBC # AUTO 0.00 <0.1 x10-3/uL 02/03/2024 2:03 PM EDT [facility] NEUT # 6.48 1.5 - 7.0 x10-3/uL 02/03/2024 2:03 PM EDT [facility] LYMPH # 2.69 1 - 5.0 x10-3/uL 02/03/2024 2:03 PM EDT [facility] MONO # 0.51 0.2 - 1.0 x10-3/uL 02/03/2024 2:03 PM EDT [facility] EOS # 0.45 0 - 0.5 x10-3/uL 02/03/2024 2:03 PM EDT [facility] BASO # 0.08 0 - 0.2 x10-3/uL 02/03/2024 2:03 PM EDT [facility] IMMATURE GRANULOCYTES # 0.08(H) 0 - 0.03 x10-3/uL 02/03/2024 2:03 PM EDT [facility] 02/03/2024 10:5 9 AM EDT 02/03/2024 11:00 AM EDT Narrative [facility] - 02/03/2024 2:03 PM EDT Release to patient->Immediate Himanshu Ram PA-C LAB [facility] * (ABNORMAL) FIBROSURE (02/03/2024 10:59 AM EDT) [id number] 178 106 - 279 mg/dL 02/10/2024 7:42 PM EDT [facility] HAPTOGLOBIN 297(A) 43 - 212 mg/dL 02/10/2024 7:42 PM EDT [facility] APOLIPOPROTEIN A1 159 101 - 198 mg/dL 02/10/2024 7:42 PM EDT [facility] TOTAL BILIRUBIN 0.3 0.2 - 1.2 mg/dL 02/10/2024 7:42 PM EDT [facility] GAMMA GLUTAMYL TRANSPEPTIDASE 69(A) 3 - 65 U/L 02/10/2024 7:42 PM EDT [facility] ALANINE AMINOTRANSFERASE (ALT) 33(A) 6 - 29 U/L 02/10/2024 7:42 PM EDT [facility] LIVER FIBROSIS SCORE 0.10 01/25 7:42 PM EDT [facility] LIVER FIBROSIS STAGE F0 01/25 7:42 PM EDT [facility] LIVER FIBROSIS INTERPRETATION SEE NOTE 02/10/2024 7:42 PM EDT [facility] Comment: no fibrosis Fibro Test Score (f) Metavir Score f>=0 and f<=0.21 : F0 (no fibrosis) f>0.21 and f<=0.27 : F0-F1 (no fibrosis) f>0.27 and f<=0.31 : F1 (minimal fibrosis) f>0.31 and f<=0.48 : F1-F2 (minimal fibrosis) f>0.48 and f<=0.58 : F2 (moderate fibrosis) f>0.58 and f<=0.72 : F3 (advanced fibrosis) f>0.72 and f<=0.74 : F3-F4 (advanced fibrosis) f>0.74 and f<=1.00 : F4 (severe fibrosis) NECROINFLAMMATORY ACT SCORE 0.13 02/10/2024 7:42 PM EDT [facility] NECROINFLAMMATORY ACT GRADE A0 02/10/2024 7:42 PM EDT [facility] NECROINFLAMMATORY INTERPRET SEE NOTE 02/10/2024 7:42 PM EDT [facility] Comment: no activity ActiTest Score (a) Metavir Score a>=0 and a<=0.17 : A0 (no activity) a>0.17 and a<=0.29 : A0-A1 (no activity) a>0.29 and a<=0.36 : A1 (minimal activity) a>0.36 and a<=0.52 : A1-A2 (minimal activity) a>0.52 and a<=0.60 : A2 (significant activity) a>0.60 and a<=0.62 : A2-A3 (significant activity) a>0.62 and a<=1.00 : A3 (severe activity) LIVER FIBROSIS REFERENCE ID [id number] 02/10/2024 7:42 PM EDT [facility] LIVER FIBROSIS FOOTNOTE SEE NOTE 02/10/2024 7:42 PM EDT [facility] Comment: The reliability of results is dependent on compliance with the preanalytical and analytical conditions recommended by [employer]. The tests have to be deferred for: acute hemolysis, acute hepatitis, acute inflammation, extra hepatic cholestasis. The advice of a specialist should be sought for interpretation in chronic hemolysis and Gilbert's syndrome. The test interpretation is not validated in liver transplant patients. Isolated extreme values of one of the components should lead to caution in interpreting the results. In case of discordance between a biopsy result and a test, it is recommended to seek the advice of a specialist. The causes of these discordances could be due to a flaw of the test or to a flaw in the biopsy: i.e. a liver biopsy has a 33% variability rate for one fibrosis stage. FibroTest is interpretable for chronic hepatitis B and C, alcoholic and non alcoholic steatosis. ActiTest is interpretable for chronic hepatitis B and C. The performance characteristics have been determined by [facility]. It has not been cleared or approved by the U.S. Food and Drug Administration. Performance characteristics refer to the analytical performance of the test. Twist, the associated logo, Likva and all associated [employer] silverman are the registered trademarks of [employer]. All third green party silverman - (R) and (TM) - are the property of their respective owners. (C) [id number] [employer]. All rights reserved. Test Performed at: [facility] [address] [place] [id number] Meena Cortez MD, PhD, PATEL 02/03/2024 10:5 9 AM EDT 02/03/2024 10:59 AM EDT [facility] - 02/10/2024 7:42 PM EDT Release to patient->Immediate Himanshu Ram [facility] * (ABNORMAL) CHG COMPREHENSIVE METABOLIC PANEL (02/03/2024 10:59 AM EDT) GLUCOSE 174(H) 70 - 100 mg/dL 02/03/2024 4:44 PM EDT [facility] Comment:Reference range appl icable to fasting specimens only Blood Urea Nitrogen 10 5 - 25 mg/dL 02/03/2024 4:44 PM EDT [facility] CREAT 0.67 0.5 - 1.1 mg/dL 02/03/2024 4:44 PM EDT [facility] GLOMERULAR FILTRATION RATE 100 >60 02/03/2024 4:44 PM EDT [facility] Comment: This eGFR result was calculated using the CKD-EPI 2020 Creatinine Equation NA 138 135 - 145 mEq/L 02/03/2024 4:44 PM EDT [facility] K 4.5 3.5 - 5.5 mmol/L 02/03/2024 4:44 PM EDT [facility] CL 103 96 - 110 mmol/L 02/03/2024 4:44 PM EDT [facility] CARBON DIOXIDE (CO2) 29 21 - 32 mmol/L 02/03/2024 4:44 PM EDT [facility] ANION GAP 6 3 - 11 02/03/2024 4:44 PM EDT [facility] CALCIUM 9.5 8.5 - 10.5 mg/dL 02/03/2024 4:44 PM EDT [facility] Albumin 3.9 3.2 - 5.0 G/dL 02/03/2024 4:44 PM EDT [facility] TOTAL PROTEIN (TP) 7.6 6.0 - 8.0 G/dL 02/03/2024 4:58 PM EDT [facility] BILIRUBIN TOTAL 0.3 0.0 - 1.4 mg/dL 02/03/2024 4:58 PM EDT [facility] SGOT 17 10 - 42 U/L 02/03/2024 4:58 PM EDT [facility] SGPT 47 10 - 60 U/L 02/03/2024 4:58 PM EDT [facility] ALK PHOS 175(H) 42 - 121 U/L 02/03/2024 4:58 PM EDT [facility] 02/03/2024 10:5 9 AM EDT 02/03/2024 10:59 AM EDT Narrative [facility] - 02/03/2024 4:58 PM EDT Release to patient->Immediate Himanshu Ram PA-C [facility] * (ABNORMAL) CHG LIPID PANEL (02/03/2024 10:59 AM EDT) Cholesterol 178 0 - 200 mg/dL 02/03/2024 4:44 PM EDT [facility] TRIGLYCERIDES 159(H) 0 - 150 mg/dL 02/03/2024 4:58 PM EDT [facility] HDL CHOLESTEROL 51 >40 mg/dL 4:58 PM EDT [facility] LDL CALCULATED 96 0 - 100 mg/dL 02/03/2024 4:58 PM EDT [facility] TC-HDLC RATIO 3.5 0 - 4.4 mg/dL 02/03/2024 4:58 PM EDT [facility] 02/03/2024 10:5 9 AM EDT 02/03/2024 10:59 AM EDT Narrative [facility] - 02/03/2024 4:58 PM EDT Release to patient->Immediate Himanshu Ram PA-C [facility] documented in this encounter Visit Diagnoses Diagnosis Fatty liver- Primary Other chronic nonalcoholic liver disease Fatty liver Other chronic nonalcoholic liver disease Type 2 diabetes mellitus with hyperglycemia, without long-term current use of insulin (HCC) documented in this encounter Care Teams Rail Transportation Operator Relationship Specialty Start Date End Date Cuco Weller MD [address] [place] [address] PCP - General Internal Medicine 03/30/17 documented as of this encounter
--- OUTSIDE RECORDS SUMMARY | 2024-12-20 14:53 | XMS_ITS | Encounter Summary ---
Author Organization [facility] Address [address] [place] [address] Care Team Providers Care Remote Sensing Advisor Name Role Phone Cuco Weller MD Primary Care Provider [phone] [phone] Encounter Details Date Type Department Care Team Description 07/13/2017 Pt. Non Urgent Medical Question Adult Medicine - [address] [address] Cuco Weller MD [address] [place] [address] Social History Tobacco Use Types Packs/Day Years [...] Progress Notes * Lucy Lockhart M.A. - 07/13/2017 2:35 PM EDTFrom: Dolly Hoyt To: Cuco Weller MD Sent: 07/13/2017 2:34 PM EDT Subject: Refi!l I just switched DR's, haven't seen him yet but I have an appointment next month. I need a refill for pantoprazole 40 mg Thanks, Dolly documented in this encounter Plan of Treatment Not on file documented as of this encounter Visit Diagnoses Not on filedocumented in this encounter Care Teams Remote Sensing Advisor Relationship Specialty Start Date End Date Cuco Weller MD [address] [place] [address] PCP - General Internal Medicine 03/30/17 documented as of this encounter
--- OUTSIDE RECORDS SUMMARY | 2024-12-20 14:53 | XMS_ITS | Encounter Summary ---
Author Organization [facility] Address [address] [place] [address] Care Team Providers Care Patient Accounts Clerk Name Role Phone Cuco Weller MD Primary Care Provider [phone] Reason for Visit * Reason Comments E-prescribe Rx Request Encounter Details Date Type Department Care Team Description 01/18/2024 Refill Adult Medicine [address] [id number] Cuco Weller MD [address] [place] [address] E-prescribe Rx Request Social History Tobacco Use [...] N/A Patients current insurance carrier is: Payor: [facility] FFS / Plan: [employer] / Product Type: MEDICAID RISK documented in this encounter Plan of Treatment Not on file documented as of this encounter Visit Diagnoses Diagnosis Type 2 diabetes mellitus without complications (HCC) Type II or unspecified type diabetes mellitus without mention of complication, not stated as uncontrolled documented in this encounter Care Teams Patient Accounts Clerk Relationship Specialty Start Date End Date Cuco Weller MD [address] [place] [address] PCP - General Internal Medicine 03/30/17 documented as of this encounter
--- OUTSIDE RECORDS SUMMARY | 2024-12-20 14:53 | XMS_ITS | Encounter Summary ---
Author Organization [facility] Address [address] [place] [address] Care Team Providers Care Regulator Mechanic Name Role Phone Cuco Weller MD Primary Care Provider [phone] [phone] Reason for Visit * Reason Comments E-prescribe Rx Request Encounter Details Date Type Department Care Team Description 04/04/2017 Refill Adult Medicine - [address] [address] Alyssa Amaro PA-C [address] [place] [address] E-prescribe Rx Request Social History Tobacco Use [...] Telephone Encounter - Cuco Weller MD - 04/06/2017 9:33 AM EST Refill signed * Telephone Encounter - Yessi Lozano M.A. - 04/06/2017 9:21 AM EST Last office visit: 02.17.17 Lab Results Component Value Date HGBA1C 6.8 12/10/2016 CHOL 156 07/31/2016 LDL 85 07/31/2016 HDL 43 07/31/2016 TRIG 140 07/31/2016 GLU 121 03/24/2017 CREAT 0.8 03/24/2017 * Telephone Encounter - Mary Kay Oliveros - 04/04/2017 10:29 AM EST Patient would like script to be: E-PRESCRIBED/FAXED TO PHARMACY WHEN WAS THE PATIENT'S LAST APPOINTMENT IN ADULT MEDICINE? 02/17/17 WHEN WAS THE LAST TIME THE PATIENT SAW THEIR PCP? Has not seen pcp Does patient have an upcoming appointment? no (THE MEDICATION REQUESTED IS ON THE MED LIST ABOVE) All of the medications requested were on the CURRENT MEDS list Did you check the Pharmacy information above?: YES Patient wants: 90 -day supply Is this a mail order prescription request ? NO Patients current insurance carrier is: Payor: [employer] / Plan: [employer] $0 [id number] / Product Type: MEDICAID [id number] documented in this encounter Plan of Treatment Not on file documented as of this encounter Visit Diagnoses Not on filedocumented in this encounter Care Teams Regulator Mechanic Relationship Specialty Start Date End Date Cuco Weller MD [address] [place] [address] PCP - General Internal Medicine 03/30/17 documented as of this encounter
--- OUTSIDE RECORDS SUMMARY | 2024-12-20 14:53 | XMS_ITS | Encounter Summary ---
Author Organization [facility] Address [address] [place] [address] Care Team Providers Care Driftman Name Role Phone Fernando Stahl MD Primary Care Provider Unavail able Cuco Weller MD Primary Care Provider [phone] Reason for Visit * Reason Onset Date Comments Medication 05/08/2011 Lipitor Encounter Details Date Type Department Care Team Description 05/08/2011 Telephone Adult Medicine B - [place] [address] [place] [address] Fernando Stahl MD Medication (Lipitor) Social History Tobacco Use Types Packs/Day Years [...] encounter Miscellaneous Notes * Telephone Encounter - Luicna Ferrell L.P.N. - 05/08/2011 9:50 AM EST Insurance not covering lipitor She is on 10 mg set up for simvastatin Please d/c lipitor if agreeable with simvastatin and call pt * Telephone Encounter - Veronica Lambert - 05/08/2011 9:33 AM EST What is the name of the medication patient is having a problem with?: LIPITOR What is the problem?: Pt calling- asking for another med that would be covered by her insurance. THis one is not covered. Please call Is the patient calling about the problem? YES If the patient is not the caller who is? Is this a NEW medication?: YES How long has the patient been taking this medication? na Who prescribed this medication for the patient? DR. Stahl Who is patients PCP?: Dr. Stahl Payor: [facility] [place] [employer] Plan: [facility] TYPE II $10/$18 [id number] Product Type: HMO Gde-vpt-Larscib documented in this encounter Plan of Treatment Not on file documented as of this encounter Visit Diagnoses Not on filedocumented in this encounter Care Teams Driftman Relationship Specialty Start Date End Date Fernando Stahl MD PCP - General 02/14/03 03/29/17 Cuco Weller MD [address] [place] [address] PCP - General Internal Medicine 03/30/17 documented as of this encounter
--- OUTSIDE RECORDS SUMMARY | 2024-12-20 14:53 | XMS_ITS | Encounter Summary ---
Author Organization [facility] Address [address] [place] [address] Care Team Providers Care Salsa Dance Instructor Name Role Phone Cuco Weller MD Primary Care Provider [phone] Reason for Visit * Reason Onset Date Comments DME Request 10/02/2022 Encounter Details Date Type Department Care Team Description 10/02/2022 Telephone Pulmonology - [address] [place] [address] Harry Gong MD DME Request Social History Tobacco Use Types Packs/Day [...] Notes * Telephone Encounter - Najma Stephen - 10/02/2022 10:19 AM EDT Oxygen order faxed to [facility] documented in this encounter Plan of Treatment Not on file documented as of this encounter Visit Diagnoses Not on filedocumented in this encounter Care Teams Salsa Dance Instructor Relationship Specialty Start Date End Date Cuco Weller MD [address] [place] [address] PCP - General Internal Medicine 03/30/17 documented as of this encounter
--- OUTSIDE RECORDS SUMMARY | 2024-12-20 14:53 | XMS_ITS | Encounter Summary ---
Author Organization [facility] Address [address] [place] [address] Care Team Providers Care Health Promotion Educator Name Role Phone Fernando Stahl MD Primary Care Provider Unavail able Cuco Weller MD Primary Care Provider [phone] [phone] Encounter Details Date Type Department Care Team Description 06/28/2010 Permaculture Contractor Report Medical Records [address] [place] [address] Saeed Ramirez Social History Tobacco Use Types Packs/Day Years [...] on filedocumented in this encounter Care Teams Health Promotion Educator Relationship Specialty Start Date End Date Fernando Stahl MD PCP - General 02/14/03 03/29/17 Cuco Weller MD [address] [place] [address] PCP - General Internal Medicine 03/30/17 documented as of this encounter
--- OUTSIDE RECORDS SUMMARY | 2024-12-20 14:53 | XMS_ITS | Encounter Summary ---
Author Organization [facility] Address [address] [place] [address] Care Team Providers Care Program Associate Name Role Phone Fernando Stahl MD Primary Care Provider Unavail [facility] Cuco Weller MD Primary Care Provider [phone] -[phone] Encounter Details Date Type Department Care Team Description 01/22/2006 Hospital Medical Records [address] [place] [address] YohanPoolChris Social History Tobacco Use Types Packs/Day [...] on filedocumented in this encounter Care Teams Program Associate Relationship Specialty Start Date End Date Fernando Stahl MD PCP - General 02/14/03 03/29/17 Cuco Weller MD [address] [place] [address] PCP - General Internal Medicine 03/30/17 documented as of this encounter
--- OUTSIDE RECORDS SUMMARY | 2024-12-20 14:53 | XMS_ITS | Encounter Summary ---
Author Organization [facility] Address [address] [place] [address] Care Team Providers Care High School Vice Principal Name Role Phone Cuco Weller MD Primary Care Provider [phone] Reason for Visit * Reason Onset Date Comments Prior Authorization 02/15/2024 Gastric empt dorota study Encounter Details Date Type Department Care Team Description 02/15/2024 Telephone Adult Medicine [address] [address] Himanshu Ram PA-C Prior Authorization (Gastric emptying study ) Social [...] Miscellaneous Notes * Telephone Encounter - Kisha Uribe - 02/15/2024 3:40 PM EDT Wellsense no auth required Order faxed to CCC dept at [facility]. They will contact patient and schedule appt. Notification letter sent documented in this encounter Plan of Treatment Not on file documented as of this encounter Visit Diagnoses Not on filedocumented in this encounter Care Teams High School Vice Principal Relationship Specialty Start Date End Date Cuco Weller MD [address] [place] [address] PCP - General Internal Medicine 03/30/17 documented as of this encounter
--- OUTSIDE RECORDS SUMMARY | 2024-12-20 14:53 | XMS_ITS | Encounter Summary ---
Author Organization [facility] Address [address] [place] [address] Care Team Providers Care Occupational Hygienist Name Role Phone Cuco Weller MD Primary Care Provider [phone] [phone] Encounter Details Date Type Department Care Team Description 10/20/2022 Orders Only [facility] Thoracic Surgery [place] [address] [facility] [address] [place] [phone] Quoc Jaramillo MD [address] [facility] [address] [place] [address] Personal history of tobacco use, presenting hazards [...] cancer documented in this encounter Care Teams Occupational Hygienist Relationship Specialty Start Date End Date Cuco Weller MD [address] [place] [address] PCP - General Internal Medicine 03/30/17 documented as of this encounter
--- OUTSIDE RECORDS SUMMARY | 2024-12-20 14:53 | XMS_ITS ---
Author Name [facility] Organization Unknown Care Team Organization Name Specialty Phone Email Start Date End [facility] Cuco Weller Primary Care 03/04/2022 12/14/2023
--- OUTSIDE RECORDS SUMMARY | 2024-12-20 14:53 | XMS_ITS | Encounter Summary ---
Author Organization [facility] Address [address] [place] [address] Care Team Providers Care Borematic Machine Operator Name Role Phone Cuco Weller MD Primary Care Provider [phone] [phone] Encounter Details Date Type Department Care Team Description 09/16/2017 Orders Only Adult Medicine [address] [address] Cuco Weller MD [address] [place] [address] Special screening for malignant neoplasms, colon (Primary [...] Primary documented in this encounter Care Teams Borematic Machine Operator Relationship Specialty Start Date End Date Cuco Weller MD [address] [place] [address] PCP - General Internal Medicine 03/30/17 documented as of this encounter
--- OUTSIDE RECORDS SUMMARY | 2024-12-20 14:53 | XMS_ITS | Clinical Summary ---
Author Organization [facility] Address [address] [place] [address] Care Team Providers Care Reed Or Wind Instrument Tuner Name Role Phone Cuco Weller MD Primary Care Provider [phone] Allergies Active Allergy Reactions Severity Noted Date Comments Atorvastatin Myalgia and Joint Pain 07/15/2023 Ibuprofen Micronized Numbness, tingling or swelling of the lips, tongue or mouth,Hives/Urticaria 06/24/2005 Simvastatin Myalgia and Joint Pain 05/15/2015 Medications Medication Sig Dispensed Refills Start Date End Date Status lamotrigine (LAMICTAL) 200 MG tablet Take 1 Tablet by mouth every morning. (takes a 100 mg tab in the evening) 0 08/10/2013 Active levetiracetam (KEPPRA) 500 MG tablet Take 1 tablet by mouth 2 times daily. 180 tablet 0 06/11/2021 Active lamotrigine (LAMICTAL) 100 MG tablet Take 1 Tablet by mouth every evening. (Takes a 200 mg tab in AM) 0 12/11/2022 Active FreeStyle Lancets [facility] Use to test sugars daily Dx: E11.65, Z79.4 200 Each 1 01/26/2023 Active Etanercept 50 MG/ML Solution Prefilled Syringe Inject 50 mg into the skin every 7 days. 0 Active metformin (GLUCOPHAGE-XR) 500 MG 24 hr tablet TAKE 2 TABLETS BY MOUTH TWICE A DAY 360 Tablet 1 08/20/2023 Active quetiapine (SEROQUEL) 50 MG tablet Take 1 Tablet by mouth at bedtime. 0 Active Combivent Respimat 20-100 MCG/ACT Aero Soln INHALE 1 PUFF BY MOUTH INTO THE LUNGS 4 TIMES A DAY NEEDED FOR WHEEZING 0 08/15/2023 Active duloxetine (CYMBALTA) 30 MG capsule TAKE 1 CAPSULE BY MOUTH EVERY MORNING INCREASED DOSE 0 10/13/2023 Active pantoprazole (PROTONIX) 40 MG tabletIndications:Hea rt burn TAKE 1 TABLET BY MOUTH EVERY DAY 90 Tablet 1 11/13/2023 Active glipiZIDE (GLUCOTROL) 5 MG 24 hr tablet TAKE 2 TABLETS BY MOUTH TWICE A DAY 360 Tablet 1 11/13/2023 Active Ascorbic Acid (Vitamin C) 500 MG Cap Take by mouth. 0 Active Aspirin 81 MG Cap Take by mouth. 0 Act arlyn Cholecalciferol (Vitamin D) 50 MCG (2000 UT) Cap Take by mouth. 0 Active Ipratropium-Albuterol 20-100 MCG/ACT Aero Soln Inhale into the lungs. 0 Active triamcinolone acetonide (KENALOG-40) 40 MG/ML injectionIndications: Trigger thumb of left hand 1 mL by Other route once for 1 dose. 0.5 mL 0 11/23/2023 Active Ferrous Sulfate (IRON OR) Take 65 mg by mouth every other day. 0 Active glucose monitoring kit (FREESTYLE) monitoring kit To test sugars once daily Dx: E11.65 1 Kit 0 12/24/2023 Active ropinirole (REQUIP) 0.5 MG tabletIndications:Per iodic limb movement sleep disorder TAKE 1 TABLET BY MOUTH THREE TIMES A DAY 270 Tablet 0 12/31/2023 Active Empagliflozin 25 MG TabIndications:Type 2 diabetes mellitus without complications (HCC) TAKE 1 TABLET BY MOUTH EVERY DAY 90 Tablet 0 01/18/2024 Active [place]-3 Fatty Acids (Fish Oil) 1000 MG Cap Take 1 Capsule by mouth 2 times daily. 180 Capsule 0 01/29/2024 Active atorvastatin (LIPITOR) 10 MG tablet Take 1 Tablet by mouth daily. 30 Tablet 5 01/29/2024 Active Glucose Blood (FREESTYLE LITE) StripIndications:Type 2 diabetes mellitus without complication, without long-term current use of insulin (HCC) USE TO TEST SUGARS TWICE DAILY. 200 Strip 0 02/01/2024 Active Tiotropium [place] Monohydrate (Spiriva Respimat) 2.5 MCG/ACT Aero SolnIndications:Stage 3 severe COPD by GOLD classification ([facility]) Inhale 2.5 mcg into the lungs 2 times daily. 12 g 3 02/01/2024 Active ferrous sulfate 325 (65 Fe) MG tabletIndications:Low iron Take 1 Tablet by mouth every other day. 60 Tablet 0 02/09/2024 Active Active Problems Problem Noted Date Pancreatitis 11/27/2023 Overview: Recurrent in [id number] Trigger thumb of left hand 11/23/2023 MEHRDAD (obstructive sleep apnea) 12/30/2022 Last Assessment & Plan: Patient was diagnosed with obstructive sleep apnea years ago but he is using a CPAP New sleep study has been ordered. Rheumatoid arthritis 11/07/2022 Chronic hypoxemic respiratory failure Last Assessment & Plan: Hypoxemic respiratory failure secondary to stage III COPD. Stage 3 severe COPD by GOLD classificati on 05/27/2022 Last Assessment & Plan: 57-year-old woman with [...] program. Return to clinic in 4 months Periodic limb movement sleep disorder Overview: Sleep study 2012 (external) Type 2 diabetes mellitus wit h hyperglycemia, without long-term current use of insulin 12/10/2016 Pap smear of cervix with ASCUS, cannot e xclude HGSIL 12/02/2016 Overview: Pap 10/2016 - ASC-H, +HPV Colpo 12/30/16 - NEGATIVE Pap 10/2020 - ASCUS, positive HPV (16, 18, 45) Colpo 11/2020 - all biopsies negative Pap 03/18/22 - ASCUS, HPV pos (neg 16, 18, 45) Colpo 04/2022 - biopsy at 12:00 and ECC benign Obesity (BMI 30-39.9) 07/31/2016 History of colonic polyps 07/31/2016 Incidental pulmonary nodule, less than o r equal to 3mm 05/21/2016 Overview: CT chest 04/2017: No further radiographic follow-up is needed Last Assessment & Plan: Continue lung cancer screening screening every year. 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 Maryjo Mancia History of CVA (cerebrovascular accident ) 01/20/2008 Overview: Seema ([facility])Left Basal Ganglia, ?; aggrenox Abdominal pain, generalized 12/21/2006 Other convulsions 06/25/2005 Overview: Currently seeing Dr Frances (neurologist), last selit in the [facility] Daniel; Willis; David; Seema; Glenda; Alex;(Med side effects); Szr free for years Resolved Problems Problem Noted Date Resolved Date Seizure 07/07/2011 09/02/2017 Overview: Juan Daniel Schultz); David Immunizations Name Administration Dates Next Due COVID-19 (Pfizer) 08/01/2020,07/11/2020 Influenza (> 6 Months) 12/30/2018,01/19/2015,11/2010 Influenza Vaccine-preservati ve Free-quadrivalent 4 Years 02/03/2023,01/07/2022,01/30/2021,01/12 Influenza Vaccine-quadrivale nt 4 Years Plus 06/15/2018 PREVNAR 20 02/03/2023 Pneumoccoccal(Adult) Polysac charide PPSV23 09/02/2017 Shingrix (Patient reported) 10/18/2021 TD ([facility] S [facility] CHILDREN) 11/07/2022,12/02/2004 TETANUS/DIPTHERIA (ADULT) 12/02/2004 Tdap 06/23/2012 Family History Medical History Relation Name Comments Arthritis Father CHF Father Cholesterol Level Father Diabetes Maternal Grandmother Arthritis Mother hx RA Cholesterol Level Mother Diabetes Mother Relation Name Status Comments Father (Age 75) Maternal Grandmother Mother (Age 72) Social History Tobacco Use Types Packs/Day Years Used Date Smoking Tobacco: Former Cigarettes 0.8 46 0 04/27/1979 - 09/25/2022 Passive Smoke Exposure: Past Smokeless Tobacco: Never Tobacco Cessation:Counseling Given: Not Answered Comments:1 pack daily Alcohol Use Standard Drinks/Week [...] file Not on file Not on file Last Filed Vital Signs Vital Sign Reading Time Taken Comments Blood Pressure 166/66 02/15/2024 1:23 PM EDT Pulse 97 02/15/2024 1:23 PM EDT Temperature 36.4 C (97.6 F) 11/02/2023 11:14 AM EDT Respiratory Rate 14 11/27/2023 11:1 6 AM EDT Oxygen Saturation 98% 11/02/2023 11: 14 AM EDT with 2 Lof O2 Inhaled Oxygen Concentration - - Weight 91.9 kg (202 lb 9.6 oz) 02/15/2024 1:23 PM EDT Height 160 cm (5' 3 ) 02/15/2024 1:23 PM EDT Body Mass Index 35.89 02/15/2024 1:23 PM EDT Plan of Treatment Health Maintenance Due Date Last Done Comments SHINGLES VACCINE (2 of 2) 12/13/2021 10/18/2021 Lung Cancer Screening (Low D ose CT) 11/29/2023 11/28/2022, 11/22/2021, 11/22/2021, Additional history exists Covid-19 Vaccine (2022-2 4 season) 2023 08/01/2020, 07/11/2020 COLON CANCER SCREENING 02/10/2024 02/09/2019, 2018 DIABETES: ANNUAL URINE PROTE IN TEST (MICROALBUMIN) 04/13/2024 04/13/2023, 11/07/2022, 10/08/2021, Additional history exists BMI CHECK/ADVISE 04/27/2024 11/27/2023, 11/2023, 08/25/2023, Additional history exists DEPRESSION SCREENING/FOLLOWUP 04/27/2024, 01/07/2022, 10/08/2021, Additional history exists SOCIAL NEEDS SCREENING 04/27/2024 05/08/2022, 2021 DIABETES: BLOOD SUGAR CONTRO L TEST (HGBA1C) 05/05/2024 02/03/2024, 11/26/2023, 10/05/2023, Additional history exists MAMMOGRAM 09/13/2024 09/14/2023, 01/27, 09/27/2020, Additional history exists BASELINE HEALTH EXAM 40-64 11/07/202411/07, 01/13/2020 (Completed), 01/13/2020, Additional history exists DIABETES: ANNUAL FOOT EXAM 11/26/202411/26, 11/07/2022 (Completed), 06/28/2019, Additional history exists DIABETES: ANNUAL EYE EXAM 12/15/20242023, 12/10/2022, 11/18/2021, Additional history exists INFLUENZA (#1) 2024 02/03/2023, 12/26, 01/30/2021, Additional history exists DIABETES/HEART DISEASE: KOKO REZA CHOLESTEROL (LDL) 02/02/2025 02/03/2024, 09/30/2023, 08/18/2023, Additional history exists CERVICAL CANCER SCREENING 03/18/20252021, 11/06/2020, 11/20/2016, Additional history exists DTAP/TDAP/TD (3 - Td or Tdap) 11/07/2032, 06/23/2012, 12/02/2004 HEPATITIS C SCREENING Completed 08/23/2013 PNEUMOCOCCAL VACCINE FOR HIG H RISK PATIENTS Completed 02/03/2023, 09/02/2017 Care Teams Reed Or Wind Instrument Tuner Relationship Specialty Start Date End Date Cuco Weller MD [address] [place] [phone] PCP - General Internal Medicine 03/30/17
--- OUTSIDE RECORDS SUMMARY | 2024-12-20 14:53 | XMS_ITS | Encounter Summary ---
Author Organization [facility] Address [address] [place] [address] Care Team Providers Care Tour Production Supervisor Name Role Phone Cuco Weller MD Primary Care Provider [phone] Reason for Visit * Reason Comments E-prescribe Rx Request Encounter Details Date Type Department Care Team Description 10/01/2021 Refill Adult Medicine [address] [address] Jolie Benjamin PA-C E-prescribe Rx Request Social [...] Payor: [employer] / Plan: [employer] / Product Type: MEDICAID RISK documented in this encounter Plan of Treatment Not on file documented as of this encounter Visit Diagnoses Not on filedocumented in this encounter Care Teams Tour Production Supervisor Relationship Specialty Start Date End Date Cuco Weller MD [address] [place] [address] PCP - General Internal Medicine 03/30/17 documented as of this encounter
--- OUTSIDE RECORDS SUMMARY | 2024-12-20 14:53 | XMS_ITS | Encounter Summary ---
Author Organization [facility] Address [address] [place] [address] Care Team Providers Care Odd Piece Checker Name Role Phone Fernando Stahl MD Primary Care Provider [facility] Cuco Weller MD Primary Care Provider [phone] Encounter Details Date Type Department Care Team Description 06/12/2010 Gm Mobile Report Medical Records [address] [place], [place] [id number] [place] [address] Social History Tobacco Use Types Packs/Day Years [...] on filedocumented in this encounter Care Teams Odd Piece Checker Relationship Specialty Start Date End Date Fernando Stahl MD PCP - General 02/14/03 03/29/17 Cuco Weller MD [address] [place] [id number] PCP - General Internal Medicine 03/30/17 documented as of this encounter
--- OUTSIDE RECORDS SUMMARY | 2024-12-20 14:53 | XMS_ITS | Encounter Summary ---
Author Organization [facility] Address [address] [place] [address] Care Team Providers Care Inflated Pad Buffer Name Role Phone Cuco Weller MD Primary Care Provider [phone] Encounter Details Date Type Department Care Team Description 02/01/2024 Pt. Non Urgent Medical Question Pulmonology - [place] [address] [facility] [address] [place] [id number] Jayshree Mendoza, RENEWALS SPECIALIST [address] [facility] [address] [place] [address] Social History Tobacco Use Types [...] new prescription for combivent. My pharmacy is [facility] at [address] [place] [address]. The phone number is [phone]. Thank you very much documented in this encounter Plan of Treatment Not on file documented as of this encounter Visit Diagnoses Not on filedocumented in this encounter Care Teams Inflated Pad Buffer Relationship Specialty Start Date End Date Cuco Weller MD [address] [place] [id number] PCP - General Internal Medicine 03/30/17 documented as of this encounter
== END 2024-12-20 14:35 | disposition home or self-care (01) ==
LOC: HO.RHES 13:55
PROVIDERS: PCP Internal Medicine; Visit Provider Student in an Organized Health Care Education/Training Program
DX: M05.79 Rheumatoid arthritis with rheumatoid factor of multiple sites without organ or systems involvement (principal); M15.9 Polyosteoarthritis, unspecified; Z51.81 Encounter for therapeutic drug level monitoring; Z79.620 Long term (current) use of immunosuppressive biologic
CPT/HCPCS: 99213

== ENCOUNTER → 2024-12-20 13:54 | Outpatient (BNVA) | payer OTHER, SELFPAY | PROVIDERS: PCP Internal Medicine; Visit Provider Student in an Organized Health Care Education/Training Program | DX: M05.79 Rheumatoid arthritis with rheumatoid factor of multiple sites without organ or systems involvement (principal); M15.9 Polyosteoarthritis, unspecified | CPT/HCPCS: 99212 ==